=== PATIENT | male | born 1965 | race Two or more races ===

== ENCOUNTER 2024-11-01 09:20 | Inpatient (IN) | payer MEDICAID, OTHER ==
[~2024-11-01] VITALS: Ht 167.6 cm; Wt 76.4 kg
--- NOTE | 2024-11-01 09:35 | ED.PDOC ---
History of Present Illness HPI Comments 59 year old male PMHx CHF, CKF, liver disease, presents to the ED with a chief complaint of bilateral feet swelling onset 10 days. Per EMS, patient is form [facility], patient has been experiencing BLE swelling for the past 10 days. Patient also states he fell backwards this morning, was feeling weak with muscle spasms. Denies LOC, head injury, nausea, vomiting, diarrhea, fever, chills, cough, cold, congestion. No other symptoms or modifying factors present at this time. Time Seen by MD: 09:25 Reviewed Notes: Medications, Allergies Allergies: Coded Allergies: NO KNOWN ALLERGIES (Unverified , 11/01/24) Information Source: Patient, Emergency Med Personnel Severity: Moderate Timing: Days Duration: Since onset Prehospital treatment: None Past Medical History PAST MEDICAL HISTORY: CHF, CKF, Liver Surgical History: Denies all surgeries Family History Family History: Reviewed,noncontributory to illness, No family hx of Cancer, No family hx of DM, No family hx of Heart toyin, No family hx of HTN, No family hx ofKidney toyin, No family hx of Liver toyin, No family hx of Lung toyin, No family hx of Stroke Social History Smoker: Non-Smoker Alcohol: Denies ETOH Use Drugs: Denies Drug Use Lives In: Assisted Care Constitutional: denies: chills, diaphoresis, fatigue, fever, malaise, sweats, weakness, others EENTM: denies: blurred vision, double vision, ear bleeding, ear discharge, ear drainage, ear pain, ear ringing, eye pain, eye redness, hearing loss, mouth pain, mouth swelling, nasal discharge, nose bleeding, nose congestion, nose pain, photophobia, tearing, throat pain, throat swelling, voice changes, others Respiratory: denies: cough, hemoptysis, orthopnea, SOB at rest, shortness of breath, SOB with excertion, stridor, wheezing, others Cardiovascular: denies: chest pain, dizzy spells, diaphoresis, Dyspnea on exertion, edema, irregular heart beat, left arm pain, lightheadedness, palpitations, PND, syncope, others Gastrointestinal: denies: abdomen distended, abdominal pain, blood streaked bowels, constipated, diarrhea, dysphagia, difficulty swallowing, hematemesis, melena, nausea, poor appetite, poor fluid intake, rectal bleeding, rectal pain, vomiting, others Genitourinary: denies: burning, dysuria, flank pain, frequency, hematuria, incontinence, penile discharge, penile sore, pain, testicle pain, testicle swelling, urgency, others Neurological: denies: dizziness, fainting, headache, left sided numbness, left sided weakness, numbness, paresthesia, pre-existing deficit, right sided numbness, right sided weakness, seizure, speech problems, tingling, tremors, weakness, others Musculoskeletal: reports: others (BLE swelling); denies: back pain, gout, joint pain, joint swelling, muscle pain, muscle stiffness, neck pain Integumetry: denies: bruises, change in color, change in hair/nails, dryness, laceration, lesions, lumps, rash, wounds, others Allergic/Immunocompromised: denies: Difficulty Healing, Frequent Infections, Hives, Itching, others Hematologic/Lymphatic: denies: anemia, blood clots, easy bleeding, easy bruising, swollen glands, others Endocrine: denies: excessive hunger, excessive sweating, excessive thirst, excessive urination, flushing, intolerance to cold, intolerance to heat, unexp lained weight gain, unexplained weight loss, others Psychiatric: denies: anxiety, bipolar disorder, depression, hopeless, panic disorder, schizophrenia, sleepless, suicidal, others All Other Systems: Reviewed and Negative Physical Exam General Appearance: No Apparent Distress, Normal HEENT: Normal ENT Inspection, Pharynx Normal, TMs Normal Neck: Full Range of Motion, Non-Tender, Normal, Normal Inspection Respiratory: Chest Non-Tender, Lungs Clear, No Accessory Muscle Use, No Respiratory Distress, Normal Breath Sounds Cardiovascular: No Edema, No JVD, No Murmur, No Gallop, Normal Peripheral Pulse s, Regular Rate/Rhythm Breast Exam: Deferred Gastrointestinal: No Organomegaly, Non Tender, No Pulsatile Mass, Normal Bowel Sounds, Soft Genitalia: Deferred Pelvic: Deferred Rectal: Deferred Extremities: No calf tenderness, Normal capillary refill, Normal inspection, Normal range of motion, Non-tender, No pedal edema Musculoskeletal : Apperance: Normal Neurologic: Alert, epic cupid analyst II-XII nml as Tested, No Motor Deficits, Normal Affect, Normal Mood, No Sensory Deficits Cerebellar Function: Normal Reflexes: Normal Skin: Dry, Normal Color, Warm Lymphatic: No Adenopathy Was a procedure done? Was a procedure done?: No Differential Dx Considerations may include: ACS, viral syndrome, cardiac arrhythmia, infectious etiology, worsening CKD X-Ray, Labs, Meds, VS Vital Signs Date Time Temp Pulse Resp B/P (MAP) Pulse Ox O2 Delivery O2 Flow Rate FiO2 11/01/24 09:25 98.1 86 16 170/102 95 98.1 Lab Test 11/01/24 13:01 11/01/24 11:05 11/01/24 10:10 Range/Units Troponin I High Sensitivity Pending 36 32 </=54 ng/L White Blood Count 5.5 4.4-10.8 10^3/uL Red Blood Count 4.10 L 4.5-5.90 10^6/uL Hemoglobin 9.6 L 13.5-17.5 g/dL Hematocrit 30.2 L 41.0-53.0 % Mean Corpuscular Volume 73.7 L 80.0-100.0 fL Mean Corpuscular Hemoglobin 23.4 L 28.0-32.0 pg Mean Corpuscular Hemoglobin Concent 31.8 L 32.0-36.0 g/dL Red Cell Distribution Width 16.6 H 11.8-14.3 % Platelet Count 290 140-450 10^3/uL Mean Platelet Volume 7.4 6.9-10.8 fL Neutrophils (%) (Auto) 71.4 37.0-80.0 % Lymphocytes (%) (Auto) 13.3 10.0-50.0 % Monocytes (%) (Auto) 4.9 0.0-12.0 % Eosinophils (%) (Auto) 9.9 H 0.0-7.0 % Basophils (%) (Auto) 0.5 0.0-2.0 % Neutrophils # (Auto) 4.0 1.6-8.6 10 ^3/uL Lymphocytes # (Auto) 0.7 0.4-5.4 10 ^3/uL Monocytes # (Auto) 0.3 0-1.3 10 ^3/uL Eosinophils # (Auto) 0.6 0-0.8 10 ^3/uL Basophils # (Auto) 0 0-0.2 10 ^3/uL Nucleated Red Blood Cells 0.1 % Sodium Level 139 136-145 mmol/L Potassium Level 3.5 3.5-5.1 mmol/L Chloride Level 103 98-107 mmol/L Carbon Dioxide Level 28 20-31 mmol/L Anion Gap 8 5-15 Blood Urea Nitrogen 34 H 9-23 mg/dL Creatinine 2.65 H 0.700-1.30 mg/dL Glomerular Filtration Rate Calc 27 >90 mL/min BUN/Creatinine Ratio 12.8 10.0-20.0 Serum Glucose 101 74-106 mg/dL Calcium Level 9.0 8.7-10.4 mg/dL [place] [id number] Ph: [phone] DIAGNOSTIC IMAGING Diagnostic Imaging Report : [id number] Signed PATIENT: KERRI OCONNELL ACCT: [id number] UNIT: [id number] : 1965 LOC: ER ROOM / BED: / AGE / SEX: 59 / M ADM STATUS: REG ER SERVICE 4 ORDERING PHYSICIAN: YANY CHOI MD PROCEDURE(s): CXRP - CHEST PORTABLE REASON: weakness ORDER NUMBER(s): [id number], ACCESSION NUMBER(s): [id number] EXAM: XY CHEST PORTABLE Indication: weakness Technique: Single frontal view of the chest was obtained Comparison: None FINDINGS: Lines and Tubes: None Lungs: Small left pleural effusion and pulmonary vascular congestion. No pneumothorax. Cardiomediastinal contours: Unremarkable Bones: No acute osseous abnormality. IMPRESSION: Small left pleural effusion and pulmonary vascular congestion. ATED BY: SOLITARIO BUTLER MD DICTATED DATE/TIME: 11/01/24 1016 SIGNED BY: SOLITARIO BUTLER MD SIGNED DATE/TIME: 11/01/24 1016 CC: Time of 1ST Reevaluation: 09:55 Reevaluation 1ST: Unchanged Patient Education/Counseling: Diagnosis, Treatment, Prognosis Family Education/Counseling: No Family Present SEPSIS Sepsis Screen Physician Orders Urinalysis (11/01/24 09:25) Chest Portable (11/01/24 09:25) Troponin-I Hs (11/01/24 12:25) Head Without Contrast (11/01/24 12:37) Vital Signs Date Time Temp Pulse Resp B/P (MAP) Pulse Ox O2 Delivery O2 Flow Rate FiO2 11/01/24 09:25 98.1 86 16 170/102 95 98.1 Laboratory Tests Test 11/01/24 10:10 White Blood Count 5.5 10^3/uL (4.4-10.8) Departure 1 Departure Time of Disposition: 12:36 (Patient presented with syncope today and should be admitted. Data: 1. I ordered and reviewed the result of at least 3 labs including a CBC, BMP, and troponin. 2. I independently interpreted the following tests: EKG which shows a sinus arrhythmia and a chest x-ray which shows benign chest and a CT head which shows benign brain.Risk:This patient has a high risk of morbidity due to further diagnostic testing or treatment and may suffer from an acute cardiac, neurologic, or infectious disorder. Rationale: Patient should be admitted to the hospital for further management.) Impression: Primary Impression: Syncope and collapse Additional Impression: Generalized weakness Disposition: ADMITTED INPATIENT Admit to: Tele Condition: Serious Critical Care Note Critical Care Time?: No Stability Stability form required: No Heart Score Heart Score: Heart Score Response (Comments) Value History N/A 0 EKG N/A 0 Age N/A 0 Risk Factors N/A 0 Troponin N/A 0 Total 0 I personally scribed for YANY CHOI MD ([email or web address]) on 11/01/24 at 09:35. Electronically submitted by Coreen Berry ([email or web address]). I personally scribed for YANY CHOI MD ([email or web address]) on 11/01/24 at 10:42. Electronically submitted by Coreen Berry ([email or web address]). YANY CHOI MD Nov 01, 2024 09:35
--- NOTE | 2024-11-01 10:18 | DVH ---
EXAM: XY CHEST PORTABLE Indication: weakness Technique: Single frontal view of the chest was obtained Comparison: None FINDINGS: Lines and Tubes: None Lungs: Small left pleural effusion and pulmonary vascular congestion. No pneumothorax. Cardiomediastinal contours: Unremarkable Bones: No acute osseous abnormality. IMPRESSION: Small left pleural effusion and pulmonary vascular congestion.
[2024-11-01 10:47] LABS: Hematocrit 30.2 % (41.0-53.0); Hemoglobin 9.6 g/dL (13.5-17.5); Mean Corpuscular Hemoglobin 23.4 pg (28.0-32.0); Mean Corpuscular Volume 73.7 fL (80.0-100.0); Nucleated Red Blood Cells % 0.1 %
[2024-11-01 10:54] LABS: Chloride 103 mmol/L (98-107); Potassium 3.5 mmol/L (3.5-5.1); Sodium 139 mmol/L (136-145)
[2024-11-01 10:56] LABS: Anion Gap 8 (5-15); Calcium 9.0 mg/dL (8.7-10.4); Carbon Dioxide 28 mmol/L (20-31)
[2024-11-01 11:00] LABS: BUN/Creatinine Ratio 12.8 (10.0-20.0); Glucose 101 mg/dL (74-106)
[2024-11-01 11:03] LABS: Blood Urea Nitrogen 34 mg/dL (9-23)
--- NOTE | 2024-11-01 13:14 | DVH ---
CT brain without contrast CLINICAL INDICATION: syncope FINDINGS: The study was performed in a multidetector scanner. This study performed taking axial image s from the skull base up to the vertex. Both brain and bone windows are photographed. Dose lowering techniques have been used including automated exposure control and adjustment of mA and /or KV according to patient size. Normal and symmetrical shape and density of brain parenchyma above and below the tentorium is seen. T here is no mass, midline shift or hydrocephalus. No intra/extra-axial collections demonstrated. There is no intracranial hemorrhage. The calvarium is intact. IMPRESSION: 1. Mild cortical sulcal prominence. No acute intracranial pathology Computed Tomographic Radiation Dosimetry Report: Total CTDI vol = 59.21mGy Total DLP = 1.71mGy-cm All CT scans at this medical facility are performed using dose modulation techniques as appropriate to a performed exam including the following: Automated exposure control was utilized; adjustment of the M A and/or KvP according to patient size; and use of iterative reconstruction technique.
[2024-11-01] MEDS ORDERED: ONDANSETRON HCL 4 MG/2 ML VIAL IV PRN (16:00)
[2024-11-01] MEDS ORDERED: NITROGLYCERIN 0.4 MG SL TAB SL PRN (16:00)
[2024-11-01] MEDS ORDERED: ACETAMINOPHEN 325 MG TAB PO PRN (16:00)
[2024-11-01] MEDS ORDERED: MORPHINE SULFATE INJ 2 MG/ml SYRG IV PRN (16:00)
[2024-11-01] MEDS ORDERED: GAB100C PO (16:06)
[2024-11-01] MEDS ORDERED: MORP30TA PO (16:06)
[2024-11-01] MEDS ORDERED: LACT10SO3 PO (16:06)
[2024-11-01] MEDS ORDERED: DOCU-265 PO (16:06)
[2024-11-01] MEDS ORDERED: ZOLP5TAB5 PO (16:06)
[2024-11-01] MEDS ORDERED: MET50T PO (16:06)
[2024-11-01] MEDS ORDERED: HYDR100T10 PO (16:06)
[2024-11-01] MEDS ORDERED: MORPHINE SULFATE 30 MG PO PRN (16:15)
--- NOTE | 2024-11-01 16:30 | DVHHP2 ---
History of Present Illness Reason for Visit: Fall History of Present Illness Ochoa Thomason is a 59-year-old male with past medical history of CHF, hypertension, cirrhosis, and chronic renal insufficiency, who came to the hospital S/P fall. Patient states he has muscle spasms/tremors daily, but this morning was worse and he fell to the ground and hit his head. He states he did not lose consciousness. Patient also has complaints of bilateral upper and lower extremity edema that is new. Cardiovascular: CHF, HTN Hepatobiliary: Cirrhosis Renal/: Chronic renal insuff Past Surgical History: Other (Right shoulder) Smoke: No ALCOHOL: none Drugs: None Lives: Long-Term Review of Systems Constitutional: Yes: Weakness; No: Fever, Chills, Sweats, Malaise, Other Eyes: No: Pain, Vision change, Conjunctivae inflammation, Eyelid inflammation, Other, Redness ENT: No: Ear pain, Ear discharge, Nose pain, Nose discharge, Nose congestion, Mouth pain, Mouth swelling, Throat pain, Throat swelling, Other Respiratory: No: Cough, Dry, Shortness of breath, SOB with excertion, Wheezing, Hemoptysis, Pleuritic Pain, Sputum, Wheezing, Other Cardiovascular: Edema (bilateral lower and upper extremtiy edema); No: Chest Pain, Palpitations, Orthopnea, Paroxysmal Noc. Dyspnea, Lt Headedness, Other Gastrointestinal: No: Nausea, Vomiting, Abdominal Pain, Diarrhea, Constipation, Melena, Hematochezia, Other Genitourinary: No Dysuria, No Frequency, No Incontinence, No Hematuria, No Retention, No Other Musculoskeletal: No: other, neck pain, shoulder pain, arm pain, back pain, hand pain, leg pain, foot pain Skin: No: Rash, Lesions, Jaundice, Bruising, Other Neurological: Weakness; No: Numbness, Incoordination, Change in speech, Confusion, Seizures, Other Allergies: Coded Allergies: NO KNOWN ALLERGIES (Unverified , 11/01/24) Exam Vital Signs Vital Signs Date Time Temp Pulse Resp B/P (MAP) Pulse Ox O2 Delivery O2 Flow Rate FiO2 11/01/24 09:25 98.1 86 16 170/102 95 98.1 General Appearance: Alert, Oriented X3, Cooperative, mild distress HEENT: Atraumatic, PERRLA Cardiovascular: Regular rate, Normal S1, Normal S2 Abdominal: Normal bowel sounds, Soft, No tenderness, No hepatospenomegaly Extremities: No clubbing, No cyanosis, Other (Bilateral upper and lower extremity edema) Skin: No rashes, No breakdown Neuro: Normal speech, Other (states he has weakness, and tremors) Psych/Mental Status: Mental status NL, Mood NL Labs/Xrays Labs Test 11/01/24 13:01 11/01/24 10:10 Range/Units Troponin I High Sensitivity 35 </=54 ng/L White Blood Count 5.5 4.4-10.8 10^3/uL Red Blood Count 4.10 L 4.5-5.90 10^6/uL Hemoglobin 9.6 L 13.5-17.5 g/dL Hematocrit 30.2 L 41.0-53.0 % Mean Corpuscular Volume 73.7 L 80.0-100.0 fL Mean Corpuscular Hemoglobin 23.4 L 28.0-32.0 pg Mean Corpuscular Hemoglobin Concent 31.8 L 32.0-36.0 g/dL Red Cell Distribution Width 16.6 H 11.8-14.3 % Platelet Count 290 140-450 10^3/uL Mean Platelet Volume 7.4 6.9-10.8 fL Neutrophils (%) (Auto) 71.4 37.0-80.0 % Lymphocytes (%) (Auto) 13.3 10.0-50.0 % Monocytes (%) (Auto) 4.9 0.0-12.0 % Eosinophils (%) (Auto) 9.9 H 0.0-7.0 % Basophils (%) (Auto) 0.5 0.0-2.0 % Neutrophils # (Auto) 4.0 1.6-8.6 10 ^3/uL Lymphocytes # (Auto) 0.7 0.4-5.4 10 ^3/uL Monocytes # (Auto) 0.3 0-1.3 10 ^3/uL Eosinophils # (Auto) 0.6 0-0.8 10 ^3/uL Basophils # (Auto) 0 0-0.2 10 ^3/uL Nucleated Red Blood Cells 0.1 % Sodium Level 139 136-145 mmol/L Potassium Level 3.5 3.5-5.1 mmol/L Chloride Level 103 98-107 mmol/L Carbon Dioxide Level 28 20-31 mmol/L Anion Gap 8 5-15 Blood Urea Nitrogen 34 H 9-23 mg/dL Creatinine 2.65 H 0.700-1.30 mg/dL Glomerular Filtration Rate Calc 27 >90 mL/min BUN/Creatinine Ratio 12.8 10.0-20.0 Serum Glucose 101 74-106 mg/dL Calcium Level 9.0 8.7-10.4 mg/dL EXAM: XY CHEST PORTABLE FINDINGS: Lines and Tubes: None Lungs: Small left pleural effusion and pulmonary vascular congestion. No pneumothorax. Cardiomediastinal contours: Unremarkable Bones: No acute osseous abnormality. IMPRESSION: Small left pleural effusion and pulmonary vascular congestion. CT brain without contrast FINDINGS: The study was performed in a multidetector scanner. This study performed taking axial images from the skull base up to the vertex. Both brain and bone windows are photographed. Dose lowering techniques have been used including automated exposure control and adjustment of mA and/or KV according to patient size. Normal and symmetrical shape and density of brain parenchyma above and below the tentorium is seen. There is no mass, midline shift or hydrocephalus. No intra/extra-axial collections demonstrated. There is no intracranial hemorrhage. The calvarium is intact. IMPRESSION: 1. Mild cortical sulcal prominence. No acute intracranial pathology SEPSIS Sepsis Screen Date sepsis recognized/suspect: Nov 01, 2024 Time Sepsis recognized/suspect: 924 Recent Procedure: No On Antibiotic Therapy: No Respiratory Rate >20: No Heart Rate >90: No Temp<36 C (96.8 F) or >38.3 C: No SBP <90 or MAP <65 mmHG: No New Acute Mental Status Change: No Is the patient on CPAP, BIPAP,: No Physician Orders Urinalysis (11/01/24 09:25) Chest Portable (11/01/24 09:25) Head Without Contrast (11/01/24 12:37) Admit (11/01/24 15:56) Code Status (11/01/24 15:56) Sodium Chloride Lock (Saline Lock Ns) (11/01/24 22:00) Hydrocodone-Acet 5/325mg Tab ([place] 5/32 (11/01/24 16:00) Ondansetron Hcl (Zofran) (11/01/24 16:00) Vital Signs Date Time Temp Pulse Resp B/P (MAP) Pulse Ox O2 Delivery O2 Flow Rate FiO2 11/01/24 09:25 98.1 86 16 170/102 95 98.1 Laboratory Tests Test 11/01/24 10:10 White Blood Count 5.5 10^3/uL (4.4-10.8) Assessment/Plan Assessment/Plan Assessment: CHF exacerbation, Syncope and collapse, Tremors, Chronic pain, Plan: Admit to Tele, ECHO, Carotid duplex, IV lasix, Home medications reconciled, Plan discussed with: Patient My Orders Orders - MEL PHOENIX Procedure Category Date Status Time Admit ADMIT 11/01/24 Verified 15:56 Code Status CODE 11/01/24 Verified 15:56 Sodium Chloride Lock PHA 11/01/24 Verified (Sal[place] Lock Ns) 22:00 Hydrocodone-Acet PHA 11/01/24 Verified 5/325mg Tab ([place] 16:00 Ondansetron Hcl PHA 11/01/24 Verified (Zofran) 16:00 Date of Service: Nov 01, 2024 Billing Provider: MEL PHOENIX Common Visit Codes: [id number] INP/OBS CARE (MOD) MEL PHOENIX Nov 01, 2024 16:30
[2024-11-01] MEDS ORDERED: LACTULOSE 20Gm/30ML SOLN PO PRN (16:45)
--- NOTE | 2024-11-01 17:14 | DVH ---
ULTRASOUND CAROTID DUPLEX BILATERAL REASON FOR EXAM: Syncope. Hypertension. COMPARISON: None TECHNIQUE: Using real-time freeze-frame technique with a high-frequency small parts transducer, mult iple longitudinal and transverse sections were obtained. Simultaneous color flow Doppler imaging was performed. FINDINGS: There is minimal calcified plaque in both carotid bulbs. Waveforms are normal. Flow is la minar throughout. Peak systolic velocities as well as ICA/CCA ratios are normal. Flow through the ve rtebral and external carotid arteries is antegrade bilaterally. PEAK SYSTOLIC VELOCITIES (cm/sec): RIGHT: CCA 59.9 Proximal ICA 53.7 Mid ICA 59.2 Distal ICA 66.1 ECA 44.9 ICA/CCA ratio 1.1 LEFT: CCA 58.0 Proximal ICA 66.0 Mid ICA 70.9 Distal ICA 67.7 ECA 56.4 ICA/CCA ratio 1.2 IMPRESSION: Minimal atherosclerotic disease. No hemodynamically significant stenosis. Any narrowing is less caden n 50%. Measurement of carotid stenosis is based on velocity parameters that correlate the residual internal carotid diameter with that of the more distal vessel in accordance with the [place] Symptomati c Carotid Endarterectomy Trial (NASCET).
[2024-11-01] MEDS: HYDROcodone-ACET 5/325MG TAB PO PRN (19:57)
[2024-11-01] MEDS: FUROSEMIDE 40 MG/4 ML VIAL IV ONE (19:57)
[2024-11-01] MEDS: DOCUSATE SOD 100 MG CAP PO SCH (22:00)
[2024-11-01 22:45] VITALS: BP 189/110; PULSE 59; RESP 19; TEMP 98.1; O2SAT 94
[2024-11-01] MEDS: METOPROLOL TARTRATE 50 MG TAB PO SCH (23:43)
[2024-11-01] MEDS: ZOLPIDEM TARTRATE 5 MG TAB PO PRN (23:44)
[2024-11-01] MEDS: GABAPENTIN 100 MG CAP PO SCH (23:44)
[2024-11-02] VITALS (9 sets, daily range): BP systolic 132–189; BP diastolic 72–112; PULSE 53–101; RESP 18–22; TEMP 97.7–98.6; O2SAT 95–100
[2024-11-02] MEDS: MORPHINE SULF 30 mg ER tab PO ONE (01:34)
[2024-11-02] MEDS: SODIUM CHLOR 0.9% PF (SALINE LOCK) 10ML VIAL/SYR IV SCH (04:56)
[2024-11-02 07:29] LABS: Albumin 3.2 g/dL (3.2-4.8); Alkaline Phosphatase 102 U/L (46-116); Anion Gap 9 (5-15); BUN/Creatinine Ratio 13.8 (10.0-20.0); Carbon Dioxide 27 mmol/L (20-31); Chloride 104 mmol/L (98-107); Glucose 91 mg/dL (74-106); Sodium 140 mmol/L (136-145); Total Protein 6.5 g/dL (5.7-8.2)
[2024-11-02 07:30] LABS: Bilirubin, Total 0.3 mg/dL (0.2-1.0)
[2024-11-02 07:31] LABS: Alanine Aminotransferase 9 U/L (7-40); Blood Urea Nitrogen 39 mg/dL (9-23); Calcium 8.7 mg/dL (8.7-10.4); Potassium 3.4 mmol/L (3.5-5.1)
[2024-11-02 07:33] LABS: Hematocrit 30.4 % (41.0-53.0); Hemoglobin 9.9 g/dL (13.5-17.5); Mean Corpuscular Hemoglobin 23.6 pg (28.0-32.0); Mean Corpuscular Volume 72.8 fL (80.0-100.0); Nucleated Red Blood Cells % 0.1 %
[2024-11-02] MEDS: FUROSEMIDE 40 MG/4 ML VIAL IV SCH (10:53)
[2024-11-02] MEDS: METOPROLOL TARTRATE 50 MG TAB PO ONE (13:00)
--- NOTE | 2024-11-02 16:55 | DVHPN2 ---
Reviewed: H&P Changes from previous H/P or p: No Changes General: Per HPI Eyes: No Pain, No Vision change, No Conjunctivae inflammation, No Eyelid inflammation, No Other, No Redness ENT: No Ear pain, No Ear discharge, No Nose pain, No Nose discharge, No Nose congestion, No Mouth pain, No Mouth swelling, No Throat pain, No Throat swelling, No Other Cardiovascular: No Chest Pain, No Palpitations, No Orthopnea, No Paroxysmal Noc. Dyspnea; Edema (bilateral lower and upper extremtiy edema); No Lt Headedness, No Other Respiratory: No Cough, No Dry, No Shortness of breath, No SOB with excertion, No Wheezing, No Hemoptysis, No Pleuritic Pain, No Sputum, No Other Gastrointestinal: No Nausea, No Vomiting, No Abdominal Pain, No Diarrhea, No Constipation, No Melena, No Hematochezia, No Other Genitourinary: No Dysuria, No Frequency, No Incontinence, No Hematuria, No Retention, No Other Musculoskeletal: No other, No neck pain, No shoulder pain, No arm pain, No back pain, No hand pain, No leg pain, No foot pain Skin: No Rash, No Lesions, No Jaundice, No Bruising, No Other Objective Vitals Vital Signs Date Time Temp Pulse Resp B/P (MAP) Pulse Ox O2 Delivery O2 Flow Rate FiO2 11/02/24 13:00 98.3 101 22 140/84 (102) 100 98.3 11/02/24 08:00 Nasal Cannula* 2 28 Intake/Output Intake and Output 11/02/24 07:00 Intake Total 300 ml Output Total 200 ml Balance 100 ml Intake Oral 300 ml Output Urine Total 200 ml Exam General Appearance: Alert, Oriented X3, Cooperative, mild distress HEENT: Atraumatic, PERRLA Cardiovascular: Regular rate, Normal S1, Normal S2 Abdominal: Normal bowel sounds, Soft, No tenderness, No hepatospenomegaly, right CVA tenderness positive Extremities: No clubbing, No cyanosis, Other (Bilateral upper and lower extremity edema) Skin: No rashes, No breakdown Neuro: Normal speech, Other (states he has weakness, and tremors) Psych/Mental Status: Mental status NL, Mood NL Medications Current Medications Medications Dose Ordered Sig/Justin Route Start Time Stop Time Status Last Admin Dose Admin Sodium Chloride 10 ml Q8HR IV 11/01/24 22:00 11/02/24 06:27 10 ML Acetaminophen/ Hydrocodone Bitart 1 tab Q4HP PRN PO 11/01/24 16:00 11/02/24 10:54 1 TAB Ondansetron HCl 4 mg Q4HP PRN IV 11/01/24 16:00 Acetaminophen 650 mg Q6HP PRN PO 11/01/24 16:00 Nitroglycerin 0.4 mg Q5MINP PRN SL 11/01/24 16:00 Morphine Sulfate 2 mg Q30M PRN IV 11/01/24 16:00 Furosemide 40 mg DAILY IV 11/02/24 10:00 11/02/24 10:53 40 MG Docusate Sodium 100 mg BID PO 11/01/24 22:00 11/02/24 10:54 100 MG Gabapentin 100 mg BID PO 11/01/24 22:00 11/02/24 10:54 100 MG Zolpidem Tartrate 5 mg QHSP PRN PO 11/01/24 16:15 11/01/24 23:44 5 MG Hydralazine HCl 100 mg TID PO 11/01/24 22:00 11/02/24 06:25 100 MG Lactulose 30 ml BIDP PRN PO 11/01/24 16:45 Patient Own Medication 1 tab QID PRN PO 11/01/24 16:15 Metoprolol Tartrate 100 mg BID PO 11/02/24 22:00 Pantoprazole Sodium 40 mg DAILY IV 11/03/24 10:00 Morphine Sulfate 2 mg Q6HPRN PRN IV 11/02/24 15:15 Laboratory Results Laboratory Tests 11/02/24 06:34 Chemistry Test 11/02/24 06:34 11/02/24 16:20 Albumin 3.2 g/dL (3.2-4.8) Calcium Level 8.7 mg/dL (8.7-10.4) Pending Total Protein 6.5 g/dL (5.7-8.2) Cardiac Markers Test 11/02/24 06:34 B-Type Natriuretic Peptide 296.34 pg/mL (0-100) LFT Test 11/02/24 06:34 Alanine Aminotransferase (ALT) 9 U/L (7-40) Alkaline Phosphatase 102 U/L (46-116) Aspartate Amino Transferase (AST) 23 U/L (13-40) Total Bilirubin 0.3 mg/dL (0.2-1.0) HgA1c, TSH Test 11/02/24 06:34 Thyroid Stimulating Hormone (TSH) 1.96 uIU/mL (0.55-4.78) Labs and/or images reviewed: Labs reviewed by me, Image(s) reviewed by me Assessment/Plan Assessment/Plan 59-year-old male with past medical history of CHF, hypertension, cirrhosis, and chronic renal insufficiency, who came to the hospital S/P fall. Patient states he has muscle spasms/tremors daily, but this morning was worse and he fell to the ground and hit his head. He states he did not lose consciousness. Patient also has complaints of bilateral upper and lower extremity edema that is new. 11/02: Patient here for CHF exacerbation, has not been taking his meds. Also appears to be pain seeking. We will get echo and BNP today. Continue Lasix 40 daily, continue Lopressor, patient was AFib RVR of 140s we will increase Lopressor to 100 b.i.d., and continue Lasix. Strict I&Os. Fluid restriction 1.2 L. okay for low-dose morphine for severe pain. Patient complains of abdominal pain which could be from volume overload. Patient has no/poor basilar breath sounds. Diagnosis: CHF exacerbation, acute on chronic, systolic and/or diastolic dysfunction possible AFib RVR Hypertension Cirrhosis CKD History syncope Baseline tremors Chronic pain issues Plan: UDS Continue Lasix Fluid restriction Strict I&Os Continue Lasix 40 daily Increase Lopressor to 100 b.i.d. Continue other home medications For pain control prn analgesia Continue pain/nausea control PRN Tele DNR Plan discussed with: Patient My Orders Orders - RADHA FISCHER MD Procedure Category Date Status Time Metoprolol Tartrate PHA 11/02/24 In Process Tablet (Lopressor Ta 22:00 Basic Metabolic Panel LAB 11/02/24 In Process 12:53 Pantoprazole PHA 11/03/24 In Process (Protonix) 10:00 Morphine Sulfate PHA 11/02/24 In Process Injection 15:15 Date of Service: Nov 02, 2024 Billing Provider: RADHA FISCHER MD Common Visit Codes: [id number] INP/OBS CARE(HIGH) RADHA FISCHER MD Nov 02, 2024 16:55
[2024-11-02 17:01] LABS: Chloride 103 mmol/L (98-107); Potassium 3.7 mmol/L (3.5-5.1); Sodium 140 mmol/L (136-145)
[2024-11-02 17:02] LABS: Anion Gap 8 (5-15); Calcium 8.9 mg/dL (8.7-10.4); Carbon Dioxide 29 mmol/L (20-31)
[2024-11-02 17:07] LABS: BUN/Creatinine Ratio 12.3 (10.0-20.0); Glucose 89 mg/dL (74-106)
[2024-11-02 17:09] LABS: Blood Urea Nitrogen 38 mg/dL (9-23)
[2024-11-02] MEDS: POTASSIUM EFFERVESENT TAB 25 MEQ PO ONE (18:25)
--- NOTE | 2024-11-02 19:06 | DVHSR ---
APPROVED REPORT EXAM: Two-dimensional and M-mode echocardiogram with Doppler and color Doppler. Blood Pressure: 154/80 mmHg INDICATION Heart Failure RISK FACTORS Height: 5'6", Weight: 166 DIMENSIONS LVDd4.8 (3.8-5.7cm)LA (2D)4.3 (1.9-4.0cm)Aortic Root3.6 (2.0-3.7cm) LVDs3.4 (2.5-4.0cm)LA (MM) (1.9-4.0cm)Aortic Cusp Exc1.9 (1.5-2.0cm) EF (%) 55.0 (55-70%)Rt. Atrium4.3 (1.9-4.0cm)Asc. Aorta3.5 cm IVSd1.3 (0.7-1.1cm)RV (D)4.0 (1.8-2.4cm) PWd1.4 (0.7-1.1cm) Mitral Valve MitralMitral Stenosis E wave0.85m/sMV Mean GR.mmHg A wave0.90m/sMV Peak GR.mmHg E/A ratio0.92D MVAcm2 DECEL [id number] 1/2 Timems Aortic Valve Aortic ValveAortic Stenosis V11.16m/Darcy Mean GR.4mmHg V21.44m/Darcy Peak GR.8mmHg LVOT Diameter2.2 (1.8-2.4cm)Doppler AVA3.06cm2 Pulmonic Valve V20.74m/s Conclusion LV EF IS 65% AND IS NORMAL NORMAL VALVES SLIGHTLY DILATED RV AND RA NO EFFUSION NORMAL RV FUNCTION
[2024-11-02] MEDS: METOPROLOL TARTRATE 50 MG TAB PO SCH (21:05)
[2024-11-02] MEDS: MORPHINE SULFATE INJ 2 MG/ml SYRG IV PRN (21:07)
[2024-11-03] VITALS (8 sets, daily range): BP systolic 135–164; BP diastolic 66–99; PULSE 53–75; RESP 18–20; TEMP 97.7–99; O2SAT 96–100
[2024-11-03 01:23] LABS: Urine Protein, UAD 1+ (Negative)
[2024-11-03 07:44] LABS: Hematocrit 30.0 % (41.0-53.0); Hemoglobin 9.8 g/dL (13.5-17.5); Mean Corpuscular Hemoglobin 23.7 pg (28.0-32.0); Mean Corpuscular Volume 72.7 fL (80.0-100.0); Nucleated Red Blood Cells % 0.1 %
[2024-11-03 08:17] LABS: Chloride 103 mmol/L (98-107); Sodium 140 mmol/L (136-145)
[2024-11-03 08:18] LABS: Anion Gap 10 (5-15); Calcium 8.8 mg/dL (8.7-10.4); Carbon Dioxide 27 mmol/L (20-31)
[2024-11-03 08:23] LABS: BUN/Creatinine Ratio 13.1 (10.0-20.0); Glucose 99 mg/dL (74-106)
[2024-11-03 08:25] LABS: Blood Urea Nitrogen 42 mg/dL (9-23); Potassium 3.4 mmol/L (3.5-5.1)
[2024-11-03] MEDS: PANTOPRAZOLE 40 MG/10 ML VIAL INJ IV SCH (09:50)
[2024-11-03] MEDS: METOPROLOL TARTRATE 50 MG TAB PO SCH (09:59)
[2024-11-03] MEDS ORDERED: ONDA-155 (10:51)
[2024-11-03] MEDS ORDERED: NITR0.4S29 (10:51)
[2024-11-03] MEDS ORDERED: HYDR-4611 PO (10:51)
--- NOTE | 2024-11-03 11:53 | DVHPN2 ---
Reviewed: H&P Changes from previous H/P or p: No Changes General: Per HPI Eyes: No Pain, No Vision change, No Conjunctivae inflammation, No Eyelid inflammation, No Other, No Redness ENT: No Ear pain, No Ear discharge, No Nose pain, No Nose discharge, No Nose congestion, No Mouth pain, No Mouth swelling, No Throat pain, No Throat swelling, No Other Cardiovascular: No Chest Pain, No Palpitations, No Orthopnea, No Paroxysmal Noc. Dyspnea; Edema (bilateral lower and upper extremtiy edema); No Lt Headedness, No Other Respiratory: No Cough, No Dry, No Shortness of breath, No SOB with excertion, No Wheezing, No Hemoptysis, No Pleuritic Pain, No Sputum, No Other Gastrointestinal: No Nausea, No Vomiting, No Abdominal Pain, No Diarrhea, No Constipation, No Melena, No Hematochezia, No Other Genitourinary: No Dysuria, No Frequency, No Incontinence, No Hematuria, No Retention, No Other Musculoskeletal: No other, No neck pain, No shoulder pain, No arm pain, No back pain, No hand pain, No leg pain, No foot pain Skin: No Rash, No Lesions, No Jaundice, No Bruising, No Other Objective Vitals Vital Signs Date Time Temp Pulse Resp B/P (MAP) Pulse Ox O2 Delivery O2 Flow Rate FiO2 11/03/24 09:59 65 154/85 11/03/24 08:00 18 Room Air* 0 21 11/03/24 07:34 98.2 98 98.2 Intake/Output Intake and Output 11/03/24 07:00 Intake Total 2300 ml Output Total 1750 ml Balance 550 ml Intake Oral 2300 ml Output Urine Total 1750 ml Exam General Appearance: Alert, Oriented X3, Cooperative, mild distress HEENT: Atraumatic, PERRLA Cardiovascular: Regular rate, Normal S1, Normal S2 Abdominal: Normal bowel sounds, Soft, No tenderness, No hepatospenomegaly, right CVA tenderness positive Extremities: No clubbing, No cyanosis, Other (Bilateral upper and lower extremity edema) Skin: No rashes, No breakdown Neuro: Normal speech, Other (states he has weakness, and tremors) Psych/Mental Status: Mental status NL, Mood NL Medications Current Medications Medications Dose Ordered Sig/Justin Route Start Time Stop Time Status Last Admin Dose Admin Sodium Chloride 10 ml Q8HR IV 9/22/25 22:00 11/03/24 05:04 10 ML Ondansetron HCl 4 mg Q4HP PRN IV 11/01/24 16:00 Acetaminophen 650 mg Q6HP PRN PO 11/01/24 16:00 Nitroglycerin 0.4 mg Q5MINP PRN SL 11/01/24 16:00 Morphine Sulfate 2 mg Q30M PRN IV 11/01/24 16:00 Furosemide 40 mg DAILY IV 11/02/24 10:00 11/03/24 09:59 40 MG Docusate Sodium 100 mg BID PO 11/01/24 22:00 11/03/24 09:59 100 MG Gabapentin 100 mg BID PO 11/01/24 22:00 11/03/24 09:59 100 MG Zolpidem Tartrate 5 mg QHSP PRN PO 11/01/24 16:15 11/03/24 00:42 5 MG Hydralazine HCl 100 mg TID PO 11/01/24 22:00 11/03/24 04:57 100 MG Lactulose 30 ml BIDP PRN PO 11/01/24 16:45 Patient Own Medication 1 tab QID PRN PO 11/01/24 16:15 Pantoprazole Sodium 40 mg DAILY IV 11/03/24 10:00 11/03/24 09:50 40 MG Morphine Sulfate 2 mg Q6HPRN PRN IV 11/02/24 15:15 11/03/24 05:02 2 MG Metoprolol Tartrate 50 mg BID PO 11/03/24 10:00 11/03/24 09:59 50 MG Acetaminophen/ Hydrocodone Bitart 1 tab Q6HP PRN PO 11/03/24 10:45 Laboratory Results Laboratory Tests 11/03/24 06:41 Chemistry Test 11/02/24 16:20 11/03/24 06:41 Calcium Level 8.9 mg/dL (8.7-10.4) 8.8 mg/dL (8.7-10.4) Urinalysis Test 11/03/24 00:45 Urine Color Colorless (Yellow) Urine Clarity Clear (Clear) Urine pH 5.5 (5.0-9.0) Urine Specific [place] 1.010 (1.001-1.035) Urine Protein 1+ (Negative) H Urine Ketones Negative (Negative) Urine Blood 2+ /uL (Negative) H Urine Nitrite Negative (Negative) Urine Bilirubin Negative (Negative) Urine Urobilinogen Normal mg/dL (Negative) Urine Leukocyte Esterase Negative /uL (Negative) Urine RBC 253 /hpf (0 - 3) Urine Microscopic WBC 5 /HPF (0-3) H Urine Squamous Epithelial Cells Few /hpf (<5) Urine Bacteria None seen /hpf (None Seen) Urine Glucose Normal mg/dL (Normal) Labs and/or images reviewed: Labs reviewed by me, Image(s) reviewed by me Assessment/Plan Assessment/Plan 59-year-old male with past medical history of CHF, hypertension, cirrhosis, and chronic renal insufficiency, who came to the hospital S/P fall. Patient states he has muscle spasms/tremors daily, but this morning was worse and he fell to the ground and hit his head. He states he did not lose consciousness. Patient also has complaints of bilateral upper and lower extremity edema that is new. 11/02: Patient here for CHF exacerbation, has not been taking his meds. Also appears to be pain seeking. We will get echo and BNP today. Continue Lasix 40 daily, continue Lopressor, patient was AFib RVR of 140s we will increase Lopressor to 100 b.i.d., and continue Lasix. Strict I&Os. Fluid restriction 1.2 L. okay for low-dose morphine for severe pain. Patient complains of abdominal pain which could be from volume overload. Patient has no/poor basilar breath sounds. 11/03: Still has decreased diminished breath sounds with rales. Continues to be volume overload. Continuing Lasix. Continues to ask for pain meds pain seeking behavior. Abdominal pain appears to be voluntary guarding. He also has a canker sore left tongue. We will give lidocaine. Who was bradycardic we will decrease Lopressor back to 50 b.i.d., patient has CKD not on HD, we will need Nephrology referral outpatient. Diagnosis: CHF exacerbation, acute on chronic, systolic and/or diastolic dysfunction possible AFib RVR Hypertension Cirrhosis CKD History syncope Baseline tremors Chronic pain issues Plan: UDS Continue Lasix Fluid restriction Strict I&Os Continue Lasix 40 daily Increase Lopressor to 100 b.i.d. Continue other home medications For pain control prn analgesia Continue pain/nausea control PRN Tele DNR Plan discussed with: Patient My Orders Orders - RADHA FISCHER MD Procedure Category Date Status Time Pantoprazole PHA 11/03/24 In Process (Protonix) 10:00 Morphine Sulfate PHA 11/02/24 In Process Injection 15:15 Metoprolol Tartrate PHA 11/03/24 In Process Tablet (Lopressor Ta 10:00 Maintain Fluid JOSEPHINE 11/03/24 In Process Restrictions 08:43 Strict I & O JOSEPHINE 11/03/24 In Process 08:43 Hydrocodone-Acet PHA 11/03/24 In Process 10/325mg Tab ([place] 10:45 Date of Service: Nov 03, 2024 Billing Provider: RADHA FISCHER MD Common Visit Codes: [id number] INP/OBS CARE(HIGH) RADHA FISCHER MD Nov 03, 2024 11:53
[2024-11-03] MEDS: POTASSIUM EFFERVESENT TAB 25 MEQ PO ONE (16:34)
[2024-11-03] MEDS: HYDROcodone-ACET 10/325MG TAB PO PRN (20:23)
[2024-11-04 01:02] VITALS: BP 169/97; PULSE 60; RESP 18; TEMP 98.1; O2SAT 99
[2024-11-04 05:40] VITALS: BP 161/99; PULSE 60; RESP 20; TEMP 98; O2SAT 98
[2024-11-04 07:31] LABS: Albumin 3.4 g/dL (3.2-4.8); Alkaline Phosphatase 90 U/L (46-116); Anion Gap 9 (5-15); BUN/Creatinine Ratio 13.2 (10.0-20.0); Calcium 9.1 mg/dL (8.7-10.4); Carbon Dioxide 31 mmol/L (20-31); Chloride 102 mmol/L (98-107); Potassium 3.6 mmol/L (3.5-5.1); Sodium 142 mmol/L (136-145); Total Protein 7.0 g/dL (5.7-8.2)
[2024-11-04 07:32] LABS: Alanine Aminotransferase 9 U/L (7-40); Blood Urea Nitrogen 45 mg/dL (9-23); Glucose 109 mg/dL (74-106)
[2024-11-04 07:34] LABS: Bilirubin, Total 0.2 mg/dL (0.2-1.0)
[2024-11-04 08:00] VITALS: PULSE 65; PULSE 76; RESP 20; O2SAT 96
--- NOTE | 2024-11-04 08:58 | DVH ---
CLINICAL HISTORY: eval renal disease TECHNIQUE: Complete ultrasound exam of the kidneys and bladder was performed. COMPARISON: None FINDINGS: The right kidney has increased echogenicity and measures 12.1 cm. There is no focal parenchymal abnor mality or evidence for stone. There is no hydronephrosis. The left kidney has increased echogenicity and measures 10.5 cm. There is no focal parenchymal abnor mality or evidence for stone. There is no hydronephrosis. The bladder is grossly unremarkable. There are bilateral pleural effusions. IMPRESSION: Echogenic kidneys, compatible medical renal disease. Bilateral pleural effusions, partially imaged.
[2024-11-04 09:00] VITALS: BP 155/84; PULSE 65; RESP 20; TEMP 98.3; O2SAT 96
[2024-11-04] MEDS: LACTATED RINGER'S 500 ML IV ONE (09:25)
[2024-11-04] MEDS: FAMOTIDINE (10MG/ML) 2ML VL IV SCH (10:22)
--- NOTE | 2024-11-04 10:30 | DVH ---
Date: 11/04/2024 09:08 AM Examination: XY KUB ABDOMEN SINGLE VIEW History: abdominal pain, up right KUB Comparison: None TECHNIQUE: Frontal views of the abdomen was obtained. FINDINGS: Bowel gas pattern is unremarkable. The lung bases are unremarkable. No acute osseous abnormality identified. IMPRESSION: Nonobstructive bowel gas pattern. Large stool burden.
[2024-11-04 12:32] LABS: Chloride 99 mmol/L (98-107); Potassium 3.6 mmol/L (3.5-5.1); Sodium 139 mmol/L (136-145)
[2024-11-04 12:34] LABS: Anion Gap 9 (5-15); Calcium 9.2 mg/dL (8.7-10.4)
[2024-11-04 12:35] LABS: Carbon Dioxide 31 mmol/L (20-31)
[2024-11-04 12:39] LABS: BUN/Creatinine Ratio 13.4 (10.0-20.0)
[2024-11-04 12:41] LABS: Blood Urea Nitrogen 45 mg/dL (9-23); Glucose 226 mg/dL (74-106)
[2024-11-04 13:00] VITALS: BP 165/93; RESP 20; TEMP 98.3; O2SAT 96
--- NOTE | 2024-11-04 14:54 | DVHINCON2 ---
Date of service: Nov 04, [address] Christopher Reason for Consultation Acute kidney injury History of Present Illness 59-year-old male poor historian with a past medical history of congestive heart failure reports previously on hospice for many years but has not had any established follow-up presents to the hospital complaining of tremors spasms and jerking like movements of the hands and feet. Upon evaluation admission in the hospital who was noted to be fluid overloaded in the setting of possibly CHF decompensation he was given diuretics which improved his overall breathing and condition Nephrology was consulted on hospital day three due to a noticeable trend of gradual increase in patient's serum creatinine level. Upon my evaluation in the patient room patient was not in respiratory distress able to speak and answer questions without signs of difficulty breathing Allergies: Coded Allergies: NO KNOWN ALLERGIES (Unverified , 11/01/24) Home Meds Reported Medications Nitroglycerin (NTROSTAT SUBLINGUAL) 0.4 Mg Sl 11/03/24 Ondansetron HCl (Ondansetron) 4 Mg Tab 11/03/24 Hydrocodone-Acetaminophen (Hydrocodone Bitartrate/AC 10-300 mg) 1 Tab Tab, PO 11/03/24 Gabapentin (Gabapentin) 100 Mg Cap, 100 MG PO BID 11/01/24 Lactulose (Lactulose) 10 Gm/15 Ml Suzy, 30 ML PO BIDP PRN 11/01/24 Docusate Sodium (Docusate Sodium) 100 Mg Cap, 1 CAP PO BID 11/01/24 Hydralazine Hcl (Hydralazine Hcl) 100 Mg Tab, 1 TAB PO TID 11/01/24 Metoprolol Tartrate (LOPRESSOR TABLET) 50 Mg Tb, 1 TAB PO BID 11/01/24 Morphine Sulfate (Morphine Sulfate) 30 Mg Tab, 1 TAB PO QID PRN 11/01/24 Zolpidem Tartrate (Zolpidem Tartrate) 5 Mg Tab, 1 TAB PO QHSP PRN 11/01/24 Current Medications Current Medications Medications (Trade) Dose Ordered Sig/Justin Route PRN Reason Start Time Stop Time Status Last Admin Famotidine (Pepcid Injection) 10 mg Q48H IV 11/04/24 10:00 11/04/24 10:22 Family History: Hypertension G8 MOTHER, Onset:30's - 40 Review of Systems Spasms and jerking like movements H&P Exam Vital Signs/I&O Vital Sign Date Time Temp Pulse Resp B/P (MAP) Pulse Ox O2 Delivery O2 Flow Rate FiO2 11/04/24 13:45 155/84 11/04/24 13:00 98.3 20 96 98.3 11/04/24 11:22 67 11/04/24 08:00 Nasal Cannula* 2 28 Intake and Output 11/03/24 11/04/24 19:00 07:00 Intake Total 680 ml 120 ml Output Total 750 ml 1000 ml Balance -70 ml -880 ml Intake Oral 680 ml 120 ml Output Urine Total 750 ml 1000 ml Physical Exam Elderly male not in overt distress Abdomen is soft No pitting edema No murmur on auscultation No elevation in JVD Labs/Diagnostic Data Labs/Diagnostic Data Laboratory Tests Test 11/04/24 11:46 11/04/24 06:20 11/03/24 06:41 11/03/24 00:45 Range/Units Sodium Level 139 142 140 136-145 mmol/L Potassium Level 3.6 3.6 3.4 L 3.5-5.1 mmol/L Chloride Level 99 102 103 98-107 mmol/L Carbon Dioxide Level 31 31 27 20-31 mmol/L Anion Gap 9 9 10 5-15 Blood Urea Nitrogen 45 H 45 H 42 H 9-23 mg/dL Creatinine 3.36 H 3.40 H 3.20 H 0.700-1.30 mg/dL Glomerular Filtration Rate Calc 20 20 21 >90 mL/min BUN/Creatinine Ratio 13.4 13.2 13.1 10.0-20.0 Serum Glucose 226 #H 109 H 99 74-106 mg/dL Calcium Level 9.2 9.1 8.8 8.7-10.4 mg/dL Total Bilirubin 0.2 0.2-1.0 mg/dL Aspartate Amino Transferase (AST) 20 13-40 U/L Alanine Aminotransferase (ALT) 9 7-40 U/L Alkaline Phosphatase 90 46-116 U/L Total Protein 7.0 5.7-8.2 g/dL Albumin 3.4 3.2-4.8 g/dL White Blood Count 5.6 # 4.4-10.8 10^3/uL Red Blood Count 4.13 L 4.5-5.90 10^6/uL Hemoglobin 9.8 L 13.5-17.5 g/dL Hematocrit 30.0 L 41.0-53.0 % Mean Corpuscular Volume 72.7 L 80.0-100.0 fL Mean Corpuscular Hemoglobin 23.7 L 28.0-32.0 pg Mean Corpuscular Hemoglobin Concent 32.6 32.0-36.0 g/dL Red Cell Distribution Width 16.8 H 11.8-14.3 % Platelet Count 304 140-450 10^3/uL Mean Platelet Volume 7.5 6.9-10.8 fL Neutrophils (%) (Auto) 62.6 37.0-80.0 % Lymphocytes (%) (Auto) 19.9 10.0-50.0 % Monocytes (%) (Auto) 6.0 0.0-12.0 % Eosinophils (%) (Auto) 10.9 H 0.0-7.0 % Basophils (%) (Auto) 0.6 0.0-2.0 % Neutrophils # (Auto) 3.5 1.6-8.6 10 ^3/uL Lymphocytes # (Auto) 1.1 0.4-5.4 10 ^3/uL Monocytes # (Auto) 0.3 0-1.3 10 ^3/uL Eosinophils # (Auto) 0.6 0-0.8 10 ^3/uL Basophils # (Auto) 0 0-0.2 10 ^3/uL Nucleated Red Blood Cells 0.1 % Urine Color Colorless Yellow Urine Clarity Clear Clear Urine pH 5.5 5.0-9.0 Urine Specific [place] 1.010 1.001-1.035 Urine Protein 1+ H Negative Urine Ketones Negative Negative Urine Blood 2+ H Negative /uL Urine Nitrite Negative Negative Urine Bilirubin Negative Negative Urine Urobilinogen Normal Negative mg/dL Urine Leukocyte Esterase Negative Negative /uL Urine RBC 253 0 - 3 /hpf Urine Microscopic WBC 5 H 0-3 /HPF Urine Squamous Epithelial Cells Few <5 /hpf Urine Bacteria None seen None Seen /hpf Urine Glucose Normal Normal mg/dL Test 11/02/24 16:20 11/02/24 06:34 11/01/24 13:01 11/01/24 11:05 Range/Units Sodium Level 140 140 136-145 mmol/L Potassium Level 3.7 3.4 L 3.5-5.1 mmol/L Chloride Level 103 104 98-107 mmol/L Carbon Dioxide Level 29 27 20-31 mmol/L Anion Gap 8 9 5-15 Blood Urea Nitrogen 38 H 39 H 9-23 mg/dL Creatinine 3.08 H 2.82 H 0.700-1.30 mg/dL Glomerular Filtration Rate Calc 22 25 >90 mL/min BUN/Creatinine Ratio 12.3 13.8 10.0-20.0 Serum Glucose 89 91 74-106 mg/dL Calcium Level 8.9 8.7 8.7-10.4 mg/dL White Blood Count 3.7 #L 4.4-10.8 10^3/uL Red Blood Count 4.18 L 4.5-5.90 10^6/uL Hemoglobin 9.9 L 13.5-17.5 g/dL Hematocrit 30.4 L 41.0-53.0 % Mean Corpuscular Volume 72.8 L 80.0-100.0 fL Mean Corpuscular Hemoglobin 23.6 L 28.0-32.0 pg Mean Corpuscular Hemoglobin Concent 32.4 32.0-36.0 g/dL Red Cell Distribution Width 16.1 H 11.8-14.3 % Platelet Count 295 140-450 10^3/uL Mean Platelet Volume 7.5 6.9-10.8 fL Neutrophils (%) (Auto) 63.3 37.0-80.0 % Lymphocytes (%) (Auto) 19.4 10.0-50.0 % Monocytes (%) (Auto) 5.6 0.0-12.0 % Eosinophils (%) (Auto) 11.1 H 0.0-7.0 % Basophils (%) (Auto) 0.6 0.0-2.0 % Neutrophils # (Auto) 2.3 1.6-8.6 10 ^3/uL Lymphocytes # (Auto) 0.7 0.4-5.4 10 ^3/uL Monocytes # (Auto) 0.2 0-1.3 10 ^3/uL Eosinophils # (Auto) 0.4 0-0.8 10 ^3/uL Basophils # (Auto) 0 0-0.2 10 ^3/uL Nucleated Red Blood Cells 0.1 % Total Bilirubin 0.3 0.2-1.0 mg/dL Aspartate Amino Transferase (AST) 23 13-40 U/L Alanine Aminotransferase (ALT) 9 7-40 U/L Alkaline Phosphatase 102 46-116 U/L B-Type Natriuretic Peptide 296.34 0-100 pg/mL Total Protein 6.5 5.7-8.2 g/dL Albumin 3.2 3.2-4.8 g/dL Thyroid Stimulating Hormone (TSH) 1.96 0.55-4.78 uIU/mL Troponin I High Sensitivity 35 36 </=54 ng/L Test 11/01/24 10:10 Range/Units White Blood Count 5.5 4.4-10.8 10^3/uL Red Blood Count 4.10 L 4.5-5.90 10^6/uL Hemoglobin 9.6 L 13.5-17.5 g/dL Hematocrit 30.2 L 41.0-53.0 % Mean Corpuscular Volume 73.7 L 80.0-100.0 fL Mean Corpuscular Hemoglobin 23.4 L 28.0-32.0 pg Mean Corpuscular Hemoglobin Concent 31.8 L 32.0-36.0 g/dL Red Cell Distribution Width 16.6 H 11.8-14.3 % Platelet Count 290 140-450 10^3/uL Mean Platelet Volume 7.4 6.9-10.8 fL Neutrophils (%) (Auto) 71.4 37.0-80.0 % Lymphocytes (%) (Auto) 13.3 10.0-50.0 % Monocytes (%) (Auto) 4.9 0.0-12.0 % Eosinophils (%) (Auto) 9.9 H 0.0-7.0 % Basophils (%) (Auto) 0.5 0.0-2.0 % Neutrophils # (Auto) 4.0 1.6-8.6 10 ^3/uL Lymphocytes # (Auto) 0.7 0.4-5.4 10 ^3/uL Monocytes # (Auto) 0.3 0-1.3 10 ^3/uL Eosinophils # (Auto) 0.6 0-0.8 10 ^3/uL Basophils # (Auto) 0 0-0.2 10 ^3/uL Nucleated Red Blood Cells 0.1 % Sodium Level 139 136-145 mmol/L Potassium Level 3.5 3.5-5.1 mmol/L Chloride Level 103 98-107 mmol/L Carbon Dioxide Level 28 20-31 mmol/L Anion Gap 8 5-15 Blood Urea Nitrogen 34 H 9-23 mg/dL Creatinine 2.65 H 0.700-1.30 mg/dL Glomerular Filtration Rate Calc 27 >90 mL/min BUN/Creatinine Ratio 12.8 10.0-20.0 Serum Glucose 101 74-106 mg/dL Calcium Level 9.0 8.7-10.4 mg/dL Troponin I High Sensitivity 32 </=54 ng/L Assessment 59-year-old male with a past medical history of congestive heart failure formally on hospice presents to the hospital complaining of jerking like movements and spasms he was admitted for fluid overload and hypervolemia believed to be due to decompensated heart failure started on diuretics. Nephrology consulted due to elevated creatinine level Acute kidney injury on chronic kidney disease stage 4 suspect due to cardiorenal syndrome Chronic kidney disease suspect stage IV based on patient history Congestive heart failure Patient responded to diuretic therapy no indication for dialysis at this time recommend convert diuretics to p.o. when patient is discharged suggest 40 mg p.o. daily Suggests outpatient Nephrology follow-up rest of care as per primary medical team recommend all medications including sedatives and pain medications are dosed for a GFR less than 20% Plan discussed with: Patient QIANA ESQUIVEL MD Nov 04, 2024 14:54
[2024-11-04] MEDS ORDERED: FURO40TA4 PO (16:00)
--- NOTE | 2024-11-04 16:01 | DVHDS2 ---
Discharge Summary Date of Admission Nov 01, 2024 at 15:56 Date of Discharge: Nov 04, 2024 Labs/Diagnostic Data: Laboratory Results Test 11/04/24 11:46 11/04/24 06:20 11/03/24 06:41 11/03/24 00:45 Sodium Level 139 mmol/L (136-145) Potassium Level 3.6 mmol/L (3.5-5.1) Chloride Level 99 mmol/L (98-107) Carbon Dioxide Level 31 mmol/L (20-31) Anion Gap 9 (5-15) Blood Urea Nitrogen 45 mg/dL (9-23) Creatinine 3.36 mg/dL (0.700-1.30) Glomerular Filtration Rate Calc 20 mL/min (>90) BUN/Creatinine Ratio 13.4 (10.0-20.0) Serum Glucose 226 mg/dL (74-106) Calcium Level 9.2 mg/dL (8.7-10.4) Total Bilirubin 0.2 mg/dL (0.2-1.0) Aspartate Amino Transferase (AST) 20 U/L (13-40) Alanine Aminotransferase (ALT) 9 U/L (7-40) Alkaline Phosphatase 90 U/L (46-116) Total Protein 7.0 g/dL (5.7-8.2) Albumin 3.4 g/dL (3.2-4.8) White Blood Count 5.6 10^3/uL (4.4-10.8) Red Blood Count 4.13 10^6/uL (4.5-5.90) Hemoglobin 9.8 g/dL (13.5-17.5) Hematocrit 30.0 % (41.0-53.0) Mean Corpuscular Volume 72.7 fL (80.0-100.0) Mean Corpuscular Hemoglobin 23.7 pg (28.0-32.0) Mean Corpuscular Hemoglobin Concent 32.6 g/dL (32.0-36.0) Red Cell Distribution Width 16.8 % (11.8-14.3) Platelet Count 304 10^3/uL (140-450) Mean Platelet Volume 7.5 fL (6.9-10.8) Neutrophils (%) (Auto) 62.6 % (37.0-80.0) Lymphocytes (%) (Auto) 19.9 % (10.0-50.0) Monocytes (%) (Auto) 6.0 % (0.0-12.0) Eosinophils (%) (Auto) 10.9 % (0.0-7.0) Basophils (%) (Auto) 0.6 % (0.0-2.0) Neutrophils # (Auto) 3.5 10 ^3/uL (1.6-8.6) Lymphocytes # (Auto) 1.1 10 ^3/uL (0.4-5.4) Monocytes # (Auto) 0.3 10 ^3/uL (0-1.3) Eosinophils # (Auto) 0.6 10 ^3/uL (0-0.8) Basophils # (Auto) 0 10 ^3/uL (0-0.2) Nucleated Red Blood Cells 0.1 % Urine Color Colorless (Yellow) Urine Clarity Clear (Clear) Urine pH 5.5 (5.0-9.0) Urine Specific [place] 1.010 (1.001-1.035) Urine Protein 1+ (Negative) Urine Ketones Negative (Negative) Urine Blood 2+ /uL (Negative) Urine Nitrite Negative (Negative) Urine Bilirubin Negative (Negative) Urine Urobilinogen Normal mg/dL (Negative) Urine Leukocyte Esterase Negative /uL (Negative) Urine RBC 253 /hpf (0 - 3) Urine Microscopic WBC 5 /HPF (0-3) Urine Squamous Epithelial Cells Few /hpf (<5) Urine Bacteria None seen /hpf (None Seen) Urine Glucose Normal mg/dL (Normal) Test 11/02/24 06:34 11/01/24 13:01 B-Type Natriuretic Peptide 296.34 pg/mL (0-100) Thyroid Stimulating Hormone (TSH) 1.96 uIU/mL (0.55-4.78) Troponin I High Sensitivity 35 ng/L (</=54) Other Laboratory Tests 11/04/24 11:46 11/03/24 06:41 Brief Hx & Hospital Course: 59-year-old male with past medical history of CHF, hypertension, cirrhosis, and chronic renal insufficiency, who came to the hospital S/P fall. Patient states he has muscle spasms/tremors daily, but this morning was worse and he fell to the ground and hit his head. He states he did not lose consciousness. Patient also has complaints of bilateral upper and lower extremity edema that is new. 11/02: Patient here for CHF exacerbation, has not been taking his meds. Also appears to be pain seeking. We will get echo and BNP today. Continue Lasix 40 daily, continue Lopressor, patient was AFib RVR of 140s we will increase Lopressor to 100 b.i.d., and continue Lasix. Strict I&Os. Fluid restriction 1.2 L. okay for low-dose morphine for severe pain. Patient complains of abdominal pain which could be from volume overload. Patient has no/poor basilar breath sounds. 11/03: Still has decreased diminished breath sounds with rales. Continues to be volume overload. Continuing Lasix. Continues to ask for pain meds pain seeking behavior. Abdominal pain appears to be voluntary guarding. He also has a canker sore left tongue. We will give lidocaine. Who was bradycardic we will decrease Lopressor back to 50 b.i.d., patient has CKD not on HD, we will need Nephrology referral outpatient. 11/04: Patient euvolemic this a.m., stopped further diuresis. Worsening creatinine given 500 cc fluids with no improvement in creatinine. Nephrology consulted, renal ultrasound showing echogenic kidneys compatible with medical renal disease. Nephrology evaluated the patient and recommends Lasix at home and follow up outpatient. Patient's vital signs stable, euvolemic, stable for discharge as per plan below. Diagnosis: CHF exacerbation, acute on chronic, systolic and/or diastolic dysfunction possible AFib RVR Hypertension Cirrhosis CKD History syncope Baseline tremors Chronic pain issues plan: - take Lasix 40 mg once daily -continue other home medications( gabapentin, hydralazine, Lopressor,) - follow up with Nephrology - follow up with PCP to review discharge Condition at Discharge: Fair Final Diagnosis/Problems List CHF exacerbation, acute on chronic, systolic and/or diastolic dysfunction possible AFib RVR Hypertension Cirrhosis CKD History syncope Baseline tremors Chronic pain issues Discharge Disposition: Home Discharge Instruct/Medications Scheduled Docusate Sodium (Docusate Sodium), 1 CAP PO BID, (Reported) Gabapentin (Gabapentin), 100 MG PO BID, (Reported) Hydralazine Hcl (Hydralazine Hcl), 1 TAB PO TID, (Reported) Metoprolol Tartrate (Lopressor Tablet), 1 TAB PO BID, (Reported) Scheduled PRN Lactulose (Lactulose), 30 ML PO BIDP PRN, (Reported) Morphine Sulfate (Morphine Sulfate), 1 TAB PO QID PRN, (Reported) Zolpidem Tartrate (Zolpidem Tartrate), 1 TAB PO QHSP PRN, (Reported) Miscellaneous Medications Hydrocodone-Acetaminophen (Hydrocodone Bitartrate/AC 10-300 mg), PO, (Reported) Nitroglycerin (Ntrostat Sublingual), (Reported) Ondansetron HCl (Ondansetron), (Reported) Discharge Statement: "Patient was advised to return to the ER or call 911 if any headaches, dizziness, shortness of breath, chest pain, abdominal pain, bleeding, fevers, or worsening of medical condition. Patient was counseled about treatment plan, medications, possible side effects, patientverbalized understanding. All questions were answered to the best of my ability. This discharge took greater then 30 minutes in planning, reviewing documentation, counseling the patient, and discussing with other team members." ASSESSMENT ASSESSMENT Assessment Date of Service: Nov 04, 2024 Billing Provider: RADHA FISCHER MD Common Visit Codes: 05533-OGN/OBS DISCH DAY >30min RADHA FISCHER MD Nov 04, 2024 16:01
[2024-11-04 16:51] VITALS: BP 155/83; PULSE 68; RESP 20; TEMP 98.1; O2SAT 94
== END 2024-11-04 17:40 | disposition home or self-care (01) | DRG 194 ==
LOC: EDBD 09:20 → ER 09:20 → OVERFLOW 15:56 → TELE-WESTW 23:04
PROVIDERS: ADMIT Student in an Organized Health Care Education/Training Program; ATTEND Student in an Organized Health Care Education/Training Program
DX: I13.0 Hypertensive heart and chronic kidney disease with heart failure and stage 1 through stage 4 chronic kidney disease, or unspecified chronic kidney disease (principal); N17.9 Acute kidney failure, unspecified; K74.60 Unspecified cirrhosis of liver; I50.43 Acute on chronic combined systolic (congestive) and diastolic (congestive) heart failure; G89.29 Other chronic pain; I48.91 Unspecified atrial fibrillation; K12.0 Recurrent oral aphthae; N18.9 Chronic kidney disease, unspecified; R25.1 Tremor, unspecified; Z91.148 Patient's other noncompliance with medication regimen for other reason; Z82.49 Family history of ischemic heart disease and other diseases of the circulatory system
CPT/HCPCS: 36415; 70450; 71045; 74018; 76775; 80048; 80053; 81001; 83880; 84443; 84484; 85025; 93306; 93886; 97110; 97116; 97163; 97530; G0378; J2470

== ENCOUNTER 2024-11-09 08:16 | Inpatient (IN) | payer MEDICAID ==
[~2024-11-09] VITALS: Ht 170.2 cm; Wt 77.1 kg
[2024-11-09] VITALS (9 sets, daily range): BP systolic 126–161; BP diastolic 90–97; PULSE 63–77; RESP 12–20; TEMP 97.6–98.2; O2SAT 85–100
[~2024-11-09 08:16] MED LIST: DOCU-265 PO; FURO40TA4 PO; GAB100C PO; HYDR-4611 PO; HYDR100T10 PO; LACT10SO3 PO; MET50T PO; MORP30TA PO; NITR0.4S29; ONDA-155; ZOLP5TAB5 PO
--- NOTE | 2024-11-09 09:16 | ED.PDOC ---
History of Present Illness HPI Comments Ochoa Pabon is a 59-year-old male, with past medical history of CHFpEF, Cirrhosis, CKD Stage 2 and hypertension. The patient came to ED via EMS from a assisting living facility with chief complain of 4 days of dyspnea, generalized weakness, unable to walk due to loss in balance, right arm swelling and bilateral leg swelling. The patient is a poor historian, he is confused. On further questioning, the patient reports he was recently admitted on [facility] (10/30- 11/04) due to acute CHF exacerbation. The patient denies fever, chills, headache, abdominal pain or other symptoms. The patient will be admitted for further assessment and management. Chief Complaint: Generalized weakness. Time Seen by MD: 08:35 Reviewed Notes: Nurses Notes, Medications, Allergies Allergies: Coded Allergies: NO KNOWN ALLERGIES (Unverified , 11/01/24) Home Meds Active Scripts Furosemide (Furosemide) 40 Mg Tab, 1 TAB PO DAILY for 30 Days, #30 TAB 1 Refill Prov:RADHA FISCHER MD 11/04/24 Reported Medications Nitroglycerin (NTROSTAT SUBLINGUAL) 0.4 Mg Sl 11/03/24 Ondansetron HCl (Ondansetron) 4 Mg Tab 11/03/24 Hydrocodone-Acetaminophen (Hydrocodone Bitartrate/AC 10-300 mg) 1 Tab Tab, PO 11/03/24 Gabapentin (Gabapentin) 100 Mg Cap, 100 MG PO BID 11/01/24 Lactulose (Lactulose) 10 Gm/15 Ml Suzy, 30 ML PO BIDP PRN 11/01/24 Docusate Sodium (Docusate Sodium) 100 Mg Cap, 1 CAP PO BID 11/01/24 Hydralazine Hcl (Hydralazine Hcl) 100 Mg Tab, 1 TAB PO TID 11/01/24 Metoprolol Tartrate (LOPRESSOR TABLET) 50 Mg Tb, 1 TAB PO BID 11/01/24 Morphine Sulfate (Morphine Sulfate) 30 Mg Tab, 1 TAB PO QID PRN 11/01/24 Zolpidem Tartrate (Zolpidem Tartrate) 5 Mg Tab, 1 TAB PO QHSP PRN 11/01/24 Information Source: Patient Mode of Arrival: EMS Severity: Mild Timing: Days Duration: Since onset Past Medical History PAST MEDICAL HISTORY: CHF (With preserved EF (65%) ), CKF (Stage 4 ), HTN, Liver Surgical History: Denies all surgeries Family History Family History: Reviewed,noncontributory to illness Social History Smoker: Non-Smoker Alcohol: Denies ETOH Use Drugs: Denies Drug Use Lives In: Assisted Care Constitutional: reports: weakness; denies: chills, diaphoresis, fatigue, fever, malaise, sweats, others EENTM: denies: blurred vision, double vision, ear bleeding, ear discharge, ear drainage, ear pain, ear ringing, eye pain, eye redness, hearing loss, mouth pain, mouth swelling, nasal discharge, nose bleeding, nose congestion, nose pain, photophobia, tearing, throat pain, throat swelling, voice changes, others Respiratory: reports: shortness of breath; denies: cough, hemoptysis, orthopnea, SOB at rest, SOB with excertion, stridor, wheezing, others Cardiovascular: denies: chest pain, dizzy spells, diaphoresis, Dyspnea on exertion, edema, irregular heart beat, left arm pain, lightheadedness, palpitations, PND, syncope, others Gastrointestinal: denies: abdomen distended, abdominal pain, blood streaked bowels, constipated, diarrhea, dysphagia, difficulty swallowing, hematemesis, melena, nausea, poor appetite, poor fluid intake, rectal bleeding, rectal pain, vomiting, others Genitourinary: denies: burning, dysuria, flank pain, frequency, hematuria, incontinence, penile discharge, penile sore, pain, testicle pain, testicle sw elling, urgency, others Neurological: reports: dizziness, weakness (bilateral leg weakness) Musculoskeletal: denies: back pain, gout, joint pain, joint swelling, muscle p ain, muscle stiffness, neck pain, others Integumetry: denies: bruises, change in color, change in hair/nails, dryness, laceration, lesions, lumps, rash, wounds, others Allergic/Immunocompromised: denies: Difficulty Healing, Frequent Infections, Hives, Itching, others Hematologic/Lymphatic: denies: anemia, blood clots, easy bleeding, easy bruising, swollen glands, others Endocrine: denies: excessive hunger, excessive sweating, excessive thirst, excessive urination, flushing, intolerance to cold, intolerance to heat, unexplained weight gain, unexplained weight loss, others Psychiatric: denies: anxiety, bipolar disorder, depression, hopeless, panic disorder, schizophrenia, sleepless, suicidal, others Physical Exam General Appearance: Mild Distress HEENT: Normal ENT Inspection, Pharynx Normal, TMs Normal Neck: Full Range of Motion, Non-Tender, Normal, Normal Inspection Respiratory: Crackles (Mild crackles in bilateral lung bases), Decreased Breath Sounds (bilaterally) Cardiovascular: No JVD, No Murmur, No Gallop, Normal Peripheral Pulses, Regular Rate/Rhythm, Other Breast Exam: Deferred Gastrointestinal: No Organomegaly, Non Tender, No Pulsatile Mass, Normal Bowel Sounds, Soft Genitalia: Deferred Pelvic: Deferred Rectal: Deferred Extremities: Leg edema (Billateral leg pitting edema up to ankle) Neurologic: Abnormal Gait (due to weakness), Disoriented, Other (Patient looks confused, oriented in person and placed but not in time. ) Cerebellar Function: Unable to Test Reflexes: Normal Skin: Dry, Normal Color, Warm Lymphatic: No Adenopathy Was a procedure done? Was a procedure done?: No Differential Dx Considerations may include: # Acute on chronic CHF exacerbation # Metabolic Encephalopathy X-Ray, Labs, Meds, VS Vital Signs Date Time Temp Pulse Resp B/P (MAP) Pulse Ox O2 Delivery O2 Flow Rate FiO2 11/09/24 08:19 97.9 75 16 158/90 96 97.9 X-Ray, Labs, Meds, VS Comment The patient remains confused. VS with out changes. The patient will be admitted for further assessment and management. Time of 1ST Reevaluation: 09:36 Reevaluation 1ST: Unchanged Patient Education/Counseling: Diagnosis, Treatment, Prognosis, Need For Follow Up Family Education/Counseling: No Family Present SEPSIS Sepsis Screen Date sepsis recognized/suspect: Nov 09, 2024 Time Sepsis recognized/suspect: 818 Recent Procedure: No On Antibiotic Therapy: No Respiratory Rate >20: No Heart Rate >90: No Temp<36 C (96.8 F) or >38.3 C: No SBP <90 or MAP <65 mmHG: No New Acute Mental Status Change: No Is the patient on CPAP, BIPAP,: No Physician Orders Complete Blood Count (11/09/24 09:10) Comprehensive Metabolic Panel (11/09/24 09:10) Ammonia (11/09/24 09:10) Chest Xray 1 View (11/09/24 09:10) Furosemide Injection (Lasix Injection) (11/09/24 09:15) Vital Signs Date Time Temp Pulse Resp B/P (MAP) Pulse Ox O2 Delivery O2 Flow Rate FiO2 11/09/24 08:19 97.9 75 16 158/90 96 97.9 Departure 1 Departure Time of Disposition: 09:39 Impression: Primary Impression: CHF exacerbation Additional Impressions: Generalized weakness Metabolic encephalopathy Disposition: ADMITTED INPATIENT Admit to: Med Surg Condition: Good Comments Goals of care discussed with the patient > 35 min. Discussed plan of care with Dr. Dick Code status: Full code PCP: patient does not recall Plan discussed with: Patient, the patient agrees with the admission plan. Critical Care Note Critical Care Time?: No Stability Stability form required: No Heart Score Heart Score: Heart Score Response (Comments) Value History Moderate Suspicious 1 EKG N/A 0 Age 45-64 1 Risk Factors 1 or 2 risk factors 1 Troponin N/A 0 Total 3 TIBURCIO SULLIVAN RESIDENT Nov 09, 2024 09:16
[2024-11-09 09:37] LABS: Hemoglobin 8.7 g/dL (13.5-17.5)
[2024-11-09 09:40] LABS: Hematocrit 27.2 % (41.0-53.0); Mean Corpuscular Hemoglobin 23.7 pg (28.0-32.0); Mean Corpuscular Volume 73.8 fL (80.0-100.0); Nucleated Red Blood Cells % 0.1 %
--- NOTE | 2024-11-09 09:49 | DVH ---
EXAM: XY CHEST XRAY 1 VIEW HISTORY: CHF COMPARISON: XY CHEST PORTABLE on DOS: 11/01/24 TECHNIQUE: Portable upright AP view of the chest was performed. FINDINGS: There are patchy infiltrates in both lungs, predominating in the upper lobes, slightly greater on the left, increased compared with chest x-ray dated 11/01/2024. No pneumothorax. The heart is borderlin e enlarged. IMPRESSION: Patchy infiltrates in the bilateral lungs, greatest in the left upper lobe, increased compared with c hest x-ray performed 8 days earlier. This appearance is more likely related to multifocal pneumonia, less likely atypical pulmonary edema.
[2024-11-09 09:55] LABS: Alanine Aminotransferase 13 U/L (7-40); Albumin 3.9 g/dL (3.2-4.8); Anion Gap 10 (5-15); BUN/Creatinine Ratio 12.1 (10.0-20.0); Calcium 8.8 mg/dL (8.7-10.4); Carbon Dioxide 29 mmol/L (20-31); Potassium 4.0 mmol/L (3.5-5.1); Sodium 137 mmol/L (136-145); Total Protein 7.8 g/dL (5.7-8.2)
[2024-11-09 09:56] LABS: Alkaline Phosphatase 121 U/L (46-116); Bilirubin, Total < 0.2 mg/dL (0.2-1.0); Blood Urea Nitrogen 67 mg/dL (9-23); Chloride 98 mmol/L (98-107); Glucose 109 mg/dL (74-106)
[2024-11-09] MEDS: FUROSEMIDE 40 MG/4 ML VIAL IV ONE (10:41)
--- NOTE | 2024-11-09 11:27 | DVHHP2 ---
History of Present Illness Reason for Visit: Body pain History of Present Illness Ochoa Thomason is a 59-year-old male with past medical history of CHF, hypertension, cirrhosis, and chronic renal insufficiency, who was brought to the hospital via EMS for shortness of breath and generalized weakness. Patient states he has been losing his balance and falling. Patient was recently admitted here for increased tremors, falls, and bilateral extremity swelling. Patient is a poor historian, he is forgetful and losing his train of thought while speaking. While at bedside patient was coughing up blood. He is unable to say how long he has been coughing up blood, but he states he coughs a lot up. Kidney function has significantly decreased since last admission. Cardiovascular: CHF, HTN Hepatobiliary: Cirrhosis Renal/: Chronic renal insuff Past Surgical History: Other (rightr shoulder) Smoke: No ALCOHOL: none Drugs: None Lives: Other (assisted living facility) Domestic Violence: Neg Review of Systems Constitutional: Yes: Weakness, Malaise, Other (falls); No: Fever, Chills, Sweats Eyes: No: Pain, Vision change, Conjunctivae inflammation, Eyelid inflammation, Other, Redness ENT: No: Ear pain, Ear discharge, Nose pain, Nose discharge, Nose congestion, Mouth pain, Mouth swelling, Throat pain, Throat swelling, Other Respiratory: Cough, Shortness of breath, SOB with excertion, Hemoptysis; No: Dry, Wheezing, Pleuritic Pain, Sputum, Wheezing, Other Cardiovascular: No: Chest Pain, Palpitations, Orthopnea, Paroxysmal Noc. Dyspnea, Edema, Lt Headedness, Other Gastrointestinal: No: Nausea, Vomiting, Abdominal Pain, Diarrhea, Constipation, Melena, Hematochezia, Other Genitourinary: No Dysuria, No Frequency, No Incontinence, No Hematuria, No Retention, No Other Musculoskeletal: No: other, neck pain, shoulder pain, arm pain, back pain, hand pain, leg pain, foot pain Skin: No: Rash, Lesions, Jaundice, Bruising, Other Neurological: No: Weakness, Numbness, Incoordination, Change in speech, Confusion, Seizures, Other Allergies: Coded Allergies: NO KNOWN ALLERGIES (Unverified , 11/01/24) Medications Current Medications Medications Dose Ordered Sig/Justin Route Start Time Stop Time Status Last Admin Dose Admin Acetaminophen/ Hydrocodone Bitart 1 tab Q4HP PRN PO 11/09/24 10:30 UNV Ondansetron HCl 4 mg Q4HP PRN IV 11/09/24 10:30 UNV Docusate Sodium 100 mg BIDPRN PRN PO 11/09/24 10:30 UNV Acetaminophen 650 mg Q6HP PRN PO 11/09/24 10:30 UNV Nitroglycerin 0.4 mg Q5MINP PRN SL 11/09/24 10:30 UNV Morphine Sulfate 2 mg Q30M PRN IV 11/09/24 10:30 UNV Exam Vital Signs Vital Signs Date Time Temp Pulse Resp B/P (MAP) Pulse Ox O2 Delivery O2 Flow Rate FiO2 11/09/24 11:10 97.8 70 12 161/96 (117) 94 97.8 11/09/24 10:00 Nasal Cannula* 3 32 General Appearance: Alert, Cooperative HEENT: Atraumatic, PERRLA Respiratory: Other (Diminished breath sounds) Cardiovascular: Regular rate, Normal S1, Normal S2, No murmurs Abdominal: Normal bowel sounds, Soft, No tenderness Extremities: No clubbing, No cyanosis, Other (pitting edema of right lower extremity) Skin: No rashes, No breakdown, No significant lesion Neuro: Other (patient is slow to respond and shaky when standing.) Labs/Xrays Labs Test 11/09/24 09:22 Range/Units White Blood Count 5.3 4.4-10.8 10^3/uL Red Blood Count 3.68 L 4.5-5.90 10^6/uL Hemoglobin 8.7 L 13.5-17.5 g/dL Hematocrit 27.2 L 41.0-53.0 % Mean Corpuscular Volume 73.8 L 80.0-100.0 fL Mean Corpuscular Hemoglobin 23.7 L 28.0-32.0 pg Mean Corpuscular Hemoglobin Concent 32.1 32.0-36.0 g/dL Red Cell Distribution Width 17.2 H 11.8-14.3 % Platelet Count 315 140-450 10^3/uL Mean Platelet Volume 7.2 6.9-10.8 fL Neutrophils (%) (Auto) 76.7 37.0-80.0 % Lymphocytes (%) (Auto) 13.9 10.0-50.0 % Monocytes (%) (Auto) 4.9 0.0-12.0 % Eosinophils (%) (Auto) 3.9 0.0-7.0 % Basophils (%) (Auto) 0.6 0.0-2.0 % Neutrophils # (Auto) 4.0 1.6-8.6 10 ^3/uL Lymphocytes # (Auto) 0.7 0.4-5.4 10 ^3/uL Monocytes # (Auto) 0.3 0-1.3 10 ^3/uL Eosinophils # (Auto) 0.2 0-0.8 10 ^3/uL Basophils # (Auto) 0 0-0.2 10 ^3/uL Nucleated Red Blood Cells 0.1 % Sodium Level 137 136-145 mmol/L Potassium Level 4.0 3.5-5.1 mmol/L Chloride Level 98 98-107 mmol/L Carbon Dioxide Level 29 20-31 mmol/L Anion Gap 10 5-15 Blood Urea Nitrogen 67 H 9-23 mg/dL Creatinine 5.54 #H 0.700-1.30 mg/dL Glomerular Filtration Rate Calc 11 >90 mL/min BUN/Creatinine Ratio 12.1 10.0-20.0 Serum Glucose 109 #H 74-106 mg/dL Calcium Level 8.8 8.7-10.4 mg/dL Total Bilirubin < 0.2 L 0.2-1.0 mg/dL Aspartate Amino Transferase (AST) 24 13-40 U/L Alanine Aminotransferase (ALT) 13 7-40 U/L Alkaline Phosphatase 121 H 46-116 U/L Ammonia < 10 L 11-32 umol/L Total Protein 7.8 5.7-8.2 g/dL Albumin 3.9 3.2-4.8 g/dL EXAM: XY CHEST XRAY 1 VIEW FINDINGS: There are patchy infiltrates in both lungs, predominating in the upper lobes, slightly greater on the left, increased compared with chest x-ray dated 11/01. No pneumothorax. The heart is borderline enlarged. IMPRESSION: Patchy infiltrates in the bilateral lungs, greatest in the left upper lobe, increased compared with chest x-ray performed 8 days earlier. This appearance is more likely related to multifocal pneumonia, less likely atypical pulmonary edema. SEPSIS Sepsis Screen Date sepsis recognized/suspect: Nov 09, 2024 Time Sepsis recognized/suspect: 1000 Recent Procedure: No On Antibiotic Therapy: No Respiratory Rate >20: No Heart Rate >90: No Temp<36 C (96.8 F) or >38.3 C: No SBP <90 or MAP <65 mmHG: No New Acute Mental Status Change: Yes Is the patient on CPAP, BIPAP,: No Physician Orders Chest Xray 1 View (11/09/24 09:10) Electrocardigram (11/09/24 09:57) Urinalysis (11/09/24 10:00) Admit (11/09/24 10:24) Code Status (11/09/24 10:24) Renal Standard(2gna,3gk,Lopho) (11/09/24 Lunch) Hydrocodone-Acet 5/325mg Tab ([place] 5/32 (11/09/24 10:30) Ondansetron Hcl (Zofran) (11/09/24 10:30) Docusate Sodium Capsule (Colace Capsule) (11/09/24 10:30) Complete Blood Count (11/10/24 04:00) Comprehensive Metabolic Panel (11/10/24 04:00) Condition: Serious (11/09/24 10:24) Acetaminophen Tablet (Tylenol Tablet) (11/09/24 10:30) Nitroglycerin Sublingual (Ntrostat Subli (11/09/24 10:30) Morphine Sulfate Injection (11/09/24 10:30) Stat Ekg For Chest Pain (11/09/24 10:24) Notify Md Of Changes From Base (11/09/24 10:24) Digital Production Operator For 24 Hours (11/09/24 10:24) Emergency Dysrhythmia Protocol (11/09/24 10:24) Rhythm Strips Once Every Shift (11/09/24 10:24) Oxygen By Nasal Cannula (11/09/24 10:24) *[facility] (11/09/24 10:24) Vital Signs Date Time Temp Pulse Resp B/P (MAP) Pulse Ox O2 Delivery O2 Flow Rate FiO2 11/09/24 11:10 97.8 70 12 161/96 (117) 94 97.8 11/09/24 10:41 161/96 11/09/24 10:00 94 Nasal Cannula* 3 32 11/09/24 08:19 97.9 75 16 158/90 96 97.9 Laboratory Tests Test 11/09/24 09:22 White Blood Count 5.3 10^3/uL (4.4-10.8) Medications Medications Dose Ordered Sig/Justin Route Start Time Stop Time Status Last Admin Dose Admin Furosemide 40 mg ONCE ONCE IV 11/09/24 09:15 11/09/24 09:43 DC 11/09/24 10:41 40 MG Assessment/Plan Assessment/Plan Assessment: Pneumonia, Acute kidney failure, Hypertension, CHF, Cirrhosis, Plan: Admit to Tele, Nephrology consult, Pulmonology consult, IV antibiotics, IV hydration, Breathing treatments, Supplemental oxygen as needed, Home medications reconciled, Plan discussed with: Patient My Orders Orders - MEL [facility] Procedure Category Date Status Time Admit ADMIT 11/09/24 Transmitted 10:24 Code Status CODE 11/09/24 Transmitted 10:24 Renal DIET 11/09/24 Transmitted Standard(2gna,3gk,Lopho) Lunch Hydrocodone-Acet PHA 11/09/24 Logged 5/325mg Tab ([place] 10:30 Ondansetron Hcl PHA 11/09/24 Logged (Zofran) 10:30 Docusate Sodium PHA 11/09/24 Logged Capsule (Colace 10:30 Complete Blood Count LAB 11/10/24 Verified 04:00 Comprehensive LAB 11/10/24 Verified Metabolic Panel 04:00 Condition: Serious JOSEPHINE 11/09/24 In Process 10:24 Acetaminophen Tablet PHA 11/09/24 Logged (Tylenol Tablet) 10:30 Nitroglycerin PHA 11/09/24 Logged Sublingual (Ntrostat 10:30 Morphine Sulfate PHA 11/09/24 Logged Injection 10:30 Stat Ekg For Chest [facility] 11/09/24 In Process Pain 10:24 Notify Of Changes JOSEPHINE 11/09/24 In Process From Base 10:24 Digital Production Operator For JOSEPHINE 11/09/24 In Process 24 Hours 10:24 Emergency Dysrhythmia JOSEPHINE 11/09/24 In Process Protocol 10:24 Rhythm Strips Once JOSEPHINE 11/09/24 In Process Every Shift 10:24 Oxygen By Nasal RT 11/09/24 Transmitted Cannula 10:24 *[facility] CONS 11/09/24 Transmitted -[place] 10:24 Date of Service: Nov 09, 2024 Billing Provider: SCHWING,MEL R STAGE DIRECTOR Common Visit Codes: [id number] INP/OBS CARE (HIGH) MEL [facility]EN[facility] STAGE DIRECTOR Nov 09, 2024 11:27
[2024-11-09] MEDS ORDERED: MORPHINE SULFATE 4 MG/ML SYR/VIAL IV PRN (11:30)
[2024-11-09] MEDS: AZITHROMYCIN 500MG/ 250ML 250 ML IV ONE (14:38)
--- NOTE | 2024-11-09 14:46 | DVH ---
CLINICAL HISTORY: sari TECHNIQUE: Complete ultrasound exam of the kidneys and bladder was performed. COMPARISON: XY KUB ABDOMEN SINGLE VIEW on DOS: 11/04/24, US KIDNEY on DOS: 11/04/24 FINDINGS: The right kidney has increased echogenicity and measures 12.2 cm. There is no focal parenchymal abnor mality or evidence for stone. There is no hydronephrosis. The left kidney has increased echogenicity and measures 11.0 cm. There is no focal parenchymal abnor mality or evidence for stone. There is no hydronephrosis. The bladder is decompressed by a Carrington catheter. IMPRESSION: Echogenic kidneys, compatible with medical renal disease. No hydronephrosis.
[2024-11-09] MEDS ORDERED: SODIUM CHLORIDE 0.9% 1,000 ML IV SCH (15:00)
--- NOTE | 2024-11-09 15:09 | DVHCONRES ---
Date Seen: Nov 09, 2024 Resident Creating Document: SAGAR STEWARD RESIDENT Referring Physician SAUNDRA PHOENIX Reason for Consultation ALICE History of Present Illness Ochoa Thomason is a 59-year-old male with past medical history of CHF, hypertension, cirrhosis, and chronic renal insufficiency, who was brought to the hospital via EMS for shortness of breath and generalized weakness. Patient states he has been losing his balance and falling complaining of spitting out blood for more than 1 weeks prior to this visit. The patient was recently admitted in [facility] for shortness of Breath and was treated for CHF exacerbation. The patient is a poor historian, incoherent speech not able to complete sentences because he is tired and sleepy. He denies fever, chills, nausea, vomiting, abdominal pain, dysuria, hematuria or any changes in bowel habit. Patient was seen and examined on the bedside. He is alert oriented x3. Complain of generalized weakness, hemoptysis and no other active complaint. Past Medical History Hypertension, CHF, liver cirrhosis, CKD Past Surgical History Unknown Family History: Hypertension G8 MOTHER, Onset: - 40 Allergies: Coded Allergies: NO KNOWN ALLERGIES (Unverified , 11/01/24) Home Meds Active Scripts Furosemide (Furosemide) 40 Mg Tab, 1 TAB PO DAILY for 30 Days, #30 TAB 1 Refill Prov:RADHA FISCHER MD 11/04/24 Reported Medications Duloxetine HCl (Duloxetine HCl) 30 Mg Cap, 1 CAP PO DAILY 11/09/24 Nifedipine (Nifedipine Er) 60 Mg Tab, 1 TAB PO DAILY 11/09/24 Nitroglycerin (NTROSTAT SUBLINGUAL) 0.4 Mg Sl 11/03/24 Ondansetron HCl (Ondansetron) 4 Mg Tab 11/03/24 Hydrocodone-Acetaminophen (Hydrocodone Bitartrate/AC 10-300 mg) 1 Tab Tab, PO 11/03/24 Gabapentin (Gabapentin) 100 Mg Cap, 100 MG PO BID 11/01/24 Lactulose (Lactulose) 10 Gm/15 Ml Suzy, 30 ML PO BIDP PRN 11/01/24 Docusate Sodium (Docusate Sodium) 100 Mg Cap, 1 CAP PO BID 11/01/24 Hydralazine Hcl (Hydralazine Hcl) 100 Mg Tab, 1 TAB PO TID 11/01/24 Metoprolol Tartrate (LOPRESSOR TABLET) 50 Mg Tb, 1 TAB PO BID 11/01/24 Morphine Sulfate (Morphine Sulfate) 30 Mg Tab, 1 TAB PO QID PRN 11/01/24 Zolpidem Tartrate (Zolpidem Tartrate) 5 Mg Tab, 1 TAB PO QHSP PRN 11/01/24 Current Medications Current Medications Medications (Trade) Dose Ordered Sig/Justin Route PRN Reason Start Time Stop Time Status Last Admin Acetaminophen/ Hydrocodone Bitart ([place] 5/325MG Tab) 1 tab Q4HP PRN PO MODERATE PAIN (4-6 PAIN SCALE) 11/09/24 10:30 Ondansetron HCl (Zofran) 4 mg Q4HP PRN IV NAUSEA / VOMITING 11/09/24 10:30 Docusate Sodium (Colace Capsule) 100 mg BIDPRN PRN PO FOR CONSTIPATION 11/09/24 10:30 Acetaminophen (Tylenol Tablet) 650 mg Q6HP PRN PO PAIN SCALE 1-3 OR TEMP>100.4 11/09/24 10:30 Nitroglycerin (Ntrostat Sublingual) 0.4 mg Q5MINP PRN SL FOR CHEST PAIN 11/09/24 10:30 Morphine Sulfate 2 mg Q30M PRN IV FOR CHEST PAIN 11/09/24 11:30 Ceftriaxone Sodium 50 ml @ 100 mls/hr DAILY@09 IV 11/10/24 09:00 Azithromycin 250 ml @ 125 mls/hr DAILY IV 11/10/24 10:00 Ipratropium [place] (Atrovent Medneb) 0.5 mg Q6HWA [facility] 11/09/24 18:00 Albuterol (Ventolin Medneb) 2.5 mg Q6HWA [facility] 11/09/24 18:00 Sodium Chloride 1,000 ml @ 75 mls/hr [id number] IV 11/09/24 15:00 UNV Review of Systems Constitutional: Weakness, Malaise, No: Fever, Chills, Sweats, Other Eyes: No: Pain, Vision change, Conjunctivae inflammation, Eyelid inflammation, Other, Redness ENT: No: Ear pain, Ear discharge, Nose pain, Nose discharge, Nose congestion, Mouth pain, Mouth swelling, Throat pain, Throat swelling, Other Respiratory: Shortness of breath, No: Cough, Dry,Wheezing, Hemoptysis, Pleuritic Pain, Sputum, Wheezing, Other Cardiovascular: No: Chest Pain, Palpitations, Orthopnea, Paroxysmal Noc. Dyspne a, Edema, Lt Headedness, Other Gastrointestinal: No: Nausea, Vomiting, Abdominal Pain, Diarrhea, Constipation, Melena, Hematochezia, Other Musculoskeletal: No: other, neck pain, shoulder pain, arm pain, back pain, hand pain, leg pain, foot pain Neurological:; No: Weakness, Numbness, Incoordination, Change in speech, Confusion, Seizures Vital Signs Vital Signs Date Time Temp Pulse Resp B/P (MAP) Pulse Ox O2 Delivery O2 Flow Rate FiO2 11/09/24 14:19 97.8 70 12 161/96 99 3.0 32 97.8 11/09/24 10:00 Nasal Cannula* Physical Exam Physical examination: General Appearance: Alert, Oriented X3, Cooperative, mild resp distress HEENT: Atraumatic, PERRLA, EOMI, Mucous membrane moist/pink Respiratory: Bilateral rales. Cardiovascular: Regular rate, Normal S1, Normal S2, No murmurs, no chest wall t enderness Abdominal: Normal bowel sounds, Soft, No tenderness, No hepatospenomegaly, No masses Extremities: 1+ bilateral pedal edema, No clubbing, No cyanosis, Normal pulses, No tenderness/swelling Skin: No rashes, No breakdown, No significant lesion Neuro: Normal speech, Strength at 5/5 X4 ext, Normal tone, Sensation intact, Cranial nerves 3-12 NL, Reflexes 2+ Psych/Mental Status: Mental status NL, Mood NL Labs/Diagnostic Data Labs Test 11/09/24 09:22 Range/Units White Blood Count 5.3 4.4-10.8 10^3/uL Red Blood Count 3.68 L 4.5-5.90 10^6/uL Hemoglobin 8.7 L 13.5-17.5 g/dL Hematocrit 27.2 L 41.0-53.0 % Mean Corpuscular Volume 73.8 L 80.0-100.0 fL Mean Corpuscular Hemoglobin 23.7 L 28.0-32.0 pg Mean Corpuscular Hemoglobin Concent 32.1 32.0-36.0 g/dL Red Cell Distribution Width 17.2 H 11.8-14.3 % Platelet Count 315 140-450 10^3/uL Mean Platelet Volume 7.2 6.9-10.8 fL Neutrophils (%) (Auto) 76.7 37.0-80.0 % Lymphocytes (%) (Auto) 13.9 10.0-50.0 % Monocytes (%) (Auto) 4.9 0.0-12.0 % Eosinophils (%) (Auto) 3.9 0.0-7.0 % Basophils (%) (Auto) 0.6 0.0-2.0 % Neutrophils # (Auto) 4.0 1.6-8.6 10 ^3/uL Lymphocytes # (Auto) 0.7 0.4-5.4 10 ^3/uL Monocytes # (Auto) 0.3 0-1.3 10 ^3/uL Eosinophils # (Auto) 0.2 0-0.8 10 ^3/uL Basophils # (Auto) 0 0-0.2 10 ^3/uL Nucleated Red Blood Cells 0.1 % Sodium Level 137 136-145 mmol/L Potassium Level 4.0 3.5-5.1 mmol/L Chloride Level 98 98-107 mmol/L Carbon Dioxide Level 29 20-31 mmol/L Anion Gap 10 5-15 Blood Urea Nitrogen 67 H 9-23 mg/dL Creatinine 5.54 #H 0.700-1.30 mg/dL Glomerular Filtration Rate Calc 11 >90 mL/min BUN/Creatinine Ratio 12.1 10.0-20.0 Serum Glucose 109 #H 74-106 mg/dL Calcium Level 8.8 8.7-10.4 mg/dL Total Bilirubin < 0.2 L 0.2-1.0 mg/dL Aspartate Amino Transferase (AST) 24 13-40 U/L Alanine Aminotransferase (ALT) 13 7-40 U/L Alkaline Phosphatase 121 H 46-116 U/L Ammonia < 10 L 11-32 umol/L Total Protein 7.8 5.7-8.2 g/dL Albumin 3.9 3.2-4.8 g/dL Assessment Assessment and plan: # ALICE likely hemodynamically mediated in the setting of sepsis secondary to multifocal pneumonia # Possible ALICE on CKD #bloody cough--- Rule out ANCA associated vasculitis/glomerulonephritis # Acute on chronic hypochromic microcytic anemia # Acute hypoxic respiratory failure secondary to multifocal pneumonia # chronic diastolic heart failure with preserved ejection fraction # History of liver cirrhosis Plan: - Worsening kidney function but urine output improved - IV normal saline at 75 mL/hour for 1 L - pending urine sodium, creatinine, protein/creatinine ratio to calculate FENA - Rapidly worsening kidney function and hemoptysis, rule out associated vasculitis/glomerulonephritis, ordered ANCA panel, DARRIUS panel, complement C3 and 4 - Pending iron panel and ferritin. - Hold antihypertensive due to hypotension secondary to sepsis - Continue IV antibiotic and other management as per primary - Strict I&O - Avoid nephrotoxic medication - monitor BMP Thank you so much for the opportunity to consult on your patient. Nephro team will follow the patient. In case of any questions or concerns please feel free to reach out. Plan discussed with Dr. De Leon. The patient and caregiver team agreed to the plan. Addendum Patient seen and examined, plan discussed with resident. Agree with above, we will follow closely Plan discussed with: Patient, Other (RN) SAGAR STEWARD Nov 09, 2024 15:09 MEGAN DE LEON MD Nov 09, 2024 21:12
[2024-11-09] MEDS ORDERED: DULO1CAP5 PO (15:40)
[2024-11-09] MEDS ORDERED: NIFE1TAB30 PO (15:40)
[2024-11-09 16:21] LABS: Urine Amorphous Crystal FEW /hpf (None Seen); Urine Protein, UAD 1+ (Negative)
[2024-11-09 16:42] LABS: Protein, Urine 70.6 mg/dL (1-14)
[2024-11-09] MEDS: SODIUM CHLORIDE 0.9% 1,000 ML IV ONE (17:35)
[2024-11-09] MEDS ORDERED: PATIENTS OWN MEDICATION (Morphine Sulfate 1 TAB) PO SCH (18:00)
[2024-11-09] MEDS: ALBUTEROL SULF 2.5 MG/0.5ML(0.5%) NEB SOLN NEB SCH (18:00)
[2024-11-09] MEDS: IPRATROPIUM BROM 0.5 MG/2.5ML INH SOL NEB SCH (18:00)
[2024-11-09 19:47] LABS: COVID19 ANTIGEN SOFIA FIA NEGATIVE (NEGATIVE)
[2024-11-09 19:49] LABS: Total Iron Binding Capacity 260.0 ug/dL (250-425)
[2024-11-09 19:57] LABS: Iron 29.0 ug/dL (65-175)
--- NOTE | 2024-11-09 20:25 | DVHINCON2 ---
Date of service: Nov 09, 2024 Referring Physician SAUNDRA Cortes Reason for Consultation Pneumonia History of Present Illness A 59-year-old male with past medical history of CHF, hypertension, cirrhosis, and chronic renal insufficiency, who was brought to the hospital via EMS today for shortness of breath and generalized weakness. Patient states he has been losing his balance and falling. Patient was recently admitted here for increased tremors, falls, and bilateral extremity swelling. Pt was noted to be coughing up blood while here, unable to say how long he has been coughing up blood, but he states he "coughs a lot up". Kidney function has significantly decreased since last admission. CXR revealed findings c/w pneumonia. Patient was admitted for further care. Pulmonary consultation is requested for evaluation and management given the above findings. Review of Systems: 14-point review of systems negative unless otherwise noted above. Past Medical History: CHF, hypertension, cirrhosis, and chronic renal insufficiency Past Surgical History: Right shoulder surgery Medications: Reviewed. Allergies: No known drug allergies. Family History: No family history of premature CAD. No family history of lung disorders. Social History: Nonsmoker. No alcohol or illicit drug use. Family History: Hypertension G8 MOTHER, Onset: - 40 Allergies: Coded Allergies: NO KNOWN ALLERGIES (Unverified , 11/01/24) Home Meds Active Scripts Furosemide (Furosemide) 40 Mg Tab, 1 TAB PO DAILY for 30 Days, #30 TAB 1 Refill Prov:RADHA FISCHER MD 11/04/24 Reported Medications Duloxetine HCl (Duloxetine HCl) 30 Mg Cap, 1 CAP PO DAILY 11/09/24 Nifedipine (Nifedipine Er) 60 Mg Tab, 1 TAB PO DAILY 11/09/24 Nitroglycerin (NTROSTAT SUBLINGUAL) 0.4 Mg Sl 11/03/24 Ondansetron HCl (Ondansetron) 4 Mg Tab 11/03/24 Hydrocodone-Acetaminophen (Hydrocodone Bitartrate/AC 10-300 mg) 1 Tab Tab, PO 11/03/24 Gabapentin (Gabapentin) 100 Mg Cap, 100 MG PO BID 11/01/24 Lactulose (Lactulose) 10 Gm/15 Ml Suzy, 30 ML PO BIDP PRN 11/01/24 Docusate Sodium (Docusate Sodium) 100 Mg Cap, 1 CAP PO BID 11/01/24 Hydralazine Hcl (Hydralazine Hcl) 100 Mg Tab, 1 TAB PO TID 11/01/24 Metoprolol Tartrate (LOPRESSOR TABLET) 50 Mg Tb, 1 TAB PO BID 11/01/24 Morphine Sulfate (Morphine Sulfate) 30 Mg Tab, 1 TAB PO QID PRN 11/01/24 Zolpidem Tartrate (Zolpidem Tartrate) 5 Mg Tab, 1 TAB PO QHSP PRN 11/01/24 Current Medications Current Medications Medications (Trade) Dose Ordered Sig/Justin Route PRN Reason Start Time Stop Time Status Last Admin Acetaminophen/ Hydrocodone Bitart ([place] 5/325MG Tab) 1 tab Q4HP PRN PO MODERATE PAIN (4-6 PAIN SCALE) 11/09/24 10:30 Ondansetron HCl (Zofran) 4 mg Q4HP PRN IV NAUSEA / VOMITING 11/09/24 10:30 Docusate Sodium (Colace Capsule) 100 mg BIDPRN PRN PO FOR CONSTIPATION 11/09/24 10:30 Acetaminophen (Tylenol Tablet) 650 mg Q6HP PRN PO PAIN SCALE 1-3 OR TEMP>100.4 11/09/24 10:30 Nitroglycerin (Ntrostat Sublingual) 0.4 mg Q5MINP PRN SL FOR CHEST PAIN 11/09/24 10:30 Morphine Sulfate 2 mg Q30M PRN IV FOR CHEST PAIN 11/09/24 11:30 Ceftriaxone Sodium 50 ml @ 100 mls/hr DAILY@09 IV 11/10/24 09:00 Azithromycin 250 ml @ 125 mls/hr DAILY IV 11/10/24 10:00 Ipratropium [place] (Atrovent Medneb) 0.5 mg Q6HWA [facility] 11/09/24 18:00 Albuterol (Ventolin Medneb) 2.5 mg Q6HWA [facility] 11/09/24 18:00 Sodium Chloride 1,000 ml @ 75 mls/hr [id number] IV 11/09/24 15:00 11/09/24 16:18 DC Hydralazine HCl (Apresoline Tablet) 100 mg Q8HR PO 11/09/24 22:00 11/09/24 16:09 DC Gabapentin (Neurontin Capsule) 100 mg BID PO 11/09/24 22:00 Metoprolol Tartrate (Lopressor Tablet) 50 mg BID PO 11/09/24 22:00 Zolpidem Tartrate (Ambien) 5 mg QHSP PRN PO FOR INSOMNIA 11/09/24 15:45 Duloxetine HCl (Cymbalta Capsule) 30 mg DAILY PO 11/10/24 10:00 Patient Own Medication 1 tab QID PO 11/09/24 18:00 11/09/24 16:58 DC Patient Own Medication 1 tab DAILY PO 11/10/24 10:00 UNV Nifedipine (Procardia Xl (Time-Release)) 60 mg DAILY PO 11/10/24 10:00 Morphine Sulfate (Oramorph Sustained Release Tab) 30 mg BID PO 11/09/24 22:00 Vital Signs Vital Signs Date Time Temp Pulse Resp B/P (MAP) Pulse Ox O2 Delivery O2 Flow Rate FiO2 11/09/24 17:00 97.6 70 16 126/90 (102) 99 97.6 11/09/24 16:33 Nasal Cannula* 4 36 Physical Exam Gen.: Patient lying in bed in no apparent distress. On supplemental oxygen. Head: Normocephalic, atraumatic. Eyes: EOMI/PERRLA. Ears: Normal hearing. Normal anatomy. Neck/trachea: Trachea midline, supple. Nose: Normal external anatomy. Mouth: Moist mucous membranes. Chest: Decreased air entry bilaterally. No wheezing or rhonchi. Cardiovascular: Positive S1, positive S2. Regular rate and rhythm. Abdomen: Positive bowel sounds in all 4 quadrants. Soft, non-tender, non- distended. : Deferred. Rectal: Deferred. Skin: Warm, dry. Intact. Extremities: 2+ radial pulses bilaterally. No lower extremity edema. Neuro: Awake, alert, oriented x3. No gross motor or sensory deficits. Cranial nerves II through XII intact. Gait not assessed. Labs/Diagnostic Data Labs Test 11/09/24 17:50 11/09/24 17:15 11/09/24 14:59 11/09/24 10:00 Range/Units Influenza Type A Antigen Negative Negative Influenza Type B Antigen Negative Negative SARS-CoV-2 Antigen (Rapid) Negative NEGATIVE Urine Creatinine 22.28 L 30.0-125.0 mg/dL Urine Sodium 89 40-220 mmol/L Urine Color Colorless Yellow Urine Clarity Clear Clear Urine pH 5.5 5.0-9.0 Urine Specific [place] 1.007 1.001-1.035 Urine Protein 1+ H Negative Urine Ketones Negative Negative Urine Blood 3+ H Negative /uL Urine Nitrite Negative Negative Urine Bilirubin Negative Negative Urine Urobilinogen Normal Negative mg/dL Urine Leukocyte Esterase Negative Negative /uL Urine RBC 254 0 - 3 /hpf Urine Microscopic WBC 4 H 0-3 /HPF Urine Squamous Epithelial Cells None seen <5 /hpf Urine Amorphous Crystals Few None Seen /hpf Urine Bacteria Few H None Seen /hpf Urine Glucose Normal Normal mg/dL Test 11/09/24 09:22 11/09/24 00:00 Range/Units White Blood Count 5.3 4.4-10.8 10^3/uL Red Blood Count 3.68 L 4.5-5.90 10^6/uL Hemoglobin 8.7 L 13.5-17.5 g/dL Hematocrit 27.2 L 41.0-53.0 % Mean Corpuscular Volume 73.8 L 80.0-100.0 fL Mean Corpuscular Hemoglobin 23.7 L 28.0-32.0 pg Mean Corpuscular Hemoglobin Concent 32.1 32.0-36.0 g/dL Red Cell Distribution Width 17.2 H 11.8-14.3 % Platelet Count 315 140-450 10^3/uL Mean Platelet Volume 7.2 6.9-10.8 fL Neutrophils (%) (Auto) 76.7 37.0-80.0 % Lymphocytes (%) (Auto) 13.9 10.0-50.0 % Monocytes (%) (Auto) 4.9 0.0-12.0 % Eosinophils (%) (Auto) 3.9 0.0-7.0 % Basophils (%) (Auto) 0.6 0.0-2.0 % Neutrophils # (Auto) 4.0 1.6-8.6 10 ^3/uL Lymphocytes # (Auto) 0.7 0.4-5.4 10 ^3/uL Monocytes # (Auto) 0.3 0-1.3 10 ^3/uL Eosinophils # (Auto) 0.2 0-0.8 10 ^3/uL Basophils # (Auto) 0 0-0.2 10 ^3/uL Nucleated Red Blood Cells 0.1 % Sodium Level 137 136-145 mmol/L Potassium Level 4.0 3.5-5.1 mmol/L Chloride Level 98 98-107 mmol/L Carbon Dioxide Level 29 20-31 mmol/L Anion Gap 10 5-15 Blood Urea Nitrogen 67 H 9-23 mg/dL Creatinine 5.54 #H 0.700-1.30 mg/dL Glomerular Filtration Rate Calc 11 >90 mL/min BUN/Creatinine Ratio 12.1 10.0-20.0 Serum Glucose 109 #H 74-106 mg/dL Uric Acid 8.0 3.7-9.2 mg/dL Calcium Level 8.8 8.7-10.4 mg/dL Iron Level 29 L 65-175 ug/dL Total Iron Binding Capacity 260 250-425 ug/dL Percent Iron Saturation 11.2 L 20-55 % Ferritin 140.7 22-322 ng/mL Total Bilirubin < 0.2 L 0.2-1.0 mg/dL Aspartate Amino Transferase (AST) 24 13-40 U/L Alanine Aminotransferase (ALT) 13 7-40 U/L Alkaline Phosphatase 121 H 46-116 U/L Ammonia < 10 L 11-32 umol/L Total Protein 7.8 5.7-8.2 g/dL Albumin 3.9 3.2-4.8 g/dL Urine Protein/Creatinine Ratio 3.15 Urine Total Protein 70.6 H 1-14 mg/dL Assessment Impression: Hemoptysis Atypical pneumonia, left upper lobe Pneumonia, likely GNR vs GPC Cirrhosis Congestive heart failure Pulmonary edema Anemia, microcytic Plan: Supplemental oxygen Titrate to keep O2 sats above 92%. CXR demonstrates patchy infiltrates in bilateral lungs, greatest in the left upper lobe, increased compared with CXR 8 days prior. IV antibiotics Bronchodilators. IV fluids with NS Blood pressure control Monitor hemoptysis Follow up Cardiology recs Diurese with Lasix Monitor renal function d/t ALICE. Monitor BUN and Cr. Monitor electrolytes. Supplement as necessary. Monitor ins and outs. Pain control Avoid oversedation Monitor hemoglobin - currently 8.7 g/dL Transfuse if less than 7.0 g/dL. DVT prophylaxis. Prognosis: Poor given patient's multiple co-morbidities. Rest of plan per hospitalist and other consultants. Thank you, SAUNDRA Cortes, for allowing me to participate in this patient's care. Further recommendations will depend on the patient's clinical course. Please do not hesitate to contact me if you have any questions or concerns. This medical document was created using an electronic medical record system with Dragon computerized dictation system. Although these documentations are being carefully reviewed, there may still be some phonetic and typographical changes. The errors are purely typographical, due to imperfection on the software teo muhammad, and do not reflect any compromise in the patient's medical care. Plan discussed with: Patient, Other (RN/MD) Visit Coding Pulmonary Billing Provider: JOANNA ARREOLA MD Date of Service if different f: Nov 09, 2024 Common Visit Codes: 13180-TEPVDII INP/OBS CARE (HIGH) JOANNA ARREOLA MD Nov 09, 2024 20:25
[2024-11-09] MEDS: GABAPENTIN 100 MG CAP PO SCH (22:17)
[2024-11-09] MEDS: METOPROLOL TARTRATE 50 MG TAB PO SCH (22:18)
[2024-11-09] MEDS: MORPHINE SULF 30 mg ER tab PO SCH (23:09)
[2024-11-10] VITALS (14 sets, daily range): BP systolic 120–160; BP diastolic 74–103; PULSE 67–87; RESP 14–20; TEMP 97.1–98.5; O2SAT 85–100
[2024-11-10 07:04] LABS: Hematocrit 25.7 % (41.0-53.0); Hemoglobin 8.2 g/dL (13.5-17.5); Mean Corpuscular Hemoglobin 23.4 pg (28.0-32.0); Mean Corpuscular Volume 73.8 fL (80.0-100.0); Nucleated Red Blood Cells % 0.1 %
[2024-11-10 07:24] LABS: Albumin 3.4 g/dL (3.2-4.8); Alkaline Phosphatase 110 U/L (46-116); Anion Gap 12 (5-15); BUN/Creatinine Ratio 12.0 (10.0-20.0); Carbon Dioxide 27 mmol/L (20-31); Chloride 102 mmol/L (98-107); Potassium 4.0 mmol/L (3.5-5.1); Sodium 141 mmol/L (136-145); Total Protein 6.9 g/dL (5.7-8.2)
[2024-11-10 07:25] LABS: Blood Urea Nitrogen 73 mg/dL (9-23); Glucose 127 mg/dL (74-106)
[2024-11-10 07:26] LABS: Alanine Aminotransferase < 9 U/L (7-40); Bilirubin, Total < 0.2 mg/dL (0.2-1.0); Calcium 8.4 mg/dL (8.7-10.4)
--- NOTE | 2024-11-10 09:49 | DVH ---
EXAM: XY CHEST PORTABLE Indication: sob Technique: Single frontal view of the chest was obtained Comparison: XY CHEST XRAY 1 VIEW on DOS: 11/09/24, XY CHEST PORTABLE on DOS: 11/01/24 FINDINGS: Lines and Tubes: None Lungs: Diffuse multifocal consolidative opacities. No pneumothorax. Cardiomediastinal contours: Unremarkable Bones: No acute osseous abnormality. IMPRESSION: Findings suggestive of multifocal pneumonia.
[2024-11-10] MEDS ORDERED: PATIENTS OWN MEDICATION (Nifedipine (Nifedipine Er) 1 TAB) PO SCH (10:00)
--- NOTE | 2024-11-10 10:55 | DVHPN2 ---
Progress Note Date Seen: Nov 10, 2024 Resident Creating Document: SAGAR STEWARD RESIDENT Medical Necessity Reason Pt with a Central, PICC or Fol: Yes Subjective Review of Systems Patient was seen and examined on the bedside. He is alert oriented x3. Complain of generalized weakness, hemoptysis and no other active complaint. Objective vital signs Vital Sign Date Time Temp Pulse Resp B/P (MAP) Pulse Ox O2 Delivery O2 Flow Rate FiO2 11/10/24 10:15 158/103 11/10/24 10:15 76 11/10/24 09:00 98.4 20 92 98.4 11/10/24 07:03 Nasal Cannula 3.0 11/10/24 07:03 32 Total Intake and Output 11/09/24 11/09/24 11/10/24 15:00 23:00 07:00 Intake Total 840 ml 375 ml Output Total 1580 ml 1550 ml Balance -740 ml -1175 ml medications Current Medications Medications Dose Ordered Sig/Justin Route Start Time Stop Time Status Last Admin Dose Admin Acetaminophen/ Hydrocodone Bitart 1 tab Q4HP PRN PO 11/09/24 10:30 Ondansetron HCl 4 mg Q4HP PRN IV 11/09/24 10:30 Docusate Sodium 100 mg BIDPRN PRN PO 11/09/24 10:30 Acetaminophen 650 mg Q6HP PRN PO 11/09/24 10:30 Nitroglycerin 0.4 mg Q5MINP PRN SL 11/09/24 10:30 Morphine Sulfate 2 mg Q30M PRN IV 11/09/24 11:30 Ceftriaxone Sodium 50 ml @ 100 mls/hr DAILY@09 IV 11/10/24 09:00 11/10/24 10:16 100 MLS/HR Azithromycin 250 ml @ 125 mls/hr DAILY IV 11/10/24 10:00 Ipratropium [place] 0.5 mg Q6HWA [facility] 11/09/24 18:00 11/10/24 07:03 0.5 MG Albuterol 2.5 mg Q6HWA NEB 11/09/24 18:00 11/10/24 07:02 2.5 MG Gabapentin 100 mg BID PO 11/09/24 22:00 11/10/24 10:16 100 MG Metoprolol Tartrate 50 mg BID PO 11/09/24 22:00 11/10/24 10:15 50 MG Zolpidem Tartrate 5 mg QHSP PRN PO 11/09/24 15:45 Duloxetine HCl 30 mg DAILY PO 11/10/24 10:00 11/10/24 10:14 30 MG Patient Own Medication 1 tab DAILY PO 11/10/24 10:00 UNV Nifedipine 60 mg DAILY PO 11/10/24 10:00 11/10/24 10:15 60 MG Morphine Sulfate 30 mg BID PO 11/09/24 22:00 11/10/24 10:16 30 MG Examination Physical examination: General Appearance: Alert, Oriented X3, Cooperative, mild resp distress HEENT: Atraumatic, PERRLA, EOMI, Mucous membrane moist/pink Respiratory: Bilateral rales. Cardiovascular: Regular rate, Normal S1, Normal S2, No murmurs, no chest wall tenderness Abdominal: Normal bowel sounds, Soft, No tenderness, No hepatospenomegaly, No masses Extremities: No edema, No clubbing, No cyanosis, Normal pulses, No tenderness/swelling Skin: No rashes, No breakdown, No significant lesion Neuro: Normal speech, Strength at 5/5 X4 ext, Normal tone, Sensation intact, Cranial nerves 3-12 NL, Reflexes 2+ Psych/Mental Status: Mental status NL, Mood NL laboratory and microbiology Laboratory Tests 11/10/24 05:55 11/10/24 05:35 Test 11/10/24 05:55 Range/Units Serum Glucose 127 H 74-106 mg/dL Labs and/or images reviewed: Labs reviewed by me, Image(s) reviewed by me Problem List/Assessment/Plan Problem List/Assessment/Plan Assessment and plan: # ALICE likely hemodynamically mediated in the setting of sepsis secondary to multifocal pneumonia # Possible ALICE on CKD # bloody cough--- Rule out ANCA associated vasculitis/glomerulonephritis # Possible lupus nephritis # Acute on chronic hypochromic microcytic anemia # Acute hypoxic respiratory failure secondary to multifocal pneumonia # chronic diastolic heart failure with preserved ejection fraction # History of liver cirrhosis Plan: - Worsening kidney function but urine output improved - IV normal saline at 100 mL/hour - FENa is 17.2% - YAMEL panel demonstrated double-stranded DNA antibody and chromatin antibody positive, C3 and C4 are within normal limits - Rapidly worsening kidney function and hemoptysis, rule out ANCA associated vasculitis/glomerulonephritis - pending ANCA panel - patient was counseled regarding the need for kidney biopsy, including risk and benefits, he refused the procedure for now and wants to discuss it later. - Iron panel showed low iron and saturation, TIBC and ferritin are normal - continue metoprolol tartrate 50 mg p.o. b.i.d., nifedipine ER 60 mg daily, hydralazine 100 mg b.i.d. - Continue IV antibiotic and other management as per primary - Strict I&O - Avoid nephrotoxic medication - monitor BMP Thank you so much for the opportunity to consult on your patient. Nephro team will follow the patient. In case of any questions or concerns please feel free to reach out. Plan discussed with Dr. Wagoner. The patient and caregiver team agreed to the plan. Addendum Patient seen and examined, plan discussed with resident. Agree with above, we will follow closely pulse dose steroids as ordered for 3 days solumedrol 1gm iv daily recommend kidney biopsy Plan discussed with: Patient, Other (RN) My Orders My Orders Orders - SAGAR STEWARD Procedure Category Date Status Time Yamel; Comprehensive LAB 11/09/24 In Process Panel 14:59 Anca Panel LAB 11/09/24 In Process 14:59 Complement C3 & C4 LAB 11/09/24 In Process 14:59 Comprehensive LAB 11/09/24 In Process Hepatitis Panel 16:36 Chest Portable XY 11/10/24 Resulted 08:28 Hydralazine Hcl PHA 11/10/24 Verified Tablet (Apresoline 22:00 Hydralazine Hcl PHA 11/10/24 Verified Tablet (Apresoline 11:00 SAGAR STEWARD Nov 10, 2024 10:55 MEGAN WAGONER MD Nov 10, 2024 22:52
[2024-11-10 11:29] LABS: Hepatitis A Total Antibody Positive (Negative); Hepatitis B Surface Antigen Negative (Negative); Hepatitis C Antibody Negative (Negative)
[2024-11-10] MEDS: AZITHROMYCIN 500MG/ 250ML 250 ML IV SCH (12:27)
--- NOTE | 2024-11-10 13:30 | DVHPN2 ---
Reviewed: Care Plan, H&P, Labs, Medications, Previous Orders, Radiology Changes from previous H/P or p: No Changes Eyes: No Pain, No Vision change, No Conjunctivae inflammation, No Eyelid inflammation, No Other, No Redness ENT: No Ear pain, No Ear discharge, No Nose pain, No Nose discharge, No Nose congestion, No Mouth pain, No Mouth swelling, No Throat pain, No Throat swelling, No Other Cardiovascular: No Chest Pain, No Palpitations, No Orthopnea, No Paroxysmal Noc. Dyspnea, No Edema, No Lt Headedness, No Other Respiratory: Cough; No Dry; Shortness of breath, SOB with excertion; No Wheezing; Hemoptysis; No Pleuritic Pain, No Sputum, No Other Gastrointestinal: No Nausea, No Vomiting, No Abdominal Pain, No Diarrhea, No Constipation, No Melena, No Hematochezia, No Other Genitourinary: No Dysuria, No Frequency, No Incontinence, No Hematuria, No Retention, No Other Musculoskeletal: No other, No neck pain, No shoulder pain, No arm pain, No back pain, No hand pain, No leg pain, No foot pain Skin: No Rash, No Lesions, No Jaundice, No Bruising, No Other Objective Vitals Vital Signs Date Time Temp Pulse Resp B/P (MAP) Pulse Ox O2 Delivery O2 Flow Rate FiO2 11/10/24 12:26 158/103 11/10/24 12:23 98.5 72 18 97 98.5 11/10/24 07:03 Nasal Cannula 3.0 11/10/24 07:03 32 Intake/Output Intake and Output 11/10/24 07:00 Intake Total 1215 ml Output Total 3130 ml Balance -1915 ml Intake Oral 1215 ml Output Urine Total 3130 ml Medications Current Medications Medications Dose Ordered Sig/Justin Route Start Time Stop Time Status Last Admin Dose Admin Acetaminophen/ Hydrocodone Bitart 1 tab Q4HP PRN PO 11/09/24 10:30 Ondansetron HCl 4 mg Q4HP PRN IV 11/09/24 10:30 Docusate Sodium 100 mg BIDPRN PRN PO 11/09/24 10:30 Acetaminophen 650 mg Q6HP PRN PO 11/09/24 10:30 Nitroglycerin 0.4 mg Q5MINP PRN SL 11/09/24 10:30 Morphine Sulfate 2 mg Q30M PRN IV 11/09/24 11:30 Ceftriaxone Sodium 50 ml @ 100 mls/hr DAILY@09 IV 11/10/24 09:00 11/10/24 10:16 100 MLS/HR Azithromycin 250 ml @ 125 mls/hr DAILY IV 11/10/24 10:00 11/10/24 12:27 125 MLS/HR Ipratropium [place] 0.5 mg Q6HWA NEB 11/09/24 18:00 11/10/24 12:06 0.5 MG Albuterol 2.5 mg Q6HWA NEB 11/09/24 18:00 11/10/24 12:06 2.5 MG Gabapentin 100 mg BID PO 11/09/24 22:00 11/10/24 10:16 100 MG Metoprolol Tartrate 50 mg BID PO 11/09/24 22:00 11/10/24 10:15 50 MG Zolpidem Tartrate 5 mg QHSP PRN PO 11/09/24 15:45 Duloxetine HCl 30 mg DAILY PO 11/10/24 10:00 11/10/24 10:14 30 MG Patient Own Medication 1 tab DAILY PO 11/10/24 10:00 UNV Nifedipine 60 mg DAILY PO 11/10/24 10:00 11/10/24 10:15 60 MG Morphine Sulfate 30 mg BID PO 11/09/24 22:00 11/10/24 10:16 30 MG Hydralazine HCl 100 mg Q12HR PO 11/10/24 22:00 Laboratory Results Laboratory Tests 11/10/24 05:35 11/10/24 05:55 Chemistry Test 11/10/24 05:55 Albumin 3.4 g/dL (3.2-4.8) Calcium Level 8.4 mg/dL (8.7-10.4) L Total Protein 6.9 g/dL (5.7-8.2) Cardiac Markers Test 11/10/24 05:35 B-Type Natriuretic Peptide 859.53 pg/mL (0-100) LFT Test 11/10/24 05:55 Alanine Aminotransferase (ALT) < 9 U/L (7-40) Alkaline Phosphatase 110 U/L (46-116) Aspartate Amino Transferase (AST) 18 U/L (13-40) Total Bilirubin < 0.2 mg/dL (0.2-1.0) L Urinalysis Test 11/09/24 00:00 11/09/24 10:00 11/09/24 14:59 Urine Protein/Creatinine Ratio 3.15 Urine Total Protein 70.6 mg/dL (1-14) H Urine Color Colorless (Yellow) Urine Clarity Clear (Clear) Urine pH 5.5 (5.0-9.0) Urine Specific [place] 1.007 (1.001-1.035) Urine Protein 1+ (Negative) H Urine Ketones Negative (Negative) Urine Blood 3+ /uL (Negative) H Urine Nitrite Negative (Negative) Urine Bilirubin Negative (Negative) Urine Urobilinogen Normal mg/dL (Negative) Urine Leukocyte Esterase Negative /uL (Negative) Urine RBC 254 /hpf (0 - 3) Urine Microscopic WBC 4 /HPF (0-3) H Urine Squamous Epithelial Cells None seen /hpf (<5) Urine Amorphous Crystals Few /hpf (None Seen) Urine Bacteria Few /hpf (None Seen) H Urine Glucose Normal mg/dL (Normal) Urine Creatinine 22.28 mg/dL (30.0-125.0) L Urine Sodium 89 mmol/L (40-220) Microbiology Microbiology Date/Time Source Procedure Growth Status 11/09/24 17:00 Nose MRSA Screen - Final Complete Labs and/or images reviewed: Labs reviewed by me, Image(s) reviewed by me Assessment/Plan Assessment/Plan # ALICE likely hemodynamically mediated in the setting of sepsis secondary to multifocal pneumonia: Consult by Dr. Mix appreciated # Possible ALICE on CKD: Consult by Dr. Edge appreciated #bloody cough--- Rule out ANCA associated vasculitis/glomerulonephritis # Acute on chronic hypochromic microcytic anemia # Acute hypoxic respiratory failure secondary to multifocal pneumonia: Rocephin azithromycin albuterol Atrovent consult by Dr. Mix appreciated # chronic diastolic heart failure with preserved ejection fraction # History of liver cirrhosis Sarah test and flu test ordered Time spent 70 minutes Advanced care planning time 20 minutes Patient is full code Plan discussed with: Patient Date of Service: Nov 10, 2024 Billing Provider: SHLOMO GARNER MD Common Visit Codes: [id number] CARE 30-74 MIN SHLOMO GARNER MD Nov 10, 2024 13:30
[2024-11-10 14:06] LABS: Anti-Centromere B Antibody <0.2 AI (0.0-0.9); Anti-Jo-1 Antibody <0.2 AI (0.0-0.9); Anti-dsDNA Antibody 19 IU/mL (0-9); Antichromatin Antibody 1.4 AI (0.0-0.9); Antiscleroderma-70 Antibody <0.2 AI (0.0-0.9); Sjogren's Anti-SS-A Antibody 0.4 AI (0.0-0.9); Sjogren's Anti-SS-B Antibody <0.2 AI (0.0-0.9)
[2024-11-10] MEDS: SODIUM CHLORIDE 0.9% 1,000 ML IV SCH (14:45)
[2024-11-10 15:20] LABS: COVID19 ANTIGEN SOFIA FIA NEGATIVE (NEGATIVE)
--- NOTE | 2024-11-10 21:35 | DVHPN2 ---
Subjective DOS: 11/10/2024 Patient seen and examined at bedside. Remains on supplemental oxygen Overnight events reviewed. Reviewed: Care Plan, H&P, Labs, Medications, Previous Orders, Radiology Changes from previous H/P or p: No Changes Eyes: No Pain, No Vision change, No Conjunctivae inflammation, No Eyelid inflammation, No Other, No Redness ENT: No Ear pain, No Ear discharge, No Nose pain, No Nose discharge, No Nose congestion, No Mouth pain, No Mouth swelling, No Throat pain, No Throat swelling, No Other Cardiovascular: No Chest Pain, No Palpitations, No Orthopnea, No Paroxysmal Noc. Dyspnea, No Edema, No Lt Headedness, No Other Respiratory: Cough; No Dry; Shortness of breath, SOB with excertion; No Wheezing; Hemoptysis; No Pleuritic Pain, No Sputum, No Other Gastrointestinal: No Nausea, No Vomiting, No Abdominal Pain, No Diarrhea, No Constipation, No Melena, No Hematochezia, No Other Genitourinary: No Dysuria, No Frequency, No Incontinence, No Hematuria, No Retention, No Other Musculoskeletal: No other, No neck pain, No shoulder pain, No arm pain, No back pain, No hand pain, No leg pain, No foot pain Skin: No Rash, No Lesions, No Jaundice, No Bruising, No Other Objective Vitals Vital Signs Date Time Temp Pulse Resp B/P (MAP) Pulse Ox O2 Delivery O2 Flow Rate FiO2 11/10/24 21:00 97.1 87 18 120/74 (89) 96 97.1 11/10/24 10:30 Nasal Cannula 3.0 11/10/24 10:30 32 Intake/Output Intake and Output 11/10/24 07:00 Intake Total 1215 ml Output Total 3130 ml Balance -1915 ml Intake Oral 1215 ml Output Urine Total 3130 ml Exam Gen.: Patient lying in bed in no apparent distress. On supplemental oxygen. Head: Normocephalic, atraumatic. Eyes: EOMI/PERRLA. Ears: Normal hearing. Normal anatomy. Neck/trachea: Trachea midline, supple. Nose: Normal external anatomy. Mouth: Moist mucous membranes. Chest: Decreased air entry bilaterally. No wheezing or rhonchi. Cardiovascular: Positive S1, positive S2. Regular rate and rhythm. Abdomen: Positive bowel sounds in all 4 quadrants. Soft, non-tender, non- distended. : Deferred. Rectal: Deferred. Skin: Warm, dry. Intact. Extremities: 2+ radial pulses bilaterally. No lower extremity edema. Neuro: Awake, alert, oriented x3. No gross motor or sensory deficits. Cranial nerves II through XII intact. Gait not assessed. Medications Current Medications Medications Dose Ordered Sig/Justin Route Start Time Stop Time Status Last Admin Dose Admin Acetaminophen/ Hydrocodone Bitart 1 tab Q4HP PRN PO 11/09/24 10:30 Ondansetron HCl 4 mg Q4HP PRN IV 11/09/24 10:30 Docusate Sodium 100 mg BIDPRN PRN PO 11/09/24 10:30 Acetaminophen 650 mg Q6HP PRN PO 11/09/24 10:30 Nitroglycerin 0.4 mg Q5MINP PRN SL 11/09/24 10:30 Morphine Sulfate 2 mg Q30M PRN IV 11/09/24 11:30 Ceftriaxone Sodium 50 ml @ 100 mls/hr DAILY@09 IV 11/10/24 09:00 11/10/24 10:16 100 MLS/HR Azithromycin 250 ml @ 125 mls/hr DAILY IV 11/10/24 10:00 11/10/24 12:27 125 MLS/HR Ipratropium [place] 0.5 mg Q6HWA [facility] 11/09/24 18:00 11/10/24 12:06 0.5 MG Albuterol 2.5 mg Q6HWA NEB 11/09/24 18:00 11/10/24 12:06 2.5 MG Gabapentin 100 mg BID PO 11/09/24 22:00 11/10/24 10:16 100 MG Metoprolol Tartrate 50 mg BID PO 11/09/24 22:00 11/10/24 10:15 50 MG Zolpidem Tartrate 5 mg QHSP PRN PO 11/09/24 15:45 Duloxetine HCl 30 mg DAILY PO 11/10/24 10:00 11/10/24 10:14 30 MG Patient Own Medication 1 tab DAILY PO 11/10/24 10:00 UNV Nifedipine 60 mg DAILY PO 11/10/24 10:00 11/10/24 10:15 60 MG Morphine Sulfate 30 mg BID PO 11/09/24 22:00 11/10/24 10:16 30 MG Hydralazine HCl 100 mg Q12HR PO 11/10/24 22:00 Sodium Chloride 1,000 ml @ 100 mls/hr Q10H IV 11/10/24 14:45 11/10/24 14:45 100 MLS/HR Laboratory Results Laboratory Tests 11/10/24 05:35 11/10/24 05:55 Chemistry Test 11/10/24 05:55 Albumin 3.4 g/dL (3.2-4.8) Calcium Level 8.4 mg/dL (8.7-10.4) L Total Protein 6.9 g/dL (5.7-8.2) Cardiac Markers Test 11/10/24 05:35 B-Type Natriuretic Peptide 859.53 pg/mL (0-100) LFT Test 11/10/24 05:55 Alanine Aminotransferase (ALT) < 9 U/L (7-40) Alkaline Phosphatase 110 U/L (46-116) Aspartate Amino Transferase (AST) 18 U/L (13-40) Total Bilirubin < 0.2 mg/dL (0.2-1.0) L Urinalysis Test 11/09/24 00:00 11/09/24 10:00 11/09/24 14:59 Urine Protein/Creatinine Ratio 3.15 Urine Total Protein 70.6 mg/dL (1-14) H Urine Color Colorless (Yellow) Urine Clarity Clear (Clear) Urine pH 5.5 (5.0-9.0) Urine Specific [place] 1.007 (1.001-1.035) Urine Protein 1+ (Negative) H Urine Ketones Negative (Negative) Urine Blood 3+ /uL (Negative) H Urine Nitrite Negative (Negative) Urine Bilirubin Negative (Negative) Urine Urobilinogen Normal mg/dL (Negative) Urine Leukocyte Esterase Negative /uL (Negative) Urine RBC 254 /hpf (0 - 3) Urine Microscopic WBC 4 /HPF (0-3) H Urine Squamous Epithelial Cells None seen /hpf (<5) Urine Amorphous Crystals Few /hpf (None Seen) Urine Bacteria Few /hpf (None Seen) H Urine Glucose Normal mg/dL (Normal) Urine Creatinine 22.28 mg/dL (30.0-125.0) L Urine Sodium 89 mmol/L (40-220) Microbiology Microbiology Date/Time Source Procedure Growth Status 11/09/24 17:00 Nose MRSA Screen - Final Complete Assessment/Plan Assessment/Plan Impression: Hemoptysis Atypical pneumonia, left upper lobe Pneumonia, likely GNR vs GPC Cirrhosis Congestive heart failure Pulmonary edema Anemia, microcytic Events: Remains on supplemental oxygen, on 3 LPM NC Taper O2 as tolerated Quantify hemoptysis Plan for bronchoscopy Continue bronchodilators Continue antibiotics Send sputum cultures Incentive spirometry Blood pressure control Monitor hemoglobin - 8.2 g/dL Follow up Nephrology recs Monitor renal function. Currently BUN 73, and Cr of 6.0. Monitor electrolytes. Supplement as necessary. Obtain consent for bronchoscopy with bronchoalveolar lavage, possible brushings, possible biopsy. Labs and imaging reviewed. Rest of plan as noted below. Plan: Supplemental oxygen Titrate to keep O2 sats above 92%. CXR demonstrates patchy infiltrates in bilateral lungs, greatest in the left upper lobe, increased compared with CXR 8 days prior. IV antibiotics Bronchodilators. Blood pressure control Monitor hemoptysis Follow up Cardiology recs Maintain euvolemia Monitor renal function d/t ALICE. Monitor BUN and Cr. Monitor electrolytes. Supplement as necessary. Monitor ins and outs. Pain control Avoid oversedation Monitor hemoglobin Transfuse if less than 7.0 g/dL. DVT prophylaxis. Prognosis: Poor given patient's multiple co-morbidities. Rest of plan per hospitalist and other consultants. Thank you, SAUNDRA Cortes, for allowing me to participate in this patient's care. Further recommendations will depend on the patient's clinical course. Please do not hesitate to contact me if you have any questions or concerns. This medical document was created using an electronic medical record system with [employer] dictation system. Although these documentations are being carefully reviewed, there may still be some phonetic and typographical changes. The errors are purely typographical, due to imperfection on the software program, and do not reflect any compromise in the patient's medical care. Plan discussed with: Patient, Other (KRISTIN Rivers) My Orders Orders - JOANNA ARREOLA MD Procedure Category Date Status Time Respiratory Culture JEANNIE 11/10/24 Logged W/ Gs 13:15 Obtain Consent For: ORDERS 11/10/24 Transmitted 15:05 Obtain Consent For JOSEPHINE 11/10/24 In Process Anesthesia 15:05 Npo (Nothing By DIET 11/10/24 Transmitted Mouth) Diet Dinner Visit Coding Pulmonary Billing Provider: JOANNA ARREOLA MD Date of Service if different f: Nov 10, 2024 Common Visit Codes: [id number] INP/OBS CARE(HIGH) JOANNA ARREOLA MD Nov 10, 2024 21:35
[2024-11-10] MEDS: methylPREDNISolone SOD SUCC 40 MG/ML VL IV SCH (23:00)
[2024-11-11] VITALS (16 sets, daily range): BP systolic 120–150; BP diastolic 71–93; PULSE 61–99; RESP 16–20; TEMP 97.3–98.2; O2SAT 93–100
[2024-11-11] MEDS: PANTOPRAZOLE 40 MG TAB PO SCH (06:00)
[2024-11-11 06:55] LABS: Hemoglobin 7.7 g/dL (13.5-17.5); Nucleated Red Blood Cells % 0.0 %
[2024-11-11 06:56] LABS: Hematocrit 23.7 % (41.0-53.0); Mean Corpuscular Hemoglobin 23.9 pg (28.0-32.0); Mean Corpuscular Volume 73.6 fL (80.0-100.0)
[2024-11-11 07:03] LABS: Chloride 104 mmol/L (98-107); Potassium 4.2 mmol/L (3.5-5.1); Sodium 140 mmol/L (136-145)
[2024-11-11 07:04] LABS: Anion Gap 12 (5-15); Carbon Dioxide 24 mmol/L (20-31)
[2024-11-11 07:07] LABS: INR 0.99 (0.9-1.15); Partial Thromboplastin Time 35.0 SEC (24.5-34.5); Prothrombin Time 10.5 sec (9.3-11.8)
[2024-11-11 07:09] LABS: BUN/Creatinine Ratio 11.0 (10.0-20.0); Calcium 8.3 mg/dL (8.7-10.4); Glucose 99 mg/dL (74-106)
[2024-11-11 07:10] LABS: Blood Urea Nitrogen 69 mg/dL (9-23)
[2024-11-11] MEDS ORDERED: FLUMAZENIL 0.1 MG/ML INJ 10ML MDV IV ONE (07:27)
[2024-11-11] MEDS ORDERED: LIDOCAINE 2%HCL (LOCAL ANESTH.) INJ 20ML MDV ONE (07:27)
[2024-11-11] MEDS ORDERED: SODIUM CHLORIDE LOCK 10 ML ONE (07:27)
[2024-11-11] MEDS ORDERED: NALOXONE HCL 0.4 MG/ML VIAL ONE (07:27)
[2024-11-11] MEDS ORDERED: LIDOCAINE 2% JELLY 11ml (GLYDO) ONE (07:27)
[2024-11-11] MEDS: fentaNYL CITRATE 100 MCG/2 ML VL ONE (08:32)
[2024-11-11] MEDS: GLYCOPYRROLATE 0.2 MG/ML 1ML VIAL ONE (08:32)
[2024-11-11] MEDS: MIDAZOLAM HCL 5 MG/ML-1ML VIAL ONE (08:32)
[2024-11-11] MEDS: diphenhydrAMINE HCL 50 MG/1 ML VL ONE (08:32)
--- NOTE | 2024-11-11 08:37 | DVHPN2 ---
Reviewed: Care Plan, H&P, Labs, Medications, Previous Orders, Radiology Changes from previous H/P or p: No Changes Eyes: No Pain, No Vision change, No Conjunctivae inflammation, No Eyelid inflammation, No Other, No Redness ENT: No Ear pain, No Ear discharge, No Nose pain, No Nose discharge, No Nose congestion, No Mouth pain, No Mouth swelling, No Throat pain, No Throat swelling, No Other Cardiovascular: No Chest Pain, No Palpitations, No Orthopnea, No Paroxysmal Noc. Dyspnea, No Edema, No Lt Headedness, No Other Respiratory: Cough; No Dry; Shortness of breath, SOB with excertion; No Wheezing; Hemoptysis; No Pleuritic Pain, No Sputum, No Other Gastrointestinal: No Nausea, No Vomiting, No Abdominal Pain, No Diarrhea, No Constipation, No Melena, No Hematochezia, No Other Genitourinary: No Dysuria, No Frequency, No Incontinence, No Hematuria, No Retention, No Other Musculoskeletal: No other, No neck pain, No shoulder pain, No arm pain, No back pain, No hand pain, No leg pain, No foot pain Skin: No Rash, No Lesions, No Jaundice, No Bruising, No Other Objective Vitals Vital Signs Date Time Temp Pulse Resp B/P (MAP) Pulse Ox O2 Delivery O2 Flow Rate FiO2 11/11/24 06:46 78 16 100 11/11/24 06:40 Nasal Cannula* 3 32 11/11/24 05:00 97.3 130/81 (97) 97.3 Intake/Output Intake and Output 11/11/24 07:00 Intake Total 2350 ml Output Total 2550 ml Balance -200 ml Intake Oral 1100 ml IV Total 1250 ml Output Urine Total 2550 ml # Bowel Movements 1 Medications Current Medications Medications Dose Ordered Sig/Justin Route Start Time Stop Time Status Last Admin Dose Admin Acetaminophen/ Hydrocodone Bitart 1 tab Q4HP PRN PO 11/09/24 10:30 Ondansetron HCl 4 mg Q4HP PRN IV 11/09/24 10:30 Docusate Sodium 100 mg BIDPRN PRN PO 11/09/24 10:30 Acetaminophen 650 mg Q6HP PRN PO 11/09/24 10:30 Nitroglycerin 0.4 mg Q5MINP PRN SL 11/09/24 10:30 Morphine Sulfate 2 mg Q30M PRN IV 11/09/24 11:30 Ceftriaxone Sodium 50 ml @ 100 mls/hr DAILY@09 IV 11/10/24 09:00 11/10/24 10:16 100 MLS/HR Azithromycin 250 ml @ 125 mls/hr DAILY IV 11/10/24 10:00 11/10/24 12:27 125 MLS/HR Ipratropium [place] 0.5 mg Q6HWA NEB 11/09/24 18:00 11/11/24 06:49 0.5 MG Albuterol 2.5 mg Q6HWA NEB 11/09/24 18:00 11/11/24 06:48 2.5 MG Gabapentin 100 mg BID PO 11/09/24 22:00 11/10/24 10:16 100 MG Metoprolol Tartrate 50 mg BID PO 11/09/24 22:00 11/10/24 22:52 50 MG Zolpidem Tartrate 5 mg QHSP PRN PO 11/09/24 15:45 Duloxetine HCl 30 mg DAILY PO 11/10/24 10:00 11/10/24 10:14 30 MG Patient Own Medication 1 tab DAILY PO 11/10/24 10:00 UNV Nifedipine 60 mg DAILY PO 11/10/24 10:00 11/10/24 10:15 60 MG Morphine Sulfate 30 mg BID PO 11/09/24 22:00 11/10/24 22:47 30 MG Hydralazine HCl 100 mg Q12HR PO 11/10/24 22:00 Sodium Chloride 1,000 ml @ 100 mls/hr Q10H IV 11/10/24 14:45 11/11/24 06:17 100 MLS/HR Methylprednisolone Sodium Succinate 1,000 mg DAILY IV 11/10/24 23:00 11/12/24 10:01 Pantoprazole Sodium 40 mg DAILY@0600 PO 11/11/24 06:00 Laboratory Results Laboratory Tests 11/11/24 06:41 Chemistry Test 11/11/24 06:41 Calcium Level 8.3 mg/dL (8.7-10.4) L Coagulation Test 11/11/24 06:41 Prothrombin Time 10.5 sec (9.3-11.8) Prothrombin Time INR 0.99 (0.9-1.15) Activated Partial Thromboplast Time 35.0 SEC (24.5-34.5) H Urinalysis Test 11/09/24 00:00 11/09/24 10:00 11/09/24 14:59 Urine Protein/Creatinine Ratio 3.15 Urine Total Protein 70.6 mg/dL (1-14) H Urine Color Colorless (Yellow) Urine Clarity Clear (Clear) Urine pH 5.5 (5.0-9.0) Urine Specific [place] 1.007 (1.001-1.035) Urine Protein 1+ (Negative) H Urine Ketones Negative (Negative) Urine Blood 3+ /uL (Negative) H Urine Nitrite Negative (Negative) Urine Bilirubin Negative (Negative) Urine Urobilinogen Normal mg/dL (Negative) Urine Leukocyte Esterase Negative /uL (Negative) Urine RBC 254 /hpf (0 - 3) Urine Microscopic WBC 4 /HPF (0-3) H Urine Squamous Epithelial Cells None seen /hpf (<5) Urine Amorphous Crystals Few /hpf (None Seen) Urine Bacteria Few /hpf (None Seen) H Urine Glucose Normal mg/dL (Normal) Urine Creatinine 22.28 mg/dL (30.0-125.0) L Urine Sodium 89 mmol/L (40-220) Microbiology Microbiology Date/Time Source Procedure Growth Status 11/09/24 17:00 Nose MRSA Screen - Final Complete Labs and/or images reviewed: Labs reviewed by me, Image(s) reviewed by me Assessment/Plan Assessment/Plan Hemoptysis: Consult by Dr. Mix appreciated, patient getting bronchoscopy today Atypical pneumonia, left upper lobe Pneumonia, likely GNR vs GPC Cirrhosis Possible lupus nephritis Congestive heart failure Pulmonary edema Anemia, microcytic ALICE versus CKD: Nephrology following Sarah test negative Flu test negative Plan discussed with: Patient Date of Service: Nov 11, 2024 Billing Provider: SHLOMO GARNER MD Common Visit Codes: [id number] INP/OBS CARE(HIGH) SHLOMO GARNER MD Nov 11, 2024 08:37
--- NOTE | 2024-11-11 09:41 | DVHNC2 ---
Procedure - Bronchoscopy procedure note: Indications: Left upper and lower lobe atelectasis, Possible mucous plugging. 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 Glycopyrrolate 0.2 mg IV push, Benadryl 50 mg IV push, fentanyl 50 mcg IV push, Versed 2 mg IV push Complications: None Assistants: Afshan RN, Johnathon RN, RT, Olu Hernandez Procedure: Patient medications and allergies reviewed. The risks and benefits of the procedure and the sedation options and risk were discussed with the patient's healthcare proxy. All questions were answered and informed consent was obtained. Patient identification and proposed procedure were verified prior to the procedure by the physician, and a nurse, and the respiratory therapist in ICU room. The heart rate, respiratory rate, oxygen saturations, blood pressure, adequacy of pulmonary ventilation, and response to care were monitored throughout the procedure. The physical status of the patient was reassessed after the procedure. After obtaining informed consent, the bronchoscope was introduced through the or opharynx and advanced into the trachea bronchial tree of both lungs. The procedure was accomplished without difficulty. The patient tolerated the procedure well. Findings: The trachea is in normal caliber. The chet is sharp. The tracheobronchial tree of the right lung was examined to at least the first subsegmental level. The bronchial mucosa and anatomy in the right lung are normal. There are no endobronchial lesions. There was copious whitish secretions from right main stem bronchus onward throughout R1-R10. The left upper lobe, lingula, and left lower lobe were examined to at least the first subsegmental level. Bronchial mucosa and anatomy in the left upper lobe and lingula are normal. There were no endobronchial lesions. There was copious bloodly liquid secretions throughout L1-L10. Hemorrhage localized to TAYLER L1-4 and L5-L10. Cold saline 30 mL applied to each site with resolution of hemorrhage. Left upper lobe (TAYLER) Bronchoalveolar lavage (BAL) obtained. TAYLER BAL sent for gram stain and culture, viral culture, fungal culture, and AFB smear and culture. There was no active bleeding at the completion of the procedure. Estimated blood loss: Less than 5 mL. Impression: Left upper and lower lobe atelectasis due to clotted material and blood secretions Hemoptysis Mucous plugging from L6-L10 and L1-L4 TAYLER BAL performed Recommendation: Follow-up TAYLER BAL results. Procedure codes: 12752, bronchoscopy, rigid and flexible, including fluoroscopic guidance, one performed; with bronchial endobronchial broncho-alveolar lavage, single or multiple sites Visit Coding Pulmonary Billing Provider: JOANNA ARREOLA MD Date of Service if different f: Nov 11, 2024 Common Visit Codes: PROCEDURE ONLY Procedure Codes: [id number] (99699 Bronchoscopy with bronchoalveolar lavage), [id number] SEDATION INITIAL 15, 18967-[id number] SEDATION +15MIN JOANNA ARREOLA MD Nov 11, 2024 09:41
--- NOTE | 2024-11-11 09:44 | DVH ---
CHEST RADIOGRAPH Indication: post bronchoscopy Technique: Single frontal view of the chest was obtained Comparison: XY CHEST PORTABLE on DOS: 11/10/24, XY CHEST XRAY 1 VIEW on DOS: 11/09/24, XY CHEST PORTABL E on DOS: 11/01/24, XY CHEST PORTABLE on DOS: 11/10/24 FINDINGS: Lines and Tubes: None Lungs: Diffuse multifocal consolidative opacities. No pneumothorax. Cardiomediastinal contours: Unremarkable Bones: No acute osseous abnormality. IMPRESSION: Findings suggestive of multifocal pneumonia.
--- NOTE | 2024-11-11 09:45 | DVHNC2 ---
Procedure - I administered moderate sedation throughout the 22 minutes of the procedure. An independent observer administered medications at my direction and monitored the patient's level of consciousness and physiological status throughout the procedure. CPT 53044 for the first 15 minutes. CPT 10949 for each additional 15 minutes of conscious sedation. CONSCIOUS SEDATION PROCEDURE NOTE: Procedural Sedation Performed by: Dr Cristina Mix Indications: Bronchoscopy [place] Protocol: a time out was performed and the correct patient and site were verified Consent: The risks and benefits of monitored anesthesia care, including the risk of aspiration, deep sedation requiring airway management including possible intubation, nausea/vomiting and the risks of not performing the procedure, including severe pain and inability to complete the procedure, were all discussed with the patient. The alternatives of performing the procedure, including local anesthesia and IV analgesia, also discussed. The patient has a ride home available. ASA Class: II-mild systemic disease Mallampati Score: 2 Pre-anesthesia evaluation, including history, exam, and informed consent is documented in the note above. Monitoring: Continuous monitoring of heart rate, respiratory rate, pulse oximetry and ETCO2. Supplemental oxygen prior to and during procedure via nasal cannula. Resuscitation equipment available at the bedside during sedation. Intra-service start time: 831 Intra-service stop time: 855 The patient received and GLYCOPYRROLATE 0.2 MG IV PUSH, VERSED 2 MG IV PUSH, FENTANYL 50 MG IV PUSH, BENADRYL 50 MG IV PUSH dosages were recorded on the sedation form. The patient was recovered from the sedation without complication or incident. Patient returned to pre-sedation level of awareness. The monitoring was discontinued at this time. Post-anesthesia evaluation: Respiratory function, cardiovascular function, temperature, and mental status did return to pre-anesthetic state. Pain was controlled. The patient did tolerate p.o. Visit Coding Pulmonary Billing Provider: JOANNA MIX MD Date of Service if different f: Nov 11, 2024 Common Visit Codes: PROCEDURE ONLY Procedure Codes: [id number] SEDATION INITIAL 15, 37817-[id number] SEDATION +15MIN JOANNA MIX MD Nov 11, 2024 09:45
[2024-11-11] MEDS: methylPREDNISolone SOD SUCC 1,000 MG in SODIUM CHL 0.9% 250 ML IV SCH (11:42)
--- NOTE | 2024-11-11 18:12 | DVHPN2 ---
Progress Note Date Seen: Nov 11, 2024 Resident Creating Document: SAGAR STEWARD RESIDENT Medical Necessity Reason Pt with a Central, PICC or Fol: Yes Subjective Review of Systems Patient was seen and examined on the bedside. He is alert oriented x3. Complain of generalized weakness, hemoptysis and no other active complaint. Underwent bronchoscopy today and removal of the mucus plug and hemorrhagic fluid from left L6-L10 and L1-L4. Objective vital signs Vital Sign Date Time Temp Pulse Resp B/P (MAP) Pulse Ox O2 Delivery O2 Flow Rate FiO2 11/11/24 16:41 97.9 85 18 148/71 (96) 100 97.9 11/11/24 14:05 3.0 11/11/24 12:22 Nasal Cannula* 32 Total Intake and Output 11/10/24 11/10/24 11/11/24 15:00 23:00 07:00 Intake Total 300 ml 1100 ml 950 ml Output Total 1700 ml 850 ml Balance 300 ml -600 ml 100 ml medications Current Medications Medications Dose Ordered Sig/Justin Route Start Time Stop Time Status Last Admin Dose Admin Acetaminophen/ Hydrocodone Bitart 1 tab Q4HP PRN PO 11/09/24 10:30 Ondansetron HCl 4 mg Q4HP PRN IV 11/09/24 10:30 Docusate Sodium 100 mg BIDPRN PRN PO 11/09/24 10:30 Acetaminophen 650 mg Q6HP PRN PO 11/09/24 10:30 Nitroglycerin 0.4 mg Q5MINP PRN SL 11/09/24 10:30 Morphine Sulfate 2 mg Q30M PRN IV 11/09/24 11:30 Ceftriaxone Sodium 50 ml @ 100 mls/hr DAILY@09 IV 11/10/24 09:00 11/10/24 10:16 100 MLS/HR Azithromycin 250 ml @ 125 mls/hr DAILY IV 11/10/24 10:00 11/11/24 15:08 125 MLS/HR Ipratropium [place] 0.5 mg Q6HWA NEB 11/09/24 18:00 11/11/24 12:21 0.5 MG Albuterol 2.5 mg Q6HWA NEB 11/09/24 18:00 11/11/24 12:21 2.5 MG Gabapentin 100 mg BID PO 11/09/24 22:00 11/11/24 15:09 100 MG Metoprolol Tartrate 50 mg BID PO 11/09/24 22:00 11/11/24 15:09 50 MG Zolpidem Tartrate 5 mg QHSP PRN PO 11/09/24 15:45 Duloxetine HCl 30 mg DAILY PO 11/10/24 10:00 11/10/24 10:14 30 MG Patient Own Medication 1 tab DAILY PO 11/10/24 10:00 UNV Nifedipine 60 mg DAILY PO 11/10/24 10:00 11/11/24 15:09 60 MG Morphine Sulfate 30 mg BID PO 11/09/24 22:00 11/11/24 15:09 30 MG Hydralazine HCl 100 mg Q12HR PO 11/10/24 22:00 Sodium Chloride 1,000 ml @ 100 mls/hr Q10H IV 11/10/24 14:45 11/11/24 06:17 100 MLS/HR Pantoprazole Sodium 40 mg DAILY@0600 PO 11/11/24 06:00 Methylprednisolone Sodium Succinate 1000 mg/Sodium Chloride 250 ml @ 300 mls/hr DAILY IV 11/11/24 10:00 11/13/24 11:00 11/11/24 11:42 300 MLS/HR Examination Physical examination: General Appearance: Alert, Oriented X3, Cooperative, mild resp distress HEENT: Atraumatic, PERRLA, EOMI, Mucous membrane moist/pink Respiratory: Bilateral rales. Cardiovascular: Regular rate, Normal S1, Normal S2, No murmurs, no chest wall tenderness Abdominal: Normal bowel sounds, Soft, No tenderness, No hepatospenomegaly, No masses Extremities: No edema, No clubbing, No cyanosis, Normal pulses, No tenderness/swelling Skin: No rashes, No breakdown, No significant lesion Neuro: Normal speech, Strength at 5/5 X4 ext, Normal tone, Sensation intact, Cranial nerves 3-12 NL, Reflexes 2+ Psych/Mental Status: Mental status NL, Mood NL laboratory and microbiology Laboratory Tests 11/11/24 06:41 Test 11/11/24 06:41 Range/Units Serum Glucose 99 74-106 mg/dL Microbiology Date/Time Source Procedure Growth Status 11/11/24 08:38 Bronchial Washings Pending Resulted 11/11/24 08:38 Bronchial Washings Pending Resulted 11/11/24 08:38 Bronchial Washings Pending Resulted 11/11/24 08:38 Bronchial Washings Pending Resulted 11/11/24 08:38 Bronchial Washings - Final See Separate Report... Resulted 11/09/24 17:00 Nose MRSA Screen - Final Complete Labs and/or images reviewed: Labs reviewed by me, Image(s) reviewed by me Problem List/Assessment/Plan Problem List/Assessment/Plan Assessment and plan: # ALICE likely hemodynamically mediated in the setting of sepsis secondary to multifocal pneumonia # Possible ALICE on CKD # bloody cough--- Rule out ANCA associated vasculitis/glomerulonephritis # Possible lupus nephritis # Acute on chronic hypochromic microcytic anemia # Acute hypoxic respiratory failure secondary to multifocal pneumonia # chronic diastolic heart failure with preserved ejection fraction # History of liver cirrhosis Plan: - Worsening kidney function. - IV normal saline at 100 mL/hour - FENa is 17.2% - Rapidly worsening kidney function and hemoptysis, rule out ANCA associated vasculitis/glomerulonephritis - DARRIUS panel demonstrated double-stranded DNA antibody and chromatin antibody positive, C3 and C4 are within normal limits - MPO antibody and anti proteinase 3 positive, pending C- ANCA and p-ANCA - IV methylprednisolone 1000 mg daily - Iron panel showed low iron and saturation, TIBC and ferritin are normal - IV iron once - Consulted IR for kidney biopsy - continue metoprolol tartrate 50 mg p.o. b.i.d., nifedipine ER 60 mg daily, hydralazine 100 mg b.i.d. - Continue IV antibiotic and other management as per primary - Strict I&O - Avoid nephrotoxic medication - monitor BMP Thank you so much for the opportunity to consult on your patient. Nephro team will follow the patient. In case of any questions or concerns please feel free to reach out. Plan discussed with Dr. Wagoner. The patient and caregiver team agreed to the plan. Addendum Patient seen and examined, plan discussed with resident. Agree with above, we will follow closely Pulse dose IV steroids for three days--I have ordered steroids yesterday but pharmacy did not give it last night unknown reason--discussed with pharmacist this morning and patient got his 1st dose today He also had bronchoscopy today, anti proteinase three antibody came back positive Kidney biopsy recommended Plan discussed with: Patient, Other (RN) My Orders My Orders Orders - SAGAR STEWARD RESIDENT Procedure Category Date Status Time * Radiologist Consult CONS 11/11/24 Transmitted 12:51 Iron Sucrose Complex PHA 11/12/24 In Process (Venofer) 12:00 Dietary Evaluation Review Comments: Nutrition Recommendation 1) Consider 2gm Na diet 2) Monitor PO intake, lab values, weight trend, and I/O Expected Outcomes/Goals: Lab values to improve Fu 3-5 days SAGAR STEWARD Nov 11, 2024 18:12 MEGAN WAGONER MD Nov 11, 2024 21:30
--- NOTE | 2024-11-11 23:42 | DVHPN2 ---
Subjective DOS: 11/11/2024 Patient seen and examined at bedside. Remains on supplemental oxygen Overnight events reviewed. Reviewed: Care Plan, H&P, Labs, Medications, Previous Orders, Radiology Changes from previous H/P or p: No Changes Eyes: No Pain, No Vision change, No Conjunctivae inflammation, No Eyelid inflammation, No Other, No Redness ENT: No Ear pain, No Ear discharge, No Nose pain, No Nose discharge, No Nose congestion, No Mouth pain, No Mouth swelling, No Throat pain, No Throat swelling, No Other Cardiovascular: No Chest Pain, No Palpitations, No Orthopnea, No Paroxysmal Noc. Dyspnea, No Edema, No Lt Headedness, No Other Respiratory: Cough; No Dry; Shortness of breath, SOB with excertion; No Wheezing; Hemoptysis; No Pleuritic Pain, No Sputum, No Other Gastrointestinal: No Nausea, No Vomiting, No Abdominal Pain, No Diarrhea, No Constipation, No Melena, No Hematochezia, No Other Genitourinary: No Dysuria, No Frequency, No Incontinence, No Hematuria, No Retention, No Other Musculoskeletal: No other, No neck pain, No shoulder pain, No arm pain, No back pain, No hand pain, No leg pain, No foot pain Skin: No Rash, No Lesions, No Jaundice, No Bruising, No Other Objective Vitals Vital Signs Date Time Temp Pulse Resp B/P (MAP) Pulse Ox O2 Delivery O2 Flow Rate FiO2 11/11/24 21:00 91 146/90 11/11/24 21:00 97.8 19 94 97.8 11/11/24 19:48 Nasal Cannula 4.0 11/11/24 19:48 36 Intake/Output Intake and Output 11/11/24 07:00 Intake Total 2350 ml Output Total 2550 ml Balance -200 ml Intake Oral 1100 ml IV Total 1250 ml Output Urine Total 2550 ml # Bowel Movements 1 Exam Gen.: Patient lying in bed in no apparent distress. On supplemental oxygen. Head: Normocephalic, atraumatic. Eyes: EOMI/PERRLA. Ears: Normal hearing. Normal anatomy. Neck/trachea: Trachea midline, supple. Nose: Normal external anatomy. Mouth: Moist mucous membranes. Chest: Decreased air entry bilaterally. No wheezing or rhonchi. Cardiovascular: Positive S1, positive S2. Regular rate and rhythm. Abdomen: Positive bowel sounds in all 4 quadrants. Soft, non-tender, non- distended. : Deferred. Rectal: Deferred. Skin: Warm, dry. Intact. Extremities: 2+ radial pulses bilaterally. No lower extremity edema. Neuro: Awake, alert, oriented x3. No gross motor or sensory deficits. Cranial nerves II through XII intact. Gait not assessed. Medications Current Medications Medications Dose Ordered Sig/Justin Route Start Time Stop Time Status Last Admin Dose Admin Acetaminophen/ Hydrocodone Bitart 1 tab Q4HP PRN PO 11/09/24 10:30 Ondansetron HCl 4 mg Q4HP PRN IV 11/09/24 10:30 Docusate Sodium 100 mg BIDPRN PRN PO 11/09/24 10:30 Acetaminophen 650 mg Q6HP PRN PO 11/09/24 10:30 Nitroglycerin 0.4 mg Q5MINP PRN SL 11/09/24 10:30 Morphine Sulfate 2 mg Q30M PRN IV 11/09/24 11:30 Ceftriaxone Sodium 50 ml @ 100 mls/hr DAILY@09 IV 11/10/24 09:00 11/10/24 10:16 100 MLS/HR Azithromycin 250 ml @ 125 mls/hr DAILY IV 11/10/24 10:00 11/11/24 15:08 125 MLS/HR Ipratropium [place] 0.5 mg Q6HWA NEB 11/09/24 18:00 11/11/24 19:48 0.5 MG Albuterol 2.5 mg Q6HWA NEB 11/09/24 18:00 11/11/24 19:48 2.5 MG Gabapentin 100 mg BID PO 11/09/24 22:00 11/11/24 20:58 100 MG Metoprolol Tartrate 50 mg BID PO 11/09/24 22:00 11/11/24 21:00 50 MG Zolpidem Tartrate 5 mg QHSP PRN PO 11/09/24 15:45 Duloxetine HCl 30 mg DAILY PO 11/10/24 10:00 11/10/24 10:14 30 MG Patient Own Medication 1 tab DAILY PO 11/10/24 10:00 UNV Nifedipine 60 mg DAILY PO 11/10/24 10:00 11/11/24 15:09 60 MG Morphine Sulfate 30 mg BID PO 11/09/24 22:00 11/11/24 20:59 30 MG Hydralazine HCl 100 mg Q12HR PO 11/10/24 22:00 Sodium Chloride 1,000 ml @ 100 mls/hr Q10H IV 11/10/24 14:45 11/11/24 06:17 100 MLS/HR Pantoprazole Sodium 40 mg DAILY@0600 PO 11/11/24 06:00 Methylprednisolone Sodium Succinate 1000 mg/Sodium Chloride 250 ml @ 300 mls/hr DAILY IV 11/11/24 10:00 11/13/24 11:00 11/11/24 11:42 300 MLS/HR Patient Own Medication 1,000 mg ONCE IV 11/12/24 14:00 UNV Laboratory Results Laboratory Tests 11/11/24 06:41 Chemistry Test 11/11/24 06:41 Calcium Level 8.3 mg/dL (8.7-10.4) L Coagulation Test 11/11/24 06:41 Prothrombin Time 10.5 sec (9.3-11.8) Prothrombin Time INR 0.99 (0.9-1.15) Activated Partial Thromboplast Time 35.0 SEC (24.5-34.5) H Urinalysis Test 11/09/24 00:00 11/09/24 10:00 11/09/24 14:59 Urine Protein/Creatinine Ratio 3.15 Urine Total Protein 70.6 mg/dL (1-14) H Urine Color Colorless (Yellow) Urine Clarity Clear (Clear) Urine pH 5.5 (5.0-9.0) Urine Specific [place] 1.007 (1.001-1.035) Urine Protein 1+ (Negative) H Urine Ketones Negative (Negative) Urine Blood 3+ /uL (Negative) H Urine Nitrite Negative (Negative) Urine Bilirubin Negative (Negative) Urine Urobilinogen Normal mg/dL (Negative) Urine Leukocyte Esterase Negative /uL (Negative) Urine RBC 254 /hpf (0 - 3) Urine Microscopic WBC 4 /HPF (0-3) H Urine Squamous Epithelial Cells None seen /hpf (<5) Urine Amorphous Crystals Few /hpf (None Seen) Urine Bacteria Few /hpf (None Seen) H Urine Glucose Normal mg/dL (Normal) Urine Creatinine 22.28 mg/dL (30.0-125.0) L Urine Sodium 89 mmol/L (40-220) Microbiology Microbiology Date/Time Source Procedure Growth Status 11/11/24 08:38 Bronchial Washings Pending Resulted 11/11/24 08:38 Bronchial Washings Pending Resulted 11/11/24 08:38 Bronchial Washings Pending Resulted 11/11/24 08:38 Bronchial Washings Pending Resulted 11/11/24 08:38 Bronchial Washings - Final See Separate Report... Resulted 11/09/24 17:00 Nose MRSA Screen - Final Complete Assessment/Plan Assessment/Plan Impression: Hemoptysis Atypical pneumonia, left upper lobe Pneumonia, likely GNR vs GPC Cirrhosis Congestive heart failure Pulmonary edema Anemia, microcytic Events: Remains on supplemental oxygen, on 3 LPM NC Taper O2 as tolerated S/p bronchoscopy today Noted hemorrhage from TAYLER and LLL bronchus Stopped with cold saline. See separate procedure note for details. Follow up BAL cultures and cytology CXR today demonstrates Findings suggestive of multifocal pneumonia. Continue bronchodilators Continue antibiotics Send sputum cultures Incentive spirometry On IV fluids Blood pressure control Monitor/Quantify hemoptysis Monitor hemoglobin - trended down to 7.7 g/dL Transfuse if less than 7.0 g/dL. Follow up Nephrology recs Monitor renal function. Currently BUN 69, and Cr of 6.2. Monitor electrolytes. Supplement as necessary. Labs and imaging reviewed. Rest of plan as noted below. Plan: Supplemental oxygen Titrate to keep O2 sats above 92%. IV antibiotics Bronchodilators. Blood pressure control Monitor hemoptysis Follow up Cardiology recs Maintain euvolemia Monitor renal function d/t ALICE. Monitor BUN and Cr. Monitor electrolytes. Supplement as necessary. Monitor ins and outs. Pain control Avoid oversedation Monitor hemoglobin Transfuse if less than 7.0 g/dL. DVT prophylaxis. Prognosis: Poor given patient's multiple co-morbidities. Rest of plan per hospitalist and other consultants. Thank you, SAUNDRA Cortes, for allowing me to participate in this patient's care. Further recommendations will depend on the patient's clinical course. Please do not hesitate to contact me if you have any questions or concerns. This medical document was created using an electronic medical record system with [employer] system. Although these documentations are being carefully reviewed, there may still be some phonetic and typographical changes. The errors are purely typographical, due to imperfection on the software program, and do not reflect any compromise in the patient's medical care. Plan discussed with: Patient, Other (RN) My Orders Orders - JOANNA ARREOLA MD Procedure Category Date Status Time Chest Xray 1 View XY 11/11/24 Resulted 09:04 Cytology JEANNIE 11/11/24 Transmitted 09:04 AFB PATHOLOGY 11/11/24 Transmitted [id number] 09:04 Respiratory Culture JEANNIE 11/11/24 In Process W/ Gs 09:04 Viral Culture JEANNIE 11/11/24 In Process 13:26 Fungus Culture With JEANNIE 11/11/24 In Process Stain 13:29 Visit Coding Pulmonary Billing Provider: JOANNA ARREOLA MD Date of Service if different f: Nov 11, 2024 Common Visit Codes: [id number] INP/OBS CARE(HIGH) JOANNA ARREOLA MD Nov 11, 2024 23:42
[2024-11-12] VITALS (15 sets, daily range): BP systolic 137–159; BP diastolic 86–102; PULSE 70–100; RESP 16–20; TEMP 97.6–98.6; O2SAT 93–100
[2024-11-12 08:41] LABS: Hemoglobin 7.6 g/dL (13.5-17.5); Nucleated Red Blood Cells % 0.0 %
[2024-11-12 08:43] LABS: Hematocrit 23.3 % (41.0-53.0); Mean Corpuscular Hemoglobin 24.3 pg (28.0-32.0); Mean Corpuscular Volume 74.6 fL (80.0-100.0)
[2024-11-12 08:46] LABS: Chloride 105 mmol/L (98-107); Potassium 4.1 mmol/L (3.5-5.1); Sodium 140 mmol/L (136-145)
[2024-11-12 08:47] LABS: Anion Gap 14 (5-15); Calcium 9.2 mg/dL (8.7-10.4); Carbon Dioxide 21 mmol/L (20-31)
[2024-11-12 08:52] LABS: BUN/Creatinine Ratio 11.7 (10.0-20.0)
[2024-11-12 08:59] LABS: Blood Urea Nitrogen 73 mg/dL (9-23); Glucose 180 mg/dL (74-106)
[2024-11-12] MEDS ORDERED: RITUXIMAB IV ONE ×2 (09:00→13:45)
--- NOTE | 2024-11-12 09:22 | DVHPN2 ---
Reviewed: Care Plan, H&P, Labs, Medications, Previous Orders, Radiology Changes from previous H/P or p: No Changes Eyes: No Pain, No Vision change, No Conjunctivae inflammation, No Eyelid inflammation, No Other, No Redness ENT: No Ear pain, No Ear discharge, No Nose pain, No Nose discharge, No Nose congestion, No Mouth pain, No Mouth swelling, No Throat pain, No Throat swelling, No Other Cardiovascular: No Chest Pain, No Palpitations, No Orthopnea, No Paroxysmal Noc. Dyspnea, No Edema, No Lt Headedness, No Other Respiratory: Cough; No Dry; Shortness of breath, SOB with excertion; No Wheezing; Hemoptysis; No Pleuritic Pain, No Sputum, No Other Gastrointestinal: No Nausea, No Vomiting, No Abdominal Pain, No Diarrhea, No Constipation, No Melena, No Hematochezia, No Other Genitourinary: No Dysuria, No Frequency, No Incontinence, No Hematuria, No Retention, No Other Musculoskeletal: No other, No neck pain, No shoulder pain, No arm pain, No back pain, No hand pain, No leg pain, No foot pain Skin: No Rash, No Lesions, No Jaundice, No Bruising, No Other Objective Vitals Vital Signs Date Time Temp Pulse Resp B/P (MAP) Pulse Ox O2 Delivery O2 Flow Rate FiO2 11/12/24 06:40 74 18 100 11/12/24 06:30 Nasal Cannula* 4 36 11/12/24 05:00 97.8 138/91 (107) 97.8 Intake/Output Intake and Output 11/12/24 07:00 Intake Total 1050 ml Output Total 1300 ml Balance -250 ml Intake Oral 1050 ml Output Urine Total 1300 ml # Bowel Movements 1 Medications Current Medications Medications Dose Ordered Sig/Justin Route Start Time Stop Time Status Last Admin Dose Admin Acetaminophen/ Hydrocodone Bitart 1 tab Q4HP PRN PO 11/09/24 10:30 Ondansetron HCl 4 mg Q4HP PRN IV 11/09/24 10:30 Docusate Sodium 100 mg BIDPRN PRN PO 11/09/24 10:30 Acetaminophen 650 mg Q6HP PRN PO 11/09/24 10:30 Nitroglycerin 0.4 mg Q5MINP PRN SL 11/09/24 10:30 Morphine Sulfate 2 mg Q30M PRN IV 11/09/24 11:30 Ceftriaxone Sodium 50 ml @ 100 mls/hr DAILY@09 IV 11/10/24 09:00 11/10/24 10:16 100 MLS/HR Azithromycin 250 ml @ 125 mls/hr DAILY IV 11/10/24 10:00 11/11/24 15:08 125 MLS/HR Ipratropium [place] 0.5 mg Q6HWA NEB 11/09/24 18:00 11/12/24 06:33 0.5 MG Albuterol 2.5 mg Q6HWA NEB 11/09/24 18:00 11/12/24 06:33 2.5 MG Gabapentin 100 mg BID PO 11/09/24 22:00 11/11/24 20:58 100 MG Metoprolol Tartrate 50 mg BID PO 11/09/24 22:00 11/11/24 21:00 50 MG Zolpidem Tartrate 5 mg QHSP PRN PO 11/09/24 15:45 Duloxetine HCl 30 mg DAILY PO 11/10/24 10:00 11/10/24 10:14 30 MG Patient Own Medication 1 tab DAILY PO 11/10/24 10:00 UNV Nifedipine 60 mg DAILY PO 11/10/24 10:00 11/11/24 15:09 60 MG Morphine Sulfate 30 mg BID PO 11/09/24 22:00 11/11/24 20:59 30 MG Hydralazine HCl 100 mg Q12HR PO 11/10/24 22:00 Sodium Chloride 1,000 ml @ 100 mls/hr Q10H IV 11/10/24 14:45 11/12/24 02:39 100 MLS/HR Pantoprazole Sodium 40 mg DAILY@0600 PO 11/11/24 06:00 11/12/24 06:52 40 MG Methylprednisolone Sodium Succinate 1000 mg/Sodium Chloride 250 ml @ 300 mls/hr DAILY IV 11/11/24 10:00 11/13/24 11:00 11/11/24 11:42 300 MLS/HR Laboratory Results Laboratory Tests 11/12/24 07:54 Chemistry Test 11/12/24 07:54 Calcium Level 9.2 mg/dL (8.7-10.4) Urinalysis Test 11/09/24 00:00 11/09/24 10:00 11/09/24 14:59 Urine Protein/Creatinine Ratio 3.15 Urine Total Protein 70.6 mg/dL (1-14) H Urine Color Colorless (Yellow) Urine Clarity Clear (Clear) Urine pH 5.5 (5.0-9.0) Urine Specific [place] 1.007 (1.001-1.035) Urine Protein 1+ (Negative) H Urine Ketones Negative (Negative) Urine Blood 3+ /uL (Negative) H Urine Nitrite Negative (Negative) Urine Bilirubin Negative (Negative) Urine Urobilinogen Normal mg/dL (Negative) Urine Leukocyte Esterase Negative /uL (Negative) Urine RBC 254 /hpf (0 - 3) Urine Microscopic WBC 4 /HPF (0-3) H Urine Squamous Epithelial Cells None seen /hpf (<5) Urine Amorphous Crystals Few /hpf (None Seen) Urine Bacteria Few /hpf (None Seen) H Urine Glucose Normal mg/dL (Normal) Urine Creatinine 22.28 mg/dL (30.0-125.0) L Urine Sodium 89 mmol/L (40-220) Microbiology Microbiology Date/Time Source Procedure Growth Status 11/11/24 08:38 Bronchial Washings Pending Resulted 11/11/24 08:38 Bronchial Washings Pending Resulted 11/11/24 08:38 Bronchial Washings Pending Resulted 11/11/24 08:38 Bronchial Washings Pending Resulted 11/11/24 08:38 Bronchial Washings - Final See Separate Report... Resulted 11/09/24 17:00 Nose MRSA Screen - Final Complete Labs and/or images reviewed: Labs reviewed by me, Image(s) reviewed by me Assessment/Plan Assessment/Plan Hemoptysis: Consult by Dr. Mix appreciated, status post bronchoscopy by Dr. Mix with the findings of hemorrhage from TAYLER and LLL bronchus Stopped with cold saline. Broncho alveolar lavage fluid culture pending Atypical pneumonia, left upper lobe Pneumonia, likely GNR vs GPC: Continue Rocephin azithromycin Solu-Medrol Cirrhosis Possible lupus nephritis, Nephrology planning for kidney biopsy Congestive heart failure Pulmonary edema Anemia, microcytic ALICE versus CKD: Nephrology following Sarah test negative Flu test negative Plan discussed with: Patient Date of Service: Nov 12, 2024 Billing Provider: SHLOMO GARNER MD Common Visit Codes: [id number] INP/OBS CARE(HIGH) SHLOMO GARNER MD Nov 12, 2024 09:22
--- NOTE | 2024-11-12 11:25 | DVHPN2 ---
Progress Note Date Seen: Nov 12, 2024 Resident Creating Document: SAGAR STEWARD RESIDENT Medical Necessity Reason Pt with a Central, PICC or Fol: Yes Subjective Review of Systems Patient was seen and examined on the bedside. He is alert oriented x3 and on 4L o2. Complain of generalized weakness, hemoptysis and no other active complaint. MPO antibody and anti proteinase 3 positive, patient is on IV methylprednisolone 1000 mg daily and started rituximab. Consulted IR for kidney biopsy yesterday but spoke with the radiology they scheduled kidney biopsy on Friday because of the transportation issue on Friday. Objective vital signs Vital Sign Date Time Temp Pulse Resp B/P (MAP) Pulse Ox O2 Delivery O2 Flow Rate FiO2 11/12/24 10: 161/94 11/12/24 10:07 100 11/12/24 06:40 18 100 11/12/24 06:30 Nasal Cannula* 4 36 11/12/24 05:00 97.8 97.8 Total Intake and Output 11/11/24 11/11/24 11/12/24 15:00 23:00 07:00 Intake Total 250 ml 800 ml Output Total 1300 ml Balance 250 ml -500 ml medications Current Medications Medications Dose Ordered Sig/Justin Route Start Time Stop Time Status Last Admin Dose Admin Acetaminophen/ Hydrocodone Bitart 1 tab Q4HP PRN PO 11/09/24 10:30 Ondansetron HCl 4 mg Q4HP PRN IV 11/09/24 10:30 Docusate Sodium 100 mg BIDPRN PRN PO 11/09/24 10:30 Acetaminophen 650 mg Q6HP PRN PO 11/09/24 10:30 Nitroglycerin 0.4 mg Q5MINP PRN SL 11/09/24 10:30 Morphine Sulfate 2 mg Q30M PRN IV 11/09/24 11:30 Ceftriaxone Sodium 50 ml @ 100 mls/hr DAILY@09 IV 11/10/24 09:00 11/12/24 10:01 100 MLS/HR Azithromycin 250 ml @ 125 mls/hr DAILY IV 11/10/24 10:00 11/12/24 10:45 125 MLS/HR Ipratropium [place] 0.5 mg Q6HWA NEB 11/09/24 18:00 11/12/24 06:33 0.5 MG Albuterol 2.5 mg Q6HWA NEB 11/09/24 18:00 11/12/24 06:33 2.5 MG Gabapentin 100 mg BID PO 11/09/24 22:00 11/12/24 10:02 100 MG Metoprolol Tartrate 50 mg BID PO 11/09/24 22:00 11/12/24 10:07 50 MG Zolpidem Tartrate 5 mg QHSP PRN PO 11/09/24 15:45 Duloxetine HCl 30 mg DAILY PO 11/10/24 10:00 11/12/24 10:02 30 MG Patient Own Medication 1 tab DAILY PO 11/10/24 10:00 UNV Nifedipine 60 mg DAILY PO 11/10/24 10:00 11/12/24 10:07 60 MG Morphine Sulfate 30 mg BID PO 11/09/24 22:00 11/12/24 10:45 30 MG Hydralazine HCl 100 mg Q12HR PO 11/10/24 22:00 11/12/24 10:07 100 MG Sodium Chloride 1,000 ml @ 100 mls/hr Q10H IV 11/10/24 14:45 11/12/24 02:39 100 MLS/HR Pantoprazole Sodium 40 mg DAILY@0600 PO 11/11/24 06:00 11/12/24 06:52 40 MG Methylprednisolone Sodium Succinate 1000 mg/Sodium Chloride 250 ml @ 300 mls/hr DAILY IV 11/11/24 10:00 11/13/24 11:00 11/11/24 11:42 300 MLS/HR Examination Physical examination: General Appearance: Alert, Oriented X3, Cooperative, mild resp distress HEENT: Atraumatic, PERRLA, EOMI, Mucous membrane moist/pink Respiratory: Bilateral rales. Cardiovascular: Regular rate, Normal S1, Normal S2, No murmurs, no chest wall tenderness Abdominal: Normal bowel sounds, Soft, No tenderness, No hepatospenomegaly, No masses Extremities: No edema, No clubbing, No cyanosis, Normal pulses, No tenderness/swelling Skin: No rashes, No breakdown, No significant lesion Neuro: Normal speech, Strength at 5/5 X4 ext, Normal tone, Sensation intact, Cranial nerves 3-12 NL, Reflexes 2+ Psych/Mental Status: Mental status NL, Mood NL laboratory and microbiology Laboratory Tests 11/12/24 07:54 Test 11/12/24 07:54 Range/Units Serum Glucose 180 H 74-106 mg/dL Microbiology Date/Time Source Procedure Growth Status 11/11/24 08:38 Bronchial Washings Pending Resulted 11/11/24 08:38 Bronchial Washings Pending Resulted 11/11/24 08:38 Bronchial Washings Pending Resulted 11/11/24 08:38 Bronchial Washings Pending Resulted 11/11/24 08:38 Bronchial Washings - Final See Separate Report... 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 - IV normal saline at 100 mL/hour - FENa is 17.2% - Rapidly worsening kidney function and hemoptysis, rule out ANCA associated vasculitis/glomerulonephritis - DARRIUS panel demonstrated double-stranded DNA antibody and chromatin antibody positive, C3 and C4 are within normal limits - MPO antibody and anti proteinase 3 positive, pending C- ANCA, p-ANCA, and anti GBM ab - IV methylprednisolone 1000 mg daily - IV rituximab 1000 mg once - Iron panel showed low iron and saturation, TIBC and ferritin are normal - IV iron once - Consulted IR for kidney biopsy - continue metoprolol tartrate 50 mg p.o. b.i.d., nifedipine ER 60 mg daily, hydralazine 100 mg b.i.d. - Continue IV antibiotic and other management as per primary - Strict I&O - Avoid nephrotoxic medication - monitor BMP Thank you so much for the opportunity to consult on your patient. Nephro team will follow the patient. In case of any questions or concerns please feel free to reach out. Plan discussed with Dr. Barber. The patient and caregiver team agreed to the plan. Plan discussed with: Patient, Other (RN) My Orders My Orders Orders - SAGAR STEWARD RESIDENT Procedure Category Date Status Time * Radiologist Consult CONS 11/11/24 Transmitted 12:51 Iron Sucrose Complex PHA 11/12/24 In Process (Venofer) 12:00 Strict I & O JOSEPHINE 11/11/24 In Process 18:12 Dietary Evaluation Review Comments: Nutrition Recommendation 1) Consider 2gm Na diet 2) Monitor PO intake, lab values, weight trend, and I/O Expected Outcomes/Goals: Lab values to improve Fu 3-5 days SAGAR STEWARD RESIDENT Nov 12, 2024 11:25
--- NOTE | 2024-11-12 12:34 | ECG ---
[facility] Test Date: 2024-11-09 Test Time: 14:57:51 Pat Name: KERRI OCONNELL Department: [facility] ED Room: 0221T A Gender: M Seasoner Hand: mary : 1965 Requested By: TIBURCIO SULLIVAN Order Number: [id number] Reading MD: Andrea Gallegos Measurements Intervals [place] Rate: 74 P: 60 MT: 161 QRS: 58 QRSD: 95 T: 67 QT: 448 QTc: 497 Interpretive Statements Sinus rhythm Borderline T abnormalities, lateral leads Borderline prolonged QT interval Electronically Signed On 11-12-2024 12:34:50 PDT by Andrea Gallegos Please click the below link to view image of tracing.
[2024-11-12] MEDS: IRON SUCROSE COMPLEX 110 ML IV ONE (16:31)
[2024-11-12] MEDS: PANTOPRAZOLE 40 MG TAB PO ONE (21:02)
[2024-11-12] MEDS: EPOETIN ALFA-EPBX 10,000 UNIT/1ML VIAL SC ONE (21:04)
[2024-11-13] VITALS (18 sets, daily range): BP systolic 132–154; BP diastolic 79–99; PULSE 74–96; RESP 16–24; TEMP 97.5–98.7; O2SAT 94–100
[2024-11-13] MEDS: PANTOPRAZOLE 40 MG TAB PO SCH (06:03)
[2024-11-13] MEDS: HYDROcodone-ACET 5/325MG TAB PO PRN (06:15)
[2024-11-13 07:04] LABS: Mean Corpuscular Volume 77.5 fL (80.0-100.0)
[2024-11-13 07:06] LABS: Anion Gap 15 (5-15); Calcium 8.9 mg/dL (8.7-10.4); Chloride 105 mmol/L (98-107); Hematocrit 21.7 % (41.0-53.0); Mean Corpuscular Hemoglobin 24.8 pg (28.0-32.0); Nucleated Red Blood Cells % 0.1 %; Potassium 4.1 mmol/L (3.5-5.1); Sodium 139 mmol/L (136-145)
[2024-11-13 07:11] LABS: Carbon Dioxide 19 mmol/L (20-31)
[2024-11-13 07:12] LABS: BUN/Creatinine Ratio 9.9 (10.0-20.0)
[2024-11-13 07:13] LABS: Blood Urea Nitrogen 60 mg/dL (9-23); Glucose 167 mg/dL (74-106)
[2024-11-13 07:17] LABS: Hemoglobin 6.9 g/dL (13.5-17.5)
[2024-11-13 08:14] LABS: Anisocytosis Slight
--- NOTE | 2024-11-13 09:26 | DVHPN2 ---
Reviewed: Care Plan, H&P, Labs, Medications, Previous Orders, Radiology Changes from previous H/P or p: No Changes Eyes: No Pain, No Vision change, No Conjunctivae inflammation, No Eyelid inflammation, No Other, No Redness ENT: No Ear pain, No Ear discharge, No Nose pain, No Nose discharge, No Nose congestion, No Mouth pain, No Mouth swelling, No Throat pain, No Throat swelling, No Other Cardiovascular: No Chest Pain, No Palpitations, No Orthopnea, No Paroxysmal Noc. Dyspnea, No Edema, No Lt Headedness, No Other Respiratory: Cough; No Dry; Shortness of breath, SOB with excertion; No Wheezing; Hemoptysis; No Pleuritic Pain, No Sputum, No Other Gastrointestinal: No Nausea, No Vomiting, No Abdominal Pain, No Diarrhea, No Constipation, No Melena, No Hematochezia, No Other Genitourinary: No Dysuria, No Frequency, No Incontinence, No Hematuria, No Retention, No Other Musculoskeletal: No other, No neck pain, No shoulder pain, No arm pain, No back pain, No hand pain, No leg pain, No foot pain Skin: No Rash, No Lesions, No Jaundice, No Bruising, No Other Objective Vitals Vital Signs Date Time Temp Pulse Resp B/P (MAP) Pulse Ox O2 Delivery O2 Flow Rate FiO2 11/13/24 08:33 97.9 74 18 136/88 (104) 94 97.9 11/13/24 07:21 Nasal Cannula* 2 28 Intake/Output Intake and Output 11/13/24 07:00 Intake Total 1340 ml Output Total 2050 ml Balance -710 ml Intake Oral 590 ml IV Total 300 ml Other 450 ml Output Urine Total 2050 ml Medications Current Medications Medications Dose Ordered Sig/Justin Route Start Time Stop Time Status Last Admin Dose Admin Acetaminophen/ Hydrocodone Bitart 1 tab Q4HP PRN PO 11/09/24 10:30 11/13/24 06:15 1 TAB Ondansetron HCl 4 mg Q4HP PRN IV 11/09/24 10:30 Docusate Sodium 100 mg BIDPRN PRN PO 11/09/24 10:30 Acetaminophen 650 mg Q6HP PRN PO 11/09/24 10:30 Nitroglycerin 0.4 mg Q5MINP PRN SL 11/09/24 10:30 Morphine Sulfate 2 mg Q30M PRN IV 11/09/24 11:30 Ceftriaxone Sodium 50 ml @ 100 mls/hr DAILY@09 IV 11/10/24 09:00 11/12/24 10:01 100 MLS/HR Azithromycin 250 ml @ 125 mls/hr DAILY IV 11/10/24 10:00 11/12/24 10:45 125 MLS/HR Ipratropium [place] 0.5 mg Q6HWA NEB 11/09/24 18:00 11/13/24 07:31 0.5 MG Albuterol 2.5 mg Q6HWA NEB 11/09/24 18:00 11/13/24 07:31 2.5 MG Gabapentin 100 mg BID PO 11/09/24 22:00 11/12/24 21:16 100 MG Metoprolol Tartrate 50 mg BID PO 11/09/24 22:00 11/12/24 21:15 50 MG Zolpidem Tartrate 5 mg QHSP PRN PO 11/09/24 15:45 Duloxetine HCl 30 mg DAILY PO 11/10/24 10:00 11/12/24 10:02 30 MG Patient Own Medication 1 tab DAILY PO 11/10/24 10:00 UNV Nifedipine 60 mg DAILY PO 11/10/24 10:00 11/12/24 10:07 60 MG Morphine Sulfate 30 mg BID PO 11/09/24 22:00 11/12/24 21:18 30 MG Hydralazine HCl 100 mg Q12HR PO 11/10/24 22:00 11/12/24 10:07 100 MG Sodium Chloride 1,000 ml @ 100 mls/hr Q10H IV 11/10/24 14:45 11/13/24 03:39 100 MLS/HR Methylprednisolone Sodium Succinate 1000 mg/Sodium Chloride 250 ml @ 300 mls/hr DAILY IV 11/11/24 10:00 11/13/24 11:00 11/12/24 14:21 300 MLS/HR Epoetin [facility]epbx [facility] [place] 11/15/24 10:00 Pantoprazole Sodium 40 mg DAILY@0600 PO 11/13/24 06:00 11/13/24 06:03 40 MG Laboratory Results Laboratory Tests 11/13/24 06:28 Chemistry Test 11/13/24 06:28 Calcium Level 8.9 mg/dL (8.7-10.4) Urinalysis Test 11/09/24 00:00 11/09/24 10:00 11/09/24 14:59 Urine Protein/Creatinine Ratio 3.15 Urine Total Protein 70.6 mg/dL (1-14) H Urine Color Colorless (Yellow) Urine Clarity Clear (Clear) Urine pH 5.5 (5.0-9.0) Urine Specific [place] 1.007 (1.001-1.035) Urine Protein 1+ (Negative) H Urine Ketones Negative (Negative) Urine Blood 3+ /uL (Negative) H Urine Nitrite Negative (Negative) Urine Bilirubin Negative (Negative) Urine Urobilinogen Normal mg/dL (Negative) Urine Leukocyte Esterase Negative /uL (Negative) Urine RBC 254 /hpf (0 - 3) Urine Microscopic WBC 4 /HPF (0-3) H Urine Squamous Epithelial Cells None seen /hpf (<5) Urine Amorphous Crystals Few /hpf (None Seen) Urine Bacteria Few /hpf (None Seen) H Urine Glucose Normal mg/dL (Normal) Urine Creatinine 22.28 mg/dL (30.0-125.0) L Urine Sodium 89 mmol/L (40-220) Microbiology Microbiology Date/Time Source Procedure Growth Status 11/11/24 08:38 Bronchial Washings Pending Resulted 11/11/24 08:38 Bronchial Washings Pending Resulted 11/11/24 08:38 Bronchial Washings Pending Resulted 11/11/24 08:38 Bronchial Washings Pending Resulted 11/11/24 08:38 Bronchial Washings - Final See Separate Report... Resulted 11/09/24 17:00 Nose MRSA Screen - Final Complete Labs and/or images reviewed: Labs reviewed by me, Image(s) reviewed by me Assessment/Plan Assessment/Plan Hemoptysis: Consult by Dr. Mix appreciated, status post bronchoscopy by Dr. Mix with the findings of hemorrhage from TAYLER and LLL bronchus Acute on chronic blood loss anemia hemoglobin down from 8.7 to 6.9: 1 unit RBC transfusion ordered Stopped with cold saline. Broncho alveolar lavage fluid culture pending Atypical pneumonia, left upper lobe Pneumonia, likely GNR vs GPC: Continue Rocephin azithromycin Solu-Medrol Cirrhosis Possible lupus nephritis, Nephrology planning for kidney biopsy Congestive heart failure Pulmonary edema Anemia, microcytic ALICE versus CKD: Nephrology following Sarah test negative Flu test negative Plan discussed with: Patient Date of Service: Nov 13, 2024 Billing Provider: SHLOMO GARNER MD Common Visit Codes: [id number] INP/OBS CARE(HIGH) SHLOMO GARNER MD Nov 13, 2024 09:26
[2024-11-13] MEDS: ACETAMINOPHEN 325 MG TAB PO ONE (10:00)
--- NOTE | 2024-11-13 10:08 | DVHPN2 ---
Progress Note Date Seen: Nov 13, 2024 Medical Necessity Reason Pt with a Central, PICC or Fol: No Subjective Changes from previous H/P or p: No Changes Objective vital signs Vital Sign Date Time Temp Pulse Resp B/P (MAP) Pulse Ox O2 Delivery O2 Flow Rate FiO2 11/13/24 08:33 97.9 74 18 136/88 (104) 94 97.9 11/13/24 07:21 Nasal Cannula* 2 28 Total Intake and Output 11/12/24 11/12/24 11/13/24 15:00 23:00 07:00 Intake Total 50 ml 940 ml 350 ml Output Total 1300 ml 750 ml Balance 50 ml -360 ml -400 ml medications Current Medications Medications Dose Ordered Sig/Justin Route Start Time Stop Time Status Last Admin Dose Admin Acetaminophen/ Hydrocodone Bitart 1 tab Q4HP PRN PO 11/09/24 10:30 11/13/24 06:15 1 TAB Ondansetron HCl 4 mg Q4HP PRN IV 11/09/24 10:30 Docusate Sodium 100 mg BIDPRN PRN PO 11/09/24 10:30 Acetaminophen 650 mg Q6HP PRN PO 11/09/24 10:30 Nitroglycerin 0.4 mg Q5MINP PRN SL 11/09/24 10:30 Morphine Sulfate 2 mg Q30M PRN IV 11/09/24 11:30 Ceftriaxone Sodium 50 ml @ 100 mls/hr DAILY@09 IV 11/10/24 09:00 11/12/24 10:01 100 MLS/HR Azithromycin 250 ml @ 125 mls/hr DAILY IV 11/10/24 10:00 11/12/24 10:45 125 MLS/HR Ipratropium [place] 0.5 mg Q6HWA NEB 11/09/24 18:00 11/13/24 07:31 0.5 MG Albuterol 2.5 mg Q6HWA NEB 11/09/24 18:00 11/13/24 07:31 2.5 MG Gabapentin 100 mg BID PO 11/09/24 22:00 11/12/24 21:16 100 MG Metoprolol Tartrate 50 mg BID PO 11/09/24 22:00 11/12/24 21:15 50 MG Zolpidem Tartrate 5 mg QHSP PRN PO 11/09/24 15:45 Duloxetine HCl 30 mg DAILY PO 11/10/24 10:00 11/12/24 10:02 30 MG Patient Own Medication 1 tab DAILY PO 11/10/24 10:00 UNV Nifedipine 60 mg DAILY PO 11/10/24 10:00 11/12/24 10:07 60 MG Morphine Sulfate 30 mg BID PO 11/09/24 22:00 11/12/24 21:18 30 MG Hydralazine HCl 100 mg Q12HR PO 11/10/24 22:00 11/12/24 10:07 100 MG Sodium Chloride 1,000 ml @ 100 mls/hr Q10H IV 11/10/24 14:45 11/13/24 03:39 100 MLS/HR Methylprednisolone Sodium Succinate 1000 mg/Sodium Chloride 250 ml @ 300 mls/hr DAILY IV 11/11/24 10:00 11/13/24 11:00 11/12/24 14:21 300 MLS/HR Epoetin Man-epbx 10,000 unit MWF SC 11/15/24 10:00 Pantoprazole Sodium 40 mg DAILY@0600 PO 11/13/24 06:00 11/13/24 06:03 40 MG Examination: GENERAL:Normal laboratory and microbiology Laboratory Tests 11/13/24 06:28 Test 11/13/24 06:28 Range/Units Serum Glucose 167 H 74-106 mg/dL Microbiology Date/Time Source Procedure Growth Status 11/11/24 08:38 Bronchial Washings Pending Resulted 11/11/24 08:38 Bronchial Washings Pending Resulted 11/11/24 08:38 Bronchial Washings Pending Resulted 11/11/24 08:38 Bronchial Washings Pending Resulted 11/11/24 08:38 Bronchial Washings - Final See Separate Report... 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 MPO high -IV pulse steroids day 3, po starting tomorrow - IV ritux today if available 11/13 next dose 2 weeks from now - BActrim PCP prophylaxis starting tomorrow - cr 6.0 but urinates 2L per day no urgent dialysis at this time electrolytes also stable - no indication for plasma exchange at this time due to stable respiratory condition - Radiology kidney biopsy friday -ckd unspecified baseline unknown hemoptysis due to ANCA disease s/p Bronch -pulm - supportive care - breathing on Ra currently anemia- IV iron ordered MILLER 3x a week PRBC PRN for hb < 8.0 will rec today 1 unit today- lasix during transfusion guarded prognosis, Severe disease with high likelihood of decompensation / rapid deterioration Plan discussed with: Patient My Orders My Orders Orders - QIANA ESQUIVEL MD Procedure Category Date Status Time Epoetin Man-Epbx PHA 11/15/24 In Process (Retacrit) 10:00 Basic Metabolic Panel LAB 11/14/24 Verified 04:00 Complete Blood Count LAB 11/14/24 Verified 04:00 Dietary Evaluation Review Comments: Nutrition Recommendation 1) Consider 2gm Na diet 2) Monitor PO intake, lab values, weight trend, and I/O Expected Outcomes/Goals: Lab values to improve Fu 3-5 days Critical Care Time (mins): 35 Total Time (mins): 60 QIANA ESQUIVEL MD Nov 13, 2024 10:08
[2024-11-13] MEDS: RITUXIMAB IV ONE (11:00)
[2024-11-13] MEDS: SODIUM CHL 0.9% IV ONE (11:00)
[2024-11-13] MEDS: FUROSEMIDE 100 MG/10ML VIAL IV ONE (13:42)
[2024-11-13] MEDS: methylPREDNISolone SOD SUCC 1,000 MG in SODIUM CHL 0.9% 250 ML IV ONE (22:00)
[2024-11-14] VITALS (16 sets, daily range): BP systolic 139–160; BP diastolic 89–99; PULSE 70–98; RESP 14–22; TEMP 97.5–98.2; O2SAT 90–100
[2024-11-14 07:07] LABS: Hemoglobin 8.4 g/dL (13.5-17.5); Mean Corpuscular Hemoglobin 25.1 pg (28.0-32.0)
[2024-11-14 07:09] LABS: Hematocrit 25.7 % (41.0-53.0); Mean Corpuscular Volume 76.5 fL (80.0-100.0); Nucleated Red Blood Cells % 0.3 %
[2024-11-14 07:15] LABS: Chloride 103 mmol/L (98-107); Potassium 3.9 mmol/L (3.5-5.1); Sodium 139 mmol/L (136-145)
[2024-11-14 07:16] LABS: Anion Gap 15 (5-15); Calcium 8.8 mg/dL (8.7-10.4); Carbon Dioxide 21 mmol/L (20-31)
[2024-11-14 07:21] LABS: BUN/Creatinine Ratio 12.6 (10.0-20.0)
[2024-11-14 07:24] LABS: Blood Urea Nitrogen 77 mg/dL (9-23); Glucose 186 mg/dL (74-106)
--- NOTE | 2024-11-14 09:53 | DVHPN2 ---
Reviewed: Care Plan, H&P, Labs, Medications, Previous Orders, Radiology Changes from previous H/P or p: No Changes Eyes: No Pain, No Vision change, No Conjunctivae inflammation, No Eyelid inflammation, No Other, No Redness ENT: No Ear pain, No Ear discharge, No Nose pain, No Nose discharge, No Nose congestion, No Mouth pain, No Mouth swelling, No Throat pain, No Throat swelling, No Other Cardiovascular: No Chest Pain, No Palpitations, No Orthopnea, No Paroxysmal Noc. Dyspnea, No Edema, No Lt Headedness, No Other Respiratory: Cough; No Dry; Shortness of breath, SOB with excertion; No Wheezing; Hemoptysis; No Pleuritic Pain, No Sputum, No Other Gastrointestinal: No Nausea, No Vomiting, No Abdominal Pain, No Diarrhea, No Constipation, No Melena, No Hematochezia, No Other Genitourinary: No Dysuria, No Frequency, No Incontinence, No Hematuria, No Retention, No Other Musculoskeletal: No other, No neck pain, No shoulder pain, No arm pain, No back pain, No hand pain, No leg pain, No foot pain Skin: No Rash, No Lesions, No Jaundice, No Bruising, No Other Objective Vitals Vital Signs Date Time Temp Pulse Resp B/P (MAP) Pulse Ox O2 Delivery O2 Flow Rate FiO2 11/14/24 09:20 87 161/89 11/14/24 06:21 14 99 11/14/24 06:14 Nasal Cannula 2.0 11/14/24 06:14 28 11/14/24 01:00 97.5 97.5 Intake/Output Intake and Output 11/14/24 07:00 Intake Total 1755 ml Output Total 3500 ml Balance -1745 ml Intake Oral 955 ml IV Total 500 ml Blood Product 300 ml Output Urine Total 3500 ml Medications Current Medications Medications Dose Ordered Sig/Justin Route Start Time Stop Time Status Last Admin Dose Admin Acetaminophen/ Hydrocodone Bitart 1 tab Q4HP PRN PO 11/09/24 10:30 11/14/24 06:35 1 TAB Ondansetron HCl 4 mg Q4HP PRN IV 11/09/24 10:30 Docusate Sodium 100 mg BIDPRN PRN PO 11/09/24 10:30 Acetaminophen 650 mg Q6HP PRN PO 11/09/24 10:30 Nitroglycerin 0.4 mg Q5MINP PRN SL 11/09/24 10:30 Morphine Sulfate 2 mg Q30M PRN IV 11/09/24 11:30 Ceftriaxone Sodium 50 ml @ 100 mls/hr DAILY@09 IV 11/10/24 09:00 11/14/24 08:26 100 MLS/HR Azithromycin 250 ml @ 125 mls/hr DAILY IV 11/10/24 10:00 11/14/24 09:18 125 MLS/HR Ipratropium [place] 0.5 mg Q6HWA NEB 11/09/24 18:00 11/14/24 06:13 0.5 MG Albuterol 2.5 mg Q6HWA NEB 11/09/24 18:00 11/14/24 06:13 2.5 MG Gabapentin 100 mg BID PO 11/09/24 22:00 11/14/24 09:20 100 MG Metoprolol Tartrate 50 mg BID PO 11/09/24 22:00 11/14/24 09:20 50 MG Zolpidem Tartrate 5 mg QHSP PRN PO 11/09/24 15:45 Duloxetine HCl 30 mg DAILY PO 11/10/24 10:00 11/14/24 09:20 30 MG Patient Own Medication 1 tab DAILY PO 11/10/24 10:00 UNV Nifedipine 60 mg DAILY PO 11/10/24 10:00 11/14/24 09:19 60 MG Morphine Sulfate 30 mg BID PO 11/09/24 22:00 11/14/24 09:20 30 MG Hydralazine HCl 100 mg Q12HR PO 11/10/24 22:00 11/14/24 09:19 100 MG Sodium Chloride 1,000 ml @ 100 mls/hr Q10H IV 11/10/24 14:45 11/14/24 08:29 100 MLS/HR Epoetin Man-epbx 10,000 unit MWF SC 11/15/24 10:00 Pantoprazole Sodium 40 mg DAILY@0600 PO 11/13/24 06:00 11/14/24 05:14 40 MG Laboratory Results Laboratory Tests 11/14/24 06:29 Chemistry Test 11/14/24 06:29 Calcium Level 8.8 mg/dL (8.7-10.4) Urinalysis Test 11/09/24 00:00 11/09/24 10:00 11/09/24 14:59 Urine Protein/Creatinine Ratio 3.15 Urine Total Protein 70.6 mg/dL (1-14) H Urine Color Colorless (Yellow) Urine Clarity Clear (Clear) Urine pH 5.5 (5.0-9.0) Urine Specific [place] 1.007 (1.001-1.035) Urine Protein 1+ (Negative) H Urine Ketones Negative (Negative) Urine Blood 3+ /uL (Negative) H Urine Nitrite Negative (Negative) Urine Bilirubin Negative (Negative) Urine Urobilinogen Normal mg/dL (Negative) Urine Leukocyte Esterase Negative /uL (Negative) Urine RBC 254 /hpf (0 - 3) Urine Microscopic WBC 4 /HPF (0-3) H Urine Squamous Epithelial Cells None seen /hpf (<5) Urine Amorphous Crystals Few /hpf (None Seen) Urine Bacteria Few /hpf (None Seen) H Urine Glucose Normal mg/dL (Normal) Urine Creatinine 22.28 mg/dL (30.0-125.0) L Urine Sodium 89 mmol/L (40-220) Microbiology Microbiology Date/Time Source Procedure Growth Status 11/11/24 08:38 Bronchial Washings Pending Resulted 11/11/24 08:38 Bronchial Washings Pending Resulted 11/11/24 08:38 Bronchial Washings Pending Resulted 11/11/24 08:38 Bronchial Washings Pending Resulted 11/11/24 08:38 Bronchial Washings - Final See Separate Report... Resulted 11/09/24 17:00 Nose MRSA Screen - Final Complete Labs and/or images reviewed: Labs reviewed by me, Image(s) reviewed by me Assessment/Plan Assessment/Plan Hemoptysis: Consult by Dr. Mix appreciated, status post bronchoscopy by Dr. Mix with the findings of hemorrhage from TAYLER and LLL bronchus Acute on chronic blood loss anemia hemoglobin improved from 6.9 to 8.4 after 1 unit RBC transfusion Stopped with cold saline. Broncho alveolar lavage fluid culture pending Atypical pneumonia, left upper lobe Pneumonia, likely GNR vs GPC: Continue Rocephin azithromycin Solu-Medrol Cirrhosis Possible lupus nephritis, Nephrology planning for kidney biopsy Congestive heart failure Pulmonary edema Anemia, microcytic ALICE versus CKD: Nephrology following Sarah test negative Flu test negative Plan discussed with: Patient Date of Service: Nov 14, 2024 Billing Provider: SHLOMO GARNER MD Common Visit Codes: [id number] INP/OBS CARE(HIGH) SHLOMO GARNER MD Nov 14, 2024 09:53
--- NOTE | 2024-11-14 11:54 | DVHPN2 ---
Progress Note Date Seen: Nov 14, 2024 Medical Necessity Reason Pt with a Central, PICC or Fol: No Subjective Changes from previous H/P or p: No Changes Objective vital signs Vital Sign Date Time Temp Pulse Resp B/P (MAP) Pulse Ox O2 Delivery O2 Flow Rate FiO2 11/14/24 10:00 95 Nasal Cannula 4.0 11/14/24 10:00 28 11/14/24 09:20 87 161/89 11/14/24 09:00 97.9 18 97.9 Total Intake and Output 11/13/24 11/13/24 11/14/24 15:00 23:00 07:00 Intake Total 1430 ml 325 ml Output Total 1900 ml 1600 ml Balance -470 ml -1275 ml medications Current Medications Medications Dose Ordered Sig/Justin Route Start Time Stop Time Status Last Admin Dose Admin Acetaminophen/ Hydrocodone Bitart 1 tab Q4HP PRN PO 11/09/24 10:30 11/14/24 06:35 1 TAB Ondansetron HCl 4 mg Q4HP PRN IV 11/09/24 10:30 Docusate Sodium 100 mg BIDPRN PRN PO 11/09/24 10:30 Acetaminophen 650 mg Q6HP PRN PO 11/09/24 10:30 Nitroglycerin 0.4 mg Q5MINP PRN SL 11/09/24 10:30 Morphine Sulfate 2 mg Q30M PRN IV 11/09/24 11:30 Ceftriaxone Sodium 50 ml @ 100 mls/hr DAILY@09 IV 11/10/24 09:00 11/14/24 08:26 100 MLS/HR Azithromycin 250 ml @ 125 mls/hr DAILY IV 11/10/24 10:00 11/14/24 09:18 125 MLS/HR Ipratropium [place] 0.5 mg Q6HWA NEB 11/09/24 18:00 11/14/24 06:13 0.5 MG Albuterol 2.5 mg Q6HWA NEB 11/09/24 18:00 11/14/24 06:13 2.5 MG Gabapentin 100 mg BID PO 11/09/24 22:00 11/14/24 09:20 100 MG Metoprolol Tartrate 50 mg BID PO 11/09/24 22:00 11/14/24 09:20 50 MG Zolpidem Tartrate 5 mg QHSP PRN PO 11/09/24 15:45 Duloxetine HCl 30 mg DAILY PO 11/10/24 10:00 11/14/24 09:20 30 MG Patient Own Medication 1 tab DAILY PO 11/10/24 10:00 UNV Nifedipine 60 mg DAILY PO 11/10/24 10:00 11/14/24 09:19 60 MG Morphine Sulfate 30 mg BID PO 11/09/24 22:00 11/14/24 09:20 30 MG Hydralazine HCl 100 mg Q12HR PO 11/10/24 22:00 11/14/24 09:19 100 MG Epoetin Man-epbx 10,000 unit MWF SC 11/15/24 10:00 Sodium Chloride 1,000 ml @ 50 mls/hr Q20H IV 11/14/24 11:45 UNV Pantoprazole Sodium 40 mg BID PO 11/14/24 22:00 UNV Prednisone 40 mg BID PO 11/14/24 11:45 UNV Examination: GENERAL:Abnormal, LUNGS:Abnormal, CVS:Normal, SKIN:Normal laboratory and microbiology Laboratory Tests 11/14/24 06:29 Test 11/14/24 06:29 Range/Units Serum Glucose 186 H 74-106 mg/dL Microbiology Date/Time Source Procedure Growth Status 11/11/24 08:38 Bronchial Washings Pending Resulted 11/11/24 08:38 Bronchial Washings Pending Resulted 11/11/24 08:38 Bronchial Washings Pending Resulted 11/11/24 08:38 Bronchial Washings Pending Resulted 11/11/24 08:38 Bronchial Washings - Final See Separate Report... 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 MPO high -IV pulse steroids day 3, po 1gm/kg starting today - IV ritux induction recommended 1000mg IV ordered 11/12 but unavailable until 11/15 then next dose 2 weeksafter - BActrim PCP prophylaxis starting tomorrow after RTX starts - cr 6.0 but urinates 2L per day no urgent dialysis at this time electrolytes also stable - no indication for plasma exchange at this time due to stable respiratory condition - Radiology kidney biopsy friday -ckd unspecified baseline unknown hemoptysis due to ANCA disease s/p Bronch -pulm - supportive care - breathing on Ra currently anemia- IV iron ordered MILLER 3x a week PRBC PRN for hb < 8.0 s/p PRBC tolerated no emergent indication for dialysis at this time produces 2-3L UOP per day and electrolytes within acceptable limits guarded prognosis, Severe disease with high likelihood of decompensation / rapid deterioration Plan discussed with: Patient My Orders My Orders Orders - QIANA ESQUIVEL MD Procedure Category Date Status Time Sodium Chloride 0.9% PHA 11/14/24 Logged 11:45 Pantoprazole Tablet PHA 11/14/24 Logged (Protonix Tablet) 22:00 Prednisone Tablet PHA 11/14/24 Transmitted 11:45 Dietary Evaluation Review Comments: Nutrition Recommendation 1) Consider 2gm Na diet 2) Monitor PO intake, lab values, weight trend, and I/O Expected Outcomes/Goals: Lab values to improve Fu 3-5 days Total Time (mins): 50 QIANA ESQUIVEL MD Nov 14, 2024 11:54
[2024-11-14] MEDS: SODIUM CHLORIDE 0.9% 1,000 ML IV SCH (12:20)
[2024-11-14] MEDS: predniSONE 20 MG TAB PO SCH (12:20)
[2024-11-14] MEDS: PANTOPRAZOLE 40 MG TAB PO SCH (21:17)
[2024-11-15] VITALS (15 sets, daily range): BP systolic 107–159; BP diastolic 77–107; PULSE 71–97; RESP 16–20; TEMP 97.1–98.8; O2SAT 95–100
[2024-11-15] MEDS: ZOLPIDEM TARTRATE 5 MG TAB PO PRN (03:11)
[2024-11-15 07:03] LABS: Hematocrit 23.9 % (41.0-53.0); Hemoglobin 8.2 g/dL (13.5-17.5); Mean Corpuscular Hemoglobin 25.9 pg (28.0-32.0); Mean Corpuscular Volume 75.9 fL (80.0-100.0); Nucleated Red Blood Cells % 0.3 %
[2024-11-15 07:23] LABS: Alanine Aminotransferase 10 U/L (7-40); Albumin 3.5 g/dL (3.2-4.8); Alkaline Phosphatase 86 U/L (46-116); Anion Gap 13 (5-15); BUN/Creatinine Ratio 15.3 (10.0-20.0); Bilirubin, Total 0.3 mg/dL (0.2-1.0); Carbon Dioxide 23 mmol/L (20-31); Chloride 103 mmol/L (98-107); Potassium 4.0 mmol/L (3.5-5.1); Sodium 139 mmol/L (136-145); Total Protein 6.7 g/dL (5.7-8.2)
[2024-11-15 07:25] LABS: Calcium 8.6 mg/dL (8.7-10.4); Glucose 137 mg/dL (74-106)
[2024-11-15 07:27] LABS: Blood Urea Nitrogen 98 mg/dL (9-23)
--- NOTE | 2024-11-15 09:10 | DVHPN2 ---
Progress Note Medical Necessity Reason Pt with a Central, PICC or Fol: No Objective vital signs Vital Sign Date Time Temp Pulse Resp B/P (MAP) Pulse Ox O2 Delivery O2 Flow Rate FiO2 11/15/24 05:00 97.1 71 18 107/89 (95) 95 97.1 11/14/24 20:00 Nasal Cannula* 4 36 Total Intake and Output 11/14/24 11/14/24 11/15/24 15:00 23:00 07:00 Intake Total 300 ml 1440 ml 300 ml Output Total 2500 ml 900 ml Balance 300 ml -1060 ml -600 ml medications Current Medications Medications Dose Ordered Sig/Justin Route Start Time Stop Time Status Last Admin Dose Admin Acetaminophen/ Hydrocodone Bitart 1 tab Q4HP PRN PO 11/09/24 10:30 11/14/24 06:35 1 TAB Ondansetron HCl 4 mg Q4HP PRN IV 11/09/24 10:30 Docusate Sodium 100 mg BIDPRN PRN PO 11/09/24 10:30 Acetaminophen 650 mg Q6HP PRN PO 11/09/24 10:30 Nitroglycerin 0.4 mg Q5MINP PRN SL 11/09/24 10:30 Morphine Sulfate 2 mg Q30M PRN IV 11/09/24 11:30 Ceftriaxone Sodium 50 ml @ 100 mls/hr DAILY@09 IV 11/10/24 09:00 11/14/24 08:26 100 MLS/HR Azithromycin 250 ml @ 125 mls/hr DAILY IV 11/10/24 10:00 11/14/24 09:18 125 MLS/HR Ipratropium [place] 0.5 mg Q6HWA NEB 11/09/24 18:00 11/15/24 00:35 0.5 MG Albuterol 2.5 mg Q6HWA NEB 11/09/24 18:00 11/15/24 00:35 2.5 MG Gabapentin 100 mg BID PO 11/09/24 22:00 11/14/24 21:17 100 MG Metoprolol Tartrate 50 mg BID PO 11/09/24 22:00 11/14/24 21:18 50 MG Zolpidem Tartrate 5 mg QHSP PRN PO 11/09/24 15:45 11/15/24 03:11 5 MG Duloxetine HCl 30 mg DAILY PO 11/10/24 10:00 10/5/25 09:20 30 MG Patient Own Medication 1 tab DAILY PO 11/10/24 10:00 UNV Nifedipine 60 mg DAILY PO 11/10/24 10:00 11/14/24 09:19 60 MG Morphine Sulfate 30 mg BID PO 11/09/24 22:00 11/14/24 21:19 30 MG Hydralazine HCl 100 mg Q12HR PO 11/10/24 22:00 11/14/24 21:20 100 MG Epoetin Man-epbx 10,000 unit MWF NE 11/15/24 10:00 Sodium Chloride 1,000 ml @ 50 mls/hr Q20H IV 11/14/24 11:45 11/14/24 12:20 50 MLS/HR Pantoprazole Sodium 40 mg BID PO 11/14/24 22:00 11/14/24 21:17 40 MG Prednisone 40 mg BID PO 11/14/24 11:45 11/14/24 21:20 40 MG laboratory and microbiology Laboratory Tests 11/15/24 06:09 Test 11/15/24 06:09 Range/Units Serum Glucose 137 H 74-106 mg/dL Microbiology Date/Time Source Procedure Growth Status 11/11/24 08:38 Bronchial Washings - Final Resulted 11/11/24 08:38 Bronchial Washings - Final Resulted 11/11/24 08:38 Bronchial Washings Pending Resulted 11/11/24 08:38 Bronchial Washings Pending Resulted 11/11/24 08:38 Bronchial Washings - Final See Separate Report... Resulted 11/09/24 17:00 Nose MRSA Screen - Final Complete My Orders My Orders Orders - APRIL VERA MD Procedure Category Date Status Time * Radiologist Consult CONS 11/15/24 Transmitted 09:05 Dietary Evaluation Review Comments: Nutrition Recommendation 1) Consider 2gm Na diet 2) Monitor PO intake, lab values, weight trend, and I/O Expected Outcomes/Goals: Lab values to improve Fu 3-5 days APRIL VERA MD Nov 15, 2024 09:10
--- NOTE | 2024-11-15 09:15 | DVHPN2 ---
Progress Note Date Seen: Nov 15, 2024 Medical Necessity Reason Pt with a Central, PICC or Fol: No Subjective Patient reports: Feels worse Other Systems: Patient seen and examined by myself today in follow-up Objective vital signs Vital Sign Date Time Temp Pulse Resp B/P (MAP) Pulse Ox O2 Delivery O2 Flow Rate FiO2 11/15/24 05:00 97.1 71 18 107/89 (95) 95 97.1 11/14/24 20:00 Nasal Cannula* 4 36 Total Intake and Output 11/14/24 11/14/24 11/15/24 15:00 23:00 07:00 Intake Total 300 ml 1440 ml 300 ml Output Total 2500 ml 900 ml Balance 300 ml -1060 ml -600 ml medications Current Medications Medications Dose Ordered Sig/Justin Route Start Time Stop Time Status Last Admin Dose Admin Acetaminophen/ Hydrocodone Bitart 1 tab Q4HP PRN PO 11/09/24 10:30 11/14/24 06:35 1 TAB Ondansetron HCl 4 mg Q4HP PRN IV 11/09/24 10:30 Docusate Sodium 100 mg BIDPRN PRN PO 11/09/24 10:30 Acetaminophen 650 mg Q6HP PRN PO 11/09/24 10:30 Nitroglycerin 0.4 mg Q5MINP PRN SL 11/09/24 10:30 Morphine Sulfate 2 mg Q30M PRN IV 11/09/24 11:30 Ceftriaxone Sodium 50 ml @ 100 mls/hr DAILY@09 IV 11/10/24 09:00 11/14/24 08:26 100 MLS/HR Azithromycin 250 ml @ 125 mls/hr DAILY IV 11/10/24 10:00 11/14/24 09:18 125 MLS/HR Ipratropium [place] 0.5 mg Q6HWA NEB 11/09/24 18:00 11/15/24 00:35 0.5 MG Albuterol 2.5 mg Q6HWA NEB 11/09/24 18:00 11/15/24 00:35 2.5 MG Gabapentin 100 mg BID PO 11/09/24 22:00 11/14/24 21:17 100 MG Metoprolol Tartrate 50 mg BID PO 11/09/24 22:00 11/14/24 21:18 50 MG Zolpidem Tartrate 5 mg QHSP PRN PO 11/09/24 15:45 11/15/24 03:11 5 MG Duloxetine HCl 30 mg DAILY PO 11/10/24 10:00 11/14/24 09:20 30 MG Patient Own Medication 1 tab DAILY PO 11/10/24 10:00 UNV Nifedipine 60 mg DAILY PO 11/10/24 10:00 11/14/24 09:19 60 MG Morphine Sulfate 30 mg BID PO 11/09/24 22:00 11/14/24 21:19 30 MG Hydralazine HCl 100 mg Q12HR PO 11/10/24 22:00 11/14/24 21:20 100 MG Epoetin Man-epbx 10,000 unit MWF SC 11/15/24 10:00 Sodium Chloride 1,000 ml @ 50 mls/hr Q20H IV 11/14/24 11:45 11/14/24 12:20 50 MLS/HR Pantoprazole Sodium 40 mg BID PO 11/14/24 22:00 11/14/24 21:17 40 MG Prednisone 40 mg BID PO 11/14/24 11:45 11/14/24 21:20 40 MG Examination: LUNGS:Normal, CVS:Normal, MSK:Normal laboratory and microbiology Laboratory Tests 11/15/24 06:09 Test 11/15/24 06:09 Range/Units Serum Glucose 137 H 74-106 mg/dL Microbiology Date/Time Source Procedure Growth Status 11/11/24 08:38 Bronchial Washings - Final Resulted 11/11/24 08:38 Bronchial Washings - Final Resulted 11/11/24 08:38 Bronchial Washings Pending Resulted 11/11/24 08:38 Bronchial Washings Pending Resulted 11/11/24 08:38 Bronchial Washings - Final See Separate Report... Resulted 11/09/24 17:00 Nose MRSA Screen - Final Complete Problem List/Assessment/Plan Problem List/Assessment/Plan Acute kidney injury superimposed Chronic Kidney Disease secondary hemodynamic mediated P- ANCA vasculitis -microscopic polyangiitis, high p- ANCA. MPO high -IV pulse steroids day 3, po 1gm/kg starting today - IV ritux induction recommended 1000mg IV ordered 11/12 but unavailable until 11/15 then next dose 2 weeksafter - Bactrim PCP prophylaxis starting tomorrow after RTX starts - awaiting kidney biopsy - I discussed hemodialysis with the patient and he agrees - consents for hemodialysis and tunneled IJ hemodialysis catheter - hemodialysis tomorrow Hypertension - blood pressure control hemoptysis due to ANCA disease s/p Bronch -pulm - supportive care - breathing on Ra currently anemia- IV iron ordered MILLER 3x a week PRBC PRN for hb < 8.0 s/p PRBC tolerated Plan discussed with: Patient My Orders My Orders Orders - APRIL VERA MD Procedure Category Date Status Time * Radiologist Consult CONS 11/15/24 Transmitted 09:05 Dietary Evaluation Review Comments: Nutrition Recommendation 1) Consider 2gm Na diet 2) Monitor PO intake, lab values, weight trend, and I/O Expected Outcomes/Goals: Lab values to improve Fu 3-5 days APRIL VERA MD Nov 15, 2024 09:15
--- NOTE | 2024-11-15 09:41 | DVHPN2 ---
Reviewed: Care Plan, H&P, Labs, Medications, Previous Orders, Radiology Changes from previous H/P or p: No Changes Eyes: No Pain, No Vision change, No Conjunctivae inflammation, No Eyelid inflammation, No Other, No Redness ENT: No Ear pain, No Ear discharge, No Nose pain, No Nose discharge, No Nose congestion, No Mouth pain, No Mouth swelling, No Throat pain, No Throat swelling, No Other Cardiovascular: No Chest Pain, No Palpitations, No Orthopnea, No Paroxysmal Noc. Dyspnea, No Edema, No Lt Headedness, No Other Respiratory: Cough; No Dry; Shortness of breath, SOB with excertion; No Wheezing; Hemoptysis; No Pleuritic Pain, No Sputum, No Other Gastrointestinal: No Nausea, No Vomiting, No Abdominal Pain, No Diarrhea, No Constipation, No Melena, No Hematochezia, No Other Genitourinary: No Dysuria, No Frequency, No Incontinence, No Hematuria, No Retention, No Other Musculoskeletal: No other, No neck pain, No shoulder pain, No arm pain, No back pain, No hand pain, No leg pain, No foot pain Skin: No Rash, No Lesions, No Jaundice, No Bruising, No Other Objective Vitals Vital Signs Date Time Temp Pulse Resp B/P (MAP) Pulse Ox O2 Delivery O2 Flow Rate FiO2 11/15/24 05:00 97.1 71 18 107/89 (95) 95 97.1 11/14/24 20:00 Nasal Cannula* 4 36 Intake/Output Intake and Output 11/15/24 07:00 Intake Total 2040 ml Output Total 3400 ml Balance -1360 ml Intake Oral 1740 ml IV Total 300 ml Output Urine Total 3400 ml # Bowel Movements 1 Medications Current Medications Medications Dose Ordered Sig/Justin Route Start Time Stop Time Status Last Admin Dose Admin Acetaminophen/ Hydrocodone Bitart 1 tab Q4HP PRN PO 11/09/24 10:30 11/14/24 06:35 1 TAB Ondansetron HCl 4 mg Q4HP PRN IV 11/09/24 10:30 Docusate Sodium 100 mg BIDPRN PRN PO 11/09/24 10:30 Acetaminophen 650 mg Q6HP PRN PO 11/09/24 10:30 Nitroglycerin 0.4 mg Q5MINP PRN SL 11/09/24 10:30 Morphine Sulfate 2 mg Q30M PRN IV 11/09/24 11:30 Ceftriaxone Sodium 50 ml @ 100 mls/hr DAILY@09 IV 11/10/24 09:00 11/14/24 08:26 100 MLS/HR Azithromycin 250 ml @ 125 mls/hr DAILY IV 11/10/24 10:00 11/14/24 09:18 125 MLS/HR Ipratropium [place] 0.5 mg Q6HWA NEB 11/09/24 18:00 11/15/24 00:35 0.5 MG Albuterol 2.5 mg Q6HWA NEB 11/09/24 18:00 11/15/24 00:35 2.5 MG Gabapentin 100 mg BID PO 11/09/24 22:00 11/14/24 21:17 100 MG Metoprolol Tartrate 50 mg BID PO 11/09/24 22:00 11/14/24 21:18 50 MG Zolpidem Tartrate 5 mg QHSP PRN PO 11/09/24 15:45 11/15/24 03:11 5 MG Duloxetine HCl 30 mg DAILY PO 11/10/24 10:00 11/14/24 09:20 30 MG Patient Own Medication 1 tab DAILY PO 11/10/24 10:00 UNV Nifedipine 60 mg DAILY PO 11/10/24 10:00 11/14/24 09:19 60 MG Morphine Sulfate 30 mg BID PO 11/09/24 22:00 11/14/24 21:19 30 MG Hydralazine HCl 100 mg Q12HR PO 11/10/24 22:00 11/14/24 21:20 100 MG Epoetin Man-epbx 10,000 unit MWF PA 11/15/24 10:00 Sodium Chloride 1,000 ml @ 50 mls/hr Q20H IV 11/14/24 11:45 11/14/24 12:20 50 MLS/HR Pantoprazole Sodium 40 mg BID PO 11/14/24 22:00 11/14/24 21:17 40 MG Prednisone 40 mg BID PO 11/14/24 11:45 11/14/24 21:20 40 MG Multivit/Ca Carb/ B Cmplx/FA/Prenat 1 tab DAILY PO 11/15/24 10:00 UNV Laboratory Results Laboratory Tests 11/15/24 06:09 Chemistry Test 11/15/24 06:09 Albumin 3.5 g/dL (3.2-4.8) Calcium Level 8.6 mg/dL (8.7-10.4) L Total Protein 6.7 g/dL (5.7-8.2) LFT Test 11/15/24 06:09 Alanine Aminotransferase (ALT) 10 U/L (7-40) Alkaline Phosphatase 86 U/L (46-116) Aspartate Amino Transferase (AST) 11 U/L (13-40) L Total Bilirubin 0.3 mg/dL (0.2-1.0) Urinalysis Test 11/09/24 00:00 11/09/24 10:00 11/09/24 14:59 Urine Protein/Creatinine Ratio 3.15 Urine Total Protein 70.6 mg/dL (1-14) H Urine Color Colorless (Yellow) Urine Clarity Clear (Clear) Urine pH 5.5 (5.0-9.0) Urine Specific [place] 1.007 (1.001-1.035) Urine Protein 1+ (Negative) H Urine Ketones Negative (Negative) Urine Blood 3+ /uL (Negative) H Urine Nitrite Negative (Negative) Urine Bilirubin Negative (Negative) Urine Urobilinogen Normal mg/dL (Negative) Urine Leukocyte Esterase Negative /uL (Negative) Urine RBC 254 /hpf (0 - 3) Urine Microscopic WBC 4 /HPF (0-3) H Urine Squamous Epithelial Cells None seen /hpf (<5) Urine Amorphous Crystals Few /hpf (None Seen) Urine Bacteria Few /hpf (None Seen) H Urine Glucose Normal mg/dL (Normal) Urine Creatinine 22.28 mg/dL (30.0-125.0) L Urine Sodium 89 mmol/L (40-220) Microbiology Microbiology Date/Time Source Procedure Growth Status 11/11/24 08:38 Bronchial Washings - Final Resulted 11/11/24 08:38 Bronchial Washings - Final Resulted 11/11/24 08:38 Bronchial Washings Pending Resulted 11/11/24 08:38 Bronchial Washings Pending Resulted 11/11/24 08:38 Bronchial Washings - Final See Separate Report... Resulted 11/09/24 17:00 Nose MRSA Screen - Final Complete Labs and/or images reviewed: Labs reviewed by me, Image(s) reviewed by me Assessment/Plan Assessment/Plan Hemoptysis: Consult by Dr. Mix appreciated, status post bronchoscopy by Dr. Mix with the findings of hemorrhage from TAYLER and LLL bronchus Acute on chronic blood loss anemia hemoglobin improved from 6.9 to 8.4 after 1 unit RBC transfusion Stopped with cold saline. Broncho alveolar lavage fluid culture pending possible ANCA disease Atypical pneumonia, left upper lobe Pneumonia, likely GNR vs GPC: Continue Rocephin azithromycin Solu-Medrol Cirrhosis Possible lupus nephritis, patient to go for hemodialysis after insertion of hemodialysis catheterization per Dr. Cornejo Congestive heart failure Pulmonary edema Anemia, microcytic Sarah test negative Flu test negative Plan discussed with: Patient My Orders Orders - SHLOMO GARNER MD Procedure Category Date Status Time Complete Blood Count LAB 11/16/24 Verified 05:00 Complete Blood Count LAB 11/17/24 Verified 05:00 Complete Blood Count LAB 11/18/24 Verified 05:00 Complete Blood Count LAB 11/19/24 Verified 05:00 Comprehensive LAB 11/16/24 Verified Metabolic Panel 05:00 Comprehensive LAB 11/17/24 Verified Metabolic Panel 05:00 Comprehensive LAB 11/18/24 Verified Metabolic Panel 05:00 Comprehensive LAB 11/19/24 Verified Metabolic Panel 05:00 Date of Service: Nov 15, 2024 Billing Provider: SHLOMO GARNER MD Common Visit Codes: [id number] INP/OBS CARE(HIGH) SHLOMO GARNER MD Nov 15, 2024 09:41
[2024-11-15] MEDS: EPOETIN ALFA-EPBX 10,000 UNIT/1ML VIAL SC SCH (09:47)
[2024-11-15] MEDS: B-COMPLEX W/ C & FOLIC ACID(NEPHROVITE TAB) PO SCH (10:39)
[2024-11-15] MEDS: ALPRAZolam 0.5 MG TAB PO SCH (14:48)
[2024-11-16] VITALS (13 sets, daily range): BP systolic 111–143; BP diastolic 68–91; PULSE 58–96; RESP 7–18; TEMP 97.4–98.2; O2SAT 95–99
[2024-11-16 07:01] LABS: Hematocrit 30.8 % (41.0-53.0); Hemoglobin 10.0 g/dL (13.5-17.5); Mean Corpuscular Hemoglobin 25.1 pg (28.0-32.0); Mean Corpuscular Volume 77.2 fL (80.0-100.0); Nucleated Red Blood Cells % 0.3 %
[2024-11-16 07:25] LABS: Alanine Aminotransferase 10 U/L (7-40); Albumin 3.5 g/dL (3.2-4.8); Alkaline Phosphatase 87 U/L (46-116); Anion Gap 15 (5-15); BUN/Creatinine Ratio 15.8 (10.0-20.0); Bilirubin, Total 0.3 mg/dL (0.2-1.0); Calcium 8.8 mg/dL (8.7-10.4); Carbon Dioxide 22 mmol/L (20-31); Chloride 103 mmol/L (98-107); Potassium 4.3 mmol/L (3.5-5.1); Sodium 140 mmol/L (136-145); Total Protein 6.9 g/dL (5.7-8.2)
[2024-11-16 07:47] LABS: Glucose 153 mg/dL (74-106)
[2024-11-16 07:48] LABS: Blood Urea Nitrogen 105 mg/dL (9-23)
--- NOTE | 2024-11-16 09:50 | DVHPN2 ---
Reviewed: Care Plan, H&P, Labs, Medications, Previous Orders, Radiology Changes from previous H/P or p: No Changes Eyes: No Pain, No Vision change, No Conjunctivae inflammation, No Eyelid inflammation, No Other, No Redness ENT: No Ear pain, No Ear discharge, No Nose pain, No Nose discharge, No Nose congestion, No Mouth pain, No Mouth swelling, No Throat pain, No Throat swelling, No Other Cardiovascular: No Chest Pain, No Palpitations, No Orthopnea, No Paroxysmal Noc. Dyspnea, No Edema, No Lt Headedness, No Other Respiratory: Cough; No Dry; Shortness of breath, SOB with excertion; No Wheezing; Hemoptysis; No Pleuritic Pain, No Sputum, No Other Gastrointestinal: No Nausea, No Vomiting, No Abdominal Pain, No Diarrhea, No Constipation, No Melena, No Hematochezia, No Other Genitourinary: No Dysuria, No Frequency, No Incontinence, No Hematuria, No Retention, No Other Musculoskeletal: No other, No neck pain, No shoulder pain, No arm pain, No back pain, No hand pain, No leg pain, No foot pain Skin: No Rash, No Lesions, No Jaundice, No Bruising, No Other Objective Vitals Vital Signs Date Time Temp Pulse Resp B/P (MAP) Pulse Ox O2 Delivery O2 Flow Rate FiO2 11/16/24 06:17 69 18 99 11/16/24 06:11 Nasal Cannula* 3 32 11/16/24 05:00 98.1 120/77 (91) 98.1 Intake/Output Intake and Output 11/16/24 07:00 Intake Total 1090 ml Output Total 1275 ml Balance -185 ml Intake Oral 240 ml IV Total 850 ml Output Urine Total 1275 ml Medications Current Medications Medications Dose Ordered Sig/Justin Route Start Time Stop Time Status Last Admin Dose Admin Acetaminophen/ Hydrocodone Bitart 1 tab Q4HP PRN PO 11/09/24 10:30 11/14/24 06:35 1 TAB Ondansetron HCl 4 mg Q4HP PRN IV 11/09/24 10:30 Docusate Sodium 100 mg BIDPRN PRN PO 11/09/24 10:30 Acetaminophen 650 mg Q6HP PRN PO 11/09/24 10:30 Nitroglycerin 0.4 mg Q5MINP PRN SL 11/09/24 10:30 Morphine Sulfate 2 mg Q30M PRN IV 11/09/24 11:30 Ceftriaxone Sodium 50 ml @ 100 mls/hr DAILY@09 IV 11/10/24 09:00 11/15/24 09:47 100 MLS/HR Azithromycin 250 ml @ 125 mls/hr DAILY IV 11/10/24 10:00 11/15/24 09:47 125 MLS/HR Ipratropium [place] 0.5 mg Q6HWA NEB 11/09/24 18:00 11/16/24 06:11 0.5 MG Albuterol 2.5 mg Q6HWA NEB 11/09/24 18:00 11/16/24 06:11 2.5 MG Gabapentin 100 mg BID PO 11/09/24 22:00 11/15/24 21:26 100 MG Metoprolol Tartrate 50 mg BID PO 11/09/24 22:00 11/15/24 21:25 50 MG Zolpidem Tartrate 5 mg QHSP PRN PO 11/09/24 15:45 11/15/24 03:11 5 MG Duloxetine HCl 30 mg DAILY PO 11/10/24 10:00 11/15/24 09:32 30 MG Patient Own Medication 1 tab DAILY PO 11/10/24 10:00 UNV Nifedipine 60 mg DAILY PO 11/10/24 10:00 11/15/24 09:38 60 MG Morphine Sulfate 30 mg BID PO 11/09/24 22:00 11/15/24 21:29 30 MG Hydralazine HCl 100 mg Q12HR PO 11/10/24 22:00 11/15/24 21:24 100 MG Epoetin Man-epbx 10,000 unit MWF SC 11/15/24 10:00 11/15/24 09:47 10,000 UNIT Sodium Chloride 1,000 ml @ 50 mls/hr Q20H IV 11/14/24 11:45 11/16/24 03:44 50 MLS/HR Prednisone 40 mg BID PO 11/14/24 11:45 11/15/24 21:28 40 MG Multivit/Ca Carb/ B Cmplx/FA/Prenat 1 tab DAILY PO 11/15/24 10:00 11/15/24 10:39 1 TAB Alprazolam 1 mg TID PO 11/15/24 14:00 11/15/24 21:27 1 MG Pantoprazole Sodium 40 mg DAILY PO 11/16/24 10:00 Laboratory Results Laboratory Tests 11/16/24 05:24 Chemistry Test 11/16/24 05:24 Albumin 3.5 g/dL (3.2-4.8) Calcium Level 8.8 mg/dL (8.7-10.4) Total Protein 6.9 g/dL (5.7-8.2) LFT Test 11/16/24 05:24 Alanine Aminotransferase (ALT) 10 U/L (7-40) Alkaline Phosphatase 87 U/L (46-116) Aspartate Amino Transferase (AST) 13 U/L (13-40) Total Bilirubin 0.3 mg/dL (0.2-1.0) Urinalysis Test 11/09/24 00:00 11/09/24 10:00 11/09/24 14:59 Urine Protein/Creatinine Ratio 3.15 Urine Total Protein 70.6 mg/dL (1-14) H Urine Color Colorless (Yellow) Urine Clarity Clear (Clear) Urine pH 5.5 (5.0-9.0) Urine Specific [place] 1.007 (1.001-1.035) Urine Protein 1+ (Negative) H Urine Ketones Negative (Negative) Urine Blood 3+ /uL (Negative) H Urine Nitrite Negative (Negative) Urine Bilirubin Negative (Negative) Urine Urobilinogen Normal mg/dL (Negative) Urine Leukocyte Esterase Negative /uL (Negative) Urine RBC 254 /hpf (0 - 3) Urine Microscopic WBC 4 /HPF (0-3) H Urine Squamous Epithelial Cells None seen /hpf (<5) Urine Amorphous Crystals Few /hpf (None Seen) Urine Bacteria Few /hpf (None Seen) H Urine Glucose Normal mg/dL (Normal) Urine Creatinine 22.28 mg/dL (30.0-125.0) L Urine Sodium 89 mmol/L (40-220) Microbiology Microbiology Date/Time Source Procedure Growth Status 11/11/24 08:38 Bronchial Washings - Final Resulted 11/11/24 08:38 Bronchial Washings - Final Resulted 11/11/24 08:38 Bronchial Washings Pending Resulted 11/11/24 08:38 Bronchial Washings Pending Resulted 11/11/24 08:38 Bronchial Washings - Final See Separate Report... Resulted 11/09/24 17:00 Nose MRSA Screen - Final Complete Labs and/or images reviewed: Labs reviewed by me, Image(s) reviewed by me Assessment/Plan Assessment/Plan Hemoptysis: Consult by Dr. Mix appreciated, status post bronchoscopy by Dr. Mix with the findings of hemorrhage from TAYLER and LLL bronchus Acute on chronic blood loss anemia hemoglobin improved from 6.9 to 8.4 after 1 unit RBC transfusion Stopped with cold saline. Broncho alveolar lavage fluid culture pending possible ANCA disease Atypical pneumonia, left upper lobe Pneumonia, likely GNR vs GPC: Continue Rocephin azithromycin Solu-Medrol Cirrhosis Possible lupus nephritis, patient to go for hemodialysis after insertion of hemodialysis catheterization per Dr. Cornejo Kidney biopsy pending Congestive heart failure Pulmonary edema Anemia, microcytic Sarah test negative Flu test negative Plan discussed with: Patient My Orders Orders - SHLOMO GARNER MD Procedure Category Date Status Time Alprazolam Tablet PHA 11/15/24 In Process (Xanax Tablet) 14:00 Date of Service: Nov 16, 2024 Billing Provider: SHLOMO GARNER MD Common Visit Codes: [id number] INP/OBS CARE(HIGH) SHLOMO GARNER MD Nov 16, 2024 09:50
[2024-11-16] MEDS: PANTOPRAZOLE 40 MG TAB PO SCH (10:00)
--- NOTE | 2024-11-16 11:34 | DVH ---
US US GUIDANCE FOR NEEDLE PLACEME, HISTORY: KIDNEY BIOPSY PROCEDURE: Informed consent was obtained. Limited ultrasound of the right kidney was obtained. The o verlying skin was prepped with chlorhexidine which was allowed to dry and draped in the usual sterile fashion. Time out was performed. The skin and soft tissue were infiltrated with 1% lidocaine, and IV sedation was administered. Under real-time ultrasound guidance, 1 biopsy specimen was obtained using Biopince 18 gauge core biopsy needle. No immediate complication was noted. SEDATION: Dr. Rafat Tejada was personally responsible for the administration of moderate sedation during the procedure performed, including the use of an independent trained observer who had no other duties during the procedure. The drugs utilized were IV fentanyl and versed (see nursing log for details). The total time of supervision by the attending physician was approximately 30 minutes. FINDINGS: Limited intraprocedural ultrasound demonstrates biopsy needle within the mid renal cortex o f right kidney. Small post procedural hematoma is noted. IMPRESSION: Ultrasound biopsy of the right kidney. Pathology results pending.
--- NOTE | 2024-11-16 12:00 | DVHPN2 ---
Progress Note Date Seen: Nov 16, 2024 Resident Creating Document: SAGAR STEWARD RESIDENT Medical Necessity Reason Pt with a Central, PICC or Fol: No Subjective Review of Systems Patient was seen and examined on the bedside. He is confused, alert oriented x1 and on nasal cannula 3 L . Went to can labeler for kidney biopsy and tunnel catheter placement. Other Systems: Patient seen and examined by myself today in follow-up with the medicine resident, I agree with her assessment and plan Objective vital signs Vital Sign Date Time Temp Pulse Resp B/P (MAP) Pulse Ox O2 Delivery O2 Flow Rate FiO2 11/16/24 09:00 98.0 82 18 143/77 (99) 95 98.0 11/16/24 06:11 Nasal Cannula* 3 32 Total Intake and Output 11/15/24 11/15/24 11/16/24 15:00 23:00 07:00 Intake Total 300 ml 550 ml 240 ml Output Total 725 ml 550 ml Balance 300 ml -175 ml -310 ml medications Current Medications Medications Dose Ordered Sig/Justin Route Start Time Stop Time Status Last Admin Dose Admin Acetaminophen/ Hydrocodone Bitart 1 tab Q4HP PRN PO 11/09/24 10:30 11/14/24 06:35 1 TAB Ondansetron HCl 4 mg Q4HP PRN IV 11/09/24 10:30 Docusate Sodium 100 mg BIDPRN PRN PO 11/09/24 10:30 Acetaminophen 650 mg Q6HP PRN PO 11/09/24 10:30 Nitroglycerin 0.4 mg Q5MINP PRN SL 11/09/24 10:30 Morphine Sulfate 2 mg Q30M PRN IV 11/09/24 11:30 Ceftriaxone Sodium 50 ml @ 100 mls/hr DAILY@09 IV 11/10/24 09:00 11/15/24 09:47 100 MLS/HR Azithromycin 250 ml @ 125 mls/hr DAILY IV 11/10/24 10:00 11/15/24 09:47 125 MLS/HR Ipratropium [place] 0.5 mg Q6HWA NEB 11/09/24 18:00 11/16/24 06:11 0.5 MG Albuterol 2.5 mg Q6HWA NEB 11/09/24 18:00 11/16/24 06:11 2.5 MG Gabapentin 100 mg BID PO 11/09/24 22:00 11/15/24 21:26 100 MG Metoprolol Tartrate 50 mg BID PO 11/09/24 22:00 11/15/24 21:25 50 MG Zolpidem Tartrate 5 mg QHSP PRN PO 11/09/24 15:45 11/15/24 03:11 5 MG Duloxetine HCl 30 mg DAILY PO 11/10/24 10:00 11/15/24 09:32 30 MG Patient Own Medication 1 tab DAILY PO 11/10/24 10:00 UNV Nifedipine 60 mg DAILY PO 11/10/24 10:00 11/15/24 09:38 60 MG Morphine Sulfate 30 mg BID PO 11/09/24 22:00 11/15/24 21:29 30 MG Hydralazine HCl 100 mg Q12HR PO 11/10/24 22:00 11/15/24 21:24 100 MG Sodium Chloride 1,000 ml @ 50 mls/hr Q20H IV 11/14/24 11:45 11/16/24 03:44 50 MLS/HR Prednisone 40 mg BID PO 11/14/24 11:45 11/15/24 21:28 40 MG Multivit/Ca Carb/ B Cmplx/FA/Prenat 1 tab DAILY PO 11/15/24 10:00 11/15/24 10:39 1 TAB Alprazolam 1 mg TID PO 11/15/24 14:00 11/15/24 21:27 1 MG Pantoprazole Sodium 40 mg DAILY PO 11/16/24 10:00 Epoetin Man-epbx 10,000 unit MWF@2100 SC 11/17/24 21:00 Future Hold Examination Physical examination: General Appearance: Alert, Oriented X1, Confused, mild resp distress HEENT: Atraumatic, PERRLA, EOMI, Mucous membrane moist/pink Respiratory: Bilateral rales. Cardiovascular: Regular rate, Normal S1, Normal S2, No murmurs, no chest wall tenderness Abdominal: Normal bowel sounds, Soft, No tenderness, No hepatospenomegaly, No masses Extremities: No edema, No clubbing, No cyanosis, Normal pulses, No tenderness/swelling Skin: No rashes, No breakdown, No significant lesion Neuro: Normal speech, Strength at 5/5 X4 ext, Normal tone, Sensation intact, Cranial nerves 3-12 NL, Reflexes 2+ Psych/Mental Status: Could not be assessed. laboratory and microbiology Laboratory Tests 11/16/24 05:24 Test 11/16/24 05:24 Range/Units Serum Glucose 153 H 74-106 mg/dL Microbiology Date/Time Source Procedure Growth Status 11/11/24 08:38 Bronchial Washings - Final Resulted 11/11/24 08:38 Bronchial Washings - Final Resulted 11/11/24 08:38 Bronchial Washings Pending Resulted 11/11/24 08:38 Bronchial Washings Pending Resulted 11/11/24 08:38 Bronchial Washings - Final See Separate Report... Resulted 11/09/24 17:00 Nose MRSA Screen - Final Complete Labs and/or images reviewed: Labs reviewed by me, Image(s) reviewed by me Problem List/Assessment/Plan Problem List/Assessment/Plan Assessment and plan: # ALICE likely hemodynamically mediated in the setting of sepsis secondary to multifocal pneumonia # Possible ALICE on CKD # possible uremic encephalopathy # P- ANCA vasculitis # Microscopic polyangiitis # Acute on chronic hypochromic microcytic anemia # Acute hypoxic respiratory failure secondary to multifocal pneumonia # chronic diastolic heart failure with preserved ejection fraction # History of liver cirrhosis Plan: - Worsening kidney function. - Hemodialysis today - FENa is 17.2% - DARRIUS panel demonstrated double-stranded DNA antibody and chromatin antibody positive, C3 and C4 are within normal limits - MPO antibody and anti proteinase 3 positive, high P- ANCA - Received 3 doses of pulse dose of steroid 1000 mg per day, started p.o. prednisone 40 mg b.i.d. - IV ritux induction recommended 1000mg IV, recommended after dialysis then next dose 2 weeks after - Bactrim PCP prophylaxis after RTX starts - Iron panel showed low iron and saturation, TIBC and ferritin are normal - IV iron daily - Consulted IR for kidney biopsy - continue metoprolol tartrate 50 mg p.o. b.i.d., nifedipine ER 60 mg daily, hydralazine 100 mg b.i.d. - Continue IV antibiotic and other management as per primary - Strict I&O - monitor BMP Thank you so much for the opportunity to consult on your patient. Nephro team will follow the patient. In case of any questions or concerns please feel free to reach out. Plan discussed with . The patient and caregiver team agreed to the plan. Total care time 35 minutes Plan discussed with: Other (RN) My Orders My Orders Orders - SAGAR STEWARD Procedure Category Date Status Time Pantoprazole Tablet PHA 11/16/24 In Process (Protonix Tablet) 10:00 Dietary Evaluation Review Comments: Nutrition Recommendation 1) Consider 2gm Na diet 2) Monitor PO intake, lab values, weight trend, and I/O Expected Outcomes/Goals: Lab values to improve Fu 3-5 days SAGAR STEWARD Nov 16, 2024 12:00 APRIL VERA MD Nov 16, 2024 12:20
--- NOTE | 2024-11-16 13:47 | DVH ---
XY Insertion of Venous Cath HISTORY: TD PLACEMENT for Hemodialysis. PROCEDURE: Informed consent was obtained. The patient was placed supine on the interventional table. A limited localization ultrasound of the right neck base was obtained. The right neck base and upper chest were prepped with chlorhexidine which was allowed to dry and draped in the usual sterile fashio n. Time out was performed. IV sedation was administered. The skin and the soft tissues were infiltrat ed with 1% Lidocaine. With real-time ultrasound guidance, the internal jugular vein was accessed with a micropuncture kit, and an image documenting patency was recorded to PACS. A subcutaneous tunneled tract was created from the right upper chest to the venotomy site. A 14.5 [place] Path, 23 cm lo ng hemodialysis catheter was advanced through the tunneled tract. Fluoroscopy was used to advance a guidewire through the internal jugular vein into the inferior vena cava. Following serial dilatation, a 15 [place] peel-away sheath was introduced, though which was adva nced the catheter into the right atrium. The catheter tip position was confirmed with fluoroscopy. Th ere was satisfactory flow in both lumens. The catheter lumens were flushed with saline and heparin wa s left indwelling in the catheter. A post-procedure image of the chest was obtained. The neck incisio n site was closed with dermabond and dressed sterilely. The catheter was sutured at the skin surface and exit site also dressed sterilely. No immediate complication was identified. Air Kerma 6 mGy FLUOROSCOPY TIME: 1.0 minutes. SEDATION: Dr. Rafat Tejada was personally responsible for the administration of moderate sedation during the procedure performed, including the use of an independent trained observer who had no other duties during the procedure. The drugs utilized were IV fentanyl and versed (see nursing log for details). The total time of supervision by the attending physician was approximately 30 minutes. FINDINGS: Widely patent right IJV. Post procedure image demonstrates smooth course of the hemodialysi s catheter with the tip in the right atrium. IMPRESSION: Successful placement of 14.5 italian [place] Path, 23 cm long hemodialysis catheter through right video intern al jugular vein. Plan: Please contact IR for removal when no longer needed.
[2024-11-16 17:26] LABS: Hematocrit 32.4 % (41.0-53.0); Hemoglobin 10.6 g/dL (13.5-17.5); Mean Corpuscular Hemoglobin 25.4 pg (28.0-32.0); Mean Corpuscular Volume 78.0 fL (80.0-100.0); Nucleated Red Blood Cells % 0.5 %
[2024-11-16 17:43] LABS: Albumin 3.2 g/dL (3.2-4.8); Alkaline Phosphatase 83 U/L (46-116); Anion Gap 13 (5-15); BUN/Creatinine Ratio 12.2 (10.0-20.0); Bilirubin, Total 0.4 mg/dL (0.2-1.0); Carbon Dioxide 25 mmol/L (20-31); Chloride 104 mmol/L (98-107); Magnesium 2.1 mg/dL (1.6-2.6); Potassium 3.7 mmol/L (3.5-5.1); Sodium 142 mmol/L (136-145); Total Protein 6.5 g/dL (5.7-8.2)
[2024-11-16 17:44] LABS: Alanine Aminotransferase < 9 U/L (7-40); Blood Urea Nitrogen 55 mg/dL (9-23); Calcium 8.4 mg/dL (8.7-10.4); Glucose 117 mg/dL (74-106)
[2024-11-16] MEDS: EPOETIN ALFA-EPBX 10,000 UNIT/1ML VIAL SC ONE (21:23)
[2024-11-17] VITALS (15 sets, daily range): BP systolic 109–152; BP diastolic 66–88; PULSE 60–89; RESP 16–23; TEMP 97.4–98.6; O2SAT 94–99
[2024-11-17 06:52] LABS: Mean Corpuscular Hemoglobin 25.4 pg (28.0-32.0)
[2024-11-17 06:55] LABS: Hematocrit 29.7 % (41.0-53.0); Hemoglobin 9.7 g/dL (13.5-17.5); Mean Corpuscular Volume 78.0 fL (80.0-100.0); Nucleated Red Blood Cells % 0.3 %
[2024-11-17 07:16] LABS: Alkaline Phosphatase 78 U/L (46-116); Anion Gap 12 (5-15); BUN/Creatinine Ratio 14.4 (10.0-20.0); Carbon Dioxide 27 mmol/L (20-31); Chloride 103 mmol/L (98-107); Potassium 4.3 mmol/L (3.5-5.1); Sodium 142 mmol/L (136-145); Total Protein 6.1 g/dL (5.7-8.2)
[2024-11-17 07:17] LABS: Bilirubin, Total 0.4 mg/dL (0.2-1.0)
[2024-11-17 07:19] LABS: Alanine Aminotransferase < 9 U/L (7-40); Albumin 3.1 g/dL (3.2-4.8); Blood Urea Nitrogen 74 mg/dL (9-23); Calcium 8.3 mg/dL (8.7-10.4); Glucose 167 mg/dL (74-106)
--- NOTE | 2024-11-17 08:40 | DVHPN2 ---
Reviewed: Care Plan, H&P, Labs, Medications, Previous Orders, Radiology Changes from previous H/P or p: No Changes Eyes: No Pain, No Vision change, No Conjunctivae inflammation, No Eyelid inflammation, No Other, No Redness ENT: No Ear pain, No Ear discharge, No Nose pain, No Nose discharge, No Nose congestion, No Mouth pain, No Mouth swelling, No Throat pain, No Throat swelling, No Other Cardiovascular: No Chest Pain, No Palpitations, No Orthopnea, No Paroxysmal Noc. Dyspnea, No Edema, No Lt Headedness, No Other Respiratory: Cough; No Dry; Shortness of breath, SOB with excertion; No Wheezing; Hemoptysis; No Pleuritic Pain, No Sputum, No Other Gastrointestinal: No Nausea, No Vomiting, No Abdominal Pain, No Diarrhea, No Constipation, No Melena, No Hematochezia, No Other Genitourinary: No Dysuria, No Frequency, No Incontinence, No Hematuria, No Retention, No Other Musculoskeletal: No other, No neck pain, No shoulder pain, No arm pain, No back pain, No hand pain, No leg pain, No foot pain Skin: No Rash, No Lesions, No Jaundice, No Bruising, No Other Objective Vitals Vital Signs Date Time Temp Pulse Resp B/P (MAP) Pulse Ox O2 Delivery O2 Flow Rate FiO2 11/17/24 06:41 68 16 99 11/17/24 06:31 Nasal Cannula* 4 36 11/17/24 05:00 97.7 144/84 (104) 97.7 Intake/Output Intake and Output 11/17/24 07:00 Intake Total 825 ml Output Total 500 ml Balance 325 ml Intake Oral 250 ml IV Total 575 ml Output Urine Total 500 ml Medications Current Medications Medications Dose Ordered Sig/Justin Route Start Time Stop Time Status Last Admin Dose Admin Acetaminophen/ Hydrocodone Bitart 1 tab Q4HP PRN PO 11/09/24 10:30 11/14/24 06:35 1 TAB Ondansetron HCl 4 mg Q4HP PRN IV 11/09/24 10:30 Docusate Sodium 100 mg BIDPRN PRN PO 11/09/24 10:30 Acetaminophen 650 mg Q6HP PRN PO 11/09/24 10:30 Nitroglycerin 0.4 mg Q5MINP PRN SL 11/09/24 10:30 Morphine Sulfate 2 mg Q30M PRN IV 11/09/24 11:30 Ceftriaxone Sodium 50 ml @ 100 mls/hr DAILY@09 IV 11/10/24 09:00 11/15/24 09:47 100 MLS/HR Azithromycin 250 ml @ 125 mls/hr DAILY IV 11/10/24 10:00 11/15/24 09:47 125 MLS/HR Ipratropium [place] 0.5 mg Q6HWA NEB 11/09/24 18:00 11/17/24 06:31 0.5 MG Albuterol 2.5 mg Q6HWA NEB 11/09/24 18:00 11/17/24 06:31 2.5 MG Gabapentin 100 mg BID PO 11/09/24 22:00 11/16/24 21:06 100 MG Metoprolol Tartrate 50 mg BID PO 11/09/24 22:00 11/16/24 21:07 50 MG Zolpidem Tartrate 5 mg QHSP PRN PO 11/09/24 15:45 11/15/24 03:11 5 MG Duloxetine HCl 30 mg DAILY PO 11/10/24 10:00 11/15/24 09:32 30 MG Patient Own Medication 1 tab DAILY PO 11/10/24 10:00 UNV Nifedipine 60 mg DAILY PO 11/10/24 10:00 11/15/24 09:38 60 MG Morphine Sulfate 30 mg BID PO 11/09/24 22:00 11/16/24 21:05 30 MG Hydralazine HCl 100 mg Q12HR PO 11/10/24 22:00 11/16/24 21:06 100 MG Sodium Chloride 1,000 ml @ 50 mls/hr Q20H IV 11/14/24 11:45 11/17/24 01:12 50 MLS/HR Prednisone 40 mg BID PO 11/14/24 11:45 11/16/24 21:06 40 MG Multivit/Ca Carb/ B Cmplx/FA/Prenat 1 tab DAILY PO 11/15/24 10:00 11/15/24 10:39 1 TAB Alprazolam 1 mg TID PO 11/15/24 14:00 11/16/24 21:05 1 MG Pantoprazole Sodium 40 mg DAILY PO 11/16/24 10:00 Epoetin Man-epbx 10,000 unit MWF@2100 SC 11/17/24 21:00 Laboratory Results Laboratory Tests 11/17/24 05:49 Chemistry Test 11/16/24 17:17 11/17/24 05:49 Albumin 3.2 g/dL (3.2-4.8) 3.1 g/dL (3.2-4.8) L Calcium Level 8.4 mg/dL (8.7-10.4) L 8.3 mg/dL (8.7-10.4) L Magnesium Level 2.1 mg/dL (1.6-2.6) Total Protein 6.5 g/dL (5.7-8.2) 6.1 g/dL (5.7-8.2) LFT Test 11/16/24 17:17 11/17/24 05:49 Alanine Aminotransferase (ALT) < 9 U/L (7-40) < 9 U/L (7-40) Alkaline Phosphatase 83 U/L (46-116) 78 U/L (46-116) Aspartate Amino Transferase (AST) 14 U/L (13-40) 14 U/L (13-40) Total Bilirubin 0.4 mg/dL (0.2-1.0) 0.4 mg/dL (0.2-1.0) Urinalysis Test 11/09/24 00:00 11/09/24 10:00 11/09/24 14:59 Urine Protein/Creatinine Ratio 3.15 Urine Total Protein 70.6 mg/dL (1-14) H Urine Color Colorless (Yellow) Urine Clarity Clear (Clear) Urine pH 5.5 (5.0-9.0) Urine Specific [place] 1.007 (1.001-1.035) Urine Protein 1+ (Negative) H Urine Ketones Negative (Negative) Urine Blood 3+ /uL (Negative) H Urine Nitrite Negative (Negative) Urine Bilirubin Negative (Negative) Urine Urobilinogen Normal mg/dL (Negative) Urine Leukocyte Esterase Negative /uL (Negative) Urine RBC 254 /hpf (0 - 3) Urine Microscopic WBC 4 /HPF (0-3) H Urine Squamous Epithelial Cells None seen /hpf (<5) Urine Amorphous Crystals Few /hpf (None Seen) Urine Bacteria Few /hpf (None Seen) H Urine Glucose Normal mg/dL (Normal) Urine Creatinine 22.28 mg/dL (30.0-125.0) L Urine Sodium 89 mmol/L (40-220) Microbiology Microbiology Date/Time Source Procedure Growth Status 11/11/24 08:38 Bronchial Washings - Final Resulted 11/11/24 08:38 Bronchial Washings - Final Resulted 11/11/24 08:38 Bronchial Washings Pending Resulted 11/11/24 08:38 Bronchial Washings Pending Resulted 11/11/24 08:38 Bronchial Washings - Final See Separate Report... Resulted 11/09/24 17:00 Nose MRSA Screen - Final Complete Labs and/or images reviewed: Labs reviewed by me, Image(s) reviewed by me Assessment/Plan Assessment/Plan Hemoptysis: Consult by Dr. Mix appreciated, status post bronchoscopy by Dr. Mix with the findings of hemorrhage from TAYLER and LLL bronchus Acute on chronic blood loss anemia hemoglobin improved from 6.9 to 8.4 after 1 unit RBC transfusion Stopped with cold saline. Broncho alveolar lavage fluid culture pending possible ANCA disease Atypical pneumonia, left upper lobe Pneumonia, likely GNR vs GPC: Continue Rocephin azithromycin Solu-Medrol Cirrhosis Chronic diastolic heart failure with preserved ejection fraction Possible lupus nephritis, P Anca vasculitis ALICE likely hemodynamically mediated: Status post dialysis cath placement by Radiology, patient getting dialysis, nephrology consult by Dr. Hogan appreciated Status post kidney biopsy pathology report pending Congestive heart failure Pulmonary edema Anemia, microcytic Patient was advised about his current diagnosis management and plan for temporary cokeman James at bedside Patient has no family Sarah test negative Flu test negative Plan discussed with: Patient My Orders Orders - SHLOMO GARNER MD Procedure Category Date Status Time Us Guidance For US 11/16/24 Resulted Needle Placeme 10:13 Renal DIET 11/16/24 Transmitted Standard(2gna,3gk,Lopho) Dinner Date of Service: Nov 17, 2024 Billing Provider: SHLOMO GARNER MD Common Visit Codes: [id number] CARE 30-74 MIN SHLOMO GARNER MD Nov 17, 2024 08:40
--- NOTE | 2024-11-17 11:33 | DVHPN2 ---
Progress Note Date Seen: Nov 17, 2024 Resident Creating Document: SAGAR STEWARD RESIDENT Medical Necessity Reason Pt with a Central, PICC or Fol: No Subjective Other Systems: Patient seen and examined by myself during rounds with the medicine resident, I agree with the assessment and plan Objective vital signs Vital Sign Date Time Temp Pulse Resp B/P (MAP) Pulse Ox O2 Delivery O2 Flow Rate FiO2 11/17/24 10:00 94 Nasal Cannula 2.0 11/17/24 10:00 28 11/17/24 09:59 152/88 11/17/24 09:57 74 11/17/24 09:04 97.8 23 97.8 Total Intake and Output 11/16/24 11/16/24 11/17/24 15:00 23:00 07:00 Intake Total 575 ml 250 ml Output Total 500 ml Balance 575 ml -250 ml medications Current Medications Medications Dose Ordered Sig/Justin Route Start Time Stop Time Status Last Admin Dose Admin Acetaminophen/ Hydrocodone Bitart 1 tab Q4HP PRN PO 11/09/24 10:30 11/14/24 06:35 1 TAB Ondansetron HCl 4 mg Q4HP PRN IV 11/09/24 10:30 Docusate Sodium 100 mg BIDPRN PRN PO 11/09/24 10:30 Acetaminophen 650 mg Q6HP PRN PO 11/09/24 10:30 Nitroglycerin 0.4 mg Q5MINP PRN SL 11/09/24 10:30 Morphine Sulfate 2 mg Q30M PRN IV 11/09/24 11:30 Ceftriaxone Sodium 50 ml @ 100 mls/hr DAILY@09 IV 11/10/24 09:00 11/17/24 09:55 100 MLS/HR Azithromycin 250 ml @ 125 mls/hr DAILY IV 11/10/24 10:00 11/15/24 09:47 125 MLS/HR Ipratropium [place] 0.5 mg Q6HWA NEB 11/09/24 18:00 11/17/24 06:31 0.5 MG Albuterol 2.5 mg Q6HWA NEB 11/09/24 18:00 11/17/24 06:31 2.5 MG Gabapentin 100 mg BID PO 11/09/24 22:00 11/17/24 09:57 100 MG Metoprolol Tartrate 50 mg BID PO 11/09/24 22:00 11/17/24 09:57 50 MG Zolpidem Tartrate 5 mg QHSP PRN PO 11/09/24 15:45 11/15/24 03:11 5 MG Duloxetine HCl 30 mg DAILY PO 11/10/24 10:00 11/17/24 09:56 30 MG Patient Own Medication 1 tab DAILY PO 11/10/24 10:00 UNV Nifedipine 60 mg DAILY PO 11/10/24 10:00 11/17/24 09:59 60 MG Morphine Sulfate 30 mg BID PO 11/09/24 22:00 11/17/24 10:00 30 MG Hydralazine HCl 100 mg Q12HR PO 11/10/24 22:00 11/17/24 09:57 100 MG Sodium Chloride 1,000 ml @ 50 mls/hr Q20H IV 11/14/24 11:45 11/17/24 01:12 50 MLS/HR Prednisone 40 mg BID PO 11/14/24 11:45 11/17/24 09:58 40 MG Multivit/Ca Carb/ B Cmplx/FA/Prenat 1 tab DAILY PO 11/15/24 10:00 11/17/24 09:56 1 TAB Alprazolam 1 mg TID PO 11/15/24 14:00 11/16/24 21:05 1 MG Pantoprazole Sodium 40 mg DAILY PO 11/16/24 10:00 11/17/24 09:57 40 MG Epoetin Man-epbx 10,000 unit MWF@2100 SC 11/17/24 21:00 Ondansetron HCl 8 mg Q8HPRN PRN IV 11/18/24 10:00 11/19/24 09:59 UNV Calcium Acetate 667 mg BID PO 11/17/24 22:00 UNV Calcitriol 0.25 mcg DAILY PO 11/18/24 10:00 UNV Examination Physical examination: General Appearance: Alert, Oriented X2, mild resp distress HEENT: Atraumatic, PERRLA, EOMI, Mucous membrane moist/pink Respiratory: Bilateral rales. Cardiovascular: Regular rate, Normal S1, Normal S2, No murmurs, no chest wall tenderness Abdominal: Normal bowel sounds, Soft, No tenderness, No hepatospenomegaly, No masses Extremities: No edema, No clubbing, No cyanosis, Normal pulses, No tenderness/swelling Skin: No rashes, No breakdown, No significant lesion Neuro: Normal speech, Strength at 5/5 X4 ext, Normal tone, Sensation intact, Cranial nerves 3-12 NL, Reflexes 2+ Psych/Mental Status: Could not be assessed. laboratory and microbiology Laboratory Tests 11/17/24 05:49 Test 11/17/24 05:49 Range/Units Serum Glucose 167 H 74-106 mg/dL Microbiology Date/Time Source Procedure Growth Status 11/11/24 08:38 Bronchial Washings - Final Resulted 11/11/24 08:38 Bronchial Washings - Final Resulted 11/11/24 08:38 Bronchial Washings Pending Resulted 11/11/24 08:38 Bronchial Washings Pending Resulted 11/11/24 08:38 Bronchial Washings - Final See Separate Report... Resulted 11/09/24 17:00 Nose MRSA Screen - Final Complete Labs and/or images reviewed: Labs reviewed by me, Image(s) reviewed by me Problem List/Assessment/Plan Problem List/Assessment/Plan Assessment and plan: # ALICE likely hemodynamically mediated in the setting of sepsis secondary to multifocal pneumonia # Possible ALICE on CKD # possible uremic encephalopathy # P- ANCA vasculitis # Microscopic polyangiitis # Acute on chronic hypochromic microcytic anemia # Acute hypoxic respiratory failure secondary to multifocal pneumonia # chronic diastolic heart failure with preserved ejection fraction # History of liver cirrhosis Plan: - Underwent hemodialysis yesterday and 1.4 L removed - FENa is 17.2% - DARRIUS panel demonstrated double-stranded DNA antibody and chromatin antibody positive, C3 and C4 are within normal limits - MPO antibody and anti proteinase 3 positive, high P- ANCA - Received 3 doses of pulse dose of steroid 1000 mg per day, started p.o. prednisone 40 mg b.i.d. - IV ritux induction recommended 1000mg IV once then next dose 2 weeks after - Pre-medicate the patient with Tylenol and Benadryl before IV rituximab . - Bactrim PCP prophylaxis after RTX starts - Iron panel showed low iron and saturation, TIBC and ferritin are normal - IV iron daily - Awaiting for kidney biopsy result - Consulted marriage and family social worker for outpatient chart time - continue metoprolol tartrate 50 mg p.o. b.i.d., nifedipine ER 60 mg daily, hydralazine 100 mg b.i.d. - Continue IV antibiotic and other management as per primary - Strict I&O - monitor BMP Thank you so much for the opportunity to consult on your patient. Nephro team will follow the patient. In case of any questions or concerns please feel free to reach out. Plan discussed with . The patient and caregiver team agreed to the plan. Plan discussed with: Patient, Other (RN) My Orders My Orders Orders - SAGAR STEWARD Procedure Category Date Status Time * Sawmilling Operator CONS 11/17/24 Transmitted Consult Rituximab 100mg PHA 11/18/24 Logged (Rituxan) 11:00 Acetaminophen Tablet PHA 11/18/24 Logged (Tylenol Tablet) 10:00 Diphenhdramine PHA 11/18/24 Logged Capsule (Benadryl 10:00 Ondansetron Hcl PHA 11/18/24 Logged (Zofran) 10:00 Calcium Acetate PHA 11/17/24 Logged Capsule (Phoslo 22:00 Calcitriol Capsule PHA 11/18/24 Logged (Rocaltrol Capsule) 10:00 Calcitriol Capsule PHA 11/17/24 Logged (Rocaltrol Capsule) 11:00 Communication Order ORDERS 11/17/24 Transmitted 11:04 Dietary Evaluation Review Comments: Nutrition Recommendation 1) Consider 2gm Na diet 2) Monitor PO intake, lab values, weight trend, and I/O Expected Outcomes/Goals: Lab values to improve Fu 3-5 days SAGAR STEWARD RESIDENT Nov 17, 2024 11:33 APRIL VERA MD Nov 17, 2024 13:51
[2024-11-17] MEDS: CALCITRIOL 0.25 MCG CAP PO ONE (13:39)
[2024-11-17] MEDS: CALCIUM ACETATE 667 MG CAP PO SCH (18:00)
[2024-11-17] MEDS ORDERED: EPOETIN ALFA-EPBX 10,000 UNIT/1ML VIAL SC SCH (21:00)
[2024-11-17] MEDS: EPOETIN ALFA-EPBX 10,000 UNIT/1ML VIAL SC SCH (23:38)
[2024-11-18] VITALS (13 sets, daily range): BP systolic 101–149; BP diastolic 61–92; PULSE 64–135; RESP 16–20; TEMP 97.6–99.2; O2SAT 95–100
[2024-11-18 06:51] LABS: Nucleated Red Blood Cells % 0.2 %
[2024-11-18 06:55] LABS: Hematocrit 26.1 % (41.0-53.0); Hemoglobin 8.7 g/dL (13.5-17.5); Mean Corpuscular Hemoglobin 26.1 pg (28.0-32.0); Mean Corpuscular Volume 78.1 fL (80.0-100.0)
[2024-11-18 07:16] LABS: Alkaline Phosphatase 66 U/L (46-116); Anion Gap 12 (5-15); BUN/Creatinine Ratio 15.2 (10.0-20.0); Carbon Dioxide 27 mmol/L (20-31); Chloride 105 mmol/L (98-107); Potassium 4.0 mmol/L (3.5-5.1); Sodium 144 mmol/L (136-145)
[2024-11-18 07:21] LABS: Alanine Aminotransferase < 9 U/L (7-40); Albumin 2.9 g/dL (3.2-4.8); Bilirubin, Total 0.3 mg/dL (0.2-1.0); Calcium 8.2 mg/dL (8.7-10.4); Glucose 191 mg/dL (74-106); Total Protein 5.6 g/dL (5.7-8.2)
[2024-11-18 07:30] LABS: Blood Urea Nitrogen 82 mg/dL (9-23)
--- NOTE | 2024-11-18 09:47 | DVHPN2 ---
Reviewed: Care Plan, H&P, Labs, Medications, Previous Orders, Radiology Changes from previous H/P or p: No Changes Eyes: No Pain, No Vision change, No Conjunctivae inflammation, No Eyelid inflammation, No Other, No Redness ENT: No Ear pain, No Ear discharge, No Nose pain, No Nose discharge, No Nose congestion, No Mouth pain, No Mouth swelling, No Throat pain, No Throat swelling, No Other Cardiovascular: No Chest Pain, No Palpitations, No Orthopnea, No Paroxysmal Noc. Dyspnea, No Edema, No Lt Headedness, No Other Respiratory: Cough; No Dry; Shortness of breath, SOB with excertion; No Wheezing; Hemoptysis; No Pleuritic Pain, No Sputum, No Other Gastrointestinal: No Nausea, No Vomiting, No Abdominal Pain, No Diarrhea, No Constipation, No Melena, No Hematochezia, No Other Genitourinary: No Dysuria, No Frequency, No Incontinence, No Hematuria, No Retention, No Other Musculoskeletal: No other, No neck pain, No shoulder pain, No arm pain, No back pain, No hand pain, No leg pain, No foot pain Skin: No Rash, No Lesions, No Jaundice, No Bruising, No Other Objective Vitals Vital Signs Date Time Temp Pulse Resp B/P (MAP) Pulse Ox O2 Delivery O2 Flow Rate FiO2 11/18/24 07:34 74 16 99 11/18/24 07:28 Nasal Cannula* 4 36 11/18/24 05:00 99.2 142/81 (101) 99.2 Intake/Output Intake and Output 11/18/24 07:00 Intake Total 2885 ml Output Total 1150 ml Balance 1735 ml Intake Oral 1585 ml IV Total 1300 ml Output Urine Total 1150 ml Medications Current Medications Medications Dose Ordered Sig/Justin Route Start Time Stop Time Status Last Admin Dose Admin Acetaminophen/ Hydrocodone Bitart 1 tab Q4HP PRN PO 11/09/24 10:30 11/14/24 06:35 1 TAB Ondansetron HCl 4 mg Q4HP PRN IV 11/09/24 10:30 Docusate Sodium 100 mg BIDPRN PRN PO 11/09/24 10:30 Acetaminophen 650 mg Q6HP PRN PO 11/09/24 10:30 Nitroglycerin 0.4 mg Q5MINP PRN SL 11/09/24 10:30 Morphine Sulfate 2 mg Q30M PRN IV 11/09/24 11:30 Ceftriaxone Sodium 50 ml @ 100 mls/hr DAILY@09 IV 11/10/24 09:00 11/18/24 09:00 100 MLS/HR Azithromycin 250 ml @ 125 mls/hr DAILY IV 11/10/24 10:00 11/18/24 09:04 125 MLS/HR Ipratropium [place] 0.5 mg Q6HWA NEB 11/09/24 18:00 11/18/24 07:28 0.5 MG Albuterol 2.5 mg Q6HWA NEB 11/09/24 18:00 11/18/24 07:28 2.5 MG Gabapentin 100 mg BID PO 11/09/24 22:00 11/17/24 23:35 100 MG Metoprolol Tartrate 50 mg BID PO 11/09/24 22:00 11/17/24 23:34 50 MG Zolpidem Tartrate 5 mg QHSP PRN PO 11/09/24 15:45 11/15/24 03:11 5 MG Duloxetine HCl 30 mg DAILY PO 11/10/24 10:00 11/17/24 09:56 30 MG Patient Own Medication 1 tab DAILY PO 11/10/24 10:00 UNV Nifedipine 60 mg DAILY PO 11/10/24 10:00 11/17/24 09:59 60 MG Morphine Sulfate 30 mg BID PO 11/09/24 22:00 11/17/24 23:52 30 MG Hydralazine HCl 100 mg Q12HR PO 11/10/24 22:00 11/17/24 23:34 100 MG Prednisone 40 mg BID PO 11/14/24 11:45 11/17/24 23:34 40 MG Multivit/Ca Carb/ B Cmplx/FA/Prenat 1 tab DAILY PO 11/15/24 10:00 11/17/24 09:56 1 TAB Alprazolam 1 mg TID PO 11/15/24 14:00 11/18/24 06:13 1 MG Pantoprazole Sodium 40 mg DAILY PO 11/16/24 10:00 11/17/24 09:57 40 MG Epoetin Man-epbx 10,000 unit MWF@2100 SC 11/17/24 21:00 11/17/24 23:38 10,000 UNIT Ondansetron HCl 8 mg Q8HPRN PRN IV 11/18/24 10:00 11/19/24 09:59 Future Hold Calcium Acetate 667 mg BIDWM PO 11/17/24 18:00 Calcitriol 0.25 mcg DAILY PO 11/18/24 10:00 Laboratory Results Laboratory Tests 11/18/24 06:05 Chemistry Test 11/18/24 06:05 Albumin 2.9 g/dL (3.2-4.8) L Calcium Level 8.2 mg/dL (8.7-10.4) L Total Protein 5.6 g/dL (5.7-8.2) L LFT Test 11/18/24 06:05 Alanine Aminotransferase (ALT) < 9 U/L (7-40) Alkaline Phosphatase 66 U/L (46-116) Aspartate Amino Transferase (AST) 10 U/L (13-40) L Total Bilirubin 0.3 mg/dL (0.2-1.0) Urinalysis Test 11/09/24 00:00 11/09/24 10:00 11/09/24 14:59 Urine Protein/Creatinine Ratio 3.15 Urine Total Protein 70.6 mg/dL (1-14) H Urine Color Colorless (Yellow) Urine Clarity Clear (Clear) Urine pH 5.5 (5.0-9.0) Urine Specific [place] 1.007 (1.001-1.035) Urine Protein 1+ (Negative) H Urine Ketones Negative (Negative) Urine Blood 3+ /uL (Negative) H Urine Nitrite Negative (Negative) Urine Bilirubin Negative (Negative) Urine Urobilinogen Normal mg/dL (Negative) Urine Leukocyte Esterase Negative /uL (Negative) Urine RBC 254 /hpf (0 - 3) Urine Microscopic WBC 4 /HPF (0-3) H Urine Squamous Epithelial Cells None seen /hpf (<5) Urine Amorphous Crystals Few /hpf (None Seen) Urine Bacteria Few /hpf (None Seen) H Urine Glucose Normal mg/dL (Normal) Urine Creatinine 22.28 mg/dL (30.0-125.0) L Urine Sodium 89 mmol/L (40-220) Microbiology Microbiology Date/Time Source Procedure Growth Status 11/11/24 08:38 Bronchial Washings - Final Resulted 11/11/24 08:38 Bronchial Washings - Final Resulted 11/11/24 08:38 Bronchial Washings Pending Resulted 11/11/24 08:38 Bronchial Washings Pending Resulted 11/11/24 08:38 Bronchial Washings - Final See Separate Report... Resulted 11/09/24 17:00 Nose MRSA Screen - Final Complete Labs and/or images reviewed: Labs reviewed by me, Image(s) reviewed by me Assessment/Plan Assessment/Plan Hemoptysis: Consult by Dr. Mix appreciated, status post bronchoscopy by Dr. Mix with the findings of hemorrhage from TAYLER and LLL bronchus Acute on chronic blood loss anemia hemoglobin improved from 6.9 to 8.4 after 1 unit RBC transfusion Stopped with cold saline. 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 Hogan appreciated Status post kidney biopsy pathology report pending Congestive heart failure Pulmonary edema Anemia, microcytic Patient was advised about his current diagnosis management and plan for temporary cyber security James at bedside Patient has no family Sarah test negative Flu test negative access services representative sitting up outpatient chair time Time spent 70 minutes Plan discussed with: Patient Date of Service: Nov 18, 2024 Billing Provider: SHLOMO GARNER MD Common Visit Codes: [id number] CARE 30-74 MIN SHLOMO GARNER MD Nov 18, 2024 09:47
[2024-11-18] MEDS: CALCITRIOL 0.25 MCG CAP PO SCH (09:48)
[2024-11-18] MEDS ORDERED: ONDANSETRON HCL 4 MG/2 ML VIAL IV PRN (10:00)
--- NOTE | 2024-11-18 10:09 | DVHPN2 ---
Progress Note Date Seen: Nov 18, 2024 Resident Creating Document: SAGAR STEWARD RESIDENT Medical Necessity Reason Pt with a Central, PICC or Fol: No Subjective Review of Systems patient was seen and examined on the bedside. He is alert & oriented X 1-2 and little confused. Scheduled for hemodialysis today Other Systems: Patient seen and examined by myself today in rounds with the medicine resident, I agree with her assessment and plan Patient examined hemodialysis, blood pressure stable Objective vital signs Vital Sign Date Time Temp Pulse Resp B/P (MAP) Pulse Ox O2 Delivery O2 Flow Rate FiO2 11/18/24 09:00 98.1 77 18 137/92 (107) 99 98.1 11/18/24 07:28 Nasal Cannula* 4 36 Total Intake and Output 11/17/24 11/17/24 11/18/24 15:00 23:00 07:00 Intake Total 450 ml 1425 ml 1010 ml Output Total 525 ml 625 ml Balance 450 ml 900 ml 385 ml medications Current Medications Medications Dose Ordered Sig/Justin Route Start Time Stop Time Status Last Admin Dose Admin Acetaminophen/ Hydrocodone Bitart 1 tab Q4HP PRN PO 11/09/24 10:30 11/14/24 06:35 1 TAB Ondansetron HCl 4 mg Q4HP PRN IV 11/09/24 10:30 Docusate Sodium 100 mg BIDPRN PRN PO 11/09/24 10:30 Acetaminophen 650 mg Q6HP PRN PO 11/09/24 10:30 Nitroglycerin 0.4 mg Q5MINP PRN SL 11/09/24 10:30 Morphine Sulfate 2 mg Q30M PRN IV 11/09/24 11:30 Ceftriaxone Sodium 50 ml @ 100 mls/hr DAILY@09 IV 11/10/24 09:00 11/18/24 09:00 100 MLS/HR Azithromycin 250 ml @ 125 mls/hr DAILY IV 11/10/24 10:00 11/18/24 09:04 125 MLS/HR Ipratropium [place] 0.5 mg Q6HWA NEB 11/09/24 18:00 11/18/24 07:28 0.5 MG Albuterol 2.5 mg Q6HWA NEB 11/09/24 18:00 11/18/24 07:28 2.5 MG Gabapentin 100 mg BID PO 11/09/24 22:00 11/18/24 09:48 100 MG Metoprolol Tartrate 50 mg BID PO 11/09/24 22:00 11/17/24 23:34 50 MG Zolpidem Tartrate 5 mg QHSP PRN PO 11/09/24 15:45 11/15/24 03:11 5 MG Duloxetine HCl 30 mg DAILY PO 11/10/24 10:00 11/18/24 09:47 30 MG Patient Own Medication 1 tab DAILY PO 11/10/24 10:00 UNV Nifedipine 60 mg DAILY PO 11/10/24 10:00 11/17/24 09:59 60 MG Morphine Sulfate 30 mg BID PO 11/09/24 22:00 11/17/24 23:52 30 MG Hydralazine HCl 100 mg Q12HR PO 11/10/24 22:00 11/17/24 23:34 100 MG Prednisone 40 mg BID PO 11/14/24 11:45 11/18/24 09:48 40 MG Multivit/Ca Carb/ B Cmplx/FA/Prenat 1 tab DAILY PO 11/15/24 10:00 11/18/24 09:48 1 TAB Alprazolam 1 mg TID PO 11/15/24 14:00 11/18/24 06:13 1 MG Pantoprazole Sodium 40 mg DAILY PO 11/16/24 10:00 11/18/24 09:47 40 MG Epoetin Man-epbx 10,000 unit MWF@2100 SC 11/17/24 21:00 11/17/24 23:38 10,000 UNIT Ondansetron HCl 8 mg Q8HPRN PRN IV 11/18/24 10:00 11/19/24 09:59 Hold Calcium Acetate 667 mg BIDWM PO 11/17/24 18:00 11/18/24 09:59 667 MG Calcitriol 0.25 mcg DAILY PO 11/18/24 10:00 11/18/24 09:48 0.25 MCG Examination Physical examination: General Appearance: Alert, Oriented X2, mild resp distress HEENT: Atraumatic, PERRLA, EOMI, Mucous membrane moist/pink Respiratory: Right IJ tunneled dialysis catheter in the chest, Bilateral rales. Cardiovascular: Regular rate, Normal S1, Normal S2, No murmurs, no chest wall tenderness Abdominal: Normal bowel sounds, Soft, No tenderness, No hepatospenomegaly, No masses Extremities: No edema, No clubbing, No cyanosis, Normal pulses, No tenderness/swelling Skin: No rashes, No breakdown, No significant lesion Neuro: Normal speech, Strength at 5/5 X4 ext, Normal tone, Sensation intact, Cranial nerves 3-12 NL, Reflexes 2+ Psych/Mental Status: Could not be assessed. Examination: LUNGS:Normal, CVS:Normal, MSK:Normal laboratory and microbiology Laboratory Tests 11/18/24 06:05 Test 11/18/24 06:05 Range/Units Serum Glucose 191 H 74-106 mg/dL Microbiology Date/Time Source Procedure Growth Status 11/11/24 08:38 Bronchial Washings - Final Resulted 11/11/24 08:38 Bronchial Washings - Final Resulted 11/11/24 08:38 Bronchial Washings Pending Resulted 11/11/24 08:38 Bronchial Washings Pending Resulted 11/11/24 08:38 Bronchial Washings - Final See Separate Report... Resulted 11/09/24 17:00 Nose MRSA Screen - Final Complete Labs and/or images reviewed: Labs reviewed by me, Image(s) reviewed by me Problem List/Assessment/Plan Problem List/Assessment/Plan Assessment and plan: # ALICE likely hemodynamically mediated in the setting of sepsis secondary to multifocal pneumonia # ALICE on CKD stage IV # possible uremic encephalopathy # P- ANCA vasculitis # Microscopic polyangiitis # Acute on chronic hypochromic microcytic anemia # Acute hypoxic respiratory failure secondary to multifocal pneumonia # chronic diastolic heart failure with preserved ejection fraction # History of liver cirrhosis Plan: - continue with UF 2 L as tolerated. - FENa is 17.2% - DARRIUS panel demonstrated double-stranded DNA antibody and chromatin antibody positive, C3 and C4 are within normal limits - MPO antibody and anti proteinase 3 positive, high P- ANCA - Received 3 doses of pulse dose of steroid 1000 mg per day, started p.o. prednisone 40 mg b.i.d. - IV ritux induction recommended 1000mg IV once then next dose 2 weeks after - Pre-medicate the patient with Tylenol and Benadryl before IV rituximab . - Bactrim PCP prophylaxis after RTX starts - Iron panel showed low iron and saturation, TIBC and ferritin are normal - IV iron daily - Awaiting for kidney biopsy result - Consulted social scientist for outpatient chart time - continue metoprolol tartrate 50 mg p.o. b.i.d., nifedipine ER 60 mg daily, hydralazine 100 mg b.i.d. - Continue IV antibiotic and other management as per primary - Strict I&O - monitor BMP Thank you so much for the opportunity to consult on your patient. Nephro team will follow the patient. In case of any questions or concerns please feel free to reach out. Plan discussed with . The patient and caregiver team agreed to the plan. Total care time 25 minutes Plan discussed with: Patient, Other (RN) My Orders My Orders Orders - SAGAR STEWARD Procedure Category Date Status Time Rituximab 100mg PHA 11/18/24 In Process (Rituxan) 11:00 Ondansetron Hcl PHA 11/18/24 In Process (Zofran) 10:00 Calcium Acetate PHA 11/17/24 In Process Capsule (Phoslo 18:00 Calcitriol Capsule PHA 11/18/24 In Process (Rocaltrol Capsule) 10:00 Communication Order ORDERS 11/17/24 Transmitted 11:04 Dietary Evaluation Review Comments: Nutrition Recommendation 1) Consider 2gm Na diet 2) Monitor PO intake, lab values, weight trend, and I/O Expected Outcomes/Goals: Lab values to improve Fu 3-5 days SAGAR STEWARD RESIDENT Nov 18, 2024 10:09 APRIL VERA MD Nov 18, 2024 14:00
[2024-11-18] MEDS: ACETAMINOPHEN 325 MG TAB PO ONE (10:56)
[2024-11-18] MEDS: RITUXIMAB IV ONE (15:58)
[2024-11-18] MEDS: SODIUM CHL 0.9% IV ONE (15:58)
[2024-11-18] MEDS: METOPROLOL TARTRATE 50 MG TAB PO ONE (17:02)
[2024-11-18] MEDS: SODIUM CHLORIDE 0.9% 250 ML IV ONE (17:56)
[2024-11-18] MEDS: DIGOXIN (250MCG/ML) 2 ML AMPULE IV ONE (20:26)
[2024-11-18] MEDS: EPOETIN ALFA-EPBX 10,000 UNIT/1ML VIAL SC ONE (21:32)
[2024-11-19] VITALS (12 sets, daily range): BP systolic 119–152; BP diastolic 81–116; PULSE 80–113; RESP 17–18; TEMP 97.6–99.5; O2SAT 92–99
[2024-11-19] MEDS: SULFAMETHOX W/TRIMETH(800/160MG) DS TAB PO ONE (01:20)
[2024-11-19] MEDS: DIGOXIN (250MCG/ML) 2 ML AMPULE IV ONE (03:15)
[2024-11-19 06:44] LABS: Nucleated Red Blood Cells % 0.3 %
[2024-11-19 06:47] LABS: Hematocrit 30.0 % (41.0-53.0); Hemoglobin 9.9 g/dL (13.5-17.5); Mean Corpuscular Hemoglobin 26.1 pg (28.0-32.0); Mean Corpuscular Volume 79.3 fL (80.0-100.0)
[2024-11-19 06:55] LABS: Alkaline Phosphatase 65 U/L (46-116); Anion Gap 12 (5-15); BUN/Creatinine Ratio 13.3 (10.0-20.0); Carbon Dioxide 29 mmol/L (20-31); Chloride 101 mmol/L (98-107); Potassium 4.1 mmol/L (3.5-5.1); Sodium 142 mmol/L (136-145)
[2024-11-19 06:56] LABS: Bilirubin, Total 0.3 mg/dL (0.2-1.0)
[2024-11-19 06:57] LABS: Alanine Aminotransferase < 9 U/L (7-40); Albumin 2.9 g/dL (3.2-4.8); Blood Urea Nitrogen 52 mg/dL (9-23); Calcium 8.3 mg/dL (8.7-10.4); Glucose 191 mg/dL (74-106); Total Protein 5.6 g/dL (5.7-8.2)
--- NOTE | 2024-11-19 07:12 | ECG ---
[facility] Test Date: 2024-11-18 Test Time: 16:33:51 Pat Name: KERRI OCONNELL Department: Respiratoy Room: 0221T A Gender: M Donor Relations Associate: GUTIERREZ : 1965 Requested By: SAGAR STEWARD Order Number: [id number] Reading MD: Andrea Gallegos Measurements Intervals [place] Rate: 143 P: 0 UT: 0 QRS: 40 QRSD: 85 T: 0 QT: 324 QTc: 500 Interpretive Statements Atrial fibrillation Borderline repol abnormality, diffuse leads Borderline prolonged QT interval ST depression V1-V3, suggest recording posterior leads Electronically Signed On 11-20-2024 20:00:34 PDT by Andrea Gallegos Please click the below link to view image of tracing.
--- NOTE | 2024-11-19 09:53 | DVHPN2 ---
Reviewed: Care Plan, H&P, Labs, Medications, Previous Orders, Radiology Changes from previous H/P or p: No Changes Eyes: No Pain, No Vision change, No Conjunctivae inflammation, No Eyelid inflammation, No Other, No Redness ENT: No Ear pain, No Ear discharge, No Nose pain, No Nose discharge, No Nose congestion, No Mouth pain, No Mouth swelling, No Throat pain, No Throat swelling, No Other Cardiovascular: No Chest Pain, No Palpitations, No Orthopnea, No Paroxysmal Noc. Dyspnea, No Edema, No Lt Headedness, No Other Respiratory: Cough; No Dry; Shortness of breath, SOB with excertion; No Wheezing; Hemoptysis; No Pleuritic Pain, No Sputum, No Other Gastrointestinal: No Nausea, No Vomiting, No Abdominal Pain, No Diarrhea, No Constipation, No Melena, No Hematochezia, No Other Genitourinary: No Dysuria, No Frequency, No Incontinence, No Hematuria, No Retention, No Other Musculoskeletal: No other, No neck pain, No shoulder pain, No arm pain, No back pain, No hand pain, No leg pain, No foot pain Skin: No Rash, No Lesions, No Jaundice, No Bruising, No Other Objective Vitals Vital Signs Date Time Temp Pulse Resp B/P (MAP) Pulse Ox O2 Delivery O2 Flow Rate FiO2 11/19/24 09:10 144/88 11/19/24 09:10 101 11/19/24 09:00 99.2 17 98 99.2 11/19/24 05:51 Nasal Cannula* 4 36 Intake/Output Intake and Output 11/19/24 07:00 Intake Total 1258 ml Output Total 1300 ml Balance -42 ml Intake Oral 1258 ml Output Urine Total 1300 ml Medications Current Medications Medications Dose Ordered Sig/Justin Route Start Time Stop Time Status Last Admin Dose Admin Ondansetron HCl 4 mg Q4HP PRN IV 11/09/24 10:30 Docusate Sodium 100 mg BIDPRN PRN PO 11/09/24 10:30 Acetaminophen 650 mg Q6HP PRN PO 11/09/24 10:30 Nitroglycerin 0.4 mg Q5MINP PRN SL 11/09/24 10:30 Ceftriaxone Sodium 50 ml @ 100 mls/hr DAILY@09 IV 11/10/24 09:00 11/19/24 09:11 100 MLS/HR Azithromycin 250 ml @ 125 mls/hr DAILY IV 11/10/24 10:00 11/19/24 09:11 125 MLS/HR Ipratropium [place] 0.5 mg Q6HWA NEB 11/09/24 18:00 11/19/24 05:51 0.5 MG Albuterol 2.5 mg Q6HWA NEB 11/09/24 18:00 11/19/24 05:51 2.5 MG Gabapentin 100 mg BID PO 11/09/24 22:00 11/19/24 09:10 100 MG Metoprolol Tartrate 50 mg BID PO 11/09/24 22:00 11/19/24 09:10 50 MG Zolpidem Tartrate 5 mg QHSP PRN PO 11/09/24 15:45 11/15/24 03:11 5 MG Duloxetine HCl 30 mg DAILY PO 11/10/24 10:00 11/19/24 09:09 30 MG Patient Own Medication 1 tab DAILY PO 11/10/24 10:00 UNV Nifedipine 60 mg DAILY PO 11/10/24 10:00 11/19/24 09:09 60 MG Hydralazine HCl 100 mg Q12HR PO 11/10/24 22:00 11/19/24 09:10 100 MG Prednisone 40 mg BID PO 11/14/24 11:45 11/19/24 09:10 40 MG Multivit/Ca Carb/ B Cmplx/FA/Prenat 1 tab DAILY PO 11/15/24 10:00 11/19/24 09:10 1 TAB Alprazolam 1 mg TID PO 11/15/24 14:00 11/18/24 21:34 1 MG Pantoprazole Sodium 40 mg DAILY PO 11/16/24 10:00 11/19/24 09:10 40 MG Epoetin Man-epbx 10,000 unit MWF@2100 SC 11/17/24 21:00 11/17/24 23:38 10,000 UNIT Ondansetron HCl 8 mg Q8HPRN PRN IV 11/18/24 10:00 11/19/24 09:59 Hold Calcium Acetate 667 mg BIDWM PO 11/17/24 18:00 11/19/24 09:08 667 MG Calcitriol 0.25 mcg DAILY PO 11/18/24 10:00 11/19/24 09:10 0.25 MCG Trimethoprim/ Sulfamethoxazole 1 tab TUTHSA PO 11/20/24 10:00 Laboratory Results Laboratory Tests 11/19/24 06:05 Chemistry Test 11/19/24 06:05 Albumin 2.9 g/dL (3.2-4.8) L Calcium Level 8.3 mg/dL (8.7-10.4) L Total Protein 5.6 g/dL (5.7-8.2) L LFT Test 11/19/24 06:05 Alanine Aminotransferase (ALT) < 9 U/L (7-40) Alkaline Phosphatase 65 U/L (46-116) Aspartate Amino Transferase (AST) 11 U/L (13-40) L Total Bilirubin 0.3 mg/dL (0.2-1.0) Urinalysis Test 11/09/24 00:00 11/09/24 10:00 11/09/24 14:59 Urine Protein/Creatinine Ratio 3.15 Urine Total Protein 70.6 mg/dL (1-14) H Urine Color Colorless (Yellow) Urine Clarity Clear (Clear) Urine pH 5.5 (5.0-9.0) Urine Specific [place] 1.007 (1.001-1.035) Urine Protein 1+ (Negative) H Urine Ketones Negative (Negative) Urine Blood 3+ /uL (Negative) H Urine Nitrite Negative (Negative) Urine Bilirubin Negative (Negative) Urine Urobilinogen Normal mg/dL (Negative) Urine Leukocyte Esterase Negative /uL (Negative) Urine RBC 254 /hpf (0 - 3) Urine Microscopic WBC 4 /HPF (0-3) H Urine Squamous Epithelial Cells None seen /hpf (<5) Urine Amorphous Crystals Few /hpf (None Seen) Urine Bacteria Few /hpf (None Seen) H Urine Glucose Normal mg/dL (Normal) Urine Creatinine 22.28 mg/dL (30.0-125.0) L Urine Sodium 89 mmol/L (40-220) Microbiology Microbiology Date/Time Source Procedure Growth Status 11/11/24 08:38 Bronchial Washings - Final Resulted 11/11/24 08:38 Bronchial Washings - Final Resulted 11/11/24 08:38 Bronchial Washings Pending Resulted 11/11/24 08:38 Bronchial Washings Pending Resulted 11/11/24 08:38 Bronchial Washings - Final See Separate Report... Resulted 11/09/24 17:00 Nose MRSA Screen - Final Complete Labs and/or images reviewed: Labs reviewed by me, Image(s) reviewed by me Assessment/Plan Assessment/Plan Hemoptysis: Consult by Dr. Mix appreciated, status post bronchoscopy by Dr. Mix with the findings of hemorrhage from TAYLER and LLL bronchus Acute on chronic blood loss anemia hemoglobin improved from 6.9 to 8.4 after 1 unit RBC transfusion Stopped with cold saline. 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 Hogan appreciated Status post kidney biopsy pathology report pending Congestive heart failure Pulmonary edema Anemia, microcytic Patient was advised about his current diagnosis management and plan for temporary dialysis Patient has no family Sarah test negative Flu test negative tax services manager consult for setting up chart time Time spent 70 minutes Plan discussed with: Patient Date of Service: Nov 19, 2024 Billing Provider: SHLOMO GARNER MD Common Visit Codes: [id number] INP/OBS CARE(HIGH) SHLOMO GARNER MD Nov 19, 2024 09:53
--- NOTE | 2024-11-19 10:51 | DVHPN2 ---
Progress Note Date Seen: Nov 19, 2024 Medical Necessity Reason Pt with a Central, PICC or Fol: No Subjective Patient reports: No new complaints Other Systems: Patient seen and examined by myself Objective vital signs Vital Sign Date Time Temp Pulse Resp B/P (MAP) Pulse Ox O2 Delivery O2 Flow Rate FiO2 11/19/24 09:10 144/88 11/19/24 09:10 101 11/19/24 09:00 99.2 17 98 99.2 11/19/24 05:51 Nasal Cannula* 4 36 Total Intake and Output 11/18/24 11/18/24 11/19/24 15:00 23:00 07:00 Intake Total 358 ml 900 ml Output Total 650 ml 650 ml Balance -292 ml 250 ml medications Current Medications Medications Dose Ordered Sig/Justin Route Start Time Stop Time Status Last Admin Dose Admin Ondansetron HCl 4 mg Q4HP PRN IV 11/09/24 10:30 Docusate Sodium 100 mg BIDPRN PRN PO 11/09/24 10:30 Acetaminophen 650 mg Q6HP PRN PO 11/09/24 10:30 Nitroglycerin 0.4 mg Q5MINP PRN SL 11/09/24 10:30 Ceftriaxone Sodium 50 ml @ 100 mls/hr DAILY@09 IV 11/10/24 09:00 11/19/24 09:11 100 MLS/HR Azithromycin 250 ml @ 125 mls/hr DAILY IV 11/10/24 10:00 11/19/24 09:11 125 MLS/HR Ipratropium [place] 0.5 mg Q6HWA [facility] 11/09/24 18:00 11/19/24 05:51 0.5 MG Albuterol 2.5 mg Q6HWA [facility] 11/09/24 18:00 11/19/24 05:51 2.5 MG Gabapentin 100 mg BID PO 11/09/24 22:00 11/19/24 09:10 100 MG Metoprolol Tartrate 50 mg BID PO 11/09/24 22:00 11/19/24 09:10 50 MG Zolpidem Tartrate 5 mg QHSP PRN PO 11/09/24 15:45 11/15/24 03:11 5 MG Duloxetine HCl 30 mg DAILY PO 11/10/24 10:00 11/19/24 09:09 30 MG Patient Own Medication 1 tab DAILY PO 11/10/24 10:00 UNV Nifedipine 60 mg DAILY PO 11/10/24 10:00 11/19/24 09:09 60 MG Hydralazine HCl 100 mg Q12HR PO 11/10/24 22:00 11/19/24 09:10 100 MG Prednisone 40 mg BID PO 11/14/24 11:45 11/19/24 09:10 40 MG Multivit/Ca Carb/ B Cmplx/FA/Prenat 1 tab DAILY PO 11/15/24 10:00 11/19/24 09:10 1 TAB Alprazolam 1 mg TID PO 11/15/24 14:00 11/18/24 21:34 1 MG Pantoprazole Sodium 40 mg DAILY PO 11/16/24 10:00 11/19/24 09:10 40 MG Epoetin Man-epbx 10,000 unit MWF@2100 SC 11/17/24 21:00 11/17/24 23:38 10,000 UNIT Calcium Acetate 667 mg BIDWM PO 11/17/24 18:00 11/19/24 09:08 667 MG Calcitriol 0.25 mcg DAILY PO 11/18/24 10:00 11/19/24 09:10 0.25 MCG Trimethoprim/ Sulfamethoxazole 1 tab TUTHSA PO 11/20/24 10:00 Examination: LUNGS:Normal, CVS:Normal, MSK:Normal laboratory and microbiology Laboratory Tests 11/19/24 06:05 Test 11/19/24 06:05 Range/Units Serum Glucose 191 H 74-106 mg/dL Microbiology Date/Time Source Procedure Growth Status 11/11/24 08:38 Bronchial Washings - Final Resulted 11/11/24 08:38 Bronchial Washings - Final Resulted 11/11/24 08:38 Bronchial Washings Pending Resulted 11/11/24 08:38 Bronchial Washings Pending Resulted 11/11/24 08:38 Bronchial Washings - Final See Separate Report... 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 b.i.d. Decrease prednisone to 40 mg q.day Calcium acetate 1334 mg p.o. t.i.d. with meals Calcitriol 0.25 mcg p.o. q.day Status post kidney biopsy 11/16 IV antibiotics We will continue to follow Total care time 25 minutes Plan discussed with: Patient (day in follow-up) Dietary Evaluation Review Comments: Nutrition Recommendation 1) Consider 2gm Na diet 2) Monitor PO intake, lab values, weight trend, and I/O Expected Outcomes/Goals: Lab values to improve Fu 3-5 days APRIL VERA MD Nov 19, 2024 10:51
[2024-11-19] MEDS: CALCIUM ACETATE 667 MG CAP PO SCH (11:33)
[2024-11-19] MEDS: METOPROLOL TARTRATE 50 MG TAB PO ONE (11:34)
[2024-11-19 14:53] LABS: Urine Protein, UAD 2+ (Negative)
[2024-11-19] MEDS: NITROGLYCERIN 0.4 MG SL TAB SL PRN (18:15)
[2024-11-19] MEDS: DOCUSATE SOD 100 MG CAP PO PRN (21:09)
[2024-11-19] MEDS: METOPROLOL TARTRATE 50 MG TAB PO SCH (21:10)
[2024-11-20] VITALS (16 sets, daily range): BP systolic 118–181; BP diastolic 81–95; PULSE 59–84; RESP 16–20; TEMP 97.3–99.1; O2SAT 90–99
--- NOTE | 2024-11-20 02:57 | DVH ---
EXAM: CT HEAD WITHOUT CONTRAST INDICATION: fall TECHNIQUE: CT of the head without intravenous contrast. Radiation Dose : 1. Head: CT Dose: CTDI volume is 58.75 mGy. Dose-length product is 1275.28 mGy*cm The dose indicators for CT are the volume Computed Tomography (CT) Dose Index (CTDIvol) and the Dose Length Product (DLP), and are measured in units of mGy and mGy-cm, respectively. These indicators are not patient dose, but values generated from the CT scanner acquisition factors. The report includes radiation exposure data for exposures received during this examination. COMPARISON: CT HEAD WITHOUT CONTRAST on DOS: 11/01/24 FINDINGS: There is no evidence of acute intracranial hemorrhage, extra-axial collection, mass effect, midline s hift, herniation or hydrocephalus. The ventricles, sulci and cisterns are age appropriate. The yo-white differentiation is intact. Patchy periventricular and subcortical white matter hypoattenuation is nonspecific but may be related to small vessel ischemic disease. Minimal bilateral maxillary mucosal sinus disease. The remaining visualized paranasal sinuses and mas toid air cells are clear. The surrounding soft tissues and osseous structures are unremarkable. IMPRESSION: 1. No acute intracranial abnormality. Radiation optimization: All CT scans at this facility use at least one of these dose optimization diego hniques: automated exposure control mA and/or kV adjustment per patient size (includes targeted exam s where dose is matched to clinical indication) or iterative reconstruction.
[2024-11-20 07:04] LABS: Hemoglobin 10.2 g/dL (13.5-17.5); Nucleated Red Blood Cells % 0.2 %
[2024-11-20 07:08] LABS: Hematocrit 31.7 % (41.0-53.0); Mean Corpuscular Hemoglobin 25.6 pg (28.0-32.0); Mean Corpuscular Volume 79.6 fL (80.0-100.0)
[2024-11-20 07:27] LABS: Alanine Aminotransferase 14 U/L (7-40); Albumin 3.4 g/dL (3.2-4.8); Alkaline Phosphatase 74 U/L (46-116); Anion Gap 12 (5-15); BUN/Creatinine Ratio 13.3 (10.0-20.0); Calcium 9.1 mg/dL (8.7-10.4); Carbon Dioxide 29 mmol/L (20-31); Chloride 98 mmol/L (98-107); Glucose 98 mg/dL (74-106); Sodium 139 mmol/L (136-145); Total Protein 6.6 g/dL (5.7-8.2); Uric Acid 7.0 mg/dL (3.7-9.2)
[2024-11-20 07:28] LABS: Bilirubin, Total 0.5 mg/dL (0.2-1.0)
[2024-11-20 07:34] LABS: Blood Urea Nitrogen 63 mg/dL (9-23); Potassium 3.1 mmol/L (3.5-5.1)
[2024-11-20] MEDS: SULFAMETHOX W/TRIMETH(800/160MG) DS TAB PO SCH (09:52)
[2024-11-20] MEDS: predniSONE 20 MG TAB PO SCH (09:52)
--- NOTE | 2024-11-20 10:16 | DVHPN2 ---
Reviewed: Care Plan, H&P, Labs, Medications, Previous Orders, Radiology Changes from previous H/P or p: No Changes Eyes: No Pain, No Vision change, No Conjunctivae inflammation, No Eyelid inflammation, No Other, No Redness ENT: No Ear pain, No Ear discharge, No Nose pain, No Nose discharge, No Nose congestion, No Mouth pain, No Mouth swelling, No Throat pain, No Throat swelling, No Other Cardiovascular: No Chest Pain, No Palpitations, No Orthopnea, No Paroxysmal Noc. Dyspnea, No Edema, No Lt Headedness, No Other Respiratory: Cough; No Dry; Shortness of breath, SOB with excertion; No Wheezing; Hemoptysis; No Pleuritic Pain, No Sputum, No Other Gastrointestinal: No Nausea, No Vomiting, No Abdominal Pain, No Diarrhea, No Constipation, No Melena, No Hematochezia, No Other Genitourinary: No Dysuria, No Frequency, No Incontinence, No Hematuria, No Retention, No Other Musculoskeletal: No other, No neck pain, No shoulder pain, No arm pain, No back pain, No hand pain, No leg pain, No foot pain Skin: No Rash, No Lesions, No Jaundice, No Bruising, No Other Objective Vitals Vital Signs Date Time Temp Pulse Resp B/P (MAP) Pulse Ox O2 Delivery O2 Flow Rate FiO2 11/20/24 09:53 171/98 11/20/24 09:51 68 11/20/24 09:00 97.3 19 90 97.3 11/19/24 20:00 Nasal Cannula* 4 36 Intake/Output Intake and Output 11/20/24 07:00 Intake Total 700 ml Output Total 1125 ml Balance -425 ml Intake Oral 700 ml Output Urine Total 1125 ml # Voids 8 # Bowel Movements 1 Medications Current Medications Medications Dose Ordered Sig/Justin Route Start Time Stop Time Status Last Admin Dose Admin Ondansetron HCl 4 mg Q4HP PRN IV 11/09/24 10:30 Docusate Sodium 100 mg BIDPRN PRN PO 11/09/24 10:30 11/19/24 21:09 100 MG Acetaminophen 650 mg Q6HP PRN PO 11/09/24 10:30 Nitroglycerin 0.4 mg Q5MINP PRN SL 11/09/24 10:30 11/19/24 18:15 0.4 MG Ceftriaxone Sodium 50 ml @ 100 mls/hr DAILY@09 IV 11/10/24 09:00 11/20/24 08:31 100 MLS/HR Azithromycin 250 ml @ 125 mls/hr DAILY IV 11/10/24 10:00 11/20/24 09:42 125 MLS/HR Ipratropium [place] 0.5 mg Q6HWA NEB 11/09/24 18:00 11/20/24 07:02 0.5 MG Albuterol 2.5 mg Q6HWA NEB 11/09/24 18:00 11/20/24 07:02 2.5 MG Gabapentin 100 mg BID PO 11/09/24 22:00 11/20/24 09:51 100 MG Zolpidem Tartrate 5 mg QHSP PRN PO 11/09/24 15:45 11/19/24 21:09 5 MG Duloxetine HCl 30 mg DAILY PO 11/10/24 10:00 11/19/24 09:09 30 MG Patient Own Medication 1 tab DAILY PO 11/10/24 10:00 UNV Nifedipine 60 mg DAILY PO 11/10/24 10:00 11/20/24 09:53 60 MG Multivit/Ca Carb/ B Cmplx/FA/Prenat 1 tab DAILY PO 11/15/24 10:00 11/20/24 09:42 1 TAB Alprazolam 1 mg TID PO 11/15/24 14:00 11/18/24 21:34 1 MG Pantoprazole Sodium 40 mg DAILY PO 11/16/24 10:00 11/20/24 09:42 40 MG Epoetin Man-epbx 10,000 unit MWF@2100 [place] 11/17/24 21:00 Hold 11/17/24 23:38 10,000 UNIT Calcitriol 0.25 mcg DAILY PO 11/18/24 10:00 11/20/24 09:42 0.25 MCG Trimethoprim/ Sulfamethoxazole 1 tab TUTHSA PO 11/20/24 10:00 11/20/24 09:52 1 TAB Calcium Acetate 1,334 mg BIDWM PO 11/19/24 11:00 11/20/24 08:31 1,334 MG Metoprolol Tartrate 100 mg BID PO 11/19/24 22:00 11/20/24 09:51 100 MG Prednisone 40 mg DAILY PO 11/20/24 10:00 11/20/24 09:52 40 MG Laboratory Results Laboratory Tests 11/20/24 06:08 Chemistry Test 11/20/24 06:08 Albumin 3.4 g/dL (3.2-4.8) Calcium Level 9.1 mg/dL (8.7-10.4) Total Protein 6.6 g/dL (5.7-8.2) Cardiac Markers Test 11/20/24 06:08 B-Type Natriuretic Peptide 1102.58 pg/mL (0-100) LFT Test 11/20/24 06:08 Alanine Aminotransferase (ALT) 14 U/L (7-40) Alkaline Phosphatase 74 U/L (46-116) Aspartate Amino Transferase (AST) 27 U/L (13-40) Total Bilirubin 0.5 mg/dL (0.2-1.0) Urinalysis Test 11/09/24 00:00 11/09/24 10:00 11/09/24 14:59 11/19/24 14:00 Urine Protein/Creatinine Ratio 3.15 Urine Total Protein 70.6 mg/dL (1-14) H Urine Amorphous Crystals Few /hpf (None Seen) Urine Creatinine 22.28 mg/dL (30.0-125.0) L Urine Sodium 89 mmol/L (40-220) Urine Color Light-brown (Yellow) Urine Clarity Turbid (Clear) H Urine pH 5.5 (5.0-9.0) Urine Specific [place] 1.011 (1.001-1.035) Urine Protein 2+ (Negative) H Urine Ketones Negative (Negative) Urine Blood 3+ /uL (Negative) H Urine Nitrite Negative (Negative) Urine Bilirubin Negative (Negative) Urine Urobilinogen Normal mg/dL (Negative) Urine Leukocyte Esterase Trace /uL (Negative) Urine RBC 1479 /hpf (0 - 3) Urine Microscopic WBC 50 /HPF (0-3) H Urine Squamous Epithelial Cells Few /hpf (<5) Urine Bacteria None seen /hpf (None Seen) Urine Mucus Few (None Seen) Urine Glucose 2+ mg/dL (Normal) H Microbiology Microbiology Date/Time Source Procedure Growth Status 11/11/24 08:38 Bronchial Washings - Final Resulted 11/11/24 08:38 Bronchial Washings - Final Resulted 11/11/24 08:38 Bronchial Washings Pending Resulted 11/11/24 08:38 Bronchial Washings Pending Resulted 11/11/24 08:38 Bronchial Washings - Final See Separate Report... Resulted 11/09/24 17:00 Nose MRSA Screen - Final Complete Labs and/or images reviewed: Labs reviewed by me, Image(s) reviewed by me Assessment/Plan Assessment/Plan Hemoptysis: Consult by Dr. Mix appreciated, status post bronchoscopy by Dr. Mix with the findings of hemorrhage from TAYLER and LLL bronchus Acute on chronic blood loss anemia hemoglobin improved from 6.9 to 8.4 after 1 unit RBC transfusion Stopped with cold saline. 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 Hogan appreciated Status post kidney biopsy pathology report pending Congestive heart failure Pulmonary edema Anemia, microcytic Patient was advised about his current diagnosis management and plan for temporary dialysis Patient has no family Sarah test negative Flu test negative public services librarian consult for setting up chair time: reworker to help patient apply for [facility] Time spent 55 minutes Plan discussed with: Patient My Orders Orders - SHLOMO GARNER MD Procedure Category Date Status Time Stat Ekg With Cp JOSEPHINE 11/19/24 In Process 18:12 Discontinue [place] JOSEPHINE 11/19/24 In Process Catheter 16:00 Date of Service: Nov 20, 2024 Billing Provider: SHLOMO GARNER MD Common Visit Codes: [id number] INP/OBS CARE(HIGH) SHLOMO GARNER MD Nov 20, 2024 10:15
--- NOTE | 2024-11-20 10:42 | DVHPN2 ---
Progress Note Date Seen: Nov 20, 2024 Medical Necessity Reason Pt with a Central, PICC or Fol: No Subjective Patient reports: No new complaints Other Systems: Patient seen and examined by myself today in follow-up Patient examined hemodialysis, blood pressure stable Objective vital signs Vital Sign Date Time Temp Pulse Resp B/P (MAP) Pulse Ox O2 Delivery O2 Flow Rate FiO2 11/20/24 09:53 171/98 11/20/24 09:51 68 11/20/24 09:00 97.3 19 90 97.3 11/20/24 07:02 Nasal Cannula 3.0 11/20/24 07:02 32 Total Intake and Output 11/19/24 11/19/24 11/20/24 15:00 23:00 07:00 Intake Total 250 ml 450 ml Output Total 1125 ml Balance -875 ml 450 ml medications Current Medications Medications Dose Ordered Sig/Justin Route Start Time Stop Time Status Last Admin Dose Admin Ondansetron HCl 4 mg Q4HP PRN IV 11/09/24 10:30 Docusate Sodium 100 mg BIDPRN PRN PO 11/09/24 10:30 11/19/24 21:09 100 MG Acetaminophen 650 mg Q6HP PRN PO 11/09/24 10:30 Nitroglycerin 0.4 mg Q5MINP PRN SL 11/09/24 10:30 11/19/24 18:15 0.4 MG Ceftriaxone Sodium 50 ml @ 100 mls/hr DAILY@09 IV 11/10/24 09:00 11/20/24 08:31 100 MLS/HR Azithromycin 250 ml @ 125 mls/hr DAILY IV 11/10/24 10:00 11/20/24 09:42 125 MLS/HR Ipratropium [place] 0.5 mg Q6HWA NEB 11/09/24 18:00 11/20/24 07:02 0.5 MG Albuterol 2.5 mg Q6HWA NEB 11/09/24 18:00 11/20/24 07:02 2.5 MG Gabapentin 100 mg BID PO 11/09/24 22:00 11/20/24 09:51 100 MG Zolpidem Tartrate 5 mg QHSP PRN PO 11/09/24 15:45 11/19/24 21:09 5 MG Duloxetine HCl 30 mg DAILY PO 11/10/24 10:00 11/19/24 09:09 30 MG Patient Own Medication 1 tab DAILY PO 11/10/24 10:00 UNV Nifedipine 60 mg DAILY PO 11/10/24 10:00 11/20/24 09:53 60 MG Multivit/Ca Carb/ B Cmplx/FA/Prenat 1 tab DAILY PO 11/15/24 10:00 11/20/24 09:42 1 TAB Alprazolam 1 mg TID PO 11/15/24 14:00 11/18/24 21:34 1 MG Pantoprazole Sodium 40 mg DAILY PO 11/16/24 10:00 11/20/24 09:42 40 MG Epoetin Man-epbx 10,000 unit MWF@2100 [place] 11/17/24 21:00 Hold 11/17/24 23:38 10,000 UNIT Calcitriol 0.25 mcg DAILY PO 11/18/24 10:00 11/20/24 09:42 0.25 MCG Trimethoprim/ Sulfamethoxazole 1 tab TUTHSA PO 11/20/24 10:00 11/20/24 09:52 1 TAB Calcium Acetate 1,334 mg BIDWM PO 11/19/24 11:00 11/20/24 08:31 1,334 MG Metoprolol Tartrate 100 mg BID PO 11/19/24 22:00 11/20/24 09:51 100 MG Prednisone 40 mg DAILY PO 11/20/24 10:00 11/20/24 09:52 40 MG laboratory and microbiology Laboratory Tests 11/20/24 06:08 Test 11/20/24 06:08 Range/Units Serum Glucose 98 74-106 mg/dL Microbiology Date/Time Source Procedure Growth Status 11/11/24 08:38 Bronchial Washings - Final Resulted 11/11/24 08:38 Bronchial Washings - Final Resulted 11/11/24 08:38 Bronchial Washings Pending Resulted 11/11/24 08:38 Bronchial Washings Pending Resulted 11/11/24 08:38 Bronchial Washings - Final See Separate Report... 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 b.i.d. Decrease prednisone to 40 mg q.day Calcium acetate 1334 mg p.o. t.i.d. with meals Calcitriol 0.25 mcg p.o. q.day Status post kidney biopsy 11/16 IV antibiotics We will continue to follow Total care time 25 minutes Plan discussed with: Patient My Orders My Orders Orders - APRIL VERA MD Procedure Category Date Status Time Calcium Acetate PHA 11/19/24 In Process Capsule (Phoslo 11:00 Metoprolol Tartrate PHA 11/19/24 In Process Tablet (Lopressor Ta 22:00 Hemodialysis Orders ORDERS 11/20/24 Transmitted 07:00 Dialysis Nursing JOSEPHINE 11/20/24 In Process Message 07:00 Document Fluid Input JOSEPHINE 11/20/24 In Process And Outpu 07:00 Epoetin Man-Epbx PHA 11/20/24 In Process (Retacrit) 21:00 Prednisone Tablet PHA 11/20/24 In Process 10:00 Dietary Evaluation Review Comments: Nutrition Recommendation 1) Consider 2gm Na diet 2) Monitor PO intake, lab values, weight trend, and I/O Expected Outcomes/Goals: Lab values to improve Fu 3-5 days APRIL VERA MD Nov 20, 2024 10:42
[2024-11-21] VITALS (13 sets, daily range): BP systolic 142–187; BP diastolic 79–95; PULSE 60–77; RESP 16–20; TEMP 97.6–99; O2SAT 90–99
[2024-11-21 07:12] LABS: Hematocrit 24.8 % (41.0-53.0); Hemoglobin 8.0 g/dL (13.5-17.5); Mean Corpuscular Hemoglobin 26.6 pg (28.0-32.0); Mean Corpuscular Volume 81.9 fL (80.0-100.0); Nucleated Red Blood Cells % 0.2 %
[2024-11-21 07:35] LABS: Alanine Aminotransferase 10 U/L (7-40); Alkaline Phosphatase 55 U/L (46-116); Anion Gap 9 (5-15); BUN/Creatinine Ratio 12.9 (10.0-20.0); Bilirubin, Total 0.3 mg/dL (0.2-1.0); Carbon Dioxide 30 mmol/L (20-31); Chloride 103 mmol/L (98-107); Potassium 3.7 mmol/L (3.5-5.1); Sodium 142 mmol/L (136-145)
[2024-11-21 07:36] LABS: Albumin 2.6 g/dL (3.2-4.8); Blood Urea Nitrogen 41 mg/dL (9-23); Calcium 7.7 mg/dL (8.7-10.4); Glucose 162 mg/dL (74-106); Total Protein 4.7 g/dL (5.7-8.2)
--- NOTE | 2024-11-21 09:49 | ECG ---
[facility] Test Date: 2024-11-19 Test Time: 18:15:55 Pat Name: KERRI OCONNELL Department: Respiratoy Room: 0221T A Gender: M Cuff Folder: FARRAH FOSTER : 1965 Requested By: SHLOMO GARNER Order Number: [id number] Reading MD: Andrea Gallegos Measurements Intervals [place] Rate: 88 P: 52 UT: 155 QRS: 78 QRSD: 102 T: -38 QT: 385 QTc: 466 Interpretive Statements Sinus rhythm Low voltage, precordial leads Abnormal R-wave progression, early transition Borderline repolarization abnormality Electronically Signed On 11-23-2024 15:04:40 PDT by Andrea Gallegos Please click the below link to view image of tracing.
--- NOTE | 2024-11-21 10:55 | DVHPN2 ---
Progress Note Date Seen: Nov 21, 2024 Medical Necessity Reason Pt with a Central, PICC or Fol: No Subjective Patient reports: No new complaints Other Systems: Patient seen and examined by myself today in follow-up Objective vital signs Vital Sign Date Time Temp Pulse Resp B/P (MAP) Pulse Ox O2 Delivery O2 Flow Rate FiO2 11/21/24 10:24 65 142/87 11/21/24 06:47 16 99 11/21/24 06:39 Nasal Cannula 4.0 11/21/24 06:39 36 11/21/24 05:00 98.1 98.1 Total Intake and Output 11/20/24 11/20/24 11/21/24 15:00 23:00 07:00 Intake Total 200 ml 630 ml Output Total 1100 ml 400 ml Balance -900 ml 230 ml medications Current Medications Medications Dose Ordered Sig/Justin Route Start Time Stop Time Status Last Admin Dose Admin Ondansetron HCl 4 mg Q4HP PRN IV 11/09/24 10:30 Docusate Sodium 100 mg BIDPRN PRN PO 11/09/24 10:30 11/19/24 21:09 100 MG Acetaminophen 650 mg Q6HP PRN PO 11/09/24 10:30 Nitroglycerin 0.4 mg Q5MINP PRN SL 11/09/24 10:30 11/19/24 18:15 0.4 MG Ceftriaxone Sodium 50 ml @ 100 mls/hr DAILY@09 IV 11/10/24 09:00 11/21/24 08:52 100 MLS/HR Azithromycin 250 ml @ 125 mls/hr DAILY IV 11/10/24 10:00 11/21/24 10:22 125 MLS/HR Ipratropium [place] 0.5 mg Q6HWA NEB 11/09/24 18:00 11/21/24 06:39 0.5 MG Albuterol 2.5 mg Q6HWA NEB 11/09/24 18:00 11/21/24 06:39 2.5 MG Gabapentin 100 mg BID PO 11/09/24 22:00 11/20/24 22:05 100 MG Zolpidem Tartrate 5 mg QHSP PRN PO 11/09/24 15:45 11/19/24 21:09 5 MG Duloxetine HCl 30 mg DAILY PO 11/10/24 10:00 11/19/24 09:09 30 MG Patient Own Medication 1 tab DAILY PO 11/10/24 10:00 UNV Nifedipine 60 mg DAILY PO 11/10/24 10:00 11/21/24 10:24 60 MG Multivit/Ca Carb/ B Cmplx/FA/Prenat 1 tab DAILY PO 11/15/24 10:00 11/21/24 10:23 1 TAB Alprazolam 1 mg TID PO 11/15/24 14:00 11/20/24 22:06 1 MG Pantoprazole Sodium 40 mg DAILY PO 11/16/24 10:00 11/21/24 10:23 40 MG Epoetin Man-epbx 10,000 unit MWF@2100 [place] 11/17/24 21:00 Hold 11/17/24 23:38 10,000 UNIT Calcitriol 0.25 mcg DAILY PO 11/18/24 10:00 11/21/24 10:23 0.25 MCG Trimethoprim/ Sulfamethoxazole 1 tab TUTHSA PO 11/20/24 10:00 11/20/24 09:52 1 TAB Calcium Acetate 1,334 mg BIDWM PO 11/19/24 11:00 11/21/24 08:52 1,334 MG Metoprolol Tartrate 100 mg BID PO 11/19/24 22:00 11/21/24 10:24 100 MG Prednisone 40 mg DAILY PO 11/20/24 10:00 11/21/24 10:23 40 MG Examination: LUNGS:Normal, CVS:Normal, MSK:Normal laboratory and microbiology Laboratory Tests 11/21/24 06:33 Test 11/21/24 06:33 Range/Units Serum Glucose 162 H 74-106 mg/dL Microbiology Date/Time Source Procedure Growth Status 11/11/24 08:38 Bronchial Washings - Final Resulted 11/11/24 08:38 Bronchial Washings - Final Resulted 11/11/24 08:38 Bronchial Washings Pending Resulted 11/11/24 08:38 Bronchial Washings Pending Resulted 11/11/24 08:38 Bronchial Washings - Final See Separate Report... 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 b.i.d. Decrease prednisone to 40 mg q.day Calcium acetate 1334 mg p.o. t.i.d. with meals Calcitriol 0.25 mcg p.o. q.day Status post kidney biopsy 11/16 IV antibiotics We will continue to follow Total care time 25 minutes Plan discussed with: Patient My Orders My Orders Orders - APRIL VERA MD Procedure Category Date Status Time Hemodialysis Orders ORDERS 11/21/24 Transmitted 00:31 Dietary Evaluation Review Comments: Nutrition Recommendation 1) Consider 2gm Na diet 2) Monitor PO intake, lab values, weight trend, and I/O Expected Outcomes/Goals: Lab values to improve Fu 3-5 days APRIL VERA MD Nov 21, 2024 10:55
--- NOTE | 2024-11-21 11:14 | DVHPN2 ---
Reviewed: Care Plan, H&P, Labs, Medications, Previous Orders, Radiology Changes from previous H/P or p: No Changes Eyes: No Pain, No Vision change, No Conjunctivae inflammation, No Eyelid inflammation, No Other, No Redness ENT: No Ear pain, No Ear discharge, No Nose pain, No Nose discharge, No Nose congestion, No Mouth pain, No Mouth swelling, No Throat pain, No Throat swelling, No Other Cardiovascular: No Chest Pain, No Palpitations, No Orthopnea, No Paroxysmal Noc. Dyspnea, No Edema, No Lt Headedness, No Other Respiratory: Cough; No Dry; Shortness of breath, SOB with excertion; No Wheezing; Hemoptysis; No Pleuritic Pain, No Sputum, No Other Gastrointestinal: No Nausea, No Vomiting, No Abdominal Pain, No Diarrhea, No Constipation, No Melena, No Hematochezia, No Other Genitourinary: No Dysuria, No Frequency, No Incontinence, No Hematuria, No Retention, No Other Musculoskeletal: No other, No neck pain, No shoulder pain, No arm pain, No back pain, No hand pain, No leg pain, No foot pain Skin: No Rash, No Lesions, No Jaundice, No Bruising, No Other Objective Vitals Vital Signs Date Time Temp Pulse Resp B/P (MAP) Pulse Ox O2 Delivery O2 Flow Rate FiO2 11/21/24 10:24 65 142/87 11/21/24 10:00 95 Nasal Cannula 4.0 11/21/24 10:00 36 11/21/24 06:47 16 11/21/24 05:00 98.1 98.1 Intake/Output Intake and Output 11/21/24 06:59 Intake Total 830 ml Output Total 1500 ml Balance -670 ml Intake Oral 830 ml Output Urine Total 1500 ml Medications Current Medications Medications Dose Ordered Sig/Justin Route Start Time Stop Time Status Last Admin Dose Admin Ondansetron HCl 4 mg Q4HP PRN IV 11/09/24 10:30 Docusate Sodium 100 mg BIDPRN PRN PO 11/09/24 10:30 11/19/24 21:09 100 MG Acetaminophen 650 mg Q6HP PRN PO 11/09/24 10:30 Nitroglycerin 0.4 mg Q5MINP PRN SL 11/09/24 10:30 11/19/24 18:15 0.4 MG Ceftriaxone Sodium 50 ml @ 100 mls/hr DAILY@09 IV 11/10/24 09:00 11/21/24 08:52 100 MLS/HR Azithromycin 250 ml @ 125 mls/hr DAILY IV 11/10/24 10:00 11/21/24 10:22 125 MLS/HR Ipratropium [place] 0.5 mg Q6HWA [facility] 11/09/24 18:00 11/21/24 06:39 0.5 MG Albuterol 2.5 mg Q6HWA NEB 11/09/24 18:00 11/21/24 06:39 2.5 MG Gabapentin 100 mg BID PO 11/09/24 22:00 11/20/24 22:05 100 MG Zolpidem Tartrate 5 mg QHSP PRN PO 11/09/24 15:45 11/19/24 21:09 5 MG Duloxetine HCl 30 mg DAILY PO 11/10/24 10:00 11/19/24 09:09 30 MG Patient Own Medication 1 tab DAILY PO 11/10/24 10:00 UNV Nifedipine 60 mg DAILY PO 11/10/24 10:00 11/21/24 10:24 60 MG Multivit/Ca Carb/ B Cmplx/FA/Prenat 1 tab DAILY PO 11/15/24 10:00 11/21/24 10:23 1 TAB Alprazolam 1 mg TID PO 11/15/24 14:00 11/20/24 22:06 1 MG Pantoprazole Sodium 40 mg DAILY PO 11/16/24 10:00 11/21/24 10:23 40 MG Epoetin Man-epbx 10,000 unit MWF@2100 [place] 11/17/24 21:00 Hold 11/17/24 23:38 10,000 UNIT Calcitriol 0.25 mcg DAILY PO 11/18/24 10:00 11/21/24 10:23 0.25 MCG Trimethoprim/ Sulfamethoxazole 1 tab TUTHSA PO 11/20/24 10:00 11/20/24 09:52 1 TAB Calcium Acetate 1,334 mg BIDWM PO 11/19/24 11:00 11/21/24 08:52 1,334 MG Metoprolol Tartrate 100 mg BID PO 11/19/24 22:00 11/21/24 10:24 100 MG Prednisone 40 mg DAILY PO 11/20/24 10:00 11/21/24 10:23 40 MG Laboratory Results Laboratory Tests 11/21/24 06:33 Chemistry Test 11/21/24 06:33 Albumin 2.6 g/dL (3.2-4.8) L Calcium Level 7.7 mg/dL (8.7-10.4) L Total Protein 4.7 g/dL (5.7-8.2) L LFT Test 11/21/24 06:33 Alanine Aminotransferase (ALT) 10 U/L (7-40) Alkaline Phosphatase 55 U/L (46-116) Aspartate Amino Transferase (AST) 23 U/L (13-40) Total Bilirubin 0.3 mg/dL (0.2-1.0) Urinalysis Test 11/09/24 00:00 11/09/24 10:00 11/09/24 14:59 11/19/24 14:00 Urine Protein/Creatinine Ratio 3.15 Urine Total Protein 70.6 mg/dL (1-14) H Urine Amorphous Crystals Few /hpf (None Seen) Urine Creatinine 22.28 mg/dL (30.0-125.0) L Urine Sodium 89 mmol/L (40-220) Urine Color Light-brown (Yellow) Urine Clarity Turbid (Clear) H Urine pH 5.5 (5.0-9.0) Urine Specific [place] 1.011 (1.001-1.035) Urine Protein 2+ (Negative) H Urine Ketones Negative (Negative) Urine Blood 3+ /uL (Negative) H Urine Nitrite Negative (Negative) Urine Bilirubin Negative (Negative) Urine Urobilinogen Normal mg/dL (Negative) Urine Leukocyte Esterase Trace /uL (Negative) Urine RBC 1479 /hpf (0 - 3) Urine Microscopic WBC 50 /HPF (0-3) H Urine Squamous Epithelial Cells Few /hpf (<5) Urine Bacteria None seen /hpf (None Seen) Urine Mucus Few (None Seen) Urine Glucose 2+ mg/dL (Normal) H Microbiology Microbiology Date/Time Source Procedure Growth Status 11/11/24 08:38 Bronchial Washings - Final Resulted 11/11/24 08:38 Bronchial Washings - Final Resulted 11/11/24 08:38 Bronchial Washings Pending Resulted 11/11/24 08:38 Bronchial Washings Pending Resulted 11/11/24 08:38 Bronchial Washings - Final See Separate Report... Resulted 11/09/24 17:00 Nose MRSA Screen - Final Complete Labs and/or images reviewed: Labs reviewed by me, Image(s) reviewed by me Assessment/Plan Assessment/Plan Hemoptysis: Consult by Dr. Mix appreciated, status post bronchoscopy by Dr. Mix with the findings of hemorrhage from TAYLER and LLL bronchus Acute on chronic blood loss anemia hemoglobin improved from 6.9 to 8.4 after 1 unit RBC transfusion Stopped with cold saline. 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 Hogan appreciated Status post kidney biopsy pathology report pending Congestive heart failure Pulmonary edema Anemia, microcytic Patient was advised about his current diagnosis management and plan for temporary dialysis Patient has no family Sarah test negative Flu test negative travel services professional consult for setting up chair time: pony worker to help patient apply for [place] Time spent 55 minutes Continue current management Plan discussed with: Patient Date of Service: Nov 21, 2024 Billing Provider: SHLOMO GARNER MD Common Visit Codes: [id number] INP/OBS CARE(HIGH) SHLOMO GARNER MD Nov 21, 2024 11:14
[2024-11-21] MEDS: ACETAMINOPHEN 325 MG TAB PO PRN (20:51)
[2024-11-22] VITALS (11 sets, daily range): BP systolic 134–149; BP diastolic 75–85; PULSE 62–77; RESP 16–18; TEMP 97.8–98.5; O2SAT 92–99
[2024-11-22] MEDS: ONDANSETRON HCL 4 MG/2 ML VIAL IV PRN (00:54)
[2024-11-22] MEDS: HYDROcodone-ACET 5/325MG TAB PO ONE (04:32)
[2024-11-22 06:25] LABS: Hematocrit 21.7 % (41.0-53.0); Hemoglobin 7.2 g/dL (13.5-17.5); Mean Corpuscular Hemoglobin 26.3 pg (28.0-32.0)
[2024-11-22 06:27] LABS: Mean Corpuscular Volume 79.3 fL (80.0-100.0); Nucleated Red Blood Cells % 0.1 %
[2024-11-22 06:46] LABS: Alanine Aminotransferase 10 U/L (7-40); Alkaline Phosphatase 52 U/L (46-116); Anion Gap 7 (5-15); BUN/Creatinine Ratio 9.8 (10.0-20.0); Bilirubin, Total 0.5 mg/dL (0.2-1.0); Chloride 105 mmol/L (98-107); Glucose 97 mg/dL (74-106); Potassium 3.7 mmol/L (3.5-5.1); Sodium 145 mmol/L (136-145)
[2024-11-22 06:47] LABS: Albumin 2.8 g/dL (3.2-4.8); Blood Urea Nitrogen 45 mg/dL (9-23); Calcium 8.2 mg/dL (8.7-10.4); Carbon Dioxide 33 mmol/L (20-31); Total Protein 5.0 g/dL (5.7-8.2)
--- NOTE | 2024-11-22 11:39 | DVHPN2 ---
Reviewed: Care Plan, H&P, Labs, Medications, Previous Orders, Radiology Changes from previous H/P or p: No Changes Eyes: No Pain, No Vision change, No Conjunctivae inflammation, No Eyelid inflammation, No Other, No Redness ENT: No Ear pain, No Ear discharge, No Nose pain, No Nose discharge, No Nose congestion, No Mouth pain, No Mouth swelling, No Throat pain, No Throat swelling, No Other Cardiovascular: No Chest Pain, No Palpitations, No Orthopnea, No Paroxysmal Noc. Dyspnea, No Edema, No Lt Headedness, No Other Respiratory: Cough; No Dry; Shortness of breath, SOB with excertion; No Wheezing; Hemoptysis; No Pleuritic Pain, No Sputum, No Other Gastrointestinal: No Nausea, No Vomiting, No Abdominal Pain, No Diarrhea, No Constipation, No Melena, No Hematochezia, No Other Genitourinary: No Dysuria, No Frequency, No Incontinence, No Hematuria, No Retention, No Other Musculoskeletal: No other, No neck pain, No shoulder pain, No arm pain, No back pain, No hand pain, No leg pain, No foot pain Skin: No Rash, No Lesions, No Jaundice, No Bruising, No Other Objective Vitals Vital Signs Date Time Temp Pulse Resp B/P (MAP) Pulse Ox O2 Delivery O2 Flow Rate FiO2 11/22/24 09:44 65 141/84 11/22/24 08:55 97.8 18 98 97.8 11/22/24 08:00 Nasal Cannula* 4 36 Intake/Output Intake and Output 11/22/24 07:00 Intake Total 1389 ml Output Total 1401 ml Balance -12 ml Intake Oral 1089 ml IV Total 300 ml Output Urine Total 1400 ml Stool Total 1 ml Medications Current Medications Medications Dose Ordered Sig/Justin Route Start Time Stop Time Status Last Admin Dose Admin Ondansetron HCl 4 mg Q4HP PRN IV 11/09/24 10:30 11/22/24 00:54 4 MG Docusate Sodium 100 mg BIDPRN PRN PO 11/09/24 10:30 11/19/24 21:09 100 MG Acetaminophen 650 mg Q6HP PRN PO 11/09/24 10:30 11/21/24 20:51 650 MG Nitroglycerin 0.4 mg Q5MINP PRN SL 11/09/24 10:30 11/19/24 18:15 0.4 MG Ipratropium [place] 0.5 mg Q6HWA NEB 11/09/24 18:00 11/21/24 11:16 0.5 MG Albuterol 2.5 mg Q6HWA NEB 11/09/24 18:00 11/21/24 11:16 2.5 MG Gabapentin 100 mg BID PO 11/09/24 22:00 11/22/24 09:41 100 MG Zolpidem Tartrate 5 mg QHSP PRN PO 11/09/24 15:45 11/22/24 00:55 5 MG Duloxetine HCl 30 mg DAILY PO 11/10/24 10:00 11/22/24 09:45 30 MG Patient Own Medication 1 tab DAILY PO 11/10/24 10:00 UNV Nifedipine 60 mg DAILY PO 11/10/24 10:00 11/22/24 09:43 60 MG Multivit/Ca Carb/ B Cmplx/FA/Prenat 1 tab DAILY PO 11/15/24 10:00 11/22/24 09:44 1 TAB Alprazolam 1 mg TID PO 11/15/24 14:00 11/20/24 22:06 1 MG Pantoprazole Sodium 40 mg DAILY PO 11/16/24 10:00 11/22/24 09:45 40 MG Epoetin Man-epbx 10,000 unit MWF@2100 ID 11/17/24 21:00 Hold 11/17/24 23:38 10,000 UNIT Calcitriol 0.25 mcg DAILY PO 11/18/24 10:00 11/22/24 09:40 0.25 MCG Trimethoprim/ Sulfamethoxazole 1 tab TUTHSA PO 11/20/24 10:00 11/20/24 09:52 1 TAB Calcium Acetate 1,334 mg BIDWM PO 11/19/24 11:00 11/22/24 09:40 1,334 MG Metoprolol Tartrate 100 mg BID PO 11/19/24 22:00 11/22/24 09:44 100 MG Prednisone 40 mg DAILY PO 11/20/24 10:00 11/22/24 09:45 40 MG Laboratory Results Laboratory Tests 11/22/24 05:49 Chemistry Test 11/22/24 05:49 Albumin 2.8 g/dL (3.2-4.8) L Calcium Level 8.2 mg/dL (8.7-10.4) L Total Protein 5.0 g/dL (5.7-8.2) L LFT Test 11/22/24 05:49 Alanine Aminotransferase (ALT) 10 U/L (7-40) Alkaline Phosphatase 52 U/L (46-116) Aspartate Amino Transferase (AST) 18 U/L (13-40) Total Bilirubin 0.5 mg/dL (0.2-1.0) Urinalysis Test 11/09/24 00:00 11/09/24 10:00 11/09/24 14:59 11/19/24 14:00 Urine Protein/Creatinine Ratio 3.15 Urine Total Protein 70.6 mg/dL (1-14) H Urine Amorphous Crystals Few /hpf (None Seen) Urine Creatinine 22.28 mg/dL (30.0-125.0) L Urine Sodium 89 mmol/L (40-220) Urine Color Light-brown (Yellow) Urine Clarity Turbid (Clear) H Urine pH 5.5 (5.0-9.0) Urine Specific [place] 1.011 (1.001-1.035) Urine Protein 2+ (Negative) H Urine Ketones Negative (Negative) Urine Blood 3+ /uL (Negative) H Urine Nitrite Negative (Negative) Urine Bilirubin Negative (Negative) Urine Urobilinogen Normal mg/dL (Negative) Urine Leukocyte Esterase Trace /uL (Negative) Urine RBC 1479 /hpf (0 - 3) Urine Microscopic WBC 50 /HPF (0-3) H Urine Squamous Epithelial Cells Few /hpf (<5) Urine Bacteria None seen /hpf (None Seen) Urine Mucus Few (None Seen) Urine Glucose 2+ mg/dL (Normal) H Microbiology Microbiology Date/Time Source Procedure Growth Status 11/11/24 08:38 Bronchial Washings - Final Resulted 11/11/24 08:38 Bronchial Washings - Final Resulted 11/11/24 08:38 Bronchial Washings Pending Resulted 11/11/24 08:38 Bronchial Washings Pending Resulted 11/11/24 08:38 Bronchial Washings - Final See Separate Report... Resulted 11/09/24 17:00 Nose MRSA Screen - Final Complete Labs and/or images reviewed: Labs reviewed by me, Image(s) reviewed by me Assessment/Plan Assessment/Plan Hemoptysis: Consult by Dr. Mix appreciated, status post bronchoscopy by Dr. Mix with the findings of hemorrhage from TAYLER and LLL bronchus Acute on chronic blood loss anemia hemoglobin improved from 6.9 to 8.4 after 1 unit RBC transfusion Stopped with cold saline. 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
--- NOTE | 2024-11-22 15:11 | ECG ---
[facility] Test Date: 2024-11-20 Test Time: 23:22:28 Pat Name: KERRI OCONNELL Department: Respiratoy Room: 0221T A Gender: M Manager Access: : 1965 Requested By: SHLOMO GARNER Order Number: [id number] Reading MD: Andrea Gallegos Measurements Intervals [place] Rate: 71 P: 60 NE: 146 QRS: 41 QRSD: 101 T: 28 QT: 432 QTc: 470 Interpretive Statements Sinus rhythm Baseline wander in lead(s) V1 Electronically Signed On 11-23-2024 15:05:40 PDT by Andrea Gallegos Please click the below link to view image of tracing.
--- NOTE | 2024-11-22 18:03 | DVHPN2 ---
Progress Note Date Seen: Nov 22, 2024 Resident Creating Document: SAGAR STEWARD RESIDENT Medical Necessity Reason Pt with a Central, PICC or Fol: No Subjective Review of Systems Patient was seen and examined on the bedside. He is alert oriented x3 and on nasal cannula 4 L. Complaint of hemoptysis, generalized weakness and no other active complaint this time Objective vital signs Vital Sign Date Time Temp Pulse Resp B/P (MAP) Pulse Ox O2 Delivery O2 Flow Rate FiO2 11/22/24 16:36 98.5 62 16 137/85 (102) 99 98.5 11/22/24 11:53 Nasal Cannula 4.0 11/22/24 11:53 36 Total Intake and Output 11/21/24 11/21/24 11/22/24 15:00 23:00 07:00 Intake Total 232 ml 657 ml 500 ml Output Total 451 ml 950 ml Balance 232 ml 206 ml -450 ml medications Current Medications Medications Dose Ordered Sig/Justin Route Start Time Stop Time Status Last Admin Dose Admin Ondansetron HCl 4 mg Q4HP PRN IV 11/09/24 10:30 11/22/24 00:54 4 MG Docusate Sodium 100 mg BIDPRN PRN PO 11/09/24 10:30 11/19/24 21:09 100 MG Acetaminophen 650 mg Q6HP PRN PO 11/09/24 10:30 11/21/24 20:51 650 MG Nitroglycerin 0.4 mg Q5MINP PRN SL 11/09/24 10:30 11/19/24 18:15 0.4 MG Ipratropium [place] 0.5 mg Q6HWA NEB 11/09/24 18:00 11/21/24 11:16 0.5 MG Albuterol 2.5 mg Q6HWA NEB 11/09/24 18:00 11/21/24 11:16 2.5 MG Gabapentin 100 mg BID PO 11/09/24 22:00 11/22/24 09:41 100 MG Zolpidem Tartrate 5 mg QHSP PRN PO 11/09/24 15:45 11/22/24 00:55 5 MG Duloxetine HCl 30 mg DAILY PO 11/10/24 10:00 11/22/24 09:45 30 MG Patient Own Medication 1 tab DAILY PO 11/10/24 10:00 UNV Nifedipine 60 mg DAILY PO 11/10/24 10:00 11/22/24 09:43 60 MG Multivit/Ca Carb/ B Cmplx/FA/Prenat 1 tab DAILY PO 11/15/24 10:00 11/22/24 09:44 1 TAB Alprazolam 1 mg TID PO 11/15/24 14:00 11/22/24 15:24 1 MG Pantoprazole Sodium 40 mg DAILY PO 11/16/24 10:00 11/22/24 09:45 40 MG Epoetin Man-epbx 10,000 unit MWF@2100 DC 11/17/24 21:00 Hold 11/17/24 23:38 10,000 UNIT Calcitriol 0.25 mcg DAILY PO 11/18/24 10:00 11/22/24 09:40 0.25 MCG Trimethoprim/ Sulfamethoxazole 1 tab TUTHSA PO 11/20/24 10:00 11/20/24 09:52 1 TAB Calcium Acetate 1,334 mg BIDWM PO 11/19/24 11:00 11/22/24 17:52 1,334 MG Metoprolol Tartrate 100 mg BID PO 11/19/24 22:00 11/22/24 09:44 100 MG Prednisone 40 mg DAILY PO 11/20/24 10:00 11/22/24 09:45 40 MG Examination Physical examination: General Appearance: Alert, Oriented X3, on 4 L oxygen through nasal cannula HEENT: Atraumatic, PERRLA, EOMI, Mucous membrane moist/pink Respiratory: Right IJ tunneled dialysis catheter in the chest, Bilateral rales. Cardiovascular: Regular rate, Normal S1, Normal S2, No murmurs, no chest wall tenderness Abdominal: Normal bowel sounds, Soft, No tenderness, No hepatospenomegaly, No masses Extremities: No edema, No clubbing, No cyanosis, Normal pulses, No tenderness/swelling Skin: No rashes, No breakdown, No significant lesion Neuro: Normal speech, Strength at 5/5 X4 ext, Normal tone, Sensation intact, Cranial nerves 3-12 NL, Reflexes 2+ Psych/Mental Status: Could not be assessed. Examination: LUNGS:Normal, CVS:Normal, MSK:Normal laboratory and microbiology Laboratory Tests 11/22/24 05:49 Test 11/22/24 05:49 Range/Units Serum Glucose 97 74-106 mg/dL Microbiology Date/Time Source Procedure Growth Status 11/11/24 08:38 Bronchial Washings - Final Resulted 11/11/24 08:38 Bronchial Washings - Final Resulted 11/11/24 08:38 Bronchial Washings Pending Resulted 11/11/24 08:38 Bronchial Washings Pending Resulted 11/11/24 08:38 Bronchial Washings - Final See Separate Report... 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 b.i.d. Prednisone 40 mg po daily Calcium acetate 1334 mg p.o. t.i.d. with meals Calcitriol 0.25 mcg p.o. daily Status post kidney biopsy 11/16 Continue IV antibiotics as per primary. Thank you so much for the opportunity to consult on your patient. Nephro team will follow the patient. In case of any questions or concerns please feel free to reach out. Plan discussed with Dr. Wagoner . The patient and caregiver team agreed to the plan. Addendum Patient seen and examined, plan discussed with resident. Agree with above, we will follow closely Plan discussed with: Patient, Other (RN) Dietary Evaluation Review Comments: Nutrition Recommendation 1) Consider 2gm Na diet 2) Monitor PO intake, lab values, weight trend, and I/O Expected Outcomes/Goals: Lab values to improve Fu 3-5 days SAGAR STEWARD RESIDENT Nov 22, 2024 18:03 MEGAN WAGONER MD Nov 22, 2024 21:22
[2024-11-23] VITALS (13 sets, daily range): BP systolic 143–158; BP diastolic 82–100; PULSE 60–85; RESP 16–18; TEMP 98.3–99.3; O2SAT 97–100
[2024-11-23 06:15] LABS: Hematocrit 25.6 % (41.0-53.0); Hemoglobin 8.3 g/dL (13.5-17.5); Mean Corpuscular Hemoglobin 26.2 pg (28.0-32.0); Mean Corpuscular Volume 81.0 fL (80.0-100.0); Nucleated Red Blood Cells % 0.0 %
[2024-11-23 06:22] LABS: Anion Gap 8 (5-15); Chloride 103 mmol/L (98-107); Sodium 144 mmol/L (136-145)
[2024-11-23 06:23] LABS: Carbon Dioxide 33 mmol/L (20-31); Potassium 3.4 mmol/L (3.5-5.1)
[2024-11-23 06:24] LABS: Calcium 8.7 mg/dL (8.7-10.4)
[2024-11-23 06:28] LABS: BUN/Creatinine Ratio 9.5 (10.0-20.0)
[2024-11-23 06:31] LABS: Blood Urea Nitrogen 52 mg/dL (9-23); Glucose 109 mg/dL (74-106)
--- NOTE | 2024-11-23 07:20 | ECG ---
[facility] Test Date: 2024-11-22 Test Time: 19:09:46 Pat Name: KERRI OCONNELL Department: Respiratoy Room: 0221T A Gender: M Shrink Pit Supervisor: : 1965 Requested By: SHLOMO GARNER Order Number: [id number] Reading MD: Andrea Gallegos Measurements Intervals [place] Rate: 68 P: 58 MO: 146 QRS: 49 QRSD: 98 T: 28 QT: 425 QTc: 453 Interpretive Statements Sinus rhythm Electronically Signed On 11-23-2024 15:05:55 PDT by Andrea Gallegos Please click the below link to view image of tracing.
[2024-11-23] MEDS ORDERED: CALC0.25 PO (09:13)
[2024-11-23] MEDS ORDERED: CALC667C PO (09:13)
[2024-11-23] MEDS ORDERED: BACDST PO (09:13)
[2024-11-23] MEDS ORDERED: NIFE1TAB30 PO (09:13)
[2024-11-23] MEDS ORDERED: METO-158 PO (09:13)
[2024-11-23] MEDS ORDERED: PRED20TA2 PO (09:13)
--- NOTE | 2024-11-23 09:20 | DVHDS2 ---
Discharge Summary Date of Admission Nov 09, 2024 at 11:07 Date of Discharge: Nov 23, 2024 Admitting Diagnosis Shortness of breath and generalized weakness Wounds: Hemodialysis access Labs/Diagnostic Data: Laboratory Results Test 11/23/24 05:49 11/22/24 05:49 11/20/24 06:08 11/19/24 14:00 White Blood Count 8.2 10^3/uL (4.4-10.8) Red Blood Count 3.16 10^6/uL (4.5-5.90) Hemoglobin 8.3 g/dL (13.5-17.5) Hematocrit 25.6 % (41.0-53.0) Mean Corpuscular Volume 81.0 fL (80.0-100.0) Mean Corpuscular Hemoglobin 26.2 pg (28.0-32.0) Mean Corpuscular Hemoglobin Concent 32.4 g/dL (32.0-36.0) Red Cell Distribution Width 25.4 % (11.8-14.3) Platelet Count 179 10^3/uL (140-450) Mean Platelet Volume 7.7 fL (6.9-10.8) Neutrophils (%) (Auto) 82.0 % (37.0-80.0) Lymphocytes (%) (Auto) 5.0 % (10.0-50.0) Monocytes (%) (Auto) 11.2 % (0.0-12.0) Eosinophils (%) (Auto) 1.6 % (0.0-7.0) Basophils (%) (Auto) 0.2 % (0.0-2.0) Neutrophils # (Auto) 6.7 10 ^3/uL (1.6-8.6) Lymphocytes # (Auto) 0.4 10 ^3/uL (0.4-5.4) Monocytes # (Auto) 0.9 10 ^3/uL (0-1.3) Eosinophils # (Auto) 0.1 10 ^3/uL (0-0.8) Basophils # (Auto) 0 10 ^3/uL (0-0.2) Nucleated Red Blood Cells 0.0 % Sodium Level 144 mmol/L (136-145) Potassium Level 3.4 mmol/L (3.5-5.1) Chloride Level 103 mmol/L (98-107) Carbon Dioxide Level 33 mmol/L (20-31) Anion Gap 8 (5-15) Blood Urea Nitrogen 52 mg/dL (9-23) Creatinine 5.49 mg/dL (0.700-1.30) Glomerular Filtration Rate Calc 11 mL/min (>90) BUN/Creatinine Ratio 9.5 (10.0-20.0) Serum Glucose 109 mg/dL (74-106) Calcium Level 8.7 mg/dL (8.7-10.4) Total Bilirubin 0.5 mg/dL (0.2-1.0) Aspartate Amino Transferase (AST) 18 U/L (13-40) Alanine Aminotransferase (ALT) 10 U/L (7-40) Alkaline Phosphatase 52 U/L (46-116) Total Protein 5.0 g/dL (5.7-8.2) Albumin 2.8 g/dL (3.2-4.8) Erythrocyte Sedimentation Rate 14 mm/hr (0-20) Uric Acid 7.0 mg/dL (3.7-9.2) B-Type Natriuretic Peptide 1102.58 pg/mL (0-100) Urine Color Light-brown (Yellow) Urine Clarity Turbid (Clear) Urine pH 5.5 (5.0-9.0) Urine Specific [place] 1.011 (1.001-1.035) Urine Protein 2+ (Negative) Urine Ketones Negative (Negative) Urine Blood 3+ /uL (Negative) Urine Nitrite Negative (Negative) Urine Bilirubin Negative (Negative) Urine Urobilinogen Normal mg/dL (Negative) Urine Leukocyte Esterase Trace /uL (Negative) Urine RBC 1479 /hpf (0 - 3) Urine Microscopic WBC 50 /HPF (0-3) Urine Squamous Epithelial Cells Few /hpf (<5) Urine Bacteria None seen /hpf (None Seen) Urine Mucus Few (None Seen) Urine Glucose 2+ mg/dL (Normal) Test 11/16/24 17:17 11/15/24 06:29 11/15/24 06:09 11/13/24 06:28 Magnesium Level 2.1 mg/dL (1.6-2.6) Parathyroid Hormone (Intact) 321.1 pg/mL (18.4-80.1) Phosphorus Level 7.3 mg/dL (2.4-5.1) Vitamin D 25-Hydroxy 29.3 ng/mL (30.0-100) Platelet Estimate Adequate Anisocytosis (manual) Slight Microcytosis Slight Rouleaux Present Test 11/12/24 07:54 11/11/24 06:41 11/10/24 14:40 11/09/24 17:50 Anti-Glomerular Basement Memb Ab <0.2 units (0.0-0.9) Prothrombin Time 10.5 sec (9.3-11.8) Prothrombin Time INR 0.99 (0.9-1.15) Activated Partial Thromboplast Time 35.0 SEC (24.5-34.5) Influenza Type A Antigen Negative (Negative) Influenza Type B Antigen Negative (Negative) SARS-CoV-2 Antigen (Rapid) Negative (NEGATIVE) Anti-Nuclear Antibody Comment Comment (.) Cytoplasmic ANCA (c-ANCA) Antibody <1:20 titer (Neg:<1:20) Anti-Proteinase 3 (c-ANCA) 2.0 units (0.0-0.9) Atypical p-ANCA <1:20 titer (Neg:<1:20) Perinuclear ANCA (p-ANCA) Antibody >1:640 titer (Neg:<1:20) Myeloperoxidase Antibody >8.0 units (0.0-0.9) ISHA-1 Antibody <0.2 AI (0.0-0.9) SS-A/Ro Antibody 0.4 AI (0.0-0.9) SS-B/La Antibody <0.2 AI (0.0-0.9) Sm Antibody <0.2 AI (0.0-0.9) CERTIFIED CORPORATE TRAVEL EXECUTIVE Antibody 0.2 AI (0.0-0.9) Scl-70 (Scleroderma) Antibody <0.2 AI (0.0-0.9) Anti-Double Strand DNA Antibody 19 IU/mL (0-9) Chromatin Antibody 1.4 AI (0.0-0.9) Centromere B Antibody <0.2 AI (0.0-0.9) Complement C3 125 mg/dL (82-167) Complement C4 12 mg/dL (12-38) Test 11/09/24 14:59 11/09/24 10:00 11/09/24 09:22 11/09/24 00:00 Urine Creatinine 22.28 mg/dL (30.0-125.0) Urine Sodium 89 mmol/L (40-220) Urine Amorphous Crystals Few /hpf (None Seen) Iron Level 29 ug/dL (65-175) Total Iron Binding Capacity 260 ug/dL (250-425) Percent Iron Saturation 11.2 % (20-55) Ferritin 140.7 ng/mL (22-322) Ammonia < 10 umol/L (11-32) Hepatitis A Antibody Total Positive (Negative) Hepatitis B Surface Antigen Negative (Negative) Hepatitis B Surface Antibody Negative (Negative) Hepatitis B Core Total Antibody Negative (Negative) Hepatitis C Antibody Negative (Negative) Urine Protein/Creatinine Ratio 3.15 Urine Total Protein 70.6 mg/dL (1-14) Other Laboratory Tests 11/23/24 05:49 Brief Hx & Hospital Course: 59-year-old male with a history of cirrhosis of liver congestive heart failure came in for shortness of breaths found to have community-acquired pneumonia treated with the Bactrim-DS patient had acute kidney injury superimposed on chronic kidney disease secondary to vasculitis. 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 Seen by Nephrology Dr. Hogan . Patient had tunneled dialysis cath placed by radiologist and received hemodialysis while in the hospital. Patient has chronic anemia hypoalbuminemia hyperphosphatemia and hyperparathyroidism. outpatient chart time arranged Friday with the use renal care. The patient was advised accordingly in the presence of KRISTIN Magana. Patient will be discharged home after dialysis today. He was advised to keep his appointment with the [facility] renal care for regular dialysis Prescription for prednisone metoprolol tartrate phoslo calcitriol Procardia XL and Bactrim-DS transmitted to the [facility] pharmacy General condition poor but stable at the time of discharge Consults/Reason for consult Nephrology Dr. 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 Friday with renal care Take medications as prescribed Medications: [facility] Scheduled Calcitriol (Calcitriol), 1 CAP PO DAILY Calcium Acetate (Phosphate Bin (Calcium Acetate), 1,334 MG PO TIDWM Docusate Sodium (Docusate Sodium), 1 CAP PO BID, (Reported) Duloxetine HCl (Duloxetine HCl), 1 CAP PO DAILY, (Reported) Furosemide (Furosemide), 1 TAB PO DAILY Gabapentin (Gabapentin), 100 MG PO BID, (Reported) Hydralazine Hcl (Hydralazine Hcl), 1 TAB PO TID, (Reported) Metoprolol Tartrate (Lopressor Tablet), 1 TAB PO BID, (Reported) Metoprolol Tartrate (Metoprolol Tartrate), 50 MG PO BID Nifedipine (Nifedipine Er), 1 TAB PO DAILY, (Reported) Nifedipine (Nifedipine Er), 60 MG PO DAILY Prednisone (Prednisone), 20 MG PO DAILY Sulfamethoxazole W/Trimethopri (Bactrim Ds Tablet), 1 TAB PO BID Scheduled PRN Lactulose (Lactulose), 30 ML PO BIDP PRN, (Reported) Morphine Sulfate (Morphine Sulfate), 1 TAB PO QID PRN, (Reported) Zolpidem Tartrate (Zolpidem Tartrate), 1 TAB PO QHSP PRN, (Reported) Miscellaneous Medications Hydrocodone-Acetaminophen (Hydrocodone Bitartrate/AC 10-300 mg), PO, (Reported) Nitroglycerin (Ntrostat Sublingual), (Reported) Ondansetron HCl (Ondansetron), (Reported) 39 (Time taken for discharge summary 39 minutes) Discharge Statement: "Patient was advised to return to the ER or call 911 if any headaches, dizziness, shortness of breath, chest pain, abdominal pain, bleeding, fevers, or worsening of medical condition. Patient was counseled about treatment plan, medications, possible side effects, patientverbalized understanding. All questions were answered to the best of my ability. 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
--- NOTE | 2024-11-23 10:13 | DVHPN2 ---
Progress Note Date Seen: Nov 23, 2024 Resident Creating Document: SAGAR STEWARD RESIDENT Medical Necessity Reason Pt with a Central, PICC or Fol: No Subjective Review of Systems Patient was seen and examined on the bedside. He is alert oriented x3 and on nasal cannula 4 L. Patient was supposed to be discharged after hemodialysis today but discharge was hold because pus coming out from hemodialysis catheter site and sent the specimen for culture and also ordered blood culture. Objective vital signs Vital Sign Date Time Temp Pulse Resp B/P (MAP) Pulse Ox O2 Delivery O2 Flow Rate FiO2 11/23/24 09:00 98.7 60 18 153/82 (105) 97 98.7 11/23/24 06:19 Nasal Cannula* 4 36 Total Intake and Output 11/22/24 11/22/24 11/23/24 15:00 23:00 07:00 Intake Total 340 ml 440 ml 200 ml Output Total 351 ml 2 ml Balance 340 ml 89 ml 198 ml medications Current Medications Medications Dose Ordered Sig/Justin Route Start Time Stop Time Status Last Admin Dose Admin Ondansetron HCl 4 mg Q4HP PRN IV 11/09/24 10:30 11/22/24 22:40 4 MG Docusate Sodium 100 mg BIDPRN PRN PO 11/09/24 10:30 11/23/24 00:05 100 MG Acetaminophen 650 mg Q6HP PRN PO 11/09/24 10:30 11/21/24 20:51 650 MG Nitroglycerin 0.4 mg Q5MINP PRN SL 11/09/24 10:30 11/19/24 18:15 0.4 MG Ipratropium [place] 0.5 mg Q6HWA NEB 11/09/24 18:00 11/21/24 11:16 0.5 MG Albuterol 2.5 mg Q6HWA NEB 11/09/24 18:00 11/21/24 11:16 2.5 MG Gabapentin 100 mg BID PO 11/09/24 22:00 11/22/24 22:34 100 MG Zolpidem Tartrate 5 mg QHSP PRN PO 11/09/24 15:45 11/23/24 00:05 5 MG Duloxetine HCl 30 mg DAILY PO 11/10/24 10:00 11/22/24 09:45 30 MG Patient Own Medication 1 tab DAILY PO 11/10/24 10:00 UNV Nifedipine 60 mg DAILY PO 11/10/24 10:00 11/22/24 09:43 60 MG Multivit/Ca Carb/ B Cmplx/FA/Prenat 1 tab DAILY PO 11/15/24 10:00 11/22/24 09:44 1 TAB Alprazolam 1 mg TID PO 11/15/24 14:00 11/22/24 15:24 1 MG Pantoprazole Sodium 40 mg DAILY PO 11/16/24 10:00 11/22/24 09:45 40 MG Epoetin Man-epbx 10,000 unit MWF@2100 [place] 11/17/24 21:00 Hold 11/17/24 23:38 10,000 UNIT Calcitriol 0.25 mcg DAILY PO 11/18/24 10:00 11/22/24 09:40 0.25 MCG Trimethoprim/ Sulfamethoxazole 1 tab TUTHSA PO 11/20/24 10:00 11/20/24 09:52 1 TAB Calcium Acetate 1,334 mg BIDWM PO 11/19/24 11:00 11/22/24 17:52 1,334 MG Metoprolol Tartrate 100 mg BID PO 11/19/24 22:00 11/22/24 22:34 100 MG Prednisone 40 mg DAILY PO 11/20/24 10:00 11/22/24 09:45 40 MG Examination Physical examination: General Appearance: Alert, Oriented X3, on 4 L oxygen through nasal cannula HEENT: Atraumatic, PERRLA, EOMI, Mucous membrane moist/pink Respiratory: Right IJ tunneled dialysis catheter in the chest, Bilateral rales. Cardiovascular: Regular rate, Normal S1, Normal S2, No murmurs, no chest wall tenderness Abdominal: Normal bowel sounds, Soft, No tenderness, No hepatospenomegaly, No masses Extremities: No edema, No clubbing, No cyanosis, Normal pulses, No tenderness/swelling Skin: No rashes, No breakdown, No significant lesion Neuro: Normal speech, Strength at 5/5 X4 ext, Normal tone, Sensation intact, Cranial nerves 3-12 NL, Reflexes 2+ Psych/Mental Status: Could not be assessed. Examination: LUNGS:Normal, CVS:Normal, MSK:Normal laboratory and microbiology Laboratory Tests 11/23/24 05:49 Test 11/23/24 05:49 Range/Units Serum Glucose 109 H 74-106 mg/dL Microbiology Date/Time Source Procedure Growth Status 11/11/24 08:38 Bronchial Washings - Final Resulted 11/11/24 08:38 Bronchial Washings - Final Resulted 11/11/24 08:38 Bronchial Washings Pending Resulted 11/11/24 08:38 Bronchial Washings Pending Resulted 11/11/24 08:38 Bronchial Washings - Final See Separate Report... 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 b.i.d. Prednisone 40 mg po daily Calcium acetate 1334 mg p.o. t.i.d. with meals Calcitriol 0.25 mcg p.o. daily Status post kidney biopsy 11/16 Continue IV antibiotics as per primary. Arranged outpatient chair time with . renal Care on Friday, and Friday Thank you so much for the opportunity to consult on your patient. Nephro team will follow the patient. In case of any questions or concerns please feel free to reach out. Plan discussed with Dr. Wagoner . The patient and caregiver team agreed to the plan. Plan discussed with: Patient, Other (RN) My Orders My Orders Orders - SAGAR STEWARD Procedure Category Date Status Time * Wound Consult CONS 11/23/24 Transmitted Dietary Evaluation Review Comments: Nutrition Recommendation 1) Consider 2gm Na diet 2) Monitor PO intake, lab values, weight trend, and I/O Expected Outcomes/Goals: Lab values to improve Fu 3-5 days Total Time (mins): 50 SAGAR STEWARD Nov 23, 2024 10:13 MEGAN WAGONER MD Nov 23, 2024 20:29
[2024-11-23] MEDS: POTASSIUM CHL 20 Meq TABLET PO ONE (10:21)
[2024-11-23] MEDS: HYDROcodone-ACET 5/325MG TAB PO ONE (17:53)
[2024-11-24] VITALS (9 sets, daily range): BP systolic 125–166; BP diastolic 65–97; PULSE 59–129; RESP 17–20; TEMP 97.4–99; O2SAT 93–99
[2024-11-24 07:11] LABS: Anion Gap 9 (5-15); Chloride 104 mmol/L (98-107); Potassium 3.5 mmol/L (3.5-5.1); Sodium 145 mmol/L (136-145)
[2024-11-24 07:17] LABS: BUN/Creatinine Ratio 8.3 (10.0-20.0); Glucose 94 mg/dL (74-106)
[2024-11-24 07:18] LABS: Blood Urea Nitrogen 40 mg/dL (9-23); Calcium 8.5 mg/dL (8.7-10.4); Carbon Dioxide 32 mmol/L (20-31)
[2024-11-24] MEDS: MIDAZOLAM HCL 2MG/2ML 2ml VIAL (1mg/ml) IV ONE (07:39)
[2024-11-24] MEDS: SODIUM CHL 0.9% 1000 ML BAG XX ONE ×4 (07:39→07:42)
[2024-11-24] MEDS: MIDAZOLAM HCL 2MG/2ML 2ml VIAL (1mg/ml) ONE ×2 (07:39→07:41)
[2024-11-24] MEDS: fentaNYL CITRATE 100 MCG/2 ML VL IV ONE (07:39)
[2024-11-24] MEDS: LIDOCAINE 2%HCL (LOCAL ANESTH.) INJ 10ml MDV ONE (07:39)
[2024-11-24] MEDS: fentaNYL CITRATE 100 MCG/2 ML VL ONE ×2 (07:40)
[2024-11-24] MEDS: LIDOCAINE 2%HCL (LOCAL ANESTH.) INJ 20ML MDV ONE (07:40)
[2024-11-24] MEDS: HEPARIN SODIUM (PORCINE) 5000 UNITS/ML 1ML VIAL ONE (07:41)
[2024-11-24] MEDS: EPOETIN ALFA-EPBX 10,000 UNIT/1ML VIAL SC ONE (07:42)
--- NOTE | 2024-11-24 08:35 | DVHPN2 ---
Reviewed: Care Plan, H&P, Labs, Medications, Previous Orders, Radiology Changes from previous H/P or p: No Changes Eyes: No Pain, No Vision change, No Conjunctivae inflammation, No Eyelid inflammation, No Other, No Redness ENT: No Ear pain, No Ear discharge, No Nose pain, No Nose discharge, No Nose congestion, No Mouth pain, No Mouth swelling, No Throat pain, No Throat swelling, No Other Cardiovascular: No Chest Pain, No Palpitations, No Orthopnea, No Paroxysmal Noc. Dyspnea, No Edema, No Lt Headedness, No Other Respiratory: Cough; No Dry; Shortness of breath, SOB with excertion; No Wheezing; Hemoptysis; No Pleuritic Pain, No Sputum, No Other Gastrointestinal: No Nausea, No Vomiting, No Abdominal Pain, No Diarrhea, No Constipation, No Melena, No Hematochezia, No Other Genitourinary: No Dysuria, No Frequency, No Incontinence, No Hematuria, No Retention, No Other Musculoskeletal: No other, No neck pain, No shoulder pain, No arm pain, No back pain, No hand pain, No leg pain, No foot pain Skin: No Rash, No Lesions, No Jaundice, No Bruising, No Other Objective Vitals Vital Signs Date Time Temp Pulse Resp B/P (MAP) Pulse Ox O2 Delivery O2 Flow Rate FiO2 11/24/24 05:00 97.4 69 17 142/88 (106) 95 97.4 11/23/24 20:30 Nasal Cannula* 4 36 Intake/Output Intake and Output 11/24/24 07:00 Intake Total 1130 ml Output Total 475 ml Balance 655 ml Intake Oral 1130 ml Output Urine Total 475 ml # Voids 5 Medications Current Medications Medications Dose Ordered Sig/Justin Route Start Time Stop Time Status Last Admin Dose Admin Ondansetron HCl 4 mg Q4HP PRN IV 11/09/24 10:30 11/24/24 06:16 4 MG Docusate Sodium 100 mg BIDPRN PRN PO 11/09/24 10:30 11/23/24 00:05 100 MG Acetaminophen 650 mg Q6HP PRN PO 11/09/24 10:30 11/21/24 20:51 650 MG Nitroglycerin 0.4 mg Q5MINP PRN SL 11/09/24 10:30 11/19/24 18:15 0.4 MG Ipratropium [place] 0.5 mg Q6HWA NEB 11/09/24 18:00 11/21/24 11:16 0.5 MG Albuterol 2.5 mg Q6HWA NEB 11/09/24 18:00 11/21/24 11:16 2.5 MG Gabapentin 100 mg BID PO 11/09/24 22:00 11/23/24 10:15 100 MG Zolpidem Tartrate 5 mg QHSP PRN PO 11/09/24 15:45 11/24/24 00:52 5 MG Duloxetine HCl 30 mg DAILY PO 11/10/24 10:00 11/22/24 09:45 30 MG Patient Own Medication 1 tab DAILY PO 11/10/24 10:00 UNV Nifedipine 60 mg DAILY PO 11/10/24 10:00 11/23/24 10:14 60 MG Multivit/Ca Carb/ B Cmplx/FA/Prenat 1 tab DAILY PO 11/15/24 10:00 11/23/24 10:11 1 TAB Alprazolam 1 mg TID PO 11/15/24 14:00 11/22/24 15:24 1 MG Pantoprazole Sodium 40 mg DAILY PO 11/16/24 10:00 11/23/24 10:15 40 MG Epoetin Man-epbx 10,000 unit MWF@2100 [place] 11/17/24 21:00 Hold 11/17/24 23:38 10,000 UNIT Calcitriol 0.25 mcg DAILY PO 11/18/24 10:00 11/23/24 10:15 0.25 MCG Trimethoprim/ Sulfamethoxazole 1 tab TUTHSA PO 11/20/24 10:00 11/23/24 10:15 1 TAB Calcium Acetate 1,334 mg BIDWM PO 11/19/24 11:00 11/24/24 08:27 1,334 MG Metoprolol Tartrate 100 mg BID PO 11/19/24 22:00 11/23/24 22:30 100 MG Prednisone 40 mg DAILY PO 11/20/24 10:00 11/23/24 10:15 40 MG Laboratory Results Laboratory Tests 11/23/24 05:49 11/24/24 06:01 Chemistry Test 11/24/24 06:01 Calcium Level 8.5 mg/dL (8.7-10.4) L Urinalysis Test 11/09/24 00:00 11/09/24 10:00 11/09/24 14:59 11/19/24 14:00 Urine Protein/Creatinine Ratio 3.15 Urine Total Protein 70.6 mg/dL (1-14) H Urine Amorphous Crystals Few /hpf (None Seen) Urine Creatinine 22.28 mg/dL (30.0-125.0) L Urine Sodium 89 mmol/L (40-220) Urine Color Light-brown (Yellow) Urine Clarity Turbid (Clear) H Urine pH 5.5 (5.0-9.0) Urine Specific [place] 1.011 (1.001-1.035) Urine Protein 2+ (Negative) H Urine Ketones Negative (Negative) Urine Blood 3+ /uL (Negative) H Urine Nitrite Negative (Negative) Urine Bilirubin Negative (Negative) Urine Urobilinogen Normal mg/dL (Negative) Urine Leukocyte Esterase Trace /uL (Negative) Urine RBC 1479 /hpf (0 - 3) Urine Microscopic WBC 50 /HPF (0-3) H Urine Squamous Epithelial Cells Few /hpf (<5) Urine Bacteria None seen /hpf (None Seen) Urine Mucus Few (None Seen) Urine Glucose 2+ mg/dL (Normal) H Microbiology Microbiology Date/Time Source Procedure Growth Status 11/11/24 08:38 Bronchial Washings - Final Resulted 11/11/24 08:38 Bronchial Washings - Final Resulted 11/11/24 08:38 Bronchial Washings Pending Resulted 11/11/24 08:38 Bronchial Washings Pending Resulted 11/11/24 08:38 Bronchial Washings - Final See Separate Report... Resulted 11/09/24 17:00 Nose MRSA Screen - Final Complete Labs and/or images reviewed: Labs reviewed by me, Image(s) reviewed by me Assessment/Plan Assessment/Plan Hemoptysis: Consult by Dr. Mix appreciated, status post bronchoscopy by Dr. Mix with the findings of hemorrhage from TAYLER and LLL bronchus Acute on chronic blood loss anemia hemoglobin improved from 6.9 to 8.4 after 1 unit RBC transfusion Stopped with cold saline. 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 Hogan appreciated Status post kidney biopsy pathology report pending Congestive heart failure Pulmonary edema Anemia, microcytic Patient was advised about his current diagnosis management and plan for temporary dialysis Patient has no family Sarah test negative Flu test negative Patient is discharged home on 11/23/2024 Dr Edge noticed possible leaking from dialysis cath with possible pus, blood cultures were ordered and discharge being held Plan discussed with: Patient My Orders Orders - SHLOMO GARNER MD Procedure Category Date Status Time Discharge DISCHARGE 11/23/24 Transmitted 09:14 Wound Culture W/ Gs JEANNIE 11/24/24 Logged 06:40 Date of Service: Nov 24, 2024 Billing Provider: SHLOMO GARNER MD Common Visit Codes: [id number] INP/OBS CARE(HIGH) SHLOMO GARNER MD Nov 24, 2024 08:35
--- NOTE | 2024-11-24 13:45 | DVHPN2 ---
Progress Note Date Seen: Nov 24, 2024 Resident Creating Document: SAGAR STEWARD RESIDENT Medical Necessity Reason Pt with a Central, PICC or Fol: No Subjective Review of Systems Patient was seen and examined on the bedside. He is alert oriented x3 and on nasal cannula 4 L Objective vital signs Vital Sign Date Time Temp Pulse Resp B/P (MAP) Pulse Ox O2 Delivery O2 Flow Rate FiO2 11/24/24 12:33 98.9 60 18 166/96 (119) 99 98.9 11/23/24 20:30 Nasal Cannula* 4 36 Total Intake and Output 11/23/24 11/23/24 11/24/24 15:00 23:00 07:00 Intake Total 780 ml 350 ml Output Total 225 ml 250 ml Balance 555 ml 100 ml medications Current Medications Medications Dose Ordered Sig/Justin Route Start Time Stop Time Status Last Admin Dose Admin Ondansetron HCl 4 mg Q4HP PRN IV 11/09/24 10:30 11/24/24 06:16 4 MG Docusate Sodium 100 mg BIDPRN PRN PO 11/09/24 10:30 11/23/24 00:05 100 MG Acetaminophen 650 mg Q6HP PRN PO 11/09/24 10:30 11/21/24 20:51 650 MG Nitroglycerin 0.4 mg Q5MINP PRN SL 11/09/24 10:30 11/19/24 18:15 0.4 MG Ipratropium [place] 0.5 mg Q6HWA NEB 11/09/24 18:00 11/21/24 11:16 0.5 MG Albuterol 2.5 mg Q6HWA NEB 11/09/24 18:00 11/21/24 11:16 2.5 MG Gabapentin 100 mg BID PO 11/09/24 22:00 11/23/24 10:15 100 MG Zolpidem Tartrate 5 mg QHSP PRN PO 11/09/24 15:45 11/24/24 00:52 5 MG Duloxetine HCl 30 mg DAILY PO 11/10/24 10:00 11/22/24 09:45 30 MG Patient Own Medication 1 tab DAILY PO 11/10/24 10:00 UNV Nifedipine 60 mg DAILY PO 11/10/24 10:00 11/24/24 09:07 60 MG Multivit/Ca Carb/ B Cmplx/FA/Prenat 1 tab DAILY PO 11/15/24 10:00 11/24/24 09:07 1 TAB Alprazolam 1 mg TID PO 11/15/24 14:00 11/22/24 15:24 1 MG Pantoprazole Sodium 40 mg DAILY PO 11/16/24 10:00 11/24/24 09:07 40 MG Epoetin Man-epbx 10,000 unit MWF@2100 [place] 11/17/24 21:00 Hold 11/17/24 23:38 10,000 UNIT Calcitriol 0.25 mcg DAILY PO 11/18/24 10:00 11/24/24 09:08 0.25 MCG Trimethoprim/ Sulfamethoxazole 1 tab TUTHSA PO 11/20/24 10:00 11/23/24 10:15 1 TAB Calcium Acetate 1,334 mg BIDWM PO 11/19/24 11:00 11/24/24 08:27 1,334 MG Metoprolol Tartrate 100 mg BID PO 11/19/24 22:00 11/24/24 09:07 100 MG Prednisone 40 mg DAILY PO 11/20/24 10:00 11/24/24 09:08 40 MG Examination Physical examination: General Appearance: Alert, Oriented X3, on 4 L oxygen through nasal cannula HEENT: Atraumatic, PERRLA, EOMI, Mucous membrane moist/pink Respiratory: Right IJ tunneled dialysis catheter in the chest, Bilateral rales. Cardiovascular: Regular rate, Normal S1, Normal S2, No murmurs, no chest wall tenderness Abdominal: Normal bowel sounds, Soft, No tenderness, No hepatospenomegaly, No masses Extremities: No edema, No clubbing, No cyanosis, Normal pulses, No tenderness/swelling Skin: No rashes, No breakdown, No significant lesion Neuro: Normal speech, Strength at 5/5 X4 ext, Normal tone, Sensation intact, Cranial nerves 3-12 NL, Reflexes 2+ Psych/Mental Status: Could not be assessed. laboratory and microbiology Laboratory Tests 11/24/24 06:01 11/23/24 05:49 Test 11/24/24 06:01 Range/Units Serum Glucose 94 74-106 mg/dL Microbiology Date/Time Source Procedure Growth Status 11/23/24 06:33 Catheter Site Gram Stain - Final Resulted 11/23/24 06:33 Catheter Site Wound Culture Pending Resulted 11/11/24 08:38 Bronchial Washings - Final Resulted 11/11/24 08:38 Bronchial Washings - Final Resulted 11/11/24 08:38 Bronchial Washings Pending Resulted 11/11/24 08:38 Bronchial Washings Pending Resulted 11/11/24 08:38 Bronchial Washings - Final See Separate Report... 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 Epogen 06520 subQ 3 times weekly Strict I&Os Renal diet Blood pressure control Metoprolol 100 mg p.o. b.i.d. Prednisone 40 mg po daily Calcium acetate 1334 mg p.o. t.i.d. with meals Calcitriol 0.25 mcg p.o. daily Status post kidney biopsy 11/16-- Continue IV antibiotics as per primary. Arranged outpatient chair time with . renal Care on Friday, and Friday Thank you so much for the opportunity to consult on your patient. Nephro team will follow the patient. In case of any questions or concerns please feel free to reach out. Plan discussed with Dr. Wagoner . The patient and caregiver team agreed to the plan. Addendum Patient seen and examined, plan discussed with resident. Agree with above, we will follow closely will need rituxan in 1 month await blood and exit site cx Plan discussed with: Patient, Other (RN) Dietary Evaluation Review Comments: Nutrition Recommendation 1) Consider 2gm Na diet 2) Monitor PO intake, lab values, weight trend, and I/O Expected Outcomes/Goals: Lab values to improve Fu 3-5 days SAGAR STEWARD RESIDENT Nov 24, 2024 13:45 MEGAN WAGONER MD Nov 24, 2024 19:04
[2024-11-25] VITALS (8 sets, daily range): BP systolic 138–156; BP diastolic 79–95; PULSE 57–69; RESP 18–20; TEMP 98.1–98.6; O2SAT 94–100
[2024-11-25] MEDS: ZOLPIDEM TARTRATE 5 MG TAB PO ONE (01:20)
[2024-11-25 06:52] LABS: Chloride 104 mmol/L (98-107); Potassium 3.8 mmol/L (3.5-5.1)
[2024-11-25 06:53] LABS: Anion Gap 8 (5-15)
[2024-11-25 06:56] LABS: Calcium 8.0 mg/dL (8.7-10.4); Carbon Dioxide 35 mmol/L (20-31); Sodium 147 mmol/L (136-145)
[2024-11-25 06:58] LABS: BUN/Creatinine Ratio 7.3 (10.0-20.0); Glucose 88 mg/dL (74-106)
--- NOTE | 2024-11-25 06:58 | ECG ---
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
[2024-11-25 07:04] LABS: Blood Urea Nitrogen 33 mg/dL (9-23)
--- NOTE | 2024-11-25 08:03 | ECG ---
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
--- NOTE | 2024-11-25 09:50 | DVHPN2 ---
Reviewed: Care Plan, H&P, Labs, Medications, Previous Orders, Radiology Changes from previous H/P or p: No Changes Eyes: No Pain, No Vision change, No Conjunctivae inflammation, No Eyelid inflammation, No Other, No Redness ENT: No Ear pain, No Ear discharge, No Nose pain, No Nose discharge, No Nose congestion, No Mouth pain, No Mouth swelling, No Throat pain, No Throat swelling, No Other Cardiovascular: No Chest Pain, No Palpitations, No Orthopnea, No Paroxysmal Noc. Dyspnea, No Edema, No Lt Headedness, No Other Respiratory: Cough; No Dry; Shortness of breath, SOB with excertion; No Wheezing; Hemoptysis; No Pleuritic Pain, No Sputum, No Other Gastrointestinal: No Nausea, No Vomiting, No Abdominal Pain, No Diarrhea, No Constipation, No Melena, No Hematochezia, No Other Genitourinary: No Dysuria, No Frequency, No Incontinence, No Hematuria, No Retention, No Other Musculoskeletal: No other, No neck pain, No shoulder pain, No arm pain, No back pain, No hand pain, No leg pain, No foot pain Skin: No Rash, No Lesions, No Jaundice, No Bruising, No Other Objective Vitals Vital Signs Date Time Temp Pulse Resp B/P (MAP) Pulse Ox O2 Delivery O2 Flow Rate FiO2 11/25/24 08:31 98.1 65 18 156/84 (108) 95 98.1 11/24/24 20:30 Nasal Cannula* 4 36 Intake/Output Intake and Output 11/25/24 07:00 Intake Total 620 ml Output Total 951 ml Balance -331 ml Intake Oral 620 ml Output Urine Total 950 ml Stool Total 1 ml # Voids 8 Medications Current Medications Medications Dose Ordered Sig/Justin Route Start Time Stop Time Status Last Admin Dose Admin Ondansetron HCl 4 mg Q4HP PRN IV 11/09/24 10:30 11/24/24 06:16 4 MG Docusate Sodium 100 mg BIDPRN PRN PO 11/09/24 10:30 11/23/24 00:05 100 MG Acetaminophen 650 mg Q6HP PRN PO 11/09/24 10:30 11/21/24 20:51 650 MG Nitroglycerin 0.4 mg Q5MINP PRN SL 11/09/24 10:30 11/24/24 20:51 0.4 MG Gabapentin 100 mg BID PO 11/09/24 22:00 11/23/24 10:15 100 MG Duloxetine HCl 30 mg DAILY PO 11/10/24 10:00 11/22/24 09:45 30 MG Patient Own Medication 1 tab DAILY PO 11/10/24 10:00 UNV Nifedipine 60 mg DAILY PO 11/10/24 10:00 11/24/24 09:07 60 MG Multivit/Ca Carb/ B Cmplx/FA/Prenat 1 tab DAILY PO 11/15/24 10:00 11/24/24 09:07 1 TAB Alprazolam 1 mg TID PO 11/15/24 14:00 11/22/24 15:24 1 MG Pantoprazole Sodium 40 mg DAILY PO 11/16/24 10:00 11/24/24 09:07 40 MG Epoetin Man-epbx 10,000 unit MWF@2100 SC 11/17/24 21:00 Hold 11/17/24 23:38 10,000 UNIT Calcitriol 0.25 mcg DAILY PO 11/18/24 10:00 11/24/24 09:08 0.25 MCG Trimethoprim/ Sulfamethoxazole 1 tab TUTHSA PO 11/20/24 10:00 11/23/24 10:15 1 TAB Calcium Acetate 1,334 mg BIDWM PO 11/19/24 11:00 11/24/24 08:27 1,334 MG Metoprolol Tartrate 100 mg BID PO 11/19/24 22:00 11/24/24 23:20 100 MG Prednisone 40 mg DAILY PO 11/20/24 10:00 11/24/24 09:08 40 MG Laboratory Results Laboratory Tests 11/23/24 05:49 11/25/24 04:11 Chemistry Test 11/25/24 04:11 Calcium Level 8.0 mg/dL (8.7-10.4) L Urinalysis Test 11/09/24 00:00 11/09/24 10:00 11/09/24 14:59 11/19/24 14:00 Urine Protein/Creatinine Ratio 3.15 Urine Total Protein 70.6 mg/dL (1-14) H Urine Amorphous Crystals Few /hpf (None Seen) Urine Creatinine 22.28 mg/dL (30.0-125.0) L Urine Sodium 89 mmol/L (40-220) Urine Color Light-brown (Yellow) Urine Clarity Turbid (Clear) H Urine pH 5.5 (5.0-9.0) Urine Specific [place] 1.011 (1.001-1.035) Urine Protein 2+ (Negative) H Urine Ketones Negative (Negative) Urine Blood 3+ /uL (Negative) H Urine Nitrite Negative (Negative) Urine Bilirubin Negative (Negative) Urine Urobilinogen Normal mg/dL (Negative) Urine Leukocyte Esterase Trace /uL (Negative) Urine RBC 1479 /hpf (0 - 3) Urine Microscopic WBC 50 /HPF (0-3) H Urine Squamous Epithelial Cells Few /hpf (<5) Urine Bacteria None seen /hpf (None Seen) Urine Mucus Few (None Seen) Urine Glucose 2+ mg/dL (Normal) H Microbiology Microbiology Date/Time Source Procedure Growth Status 11/23/24 15:12 Blood Blood Culture - Preliminary NO GROWTH AFTER 24 HOURS OF INCUBATION. Resulted 11/23/24 06:33 Catheter Site Gram Stain - Final Resulted 11/23/24 06:33 Catheter Site Wound Culture Pending Resulted 11/11/24 08:38 Bronchial Washings - Final Resulted 11/11/24 08:38 Bronchial Washings - Final Resulted 11/11/24 08:38 Bronchial Washings Pending Resulted 11/11/24 08:38 Bronchial Washings Pending Resulted 11/11/24 08:38 Bronchial Washings - Final See Separate Report... Resulted Labs and/or images reviewed: Labs reviewed by me, Image(s) reviewed by me Assessment/Plan Assessment/Plan Hemoptysis: Consult by Dr. Mix appreciated, status post bronchoscopy by Dr. Mix with the findings of hemorrhage from TAYLER and LLL bronchus Acute on chronic blood loss anemia hemoglobin improved from 6.9 to 8.4 after 1 unit RBC transfusion Stopped with cold saline. 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 Hogan appreciated Status post kidney biopsy pathology report pending Congestive heart failure Pulmonary edema Anemia, microcytic Patient was advised about his current diagnosis management and plan for temporary dialysis Blood cultures done on 11/23/2024 neg Leaking Dialysis cath removed and new dialysis cath will be inserted on 11/26/[address] Mcfarland Plan discussed with: Patient Date of Service: Nov 25, 2024 Billing Provider: SHLOMO GARNER MD Common Visit Codes: [id number] INP/OBS CARE(HIGH) SHLOMO GARNER MD Nov 25, 2024 09:50
--- NOTE | 2024-11-25 12:41 | DVHPN2 ---
Progress Note Date Seen: Nov 25, 2024 Resident Creating Document: SAGAR STEWARD RESIDENT Medical Necessity Reason Pt with a Central, PICC or Fol: No Subjective Review of Systems Patient was seen and examined on the bedside. He is alert oriented x3 and on nasal cannula 4 L Objective vital signs Vital Sign Date Time Temp Pulse Resp B/P (MAP) Pulse Ox O2 Delivery O2 Flow Rate FiO2 11/25/24 12:15 152/95 11/25/24 11:19 66 11/25/24 08:31 98.1 18 95 98.1 11/24/24 20:30 Nasal Cannula* 4 36 Total Intake and Output 11/24/24 11/24/24 11/25/24 15:00 23:00 07:00 Intake Total 530 ml 90 ml Output Total 300 ml 651 ml Balance 230 ml -561 ml medications Current Medications Medications Dose Ordered Sig/Justin Route Start Time Stop Time Status Last Admin Dose Admin Ondansetron HCl 4 mg Q4HP PRN IV 11/09/24 10:30 11/24/24 06:16 4 MG Docusate Sodium 100 mg BIDPRN PRN PO 11/09/24 10:30 11/25/24 11:47 100 MG Acetaminophen 650 mg Q6HP PRN PO 11/09/24 10:30 11/25/24 11:48 650 MG Nitroglycerin 0.4 mg Q5MINP PRN SL 11/09/24 10:30 11/25/24 12:15 0.4 MG Gabapentin 100 mg BID PO 11/09/24 22:00 11/25/24 10:15 100 MG Duloxetine HCl 30 mg DAILY PO 11/10/24 10:00 11/22/24 09:45 30 MG Patient Own Medication 1 tab DAILY PO 11/10/24 10:00 UNV Nifedipine 60 mg DAILY PO 11/10/24 10:00 11/25/24 10:18 60 MG Multivit/Ca Carb/ B Cmplx/FA/Prenat 1 tab DAILY PO 11/15/24 10:00 11/25/24 10:16 1 TAB Alprazolam 1 mg TID PO 11/15/24 14:00 11/22/24 15:24 1 MG Pantoprazole Sodium 40 mg DAILY PO 11/16/24 10:00 11/25/24 10:16 40 MG Epoetin Man-epbx 10,000 unit MWF@2100 [place] 11/17/24 21:00 Hold 11/17/24 23:38 10,000 UNIT Calcitriol 0.25 mcg DAILY PO 11/18/24 10:00 11/25/24 10:16 0.25 MCG Trimethoprim/ Sulfamethoxazole 1 tab TUTHSA PO 11/20/24 10:00 11/25/24 10:15 1 TAB Calcium Acetate 1,334 mg BIDWM PO 11/19/24 11:00 11/25/24 10:16 1,334 MG Metoprolol Tartrate 100 mg BID PO 11/19/24 22:00 11/25/24 10:19 100 MG Prednisone 40 mg DAILY PO 11/20/24 10:00 11/25/24 10:15 40 MG Examination Physical examination: General Appearance: Alert, Oriented X3, on 4 L oxygen through nasal cannula HEENT: Atraumatic, PERRLA, EOMI, Mucous membrane moist/pink Respiratory: Right IJ tunneled dialysis catheter in the chest, Bilateral rales. Cardiovascular: Regular rate, Normal S1, Normal S2, No murmurs, no chest wall tenderness Abdominal: Normal bowel sounds, Soft, No tenderness, No hepatospenomegaly, No masses Extremities: No edema, No clubbing, No cyanosis, Normal pulses, No tenderness/swelling Skin: No rashes, No breakdown, No significant lesion Neuro: Normal speech, Strength at 5/5 X4 ext, Normal tone, Sensation intact, Cranial nerves 3-12 NL, Reflexes 2+ Psych/Mental Status: Could not be assessed. laboratory and microbiology Laboratory Tests 11/25/24 04:11 11/23/24 05:49 Test 11/25/24 04:11 Range/Units Serum Glucose 88 74-106 mg/dL Microbiology Date/Time Source Procedure Growth Status 11/23/24 15:12 Blood Blood Culture - Preliminary NO GROWTH AFTER 24 HOURS OF INCUBATION. Resulted 11/23/24 06:33 Catheter Site Gram Stain - Final Resulted 11/23/24 06:33 Catheter Site Wound Culture - Preliminary Resulted 11/11/24 08:38 Bronchial Washings - Final Resulted 11/11/24 08:38 Bronchial Washings - Final Resulted 11/11/24 08:38 Bronchial Washings - Preliminary Resulted 11/11/24 08:38 Bronchial Washings - Preliminary Resulted 11/11/24 08:38 Bronchial Washings - Final See Separate Report... 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 Status post for his dose of rituximab 1 g IV 11/18 Acute on chronic hypochromic microcytic anemia Acute hypoxic respiratory failure secondary to multifocal pneumonia chronic diastolic heart failure with preserved ejection fraction History of liver cirrhosis Hypoalbuminemia Hyperphosphatemia Hyperparathyroidism Plan: Removed tunnel catheter from right side by IR because of the discharge coming out from the catheter site Blood culture is negative and pending wound culture from catheter site Scheduled for placement of left-sided tunnel catheter tomorrow on 11/27/24 by IR Hemodialysis tomorrow Arranged outpatient chair time with .. renal Care on Friday, and Friday Next IV rituximab in 1 month/ dec 19 2024 ,,informed dr.sunil brown,cake wrapper to arrange and follow - Recommended taper dose of steroid over next few weeks . Continue PCP prophylaxis with Bactrim Discussed with outpatient patient cake wrapper who will follow the patient about patient's 2nd dose of Rituxan in 1 month and biopsy results . Thank you so much for the opportunity to consult on your patient. Nephro team will follow the patient. In case of any questions or concerns please feel free to reach out. Plan discussed with Dr. De Leon . The patient and caregiver team agreed to the plan. Addendum Patient seen and examined, plan discussed with resident. Agree with above, we will follow closely Plan discussed with: Patient, Other (RN) Dietary Evaluation Review Comments: Nutrition Recommendation 1) Consider 2gm Na diet 2) Monitor PO intake, lab values, weight trend, and I/O Expected Outcomes/Goals: Lab values to improve Fu 3-5 days SAGAR STEWARD Nov 25, 2024 12:41 MEGAN DE LEON MD Nov 25, 2024 21:57
[2024-11-25] MEDS: HYDROcodone-ACET 5/325MG TAB PO PRN (15:43)
[2024-11-26] VITALS (10 sets, daily range): BP systolic 133–158; BP diastolic 75–97; PULSE 54–71; RESP 16–20; TEMP 97.9–98.7; O2SAT 91–100
[2024-11-26 08:03] LABS: Anion Gap 11 (5-15); Chloride 103 mmol/L (98-107)
[2024-11-26 08:05] LABS: Calcium 7.9 mg/dL (8.7-10.4); Carbon Dioxide 32 mmol/L (20-31); Potassium 3.2 mmol/L (3.5-5.1); Sodium 146 mmol/L (136-145)
[2024-11-26 08:09] LABS: Glucose 88 mg/dL (74-106)
[2024-11-26 08:10] LABS: BUN/Creatinine Ratio 8.0 (10.0-20.0)
[2024-11-26 08:11] LABS: Blood Urea Nitrogen 46 mg/dL (9-23)
[2024-11-26] MEDS: HEPARIN IN NS 1000Units/500mL 0 ML ONE (08:27)
--- NOTE | 2024-11-26 08:31 | DVHPN2 ---
Reviewed: Care Plan, H&P, Labs, Medications, Previous Orders, Radiology Changes from previous H/P or p: No Changes Eyes: No Pain, No Vision change, No Conjunctivae inflammation, No Eyelid inflammation, No Other, No Redness ENT: No Ear pain, No Ear discharge, No Nose pain, No Nose discharge, No Nose congestion, No Mouth pain, No Mouth swelling, No Throat pain, No Throat swelling, No Other Cardiovascular: No Chest Pain, No Palpitations, No Orthopnea, No Paroxysmal Noc. Dyspnea, No Edema, No Lt Headedness, No Other Respiratory: Cough; No Dry; Shortness of breath, SOB with excertion; No Wheezing; Hemoptysis; No Pleuritic Pain, No Sputum, No Other Gastrointestinal: No Nausea, No Vomiting, No Abdominal Pain, No Diarrhea, No Constipation, No Melena, No Hematochezia, No Other Genitourinary: No Dysuria, No Frequency, No Incontinence, No Hematuria, No Retention, No Other Musculoskeletal: No other, No neck pain, No shoulder pain, No arm pain, No back pain, No hand pain, No leg pain, No foot pain Skin: No Rash, No Lesions, No Jaundice, No Bruising, No Other Objective Vitals Vital Signs Date Time Temp Pulse Resp B/P (MAP) Pulse Ox O2 Delivery O2 Flow Rate FiO2 11/26/24 05:00 98.3 54 16 144/78 (100) 99 98.3 11/25/24 20:00 Nasal Cannula* 4 36 Intake/Output Intake and Output 11/26/24 06:59 Intake Total 700 ml Output Total 650 ml Balance 50 ml Intake Oral 700 ml Output Urine Total 650 ml # Bowel Movements 1 Medications Current Medications Medications Dose Ordered Sig/Justin Route Start Time Stop Time Status Last Admin Dose Admin Ondansetron HCl 4 mg Q4HP PRN IV 11/09/24 10:30 11/25/24 20:55 4 MG Docusate Sodium 100 mg BIDPRN PRN PO 11/09/24 10:30 11/25/24 11:47 100 MG Acetaminophen 650 mg Q6HP PRN PO 11/09/24 10:30 11/25/24 11:48 650 MG Nitroglycerin 0.4 mg Q5MINP PRN SL 11/09/24 10:30 11/25/24 12:15 0.4 MG Gabapentin 100 mg BID PO 11/09/24 22:00 11/25/24 21:53 100 MG Duloxetine HCl 30 mg DAILY PO 11/10/24 10:00 11/22/24 09:45 30 MG Patient Own Medication 1 tab DAILY PO 11/10/24 10:00 UNV Nifedipine 60 mg DAILY PO 11/10/24 10:00 11/25/24 10:18 60 MG Multivit/Ca Carb/ B Cmplx/FA/Prenat 1 tab DAILY PO 11/15/24 10:00 11/25/24 10:16 1 TAB Alprazolam 1 mg TID PO 11/15/24 14:00 11/26/24 05:57 1 MG Pantoprazole Sodium 40 mg DAILY PO 11/16/24 10:00 11/25/24 10:16 40 MG Epoetin Man-epbx 10,000 unit MWF@2100 [place] 11/17/24 21:00 Hold 11/17/24 23:38 10,000 UNIT Calcitriol 0.25 mcg DAILY PO 11/18/24 10:00 11/25/24 10:16 0.25 MCG Trimethoprim/ Sulfamethoxazole 1 tab TUTHSA PO 11/20/24 10:00 11/25/24 10:15 1 TAB Calcium Acetate 1,334 mg BIDWM PO 11/19/24 11:00 11/25/24 18:34 1,334 MG Metoprolol Tartrate 100 mg BID PO 11/19/24 22:00 11/25/24 21:52 100 MG Prednisone 40 mg DAILY PO 11/20/24 10:00 11/25/24 10:15 40 MG Acetaminophen/ Hydrocodone Bitart 1 tab Q6HPRN PRN PO 11/25/24 13:00 11/25/24 20:56 1 TAB Laboratory Results Laboratory Tests 11/23/24 05:49 11/26/24 06:14 Chemistry Test 11/26/24 06:14 Calcium Level 7.9 mg/dL (8.7-10.4) L Urinalysis Test 11/09/24 00:00 11/09/24 10:00 11/09/24 14:59 11/19/24 14:00 Urine Protein/Creatinine Ratio 3.15 Urine Total Protein 70.6 mg/dL (1-14) H Urine Amorphous Crystals Few /hpf (None Seen) Urine Creatinine 22.28 mg/dL (30.0-125.0) L Urine Sodium 89 mmol/L (40-220) Urine Color Light-brown (Yellow) Urine Clarity Turbid (Clear) H Urine pH 5.5 (5.0-9.0) Urine Specific [place] 1.011 (1.001-1.035) Urine Protein 2+ (Negative) H Urine Ketones Negative (Negative) Urine Blood 3+ /uL (Negative) H Urine Nitrite Negative (Negative) Urine Bilirubin Negative (Negative) Urine Urobilinogen Normal mg/dL (Negative) Urine Leukocyte Esterase Trace /uL (Negative) Urine RBC 1479 /hpf (0 - 3) Urine Microscopic WBC 50 /HPF (0-3) H Urine Squamous Epithelial Cells Few /hpf (<5) Urine Bacteria None seen /hpf (None Seen) Urine Mucus Few (None Seen) Urine Glucose 2+ mg/dL (Normal) H Microbiology Microbiology Date/Time Source Procedure Growth Status 11/23/24 15:12 Blood Blood Culture - Preliminary NO GROWTH AFTER 48 HOURS OF INCUBATION. Resulted 11/23/24 06:33 Catheter Site Gram Stain - Final Resulted 11/23/24 06:33 Catheter Site Wound Culture - Preliminary Resulted 11/11/24 08:38 Bronchial Washings - Final Resulted 11/11/24 08:38 Bronchial Washings - Final Resulted 11/11/24 08:38 Bronchial Washings - Preliminary Resulted 11/11/24 08:38 Bronchial Washings - Preliminary Resulted 11/11/24 08:38 Bronchial Washings - Final See Separate Report... Resulted Assessment/Plan Assessment/Plan Hemoptysis: Consult by Dr. Mix appreciated, status post bronchoscopy by Dr. Mix with the findings of hemorrhage from TAYLER and LLL bronchus Acute on chronic blood loss anemia hemoglobin improved from 6.9 to 8.4 after 1 unit RBC transfusion Stopped with cold saline. 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 Hogan appreciated Status post kidney biopsy pathology report pending Congestive heart failure Pulmonary edema Anemia, microcytic Patient was advised about his current diagnosis management and plan for temporary dialysis Blood cultures done on 11/23/2024 neg Leaking Dialysis cath removed and new dialysis cath will be inserted on 11/26/[address] Mcfarland Plan discussed with: Patient My Orders Orders - SHLOMO GARNER MD Procedure Category Date Status Time Hydrocodone-Acet PHA 11/25/24 In Process 5/325mg Tab (Ross 13:00 Cleanse Wound With JOSEPHINE 11/25/24 In Process Wound Clean 12:50 * Dietary Consult CONS 11/25/24 Transmitted 15:00 Date of Service: Nov 26, 2024 Billing Provider: SHLOMO GARNER MD Common Visit Codes: [id number] INP/OBS CARE(HIGH) SHLOMO GARNER MD Nov 26, 2024 08:31
[2024-11-26] MEDS: fentaNYL CITRATE 100 MCG/2 ML VL ONE (09:10)
[2024-11-26] MEDS: HEPARIN SODIUM (PORCINE) 5000 UNITS/ML 1ML VIAL ONE ×2 (09:10→09:21)
[2024-11-26] MEDS: MIDAZOLAM HCL 2MG/2ML 2ml VIAL (1mg/ml) ONE (09:10)
[2024-11-26] MEDS: LIDOCAINE 2%HCL (LOCAL ANESTH.) INJ 20ML MDV ONE (09:38)
--- NOTE | 2024-11-26 11:50 | DVH ---
XY Insertion of Venous Cath, 11/26/2024. HISTORY: HD CATH PL PROCEDURE: Informed consent was obtained. The patient was placed supine on the interventional table. A limited localization ultrasound of the left neck was obtained. The left neck were prepped with chlo rhexidine which was allowed to dry and draped in the usual sterile fashion. Time out was performed. I V sedation was administered. The skin and the soft tissues were infiltrated with 1% Lidocaine mixed w ith Epinephrine. With real-time ultrasound guidance, the internal jugular vein was accessed with a mi cropuncture kit, and an image documenting patency was recorded to PACS. A subcutaneous tunneled tract was created from the right upper chest to the venotomy site. A 14.5 [place] path, 23 cm long he modialysis catheter was advanced through the tunneled tract. Fluoroscopy was used to advance a guidewire through the internal jugular vein into the inferior vena cava. Following serial dilatation, a 15 Burkinan peel-away sheath was introduced, though which was adva nced the catheter into the right atrium. The catheter tip position was confirmed with fluoroscopy. Th ere was satisfactory flow in both lumens. The catheter lumens were flushed with saline and heparin wa s left indwelling in the catheter. The neck incision site was closed with a Vicryl suture and dress ed sterilely. The catheter was sutured at the skin surface and exit site also dressed sterilely. No i mmediate complication was identified. FLUOROSCOPY TIME:0.7 minutes. DAP:62.35 SEDATION: Dr. Mcfarland was personally responsible for the administration of moderate sedation during the procedure performed, including the use of an independent trained observer who had no other duties dur ing the procedure. The drugs utilized were IV fentanyl and versed (see nursing log for details). The total time of supervision by the attending physician was approximately 30 minutes. FINDINGS: Widely patent left IJV. Post procedure image demonstrates smooth course of the hemodialysi s catheter with the tip in the right atrium. IMPRESSION: 1. Successful placement of 14.5 uzbek brand, 23 cm long hemodialysis catheter through left internal jugular vein. Plan: Please contact IR for removal when no longer needed.
[2024-11-26] MEDS: POTASSIUM EFFERVESENT TAB 25 MEQ PO ONE (14:28)
--- NOTE | 2024-11-26 16:25 | DVHPN2 ---
Progress Note Date Seen: Nov 26, 2024 Resident Creating Document: SAGAR STEWARD RESIDENT Medical Necessity Reason Pt with a Central, PICC or Fol: No Subjective Review of Systems Patient was seen and examined on the bedside. He is alert oriented x3 and on nasal cannula 4 L. Objective vital signs Vital Sign Date Time Temp Pulse Resp B/P (MAP) Pulse Ox O2 Delivery O2 Flow Rate FiO2 11/26/24 13:00 98.1 67 18 152/86 (108) 91 98.1 11/26/24 09:57 Nasal Cannula 4.0 11/26/24 09:57 36 Total Intake and Output 11/25/24 11/25/24 11/26/24 15:00 23:00 07:00 Intake Total 300 ml 400 ml Output Total 550 ml 100 ml Balance -250 ml 300 ml medications Current Medications Medications Dose Ordered Sig/Justin Route Start Time Stop Time Status Last Admin Dose Admin Ondansetron HCl 4 mg Q4HP PRN IV 11/09/24 10:30 11/25/24 20:55 4 MG Docusate Sodium 100 mg BIDPRN PRN PO 11/09/24 10:30 11/25/24 11:47 100 MG Acetaminophen 650 mg Q6HP PRN PO 11/09/24 10:30 11/25/24 11:48 650 MG Nitroglycerin 0.4 mg Q5MINP PRN SL 11/09/24 10:30 11/25/24 12:15 0.4 MG Gabapentin 100 mg BID PO 11/09/24 22:00 11/26/24 11:46 100 MG Duloxetine HCl 30 mg DAILY PO 11/10/24 10:00 11/22/24 09:45 30 MG Patient Own Medication 1 tab DAILY PO 11/10/24 10:00 UNV Nifedipine 60 mg DAILY PO 11/10/24 10:00 11/26/24 11:47 60 MG Multivit/Ca Carb/ B Cmplx/FA/Prenat 1 tab DAILY PO 11/15/24 10:00 11/26/24 11:45 1 TAB Alprazolam 1 mg TID PO 11/15/24 14:00 11/26/24 05:57 1 MG Pantoprazole Sodium 40 mg DAILY PO 11/16/24 10:00 11/26/24 11:45 40 MG Epoetin Man-epbx 10,000 unit MWF@2100 [place] 11/17/24 21:00 11/17/24 23:38 10,000 UNIT Calcitriol 0.25 mcg DAILY PO 11/18/24 10:00 11/26/24 11:46 0.25 MCG Trimethoprim/ Sulfamethoxazole 1 tab TUTHSA PO 11/20/24 10:00 11/25/24 10:15 1 TAB Calcium Acetate 1,334 mg BIDWM PO 11/19/24 11:00 11/26/24 11:44 1,334 MG Metoprolol Tartrate 100 mg BID PO 11/19/24 22:00 11/26/24 11:47 100 MG Prednisone 40 mg DAILY PO 11/20/24 10:00 11/26/24 11:45 40 MG Acetaminophen/ Hydrocodone Bitart 1 tab Q6HPRN PRN PO 11/25/24 13:00 11/26/24 11:02 1 TAB Examination Physical examination: General Appearance: Alert, Oriented X3, on 4 L oxygen through nasal cannula HEENT: Atraumatic, PERRLA, EOMI, Mucous membrane moist/pink Respiratory: Left IJ tunneled dialysis catheter in the chest, Bilateral rales. Cardiovascular: Regular rate, Normal S1, Normal S2, No murmurs, no chest wall tenderness Abdominal: Normal bowel sounds, Soft, No tenderness, No hepatospenomegaly, No masses Extremities: No edema, No clubbing, No cyanosis, Normal pulses, No tenderness/swelling Skin: No rashes, No breakdown, No significant lesion Neuro: Normal speech, Strength at 5/5 X4 ext, Normal tone, Sensation intact, Cranial nerves 3-12 NL, Reflexes 2+ Psych/Mental Status: Could not be assessed. laboratory and microbiology Laboratory Tests 11/26/24 06:14 11/23/24 05:49 Test 11/26/24 06:14 Range/Units Serum Glucose 88 74-106 mg/dL Microbiology Date/Time Source Procedure Growth Status 11/25/24 09:15 Catheter Tip Other Aerobic Culture - Preliminary Resulted 11/23/24 15:12 Blood Blood Culture - Preliminary NO GROWTH AFTER 72 HOURS OF INCUBATION. Resulted 11/11/24 08:38 Bronchial Washings - Final Resulted 11/11/24 08:38 Bronchial Washings - Final Resulted 11/11/24 08:38 Bronchial Washings - Preliminary Resulted 11/11/24 08:38 Bronchial Washings - Preliminary Resulted 11/11/24 08:38 Bronchial Washings - Final See Separate Report... 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 Can be discharged after dialysis Arranged outpatient chair time with .S. renal Care on Friday, and Friday Next IV rituximab in 1 month Recommended taper dose of steroid over next few weeks . Continue PCP prophylaxis with Bactrim Discussed with outpatient patient acid adjuster who will follow the patient about patient's 2nd dose of Rituxan in 1 month and biopsy results . Plan discussed with Dr. Pierre Plan discussed with: Patient, Other Dietary Evaluation Review Comments: Nutrition Recommendation 1) Consider 2gm Na diet 2) Monitor PO intake, lab values, weight trend, and I/O Expected Outcomes/Goals: Lab values to improve Fu 3-5 days SAGAR STEWARD RESIDENT Nov 26, 2024 16:25
[2024-11-27] MEDS: ZOLPIDEM TARTRATE 5 MG TAB PO PRN (00:32)
[2024-11-27 01:03] VITALS: BP 147/90; PULSE 71; RESP 18; TEMP 98.5; O2SAT 95
[2024-11-27 05:05] VITALS: BP 150/91; PULSE 74; RESP 18; TEMP 98.2; O2SAT 96
[2024-11-27 06:52] LABS: Anion Gap 11 (5-15); Chloride 104 mmol/L (98-107); Potassium 4.0 mmol/L (3.5-5.1)
[2024-11-27 06:58] LABS: BUN/Creatinine Ratio 7.3 (10.0-20.0)
[2024-11-27 07:25] LABS: Blood Urea Nitrogen 40 mg/dL (9-23); Calcium 8.1 mg/dL (8.7-10.4); Carbon Dioxide 31 mmol/L (20-31); Glucose 159 mg/dL (74-106); Sodium 146 mmol/L (136-145)
[2024-11-27 08:00] VITALS: PULSE 77
[2024-11-27 09:00] VITALS: BP 179/97; PULSE 76; RESP 12; TEMP 98.2; O2SAT 97
--- NOTE | 2024-11-27 09:46 | ECG ---
[facility] Test Date: 2024-11-25 Test Time: 12:00:01 Pat Name: KERRI OCONNELL Department: Respiratoy Room: 0220T A Gender: M Shelving Supervisor: : 1965 Requested By: SHLOMO GARNER Order Number: [id number] Reading MD: Andrea Gallegos Measurements Intervals [place] Rate: 59 P: 42 LA: 144 QRS: 63 QRSD: 98 T: 33 QT: 450 QTc: 446 Interpretive Statements Sinus rhythm Atrial premature complex Electronically Signed On 11-27-2024 17:35:40 PDT by Andrea Gallegos Please click the below link to view image of tracing.
--- NOTE | 2024-11-27 10:05 | DVHPN2 ---
Reviewed: Care Plan, H&P, Labs, Medications, Previous Orders, Radiology Changes from previous H/P or p: No Changes Eyes: No Pain, No Vision change, No Conjunctivae inflammation, No Eyelid inflammation, No Other, No Redness ENT: No Ear pain, No Ear discharge, No Nose pain, No Nose discharge, No Nose congestion, No Mouth pain, No Mouth swelling, No Throat pain, No Throat swelling, No Other Cardiovascular: No Chest Pain, No Palpitations, No Orthopnea, No Paroxysmal Noc. Dyspnea, No Edema, No Lt Headedness, No Other Respiratory: Cough; No Dry; Shortness of breath, SOB with excertion; No Wheezing; Hemoptysis; No Pleuritic Pain, No Sputum, No Other Gastrointestinal: No Nausea, No Vomiting, No Abdominal Pain, No Diarrhea, No Constipation, No Melena, No Hematochezia, No Other Genitourinary: No Dysuria, No Frequency, No Incontinence, No Hematuria, No Retention, No Other Musculoskeletal: No other, No neck pain, No shoulder pain, No arm pain, No back pain, No hand pain, No leg pain, No foot pain Skin: No Rash, No Lesions, No Jaundice, No Bruising, No Other Objective Vitals Vital Signs Date Time Temp Pulse Resp B/P (MAP) Pulse Ox O2 Delivery O2 Flow Rate FiO2 11/27/24 09:45 Nasal Cannula* 2 28 11/27/24 09:00 98.2 76 12 179/97 (124) 97 98.2 Intake/Output Intake and Output 11/27/24 07:00 Intake Total 1300 ml Output Total 450 ml Balance 850 ml Intake Oral 1300 ml Output Urine Total 450 ml # Voids 4 # Bowel Movements 1 Medications Current Medications Medications Dose Ordered Sig/Justin Route Start Time Stop Time Status Last Admin Dose Admin Ondansetron HCl 4 mg Q4HP PRN IV 11/09/24 10:30 11/25/24 20:55 4 MG Docusate Sodium 100 mg BIDPRN PRN PO 11/09/24 10:30 11/25/24 11:47 100 MG Acetaminophen 650 mg Q6HP PRN PO 11/09/24 10:30 11/25/24 11:48 650 MG Nitroglycerin 0.4 mg Q5MINP PRN SL 11/09/24 10:30 11/25/24 12:15 0.4 MG Gabapentin 100 mg BID PO 11/09/24 22:00 11/27/24 08:42 100 MG Duloxetine HCl 30 mg DAILY PO 11/10/24 10:00 11/22/24 09:45 30 MG Patient Own Medication 1 tab DAILY PO 11/10/24 10:00 UNV Nifedipine 60 mg DAILY PO 11/10/24 10:00 11/27/24 08:44 60 MG Multivit/Ca Carb/ B Cmplx/FA/Prenat 1 tab DAILY PO 11/15/24 10:00 11/27/24 08:43 1 TAB Alprazolam 1 mg TID PO 11/15/24 14:00 11/26/24 21:24 1 MG Pantoprazole Sodium 40 mg DAILY PO 11/16/24 10:00 11/27/24 08:42 40 MG Epoetin Man-epbx 10,000 unit MWF@2100 SC 11/17/24 21:00 11/26/24 21:21 10,000 UNIT Calcitriol 0.25 mcg DAILY PO 11/18/24 10:00 11/27/24 08:42 0.25 MCG Trimethoprim/ Sulfamethoxazole 1 tab TUTHSA PO 11/20/24 10:00 11/27/24 08:41 1 TAB Calcium Acetate 1,334 mg BIDWM PO 11/19/24 11:00 11/27/24 08:40 1,334 MG Metoprolol Tartrate 100 mg BID PO 11/19/24 22:00 11/27/24 08:44 100 MG Prednisone 40 mg DAILY PO 11/20/24 10:00 11/27/24 08:42 40 MG Acetaminophen/ Hydrocodone Bitart 1 tab Q6HPRN PRN PO 11/25/24 13:00 11/27/24 08:58 1 TAB Zolpidem Tartrate 5 mg HSPRN PRN PO 11/27/24 00:30 11/27/24 00:32 5 MG Laboratory Results Laboratory Tests 11/23/24 05:49 11/27/24 05:32 Chemistry Test 11/27/24 05:32 Calcium Level 8.1 mg/dL (8.7-10.4) L Urinalysis Test 11/09/24 00:00 11/09/24 10:00 11/09/24 14:59 11/19/24 14:00 Urine Protein/Creatinine Ratio 3.15 Urine Total Protein 70.6 mg/dL (1-14) H Urine Amorphous Crystals Few /hpf (None Seen) Urine Creatinine 22.28 mg/dL (30.0-125.0) L Urine Sodium 89 mmol/L (40-220) Urine Color Light-brown (Yellow) Urine Clarity Turbid (Clear) H Urine pH 5.5 (5.0-9.0) Urine Specific [place] 1.011 (1.001-1.035) Urine Protein 2+ (Negative) H Urine Ketones Negative (Negative) Urine Blood 3+ /uL (Negative) H Urine Nitrite Negative (Negative) Urine Bilirubin Negative (Negative) Urine Urobilinogen Normal mg/dL (Negative) Urine Leukocyte Esterase Trace /uL (Negative) Urine RBC 1479 /hpf (0 - 3) Urine Microscopic WBC 50 /HPF (0-3) H Urine Squamous Epithelial Cells Few /hpf (<5) Urine Bacteria None seen /hpf (None Seen) Urine Mucus Few (None Seen) Urine Glucose 2+ mg/dL (Normal) H Microbiology Microbiology Date/Time Source Procedure Growth Status 11/25/24 09:15 Catheter Tip Other Aerobic Culture - Preliminary Resulted 11/23/24 15:12 Blood Blood Culture - Preliminary NO GROWTH AFTER 72 HOURS OF INCUBATION. Resulted 11/11/24 08:38 Bronchial Washings - Final Resulted 11/11/24 08:38 Bronchial Washings - Final Resulted 11/11/24 08:38 Bronchial Washings - Preliminary Resulted 11/11/24 08:38 Bronchial Washings - Preliminary Resulted 11/11/24 08:38 Bronchial Washings - Final See Separate Report... Resulted Labs and/or images reviewed: Labs reviewed by me, Image(s) reviewed by me Assessment/Plan Assessment/Plan Hemoptysis: Consult by Dr. Mix appreciated, status post bronchoscopy by Dr. Mix with the findings of hemorrhage from TAYLER and LLL bronchus Acute on chronic blood loss anemia hemoglobin improved from 6.9 to 8.4 after 1 unit RBC transfusion Stopped with cold saline. 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 Hogan appreciated Status post kidney biopsy pathology report pending Congestive heart failure Pulmonary edema Anemia, microcytic Patient was advised about his current diagnosis management and plan for temporary dialysis Blood cultures done on 11/23/2024 neg New dialysis cath inserted on 11/26/[address] Mcfarland Patient is discharged home. Plan discussed with: Patient My Orders Orders - SHLOMO GARNER MD Procedure Category Date Status Time Insertion Of Venous XY 11/26/24 Resulted Cath 10:36 Discharge DISCHARGE 11/27/24 Transmitted 09:59 * Computer [employer] Analyst CONS 11/27/24 Verified Consult Date of Service: Nov 27, 2024 Billing Provider: SHLOMO GARNER MD Common Visit Codes: [id number] INP/OBS CARE(HIGH) SHLOMO GARNER MD Nov 27, 2024 10:05
[2024-11-27 11:59] VITALS: BP 179/97; PULSE 76; RESP 18; TEMP 36.8
--- NOTE | 2024-11-27 12:04 | DVHPN2 ---
Progress Note - Dictate Date Seen: Nov 27, 2024 Medical Necessity Reason Pt with a Central, PICC or Fol: No Subjective Patient seen earlier today, awake and alert vital signs Vital Sign Date Time Temp Pulse Resp B/P (MAP) Pulse Ox O2 Delivery O2 Flow Rate FiO2 11/27/24 09:45 Nasal Cannula* 2 28 11/27/24 09:00 98.2 76 12 179/97 (124) 97 98.2 Total Intake and Output 11/26/24 11/26/24 11/27/24 15:00 23:00 07:00 Intake Total 550 ml 750 ml Output Total 450 ml Balance 100 ml 750 ml medications Current Medications Medications Dose Ordered Sig/Justin Route Start Time Stop Time Status Last Admin Dose Admin Ondansetron HCl 4 mg Q4HP PRN IV 11/09/24 10:30 11/25/24 20:55 4 MG Docusate Sodium 100 mg BIDPRN PRN PO 11/09/24 10:30 11/25/24 11:47 100 MG Acetaminophen 650 mg Q6HP PRN PO 11/09/24 10:30 11/25/24 11:48 650 MG Nitroglycerin 0.4 mg Q5MINP PRN SL 11/09/24 10:30 11/25/24 12:15 0.4 MG Gabapentin 100 mg BID PO 11/09/24 22:00 11/27/24 08:42 100 MG Duloxetine HCl 30 mg DAILY PO 11/10/24 10:00 11/22/24 09:45 30 MG Patient Own Medication 1 tab DAILY PO 11/10/24 10:00 UNV Nifedipine 60 mg DAILY PO 11/10/24 10:00 11/27/24 08:44 60 MG Multivit/Ca Carb/ B Cmplx/FA/Prenat 1 tab DAILY PO 11/15/24 10:00 11/27/24 08:43 1 TAB Alprazolam 1 mg TID PO 11/15/24 14:00 11/26/24 21:24 1 MG Pantoprazole Sodium 40 mg DAILY PO 11/16/24 10:00 11/27/24 08:42 40 MG Epoetin Man-epbx 10,000 unit MWF@2100 SC 11/17/24 21:00 11/26/24 21:21 10,000 UNIT Calcitriol 0.25 mcg DAILY PO 11/18/24 10:00 11/27/24 08:42 0.25 MCG Trimethoprim/ Sulfamethoxazole 1 tab TUTHSA PO 11/20/24 10:00 11/27/24 08:41 1 TAB Calcium Acetate 1,334 mg BIDWM PO 11/19/24 11:00 11/27/24 08:40 1,334 MG Metoprolol Tartrate 100 mg BID PO 11/19/24 22:00 11/27/24 08:44 100 MG Prednisone 40 mg DAILY PO 11/20/24 10:00 11/27/24 08:42 40 MG Acetaminophen/ Hydrocodone Bitart 1 tab Q6HPRN PRN PO 11/25/24 13:00 11/27/24 08:58 1 TAB Zolpidem Tartrate 5 mg HSPRN PRN PO 11/27/24 00:30 11/27/24 00:32 5 MG objective Gen: nad heent: nc/at, mmm lungs: cta anteriorly cvs: no rub neuro: alert and oriented laboratory and microbiology Laboratory Tests 11/27/24 05:32 11/23/24 05:49 Test 11/27/24 05:32 Range/Units Serum Glucose 159 H 74-106 mg/dL Assessment/Plan IMP: 1) 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 2) acute kidney injury requiring kidney replacement therapy 3) history of cirrhosis 4) heart failure with preserved ejection fraction 5) anemia REC: - noted plans for discharge to home - per verbal report, patient has outpatient dialysis chair time arranged at [facility] - per verbal report, physician to physician report regarding continuity of care has been provided to [facility] illustrator set Dietary Evaluation Review Comments: Nutrition Recommendation 1) Consider 2gm Na diet 2) Monitor PO intake, lab values, weight trend, and I/O Expected Outcomes/Goals: Lab values to improve Fu 3-5 days Plan discussed with: ELENA Segundo MD Nov 27, 2024 12:04
[2024-11-27 13:00] VITALS: BP 171/99; PULSE 67; RESP 14; TEMP 99.8; O2SAT 98
== END 2024-11-27 15:40 | disposition home or self-care (01) | DRG 346 ==
LOC: EDBD 08:16 → EDUNIT# 08:16 → ER 08:16 → OVERFLOW 11:07 → TELE-CENTR 16:43
PROVIDERS: ADMIT Family Medicine; ATTEND Family Medicine
PROC: 0BC78ZZ Extirpation of Matter from Left Main Bronchus, Via Natural or Artificial Opening Endoscopic (ICD-10-PCS; 2024-11-11)
PROC: 0B9G8ZX Drainage of Left Upper Lung Lobe, Via Natural or Artificial Opening Endoscopic, Diagnostic (ICD-10-PCS; principal; 2024-11-11 08:16)
PROC: 30233N1 Transfusion of Nonautologous Red Blood Cells into Peripheral Vein, Percutaneous Approach (ICD-10-PCS; 2024-11-13)
PROC: 5A1D70Z Performance of Urinary Filtration, Intermittent, Less than 6 Hours Per Day (ICD-10-PCS; 2024-11-16)
PROC: 0TB03ZX Excision of Right Kidney, Percutaneous Approach, Diagnostic (ICD-10-PCS; 2024-11-16)
PROC: 0JH63XZ Insertion of Tunneled Vascular Access Device into Chest Subcutaneous Tissue and Fascia, Percutaneous Approach (ICD-10-PCS; 2024-11-16)
PROC: B543ZZA Ultrasonography of Right Jugular Veins, Guidance (ICD-10-PCS; 2024-11-16)
PROC: 02H633Z Insertion of Infusion Device into Right Atrium, Percutaneous Approach (ICD-10-PCS; 2024-11-16)
PROC: B5181ZA Fluoroscopy of Superior Vena Cava using Low Osmolar Contrast, Guidance (ICD-10-PCS; 2024-11-16)
PROC: BT41ZZZ Ultrasonography of Right Kidney (ICD-10-PCS; 2024-11-16)
PROC: 5A1D70Z Performance of Urinary Filtration, Intermittent, Less than 6 Hours Per Day (ICD-10-PCS; 2024-11-18)
PROC: 5A1D70Z Performance of Urinary Filtration, Intermittent, Less than 6 Hours Per Day (ICD-10-PCS; 2024-11-21)
PROC: 5A1D70Z Performance of Urinary Filtration, Intermittent, Less than 6 Hours Per Day (ICD-10-PCS; 2024-11-23)
PROC: 5A1D70Z Performance of Urinary Filtration, Intermittent, Less than 6 Hours Per Day (ICD-10-PCS; 2024-11-24)
PROC: 0JH63XZ Insertion of Tunneled Vascular Access Device into Chest Subcutaneous Tissue and Fascia, Percutaneous Approach (ICD-10-PCS; 2024-11-26)
PROC: 02H633Z Insertion of Infusion Device into Right Atrium, Percutaneous Approach (ICD-10-PCS; 2024-11-26)
PROC: B5181ZA Fluoroscopy of Superior Vena Cava using Low Osmolar Contrast, Guidance (ICD-10-PCS; 2024-11-26)
PROC: B544ZZA Ultrasonography of Left Jugular Veins, Guidance (ICD-10-PCS; 2024-11-26)
PROC: 5A1D70Z Performance of Urinary Filtration, Intermittent, Less than 6 Hours Per Day (ICD-10-PCS; 2024-11-26)
DX: I77.82 Antineutrophilic cytoplasmic antibody [ANCA] vasculitis (principal); N17.0 Acute kidney failure with tubular necrosis; J96.01 Acute respiratory failure with hypoxia; G93.41 Metabolic encephalopathy; J15.69 Pneumonia due to other Gram-negative bacteria; M31.7 Microscopic polyangiitis; J15.9 Unspecified bacterial pneumonia; I13.0 Hypertensive heart and chronic kidney disease with heart failure and stage 1 through stage 4 chronic kidney disease, or unspecified chronic kidney disease; I50.32 Chronic diastolic (congestive) heart failure; D62 Acute posthemorrhagic anemia; E88.09 Other disorders of plasma-protein metabolism, not elsewhere classified; R04.2 Hemoptysis; Z20.822 Contact with and (suspected) exposure to COVID-19; K74.60 Unspecified cirrhosis of liver; N18.4 Chronic kidney disease, stage 4 (severe); D50.9 Iron deficiency anemia, unspecified; E21.3 Hyperparathyroidism, unspecified; M79.89 Other specified soft tissue disorders; Z82.49 Family history of ischemic heart disease and other diseases of the circulatory system
CPT/HCPCS: 31624; 36415; 36558; 70450; 71045; 76775; 76942; 80048; 80053; 81001; 82140; 82306; 82570; 82728; 83516; 83520; 83540; 83550; 83735; 83880; 83970; 84100; 84156; 84300; 84550; 85025; 85610; 85652; 85730; 86160; 86225; 86235; 86256; 86704; 86706; 86708; 86803; 86850; 86900; 86901; 86920; 87040; 87070; 87081; 87205; 87340; 87426; 87804; 90935; 93005; 94640; 96365; 97110; 97116; 97163; 97530; 99152; C1894; G0378; J1642; J1756; J2003; J2250; J2405

== ENCOUNTER 2024-11-30 17:11 | Inpatient (IN) | payer MEDICAID, OTHER ==
[~2024-11-30] VITALS: Ht 165.1 cm; Wt 70.0 kg
[~2024-11-30 17:11] MED LIST changes: +BACDST PO; +CALC0.25 PO; +CALC667C PO; +DULO1CAP5 PO; +METO-158 PO; +NIFE1TAB30 PO
[2024-11-30 17:30] VITALS: O2SAT 95
[2024-11-30] MEDS: methylPREDNISolone SOD SUCC 125 MG/2 ML VL IV ONE (17:45)
[2024-11-30] MEDS: FUROSEMIDE 40 MG/4 ML VIAL IV ONE (17:45)
--- NOTE | 2024-11-30 17:53 | ED.PDOC ---
Altered Mental Status HPI Comments HPI: 59-year-old male presents to the emergency department via EMS with a chief complaint of ALOC onset today. Per EMS, patient is coming from [facility], 911 was called due to patient experiencing shortness of breath, was altered, was found pale and unresponsive by staff. Upon EMS arrival patient was responsive to painful stimuli, O2 sat was 80% on RA, was placed on an NRB. Per EMS, patient had an O2 machine in his room, had no oxygen on. Patient has a dialysis catheter on left chest wall, has not started dialysis according to ems. Patient is answering questions, states he is experiencing mild abdominal pain, states he does use oxygen as needed. Patient has a DNR form with comfort me asures only. Patient is high dose morphine dependent due to chronic pain syndrome. Patient is a poor historian. No other symptoms or modifying factors present at this time. No reported fall or traumas. Patient comes from [facility] facility. Patient is not on blood thinners. Denies bleeding from anywhere. Initial Vitals BP: 105/45 HR: 98 RR: 24 O2: Temp: 97.4 F Past Medical History: CHF, COPD, HTN, chronic pain syndrome, anxiety, insomnia Past Surgical History: Denies Social History: Denies ETOH, smoking, and drug use. Medications: [place], Morphine Allergies: NKDA pale, minimal respiratory distress, trace pitting edema, RT rhonchi HPI: Poor Historian. REVIEW OF SYSTEMS: CONSTITUTIONAL: Denies acute: fever, diaphoresis, chills, HEAD: Denies acute: headache, photophobia Eyes: Denies acute: Double vision, vision loss, eye pain, eye discharge. EARS: Denies acute: tinnitus, hearing loss, ear discharge, ear pain, THROAT: Denies acute: sore throat, swelling, difficulty swallowing , pain with swallowing, change in voice. NECK: Denies acute: neck pain, neck swelling, stiff neck. HEART: Denies acute : chest pain, palpitations, LUNGS: Denies acute: wheezing, cough, hemoptysis ABDOMEN: Denies acute: abdominal pain, Nausea, Vomiting, diarrhea, melena , hematemesis, hematochezia SKIN: Denies acute: rash, redness, lesions, itchiness. EXTREMITIES: Denies acute: calf pain, numbness, tingling, weakness, denies pain in extremity. Denies acute: Low back pain. Neuro: Denies acute: focal neurological deficit, motor or sensory focal neurological deficit, seizure like activity, confusion, dizziness, change in mental status, loss of bowel or bladder function, cauda equina like symptoms. : Denies acute: dysuria, hematuria, flank pain, increase in urinary frequency. PSYCH: Denies acute: hallucination, suicidal ideation, homicidal ideation. PHYSICAL EXAM: General: ----mild to moderate----acute distress, awake and alert. Head: normocephalic, atraumatic. Neck: supple, trachea is midline, no swelling. Throat: Normal phonation. Eyes:, no erythema, no purulent discharge, no proptosis, no icterus. Heart: regular rate, regular rhythm, no significant murmur appreciated. Lungs: Mild to moderate respiratory distress, No wheezing, noted rhonchi, no crackles. No stridors Abdomen: non tender to palpation, non distended, soft, no guarding, no rebound, + bowel sounds. Neuro: Awake, Alert, oriented to name, self, situation, follows commands GCS=15. Speech is normal. Skin: no petechia, no purpura, no cyanosis, noted-pale, not jaundice. Lower extremities: --trace - Pitting edema no deformity, no focal swelling, no calf TTP. Makes eye contact. moves all four extremities. Face: no apparent facial droop. No reported history or fall or trauma. ED COURSE: DISCLAIMER: This medical document was created using an electronic medical record system with voice recognition software and computerized dictation system. Although this document has been carefully reviewed, there might still be some phonetic and typographical errors. Occasional wrong-word or "sound-alike" substitutions may have occurred due to the inherent limitations of voice recognition software. These areas are purely typographical due to imperfections of the software programs and do not reflect any compromise in the patient's medical care. Please read the chart carefully and recognize, using context, where these substitutions have occurred. Chief Complaint: ALOC Time Seen by MD: 17:35 Reviewed Notes: Medications, Allergies Allergies: Coded Allergies: NO KNOWN ALLERGIES (Unverified , 11/30/24) Information Source: Patient, Emergency Med Personnel Mode of Arrival: EMS Severity: Moderate Timing: Hours Duration: Since onset Prehospital treatment: Oxygen Past Medical History PAST MEDICAL HISTORY: Anxiety, CHF, COPD, HTN Past Medical History (Other): chronic pain syndrome Surgical History: Denies all surgeries Family History Family History: Reviewed,noncontributory to illness, No family hx of Cancer, No family hx of DM, No family hx of Heart toyin, No family hx of HTN, No family hx ofKidney toyin, No family hx of Liver toyin, No family hx of Lung toyin, No family hx of Stroke Social History Smoker: Non-Smoker Alcohol: Denies ETOH Use Drugs: Denies Drug Use Lives In: Assisted Care Was a procedure done? Was a procedure done?: No Differential Diagnosis (ALOC) Differential Diagnosis: Other Other Differential Diagnosis DDX include CVA, TGA, cerebellar ischemia/infarct, carotid stenosis, Intracranial mass/infection/bleed, encephalopathy, electrolyte abnormality, thyroid disease, hydrocephalus, hypoglycemia, drug toxicity, cardiac arrhythmia, seizure, infection in the elderly, Hyperammonemia., kidney failure., sepsis. As far as dyspnea: DDx include ACS, unstable angina, anxiety, PE, pneumothroax, neoplasm, cardiac ischemia, COPD, asthma, CHF, pleural effusion, tobacco abuse, pneumonia, hypoxia, hypercapnia, anemia., infection/sepsis., pulmonary edema. Asthma, Cardiac tamponade, infection. X-Ray, Labs, Meds, VS Vital Signs Date Time Temp Pulse Resp B/P (MAP) Pulse Ox O2 Delivery O2 Flow Rate FiO2 11/30/24 19:08 95 22 55.0 100 11/30/24 18:59 92 19 98/46 (63) 88 11/30/24 18:00 98.2 93 26 94/48 (63) 95 98.2 11/30/24 17:45 94/48 11/30/24 17:30 95 Non-Rebreather 12 N/A 11/30/24 17:15 97.4 98 24 105/45 97.4 11/30/24 17:11 100 Lab Test 11/30/24 18:16 11/30/24 18:02 Range/Units Blood Gas Specimen Type Arterial Blood Gas Sample Site Right radial Blood Gas Patient Temperature 37.0 Arterial Blood Date Drawn [id number] Arterial Blood pH 7.134 *L 7.350-7.450 Arterial Blood Partial Pressure CO2 33.1 L 35.0-48.0 mmHg Arterial Blood Partial Pressure O2 73.4 L 83.0-108.0 mmHg Arterial Blood HCO3 10.9 L 21.0-28.0 mmol/L Arterial Blood Oxygen Saturation 86.5 L 94.0-98.0 % Arterial Blood Base Excess -16.8 L -2.0-3.0 mmol/L Arterial Blood Oxyhemoglobin 84.7 L 94.0-98.0 % Arterial Blood Carboxyhemoglobin 1.1 0.5-1.5 % Arterial Blood Methemoglobin 1.0 0.0-1.5 % Sebastian Test Modified Blood Gas Total Hemoglobin 7.00 L 13.5-17.5 g/dL Blood Gas Liter Flow 15.00 Blood Gas Modality Mask - nrb FiO2 % 100.0 Blood Gas Critical Value Read Back Yes Blood Gas Notified Whom allyssa Villanueva md Blood Gas Notified Time [id number] Blood Gas Notified By naye Royal rrt White Blood Count 6.7 4.4-10.8 10^3/uL Red Blood Count 2.41 L 4.5-5.90 10^6/uL Hemoglobin 6.4 *L 13.5-17.5 g/dL Hematocrit 21.8 L 41.0-53.0 % Mean Corpuscular Volume 90.5 80.0-100.0 fL Mean Corpuscular Hemoglobin 26.5 L 28.0-32.0 pg Mean Corpuscular Hemoglobin Concent 29.2 L 32.0-36.0 g/dL Red Cell Distribution Width 26.0 H 11.8-14.3 % Platelet Count 103 L 140-450 10^3/uL Mean Platelet Volume 9.3 6.9-10.8 fL Neutrophils (%) (Auto) 91.8 H 37.0-80.0 % Lymphocytes (%) (Auto) 1.4 L 10.0-50.0 % Monocytes (%) (Auto) 6.7 0.0-12.0 % Eosinophils (%) (Auto) 0.0 0.0-7.0 % Basophils (%) (Auto) 0.1 0.0-2.0 % Neutrophils # (Auto) 6.1 1.6-8.6 10 ^3/uL Lymphocytes # (Auto) 0.1 L 0.4-5.4 10 ^3/uL Monocytes # (Auto) 0.4 0-1.3 10 ^3/uL Eosinophils # (Auto) 0 0-0.8 10 ^3/uL Basophils # (Auto) 0 0-0.2 10 ^3/uL Nucleated Red Blood Cells 0.0 % Prothrombin Time 12.9 H 9.3-11.8 sec Prothrombin Time INR 1.24 H 0.9-1.15 Activated Partial Thromboplast Time 35.4 H 24.5-34.5 SEC Sodium Level 146 H 136-145 mmol/L Potassium Level 6.3 *H 3.5-5.1 mmol/L Chloride Level 101 98-107 mmol/L Carbon Dioxide Level 13 L 20-31 mmol/L Anion Gap 32 H 5-15 Blood Urea Nitrogen 108 *H 9-23 mg/dL Creatinine 10.40 *H 0.700-1.30 mg/dL Glomerular Filtration Rate Calc 5 >90 mL/min BUN/Creatinine Ratio 10.4 10.0-20.0 Serum Glucose 156 H 74-106 mg/dL Lactic Acid Level 14.7 *H 0.4-2.0 mmol/L Calcium Level 7.8 L 8.7-10.4 mg/dL Magnesium Level 2.3 1.6-2.6 mg/dL Total Bilirubin 0.7 0.2-1.0 mg/dL Aspartate Amino Transferase (AST) 559 H 13-40 U/L Alanine Aminotransferase (ALT) 330 H 7-40 U/L Alkaline Phosphatase 97 46-116 U/L Ammonia 36 H 11-32 umol/L Troponin I High Sensitivity 95 *H </=54 ng/L B-Type Natriuretic Peptide 1613.79 0-100 pg/mL Total Protein 5.9 5.7-8.2 g/dL Albumin 3.5 3.2-4.8 g/dL Current Medications Medications (Trade) Dose Ordered Sig/Justin Route Start Time Stop Time Status Last Admin Albuterol (Ventolin Medneb) 2.5 mg ONCE ONCE NEB 11/30/24 17:45 11/30/24 17:47 DC 11/30/24 18:41 Ipratropium [place] (Atrovent Medneb) 1 mg ONCE ONCE NEB 11/30/24 17:45 11/30/24 17:47 DC 11/30/24 18:41 Methylprednisolone Sodium Succinate (Solu Medrol) 125 mg ONCE ONCE IV 11/30/24 17:45 11/30/24 17:47 DC 11/30/24 17:45 Furosemide (Lasix Injection) 40 mg ONCE ONCE IV 11/30/24 17:45 11/30/24 17:47 DC 11/30/24 17:45 Piperacillin Sod/ Tazobactam Sod 100 ml @ 100 mls/hr ONCE ONCE IV 11/30/24 18:15 11/30/24 19:14 DC 11/30/24 18:15 X-Ray, Labs, Meds, VS Comment I was Called to bedside by nurse, due to patient becoming hypoxic and bradycardiac. Patient was pitting bag-valve mask. Patient was unresponsive. Patient's pupils were dilated and non-reactive to light, no corneal reflex, no gag reflex, Heart monitor shows Asystole patient is DNR DNI with comfort measures only. TOKrupa called at 1954. Abnormal lab results were not communicated to me. Upon initial evaluation, sepsis protocol was initiated immediately at the door. Patient has a dialysis catheter in place. We were informed that the patient never had dialysis yet. Based on chest x-ray findings as well we suspected possible congestive heart failure or volume overload. Fluids were held initially. Patient was given Lasix and DuoNeb treatment albuterol. On arrival patient appeared pale but not tachycardic. Patient admitted to the medicine team and they ordered blood transfusion and p laced a consult for Nephrology given the patient's creatinine. Patient was found with multi organ failure involving the kidney and the liver and the heart and the lungs. Patient has been on non-rebreather 15 L throughout his ED course and later on high-flow oxygen. Time of 1ST Reevaluation: 18:05 Reevaluation 1ST: Unchanged Patient Education/Counseling: Diagnosis, Treatment Family Education/Counseling: No Family Present Comments MDM: patient presented with the above HPI.---altered level of consciousness/dyspnea/---workup was initiated. patient was found with the above mentioned diagnosis. the following medications were ordered: please refer to order lists of meds and tests obtained by myself Dr. Villanueva. Escalation of care considered: Consideration of escalation to observation or admission Patient was ADMITTED to the medicine team for further evaluation and treatment of their presentation. However shortly after patient in the ED. Patient was DNR DNI with comfort measures only. All the reports of any imaging studies that were ordered by myself were reviewed by myself. Departure 1 Departure Time of Disposition: 18:16 Impression: Primary Impression: Acute respiratory distress Additional Impressions: Hypoxemia Sepsis Cardiopulmonary arrest DNR (do not resuscitate) Acute renal failure Hyperkalemia Severe anemia Elevated LFTs Elevated troponin Morphine dependence Pneumonia Volume overload Disposition: ADMITTED INPATIENT Admit to: Tele Condition: Guarded Additional Instructions: Patient in the ED. Time of 19:54 Discharged With: Other Critical Care Note Critical Care Time?: Yes (90 min-critical care time only) I personally scribed for MATILDE VILLANUEVA J DO ([email or web address]) on 11/30/24 at 17:53. Electronically submitted by Coreen Berry ([email or web address]). I personally scribed for KAYKEAYE J DO ([email or web address]) on 11/30/24 at 17:54. Electronically submitted by Coreen Berry ([email or web address]). I personally scribed for KAY,MATILDE J DO ([email or web address]) on 11/30/24 at 17:59. Electronically submitted by Coreen Berry ([email or web address]). I personally scribed for KAY,MATILDE J DO ([email or web address]) on 11/30/24 at 20:00. Electronically submitted by Adelaida Gomez ([email or web address]). I personally scribed for KAY,MATILDE J DO ([email or web address]) on 11/30/24 at 20:04. Electronically submitted by Adelaida Gomez ([email or web address]). I personally scribed for KAY,MATILDE J DO ([email or web address]) on 11/30/24 at 20:10. Electronically submitted by Adelaida Gomez ([email or web address]). KEYA VILLANUEVAE J DO Nov 30, 2024 17:53
[2024-11-30 18:00] VITALS: TEMP 98.2
[2024-11-30] MEDS: PIPERACILLIN-TAZOB 3.375GM 100 ML IV ONE (18:15)
[2024-11-30 18:27] LABS: Base Excess -16.8 mmol/L (-2.0-3.0)
--- NOTE | 2024-11-30 18:29 | DVH ---
CLINICAL HISTORY: SOB TECHNIQUE: Single view of the chest was obtained. COMPARISON: XY CHEST XRAY 1 VIEW on DOS: 11/11/24, XY CHEST PORTABLE on DOS: 11/10/24, XY CHEST XRAY 1 VIEW on DOS: 11/09/24, XY CHEST PORTABLE on DOS: 11/01/24 FINDINGS: A tunnel left dialysis catheter terminates within right atrium. The heart size is mildly enlarged wit h pulmonary vascular congestion. There are diffuse bilateral lung opacities. IMPRESSION: Pulmonary vascular congestion. Diffuse bilateral lung opacities, likely pulmonary edema and/or pneumonia.
[2024-11-30] MEDS: ALBUTEROL SULF 2.5 MG/0.5ML(0.5%) NEB SOLN NEB ONE (18:41)
[2024-11-30] MEDS: IPRATROPIUM BROM 0.5 MG/2.5ML INH SOL NEB ONE (18:41)
[2024-11-30 18:42] LABS: Hematocrit 21.8 % (41.0-53.0); Mean Corpuscular Hemoglobin 26.5 pg (28.0-32.0); Mean Corpuscular Volume 90.5 fL (80.0-100.0); Nucleated Red Blood Cells % 0.0 %
[2024-11-30 18:51] LABS: Hemoglobin 6.4 g/dL (13.5-17.5)
[2024-11-30 19:00] LABS: Albumin 3.5 g/dL (3.2-4.8); Alkaline Phosphatase 97 U/L (46-116); Anion Gap 32 (5-15); BUN/Creatinine Ratio 10.4 (10.0-20.0); Chloride 101 mmol/L (98-107); Magnesium 2.3 mg/dL (1.6-2.6); Total Protein 5.9 g/dL (5.7-8.2)
[2024-11-30 19:01] LABS: Bilirubin, Total 0.7 mg/dL (0.2-1.0)
[2024-11-30 19:08] LABS: Alanine Aminotransferase 330 U/L (7-40); Calcium 7.8 mg/dL (8.7-10.4); Carbon Dioxide 13 mmol/L (20-31); Glucose 156 mg/dL (74-106); Sodium 146 mmol/L (136-145)
[2024-11-30 19:13] LABS: Lactic Acid w/Reflex 14.7 mmol/L (0.4-2.0); Potassium 6.3 mmol/L (3.5-5.1)
--- NOTE | 2024-11-30 19:13 | DVHHP2 ---
Admitting Diagnosis: acute hypoxia, acute anemia History of Present Illness HPI 59-year-old male presents to the emergency department via EMS with a chief complaint of ALOC onto today. Per EMS, patient is coming from [facility], 911 was called due to patient experiencing shortness of breath, was altered, was found pale and unresponsive by staff. Upon EMS arrival patient was responsive to painful stimuli, O2 sat was 80% on RA, was placed on an NRB. Per EMS, patient had an O2 machine in his room, had no oxygen on. Patient has a dialysis catheter on left chest wall, has not started dialysis according to staff. Patient is answering questions, states he is experiencing abdominal pain, states he does use oxygen as needed. Patient is morphine dependent due to chronic pain syndrome. Patient is a poor historian. No other symptoms or modifying factors present at this time. Home Meds Active Scripts Calcitriol (Calcitriol) 0.25 Mcg Cap, 1 CAP PO DAILY, #30 CAP 5 Refills Prov:SHLOMO GARNER MD 11/23/24 Sulfamethoxazole W/Trimethopri (Bactrim Ds Tablet) 1 Tab Tb, 1 TAB PO BID, #20 TAB Prov:SHLOMO GARNER MD 11/23/24 Nifedipine (Nifedipine Er) 60 Mg Tab, 60 MG PO DAILY, #30 TAB Prov:SHLOMO GARNER MD 11/23/24 Calcium Acetate (Phosphate Bin (Calcium Acetate) 667 Mg Cap, 1334 MG PO TIDWM, #180 CAP WITH MEALS Prov:SHLOMO GARNER MD 11/23/24 Metoprolol Tartrate (Metoprolol Tartrate) 50 Mg Tab, 50 MG PO BID, #60 TAB Prov:SHLOMO GARNER MD 11/23/24 Furosemide (Furosemide) 40 Mg Tab, 1 TAB PO DAILY for 30 Days, #30 TAB 1 Refill Prov:RADHA FISCHER MD 11/04/24 Reported Medications Duloxetine HCl (Duloxetine HCl) 30 Mg Cap, 1 CAP PO DAILY 11/09/24 Nifedipine (Nifedipine Er) 60 Mg Tab, 1 TAB PO DAILY 11/09/24 Nitroglycerin (NTROSTAT SUBLINGUAL) 0.4 Mg Sl 11/03/24 Ondansetron HCl (Ondansetron) 4 Mg Tab 11/03/24 Hydrocodone-Acetaminophen (Hydrocodone Bitartrate/AC 10-300 mg) 1 Tab Tab, PO 11/03/24 Gabapentin (Gabapentin) 100 Mg Cap, 100 MG PO BID 11/01/24 Lactulose (Lactulose) 10 Gm/15 Ml Suzy, 30 ML PO BIDP PRN 11/01/24 Docusate Sodium (Docusate Sodium) 100 Mg Cap, 1 CAP PO BID 11/01/24 Hydralazine Hcl (Hydralazine Hcl) 100 Mg Tab, 1 TAB PO TID 11/01/24 Metoprolol Tartrate (LOPRESSOR TABLET) 50 Mg Tb, 1 TAB PO BID 11/01/24 Morphine Sulfate (Morphine Sulfate) 30 Mg Tab, 1 TAB PO QID PRN 11/01/24 Zolpidem Tartrate (Zolpidem Tartrate) 5 Mg Tab, 1 TAB PO QHSP PRN 11/01/24 Review of Systems Constitutional: No symptom reported Pulmonary/Respiratory: Dyspnea Cardiovascular: No symptom reported Gastrointestinal: No symptom reported Musculoskeletal: No symptom reported H&P Exam Vital Signs Vital Signs Date Time Temp Pulse Resp B/P (MAP) Pulse Ox O2 Delivery O2 Flow Rate FiO2 11/30/24 18:59 92 19 98/46 (63) 88 11/30/24 18:00 98.2 98.2 11/30/24 17:30 Non-Rebreather 12 N/A General Appeara: Well developed Head Exam: Normal inspection Neck Exam: Normal inspection SEPSIS Sepsis Screen Date sepsis recognized/suspect: Nov 30, 2024 Time Sepsis recognized/suspect: 1734 Recent Procedure: No On Antibiotic Therapy: No Respiratory Rate >20: Yes Heart Rate >90: Yes Temp<36 C (96.8 F) or >38.3 C: No SBP <90 or MAP <65 mmHG: No New Acute Mental Status Change: Yes Is the patient on CPAP, BIPAP,: No Physician Orders Clutch Inspector (11/30/24 ) B-Type Natriuretic Peptide (11/30/24 17:43) Comprehensive Metabolic Panel (11/30/24 17:43) Lactic Acid W/ Reflex Order (11/30/24 17:43) Troponin-I Hs (11/30/24 17:43) Urinalysis (11/30/24 17:43) Chest Portable (11/30/24 17:43) Magnesium (11/30/24 17:43) Electrocardigram (11/30/24 17:43) Type And Screen (11/30/24 17:43) Troponin-I Hs (11/30/24 18:43) Troponin-I Hs (11/30/24 20:43) Electrocardigram (11/30/24 18:43) Piperacillin-Tazob 3.375gm (Zosyn 3.375g (11/30/24 18:15) Abg W/ Co-Ox (11/30/24 18:08) PTPTT (11/30/24 18:08) Accucheck (11/30/24 18:08) Blood Culture (11/30/24 18:08) Notify Md If Map <65 Or Bp<90 (11/30/24 18:08) If Map<65 Start Vasopressor (11/30/24 18:08) Sepsis Fluid Exclusion: (11/30/24 18:08) Sepsis Reassesment After Fluid (11/30/24 19:08) Oxygen By High-Flow (11/30/24 18:54) Vital Signs Date Time Temp Pulse Resp B/P (MAP) Pulse Ox O2 Delivery O2 Flow Rate FiO2 11/30/24 18:59 92 19 98/46 (63) 88 11/30/24 18:00 98.2 93 26 94/48 (63) 95 98.2 11/30/24 17:45 94/48 11/30/24 17:30 95 Non-Rebreather 12 N/A 11/30/24 17:15 97.4 98 24 105/45 97.4 11/30/24 17:11 100 Laboratory Tests Test 11/30/24 18:02 Lactic Acid Level Pending White Blood Count 6.7 10^3/uL (4.4-10.8) Medications Medications Dose Ordered Sig/Justin Route Start Time Stop Time Status Last Admin Dose Admin Albuterol 2.5 mg ONCE ONCE NEB 11/30/24 17:45 11/30/24 17:47 DC 11/30/24 18:41 2.5 MG Furosemide 40 mg ONCE ONCE IV 11/30/24 17:45 11/30/24 17:47 DC 11/30/24 17:45 40 MG Ipratropium Sherman 1 mg ONCE ONCE NEB 11/30/24 17:45 11/30/24 17:47 DC 11/30/24 18:41 1 MG Methylprednisolone Sodium Succinate 125 mg ONCE ONCE IV 11/30/24 17:45 11/30/24 17:47 DC 11/30/24 17:45 125 MG Labs/Xrays Labs Test 11/30/24 18:16 11/30/24 18:02 Range/Units Blood Gas Specimen Type Arterial Blood Gas Sample Site Right radial Blood Gas Patient Temperature 37.0 Arterial Blood Date Drawn [id number] Arterial Blood pH 7.134 *L 7.350-7.450 Arterial Blood Partial Pressure CO2 33.1 L 35.0-48.0 mmHg Arterial Blood Partial Pressure O2 73.4 L 83.0-108.0 mmHg Arterial Blood HCO3 10.9 L 21.0-28.0 mmol/L Arterial Blood Oxygen Saturation 86.5 L 94.0-98.0 % Arterial Blood Base Excess -16.8 L -2.0-3.0 mmol/L Arterial Blood Oxyhemoglobin 84.7 L 94.0-98.0 % Arterial Blood Carboxyhemoglobin 1.1 0.5-1.5 % Arterial Blood Methemoglobin 1.0 0.0-1.5 % Sebastian Test Modified Blood Gas Total Hemoglobin 7.00 L 13.5-17.5 g/dL Blood Gas Liter Flow 15.00 Blood Gas Modality Mask - nrb FiO2 % 100.0 Blood Gas Critical Value Read Back Yes Blood Gas Notified Whom allyssa Mendoza md Blood Gas Notified Time [id number] Blood Gas Notified By naye Royal rrt White Blood Count 6.7 4.4-10.8 10^3/uL Red Blood Count 2.41 L 4.5-5.90 10^6/uL Hemoglobin 6.4 *L 13.5-17.5 g/dL Hematocrit 21.8 L 41.0-53.0 % Mean Corpuscular Volume 90.5 80.0-100.0 fL Mean Corpuscular Hemoglobin 26.5 L 28.0-32.0 pg Mean Corpuscular Hemoglobin Concent 29.2 L 32.0-36.0 g/dL Red Cell Distribution Width 26.0 H 11.8-14.3 % Platelet Count 103 L 140-450 10^3/uL Mean Platelet Volume 9.3 6.9-10.8 fL Neutrophils (%) (Auto) 91.8 H 37.0-80.0 % Lymphocytes (%) (Auto) 1.4 L 10.0-50.0 % Monocytes (%) (Auto) 6.7 0.0-12.0 % Eosinophils (%) (Auto) 0.0 0.0-7.0 % Basophils (%) (Auto) 0.1 0.0-2.0 % Neutrophils # (Auto) 6.1 1.6-8.6 10 ^3/uL Lymphocytes # (Auto) 0.1 L 0.4-5.4 10 ^3/uL Monocytes # (Auto) 0.4 0-1.3 10 ^3/uL Eosinophils # (Auto) 0 0-0.8 10 ^3/uL Basophils # (Auto) 0 0-0.2 10 ^3/uL Nucleated Red Blood Cells 0.0 % Ammonia 36 H 11-32 umol/L Assessment/Plan Primary Diagnosis acute anemia hypoxia, acute respiratory failure acute bacterial PNA admitted to telemetry empirical iV abx pt soon after admission primary cause: cardiopulmonary arrest (minutes) secondary: acute hypoxic resp failure (hours) tertiary cause: bacterial pneumonia (days) time: >45 minutes Admitting Diagnosis: a Plan discussed with: Other ([facility] staff) NELSON GARCIA DO Nov 30, 2024 19:13
[2024-11-30 19:14] LABS: Blood Urea Nitrogen 108 mg/dL (9-23)
[2024-11-30] MEDS ORDERED: MORPHINE SULFATE INJ 2 MG/ml SYRG IV PRN ×2 (19:15)
[2024-11-30] MEDS ORDERED: ACETAMINOPHEN 325 MG TAB PO PRN (19:15)
[2024-11-30] MEDS ORDERED: NITROGLYCERIN 0.4 MG SL TAB SL PRN (19:15)
[2024-11-30] MEDS ORDERED: HYDROcodone-ACET 5/325MG TAB PO PRN (19:15)
[2024-11-30 19:30] VITALS: BP 100/45; PULSE 103; RESP 30; O2SAT 97
[2024-11-30 19:57] LABS: INR 1.24 (0.9-1.15); Partial Thromboplastin Time 35.4 SEC (24.5-34.5); Prothrombin Time 12.9 sec (9.3-11.8)
--- NOTE | 2024-12-01 11:20 | ECG ---
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
== END 2024-11-30 19:54 | DRG 469 ==
LOC: ER 17:11 → EDBD 17:11 → EDUNIT# 19:09 → OVERFLOW 19:09
PROVIDERS: ADMIT Nurse Practitioner; ATTEND Nurse Practitioner
PROC: 5A0935A Assistance with Respiratory Ventilation, Less than 24 Consecutive Hours, High Flow/Velocity Cannula (ICD-10-PCS; principal; 2024-11-30)
DX: N17.0 Acute kidney failure with tubular necrosis (principal); I46.9 Cardiac arrest, cause unspecified; J96.01 Acute respiratory failure with hypoxia; G92.8 Other toxic encephalopathy; E72.20 Disorder of urea cycle metabolism, unspecified; J15.9 Unspecified bacterial pneumonia; Z66 Do not resuscitate; E87.20 Acidosis, unspecified; I21.A1 Myocardial infarction type 2; N18.6 End stage renal disease; I11.0 Hypertensive heart disease with heart failure; I50.9 Heart failure, unspecified; D64.9 Anemia, unspecified; F41.9 Anxiety disorder, unspecified; G89.4 Chronic pain syndrome; E87.5 Hyperkalemia; F11.20 Opioid dependence, uncomplicated; J44.0 Chronic obstructive pulmonary disease with (acute) lower respiratory infection
CPT/HCPCS: 36415; 36600; 71045; 80053; 82140; 82805; 83605; 83735; 83880; 84484; 85025; 85610; 85730; 86850; 86900; 86901; 87040; 93005; 94640; 96365; 96375; G0378; J2543